=== PATIENT | male | born 1930 | race Caucasian/White ===

== ENCOUNTER 2016-07-27 11:29 | Inpatient (IN) | payer MEDICARE, MEDICAID ==
[~2016-07-27] VITALS: Ht 165.1 cm; Wt 78.5 kg
[~2016-07-27 11:29] MED LIST: ASPI-558 PO; BETH25TA PO; CITA-49 PO; FLUT16SP12 NS; HYDR-2119 PO; HYDR-3989 PO; LOVA20TA PO; METO-277 PO; TAMS0.4C47 PO
--- OUTSIDE RECORDS SUMMARY | 2016-07-27 11:32 | XMS REPORT | Referral Summary ---
Author Author [facility] Organization [facility] Address Unknown Phone Unavailable Care Team Providers Care Machine Hand Name Role Phone Oksana Galeano Primary Care Physician [phone] Encounter VC Date(s): 11/21/15 - 11/21/15 [facility] [address] [place] [id number] Discharge Disposition: 01-Home or Self Care Attending Physician: Oscar Galeano MD Admitting Physician: Oscar Galeano MD Vital Signs Most recent to 1 oldest [Reference Range]: Blood Pressure 110/70 mmHg [90-140/60-90 mmHg] (11/21/15 2:17 PM) Problem List Condition Effective Dates Status Health Status Informant Allergies(Confirmed) Active Benign essential Resolved HTN(Confirmed) Chronic kidney Active disease (CKD)(Confirmed) Chronic Active UTI(Confirmed) Constipation(Confirm Active ed) Depression(Confirmed Active ) Dysphagia(Confirmed) Resolved Fatigue(Confirmed) Active H/O post-polio Active syndrome(Confirmed) Hearing Active loss(Confirmed) Hyperlipidemia(Confi Resolved rmed) Hyperlipidemia(Confi Active rmed) Elevated blood Active sugar(Confirmed) Ear Resolved infection(Confirmed) Irritable bowel Active syndrome(Confirmed) Late effects of Active polio(Confirmed) Neurogenic Resolved bladder(Confirmed) Osteoarthritis(Confi Resolved rmed) Post polio Resolved syndrome(Confirmed) Rhinitis(Confirmed) Active Tonsillectomy(Confir Resolved med) Diabetes mellitus Active type 2(Confirmed) Ulcer(Confirmed) Active Chickenpox(Confirmed Active ) Wheelchair Active dependence(Confirmed ) Allergies, Adverse Reactions, Alerts Substance Reaction Severity Status doxycycline vomiting Active Medications Aspir 81 81 mg, Oral, Daily, 0 Refill(s) Start Date: 12/04/13 Status: Ordered bethanechol 25 mg oral tablet 25 mg 1 tabs, Oral, TID, # 90 tabs, 5 Refill(s), Pharmacy: [facility] # [id number], 1 tabs Oral TID Start Date: 08/10/15 Status: Ordered citalopram 20 mg oral tablet See Instructions, TAKE ONE TABLET BY MOUTH EVERY DAY, # 90 tabs, eRx: [facility] #[id number], TAKE ONE TABLET BY MOUTH EVERY DAY Start Date: 11/16/15 Status: Ordered Flonase 50 mcg/inh nasal spray See Instructions, INHALE 2 SPRAYS INTO EACH NOSTRIL DAILY, # 16 unknown unit, 1 Refill(s), eRx: [facility] #[id number], INHALE 2 SPRAYS INTO EACH NOSTRIL DAILY Start Date: 06/09/15 Status: Ordered Glucometer strips (DME) DME Item use to test blood sugars daily, See Instructions, # 1 Each, 0 Refill(s) , Supply Start Date: 12/04/13 Status: Ordered hydrALAZINE 25 mg oral tablet See Instructions, TAKE TWO TABLETS BY MOUTH TWICE A DAY, # 360 tabs, eRx: [facility] #[id number], TAKE TWO TABLETS BY MOUTH TWICE A DAY Start Date: 09/15/15 Status: Ordered lactulose 10 g/15 mL oral syrup See Instructions, TAKE 15 ML BY MOUTH TWO TIMES A DAY, # 946 unknown unit, eRx: [facility] #[id number], TAKE 15 ML BY MOUTH TWO TIMES A DAY Start Date: 03/19/14 Status: Ordered lovastatin 20 mg oral tablet See Instructions, TAKE ONE TABLET BY MOUTH EVERY DAY, # 90 tabs, eRx: [facility] #[id number], TAKE ONE TABLET BY MOUTH EVERY DAY Start Date: 09/20/15 Status: Ordered Metoprolol Succinate ER 50 mg oral tablet, extended release See Instructions, TAKE ONE TABLET BY MOUTH TWICE A DAY, # 180 tabs, eRx: [facility] #[id number], TAKE ONE TABLET BY MOUTH TWICE A DAY Start Date: 10/07/15 Status: Ordered mupirocin 2% topical ointment See Instructions, APPLY A SMALL AMOUNT TO THE AFFECTED AREA BY TOPICAL ROUTE TWO TIMES A DAY, # 22 unknown unit, eRx: [facility] #[id number], APPLY A SMALL AMOUNT TO THE AFFECTED AREA BY TOPICAL ROUTE TWO TIMES A DAY Start Date: 04/05/15 Status: Ordered Neurontin 100 mg oral capsule See Instructions, 2 caps Oral in the morning and 3 at hs, 0 Refill(s) Start Date: 12/04/13 Status: Ordered [place] 5 mg-325 mg oral tablet 1-2 tabs, Oral, q8hr, as needed for pain, # 60 tabs, 0 Refill(s) Start Date: 11/21/15 Status: Ordered ONE TOUCH ULTRA TEST STRIPS See Instructions, TEST BLOOD SUGARS DAILY AND NEEDED, # 50 strip, 2 Refill(s) , eRx: [facility] #[id number], TEST BLOOD SUGARS DAILY AND NEEDED Start Date: 03/29/14 Status: Ordered ONETOUCH ULTRA TEST STRIPS See Instructions, TEST BLOOD SUGARS DAILY AND NEEDED, # 50 strip, 1 Refill(s) , eRx: [facility] #[id number], TEST BLOOD SUGARS DAILY AND NEEDED Start Date: 05/27/15 Status: Ordered Physical therapy Physical therapy, See Instructions, eval and treat as indicated for shoulder pain, # 1 Each, 0 Refill(s) Start Date: 09/19/15 Status: Ordered Power W/C Evaluation Power W/C Evaluation, See Instructions, Please eval for power w/c., # 1 Each, 0 Refill(s) Start Date: 12/03/14 Status: Ordered tamsulosin 0.4 mg oral capsule See Instructions, TAKE ONE CAPSULE BY MOUTH EVERY DAY, # 90 caps, eRx: [facility] #[id number], TAKE ONE CAPSULE BY MOUTH EVERY DAY Start Date: 11/16/15 Status: Ordered Results No data available for this section Immunizations Vaccine Date Refusal Reason influenza virus vaccine, inactivated 03/14/15 influenza virus vaccine, inactivated 02/15/14 influenza virus vaccine, live 02/09/13 influenza virus vaccine, live 01/28/12 pneumococcal 23-polyvalent vaccine 08/01/00 zoster vaccine live 12/15/12 Procedures Procedure Date Related Diagnosis Body Site Destruction (eg, laser surgery, 11/21/15 electrosurgery, cryosurgery, chemosurgery, surgical curettement), premalignant lesions (eg, actinic keratoses); first lesion Cystoscopy using panendoscope1 06/25/14 Calibration of urethra 06/29/13 Cystoscopy 06/29/13 Dilatation of urethra 06/29/13 Cystoscopy 10/03/11 Dilatation of urethra - filiform and 10/03/11 follower2 Dilatation of urethra - filiform and 02/02/11 follower3 Colonoscopy 11/27/04 Polypectomy - sinus Tonsillectomy 1Urethral calibration and dilatation. Insertion of #18 [place] catheter. 2Tight bulbous urethra 3Bulbous urethral stricture Social History Social History Type Response Smoking Status Never smoker Assessment and Plan Extracted from: Title: Ambulatory Patient Education Author: Oscar Galeano MD Date: Family Medicine Cholesterol Cholesterol is a white, waxy, fat-like substance needed by your body in small amounts. The liver makes all the cholesterol you need. Cholesterol is carried from the liver by the blood through the blood vessels. Deposits of cholesterol ( plaque) may build up on blood vessel bryant. These make the arteries narrower and stiffer. Cholesterol plaques increase the risk for heart attack and stroke. You cannot feel your cholesterol level even if it is very high. The only way to know it is high is with a blood test. Once you know your cholesterol levels, you should keep a record of the test results. Work with your health care provider to keep your levels in the desired range. WHAT DO THE RESULTS MEAN? Total cholesterol is a rough measure of all the cholesterol in your blood. LDL is the so-called bad cholesterol. This is the type that deposits cholesterol in the bryant of the arteries. You want this level to be low. HDL is the good cholesterol because it cleans the arteries and carries the LDL away. You want this level to be high. Triglycerides are fat that the body can either burn for energy or store. High levels are closely linked to heart disease. WHAT ARE THE DESIRED LEVELS OF CHOLESTEROL? Total cholesterol below 200. LDL below 100 for people at risk, below 70 for those at very high risk. HDL above 50 is good, above 60 is best. Triglycerides below 150. HOW CAN I LOWER MY CHOLESTEROL? Diet. Follow your diet programs as directed by your health care provider. Choose fish or white meat chicken and turkey, roasted or baked. Limit fatty cuts of red meat, fried foods, and processed meats, such as sausage and lunch meats. Eat lots of fresh fruits and vegetables. Choose whole grains, beans, pasta, potatoes, and cereals. Use only small amounts of olive, corn, or canola oils. Avoid butter, mayonnaise, shortening, or palm kernel oils. Avoid foods with trans fats. Drink skim or nonfat milk and eat low-fat or nonfat yogurt and cheeses. Avoid whole milk, cream, ice cream, egg yolks, and full-fat cheeses. Healthy desserts include tonny food cake, manuel snaps, animal crackers, hard candy, popsicles, and low-fat or nonfat frozen yogurt. Avoid pastries, cakes, pies, and cookies. Exercise. Follow your exercise programs as directed by your health care provider. A regular program helps decrease LDL and raise HDL. A regular program helps with weight control. Do things that increase your activity level like gardening, walking, or taking the stairs. Ask your health care provider about how you can be more active in your daily life. Medicine. Take medicine only as directed by your health care provider. Medicine may be prescribed by your health care provider to help lower cholesterol and decrease the risk for heart disease. If you have several risk factors, you may need medicine even if your levels are normal. This information is not intended to replace advice given to you by your health care provider. Make sure you discuss any questions you have with your health care provider. Document Released: 01/15/2002 Document Revised: 05/13/2015 Document Reviewed: [employer] Patient Information 2016 [employer]. No follow up information was provided. Extracted from: Title: Office Visit Note Author: Oscar Galeano MD Date: 11/21/15 Assessment/Plan Benign essential HTN This issue was reviewed, appears stable, and current therapy continued except as mentioned. Appropriate lab was reviewed from the most recent appropriate entry and lab was ordered if needed in the cpoe/nursing orders, and follow up recommended generally in 90 days and no later then six months. The patient reports their blood pressure has been stable at home and is not having any significant or related problems. There has been no chest pain, chest pressure, soa/garibay. Chronic kidney disease (CKD) This issue was reviewed, appears stable, and current therapy continued except as mentioned. Appropriate lab was reviewed from the most recent appropriate entry and lab was ordered if needed in the cpoe /nursing orders, and follow up recommended generally in 90 days and no later then six months. Chronic UTI This issue was reviewed, appears stable, and current therapy continued except as mentioned. Appropriate lab was reviewed from the most recent appropriate entry and lab was ordered if needed in the cpoe/nursing orders, and follow up recommended generally in 90 days and no later then six months. Seeing [address] PEREZ. Diabetes mellitus type 2 The patient was notified for the need for regular quarterly f/u of their diabetes. Further any pertinent medication, supplies, etc were refilled. Additionally, they are to have annual eye exams, foot exams, and regular care. CLAIRE Wood here. 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 Appropriate lab was reviewed from the most recent appropriate entry and lab was ordered if needed in the cpoe/nursing orders, and follow up recommended generally in 90 days and no later then six months. The patient has been temporarily or permanently wheelchair bound due to medical issues. Hyperlipidemia This issue was reviewed, appears stable, and current therapy continued except as mentioned. Appropriate lab was reviewed from the most recent appropriate entry and lab was ordered if needed in the cpoe/nursing orders, and follow up recommended generally in 90 days and no later then six months. Lab stable. Neurogenic bladder This issue was reviewed, appears stable, and current therapy continued except as mentioned. Appropriate lab was reviewed from the most recent appropriate entry and lab was ordered if needed in the cpoe/nursing orders, and follow up recommended generally in 90 days and no later then six months. [address] PEREZ. Home Health papers completed. Pyogenic granuloma Silver nitrateused to treat this. Routine wound care. The patient has family members present who are agreeable with today's plan and have no additional concerns or requests. CLAIRE here and agreeable.Considering the [facility] program with Dr. AYALA. Wheelchair dependence This issue was reviewed, appears stable, and current therapy continued except as mentioned. Appropriate lab was reviewed from the most recent appropriate entry and lab was ordered if needed in the cpoe/nursing orders, and follow up recommended generally in 90 days and no later then six months. Orders: HYDROcodone-acetaminophen, 1-2 tabs, Oral, q8hr, as needed for pain, # 60 tabs, 0 Refill(s)
--- OUTSIDE RECORDS SUMMARY | 2016-07-27 11:33 | XMS REPORT | Referral Summary ---
Author Organization Unknown Address Unknown Phone Unavailable Care Team Providers Care Casino Enforcement Agent Name Role Phone Oksana Galeano Primary Care Physician [phone] Encounter VC Date(s): 06/17/14 - 06/17/14 [facility], Urology [address] [place] [address] Dr Smith [place] [id number] [place] Discharge Diagnosis: HEMATURIA Discharge Disposition: Home or Self Care Attending Physician: Rafael Aguirre JR, MD Admitting Physician: Rafael Aguirre JR, MD Referring Physician: Oscar Galeano MD Vital Signs Most recent to 1 oldest [Reference Range]: Peripheral Pulse 46 bpm Rate [60-100 bpm] *LOW* (06/17/14 2:23 PM) Blood Pressure 140/70 mmHg [90-140/60-90 mmHg] (06/17/14 2:23 PM) Most recent to 1 oldest [Reference Range]: SpO2 93 % (06/17/14 2:23 PM) Problem List Condition Effective Dates Status Health Status Informant Allergies(Confirmed) Active Benign essential Resolved HTN(Confirmed) Chronic kidney Active disease (CKD)(Confirmed) Constipation(Confirm Active ed) Depression(Confirmed Active ) Dysphagia(Confirmed) Resolved Fatigue(Confirmed) Active Hearing Active loss(Confirmed) Hyperlipidemia(Confi Resolved rmed) Ear Resolved infection(Confirmed) Irritable bowel Active syndrome(Confirmed) Late effects of Active polio(Confirmed) Neurogenic Resolved bladder(Confirmed) Osteoarthritis(Confi Resolved rmed) Post polio Resolved syndrome(Confirmed) Rhinitis(Confirmed) Active Tonsillectomy(Confir Resolved med) Diabetes mellitus Active type 2(Confirmed) Ulcer(Confirmed) Active Chickenpox(Confirmed Active ) Allergies, Adverse Reactions, Alerts Substance Reaction Severity Status doxycycline vomiting Active Medications Aspir 81 81 mg, Oral, Daily, 0 Refill(s) Start Date: 12/04/13 Status: Ordered bethanechol 25 mg oral tablet See Instructions, TAKE ONE TABLET BY MOUTH THREE TIMES A DAY, # 90 tabs, eRx: [facility] #[id number], TAKE ONE TABLET BY MOUTH THREE TIMES A DAY Special Instructions: TAKE ONE TABLET BY MOUTH THREE TIMES A DAY Start Date: 05/07/14 Status: Ordered CeleXA 20 mg oral tablet See Instructions, TAKE ONE TABLET BY MOUTH EVERY DAY, # 90 tabs, eRx: [facility] #[id number], TAKE ONE TABLET BY MOUTH EVERY DAY Special Instructions: TAKE ONE TABLET BY MOUTH EVERY DAY Start Date: 11/27/13 Status: Ordered Cipro 500 mg oral tablet 1 tabs, Oral, q12hr, X 10 days, # 20 tabs, 0 Refill(s), Pharmacy: [facility] #[id number], 1 tabs Oral q12hr,x10 days Start Date: 06/17/14 Stop Date: 06/27/14 Status: Ordered Flomax 0.4 mg oral capsule See Instructions, TAKE ONE CAPSULE BY MOUTH EVERY DAY, # 90 caps, 1 Refill(s), eRx: [facility] #[id number], TAKE ONE CAPSULE BY MOUTH EVERY DAY Special Instructions: TAKE ONE CAPSULE BY MOUTH EVERY DAY Start Date: 05/07/14 Status: Ordered Flonase 50 mcg/inh nasal spray See Instructions, INHALE 2 SPRAYS INTO EACH NOSTRIL DAILY, # 16 unknown unit, 1 Refill(s), eRx: [facility] #[id number], INHALE 2 SPRAYS INTO EACH NOSTRIL DAILY Special Instructions: INHALE 2 SPRAYS INTO EACH NOSTRIL DAILY Start Date: 11/05/13 Status: Ordered Glucometer strips (DME) DME Item use to test blood sugars daily, See Instructions, # 1 Each, 0 Refill(s) , Supply Special Instructions: use to test blood sugars daily Start Date: 12/04/13 Status: Ordered hydrALAZINE 25 mg oral tablet See Instructions, TAKE TWO TABLETS BY MOUTH TWICE A DAY, # 360 tabs, eRx: [facility] #[id number], TAKE TWO TABLETS BY MOUTH TWICE A DAY Special Instructions: TAKE TWO TABLETS BY MOUTH TWICE A DAY Start Date: 06/04/14 Status: Ordered lactulose 10 g/15 mL oral syrup See Instructions, TAKE 15 ML BY MOUTH TWO TIMES A DAY, # 946 unknown unit, eRx: [facility] #[id number], TAKE 15 ML BY MOUTH TWO TIMES A DAY Special Instructions: TAKE 15 ML BY MOUTH TWO TIMES A DAY Start Date: 03/19/14 Status: Ordered lovastatin 20 mg oral tablet See Instructions, TAKE ONE TABLET BY MOUTH EVERY DAY, # 90 tabs, 2 Refill(s), eRx: [facility] #[id number], TAKE ONE TABLET BY MOUTH EVERY DAY Special Instructions: TAKE ONE TABLET BY MOUTH EVERY DAY Start Date: 12/11/13 Status: Ordered mupirocin 2% topical ointment See Instructions, APPLY A SMALL AMOUNT TO THE AFFECTED AREA BY TOPICAL ROUTE TWO TIMES A DAY, # 22 unknown unit, eRx: [facility] #[id number], APPLY A SMALL AMOUNT TO THE AFFECTED AREA BY TOPICAL ROUTE TWO TIMES A DAY Special Instructions: APPLY A SMALL AMOUNT TO THE AFFECTED AREA BY TOPICAL ROUTE TWO TIMES A DAY Start Date: 05/07/14 Status: Ordered Neurontin 100 mg oral capsule See Instructions, 2 caps Oral in the morning and 3 at hs, 0 Refill(s) Special Instructions: 2 caps Oral in the morning and 3 at hs Start Date: 12/04/13 Status: Ordered [place] 5 mg-325 mg oral tablet 1-2 tabs, Oral, q8hr, as needed for pain, Epifanio MURPHY, # 60 tabs, 0 Refill(s) Special Instructions: Epifanio MURPHY Start Date: 06/14/14 Status: Ordered ONE TOUCH ULTRA TEST STRIPS See Instructions, TEST BLOOD SUGARS DAILY AND NEEDED, # 50 strip, 2 Refill(s) , eRx: [facility] #[id number], TEST BLOOD SUGARS DAILY AND NEEDED Special Instructions: TEST BLOOD SUGARS DAILY AND NEEDED Start Date: 03/29/14 Status: Ordered Toprol-XL 50 mg oral tablet, extended release See Instructions, TAKE ONE TABLET BY MOUTH TWICE A DAY, # 180 tabs, eRx: [facility] #[id number], TAKE ONE TABLET BY MOUTH TWICE A DAY Special Instructions: TAKE ONE TABLET BY MOUTH TWICE A DAY Start Date: 02/05/14 Status: Ordered Results No data available for this section Immunizations Vaccine Date Refusal Reason influenza virus vaccine, inactivated 02/15/14 influenza virus vaccine, live 02/09/13 influenza virus vaccine, live 01/28/12 pneumococcal 23-polyvalent vaccine 08/01/00 zoster vaccine live 12/15/12 Procedures Procedure Date Related Diagnosis Body Site Calibration of urethra 06/29/13 Cystoscopy 06/29/13 Dilatation of urethra 06/29/13 Cystoscopy 10/03/11 Dilatation of urethra - filiform and 10/03/11 follower1 Dilatation of urethra - filiform and 02/02/11 follower2 Colonoscopy 11/27/04 Polypectomy - sinus Tonsillectomy 1Tight bulbous urethra 2Bulbous urethral stricture Social History Social History Type Response Smoking Status Never smoker Assessment and Plan Extracted from: Title: Ambulatory Patient Education Author: Rafael Aguirre JR, MD Date : 06/17/14 Follow Up With: Where: When: Oscar Galeano [address] [place] [address] Drive; [place] [address] Business (1) Within 3 to 5 days Comments: Follow Up With: Where: When: Rafael Aguirre [address] [place] [address] Drive; [place] [address] Business (1) In 2 weeks 07/01/2014 Comments:
--- OUTSIDE RECORDS SUMMARY | 2016-07-27 11:33 | XMS REPORT | Continuity of Care Document ---
Author Author Luis [facility] LIVE Organization [facility] LIVE Address Unknown Phone Unavailable Support Name Relationship Address Phone KARI FLOWERS MD Caregiver [address] [place] [address] [place] [address] [phone] MEGAN ALVES MD Caregiver [address] [place] [address] [place] [address] [phone] MINDY FRANCO & MATT Next Of Kin [address] [place] [address] Insurance Providers Payer Name Policy Number Subscriber Name Relationship Medicareadvantra Ppo [id number] Raina Franco 16 Self [employer] [place] [employer] [id number] Raina Franco 16 Self Advance Directives Directive Response Recorded Date/Time Resuscitation Documents on File UNSURE 07/13/14 3:09pm Problems Medical Problems Problem Onset Date Status Urinary Tract Infection not otherwise specified Unknown Active urinary retention Unknown Active Skin breakdown Unknown Active Scrotal ulcer Unknown Active Diarrhea Unknown Active UTI (urinary tract infection) Unknown Active Hypertension Unknown Active BPH (benign prostatic hyperplasia) Unknown Active Diet-controlled type 2 diabetes mellitus Unknown Active Post-polio syndrome Unknown Active Medications Medication Dose Route Sig Days/Qty Instructions Order Date Discontinued Date Status Hydralazine Hcl 25 Mg PO TWICE A DAY 02/02/11 Active Lovastatin 20 Mg PO DAILY 02/02/11 02/22/11 Discontinued Metoprolol Tartrate 50 Mg PO TWICE A DAY 02/02/11 12/29/13 Discontinued Ascorbic Acid 500 Mg PO DAILY 02/02/11 10/02/11 Discontinued Aspirin 81 Mg PO DAILY 02/02/11 02/22/11 Discontinued Sulfamethoxazole/Trimethoprim 1 Tab PO TWICE A DAY 02/22/11 Discontinued Lovastatin 20 Mg PO DAILY 02/22/11 Active Hydrocodone Bit/Acetaminophen 1 Tab PO THREE TIMES A DAY 02/22/11 Discontinued Aspirin 325 Mg PO DAILY 02/22/11 10/02/11 Discontinued Cephalexin Monohydrate 500 Mg PO BEDTIME 40 Qty 06/26/13 12/29/13 Discontinued Citalopram Hydrobromide 20 Mg PO DAILY 06/26/13 Active Fluticasone Propionate 2 [place] NS DAILY 06/26/13 Active Aspirin 81 Mg PO DAILY 06/26/13 Active Lactulose 10 Gm PO TWICE A DAY 06/26/13 12/29/13 Discontinued Gabapentin 100 Mg PO TWICE A DAY 200 MG IN AM 06/26/13 12/29/13 Discontinued Metoprolol Succinate 50 Mg PO TWICE A DAY 12/29/13 Active Bethanechol Chloride 25 Mg PO THREE TIMES A DAY 12/29/13 Active Tamsulosin HCl 0.4 Mg PO BEDTIME 12/29/13 Active Social History Social History Problem Response Recorded Date/Time Chewing Tobacco Status Y 25 yrs ago 06/29/2013 9:56am Hx Substance Use No 06/25/2014 8:18am Hx Alcohol Use No 06/25/2014 8:18am Has the pt used tobacco in the last 12 months No 07/13/2014 3:15pm Tobacco Usage none 12/29/2013 9:07am Query Response Start Date Stop Date Smoking Status Never smoker Hospital Discharge Instructions No hospital discharge instructions. Plan of Care No plan of care. Functional Status Query Response Date Recorded Physical Hygiene Assist December 30, 2013 2:49pm Physical Hygiene Assist December 30, 2013 2:49pm Allergies, Adverse Reactions, Alerts Allergen Type Severity Reaction Status Last Updated Doxycycline Adverse Reaction Unknown VOMITING Active 07/13/14 Immunizations Name Given Type Hx Influenza Vaccination Y Mar 2014 Historical Hx Pneumococcal Vaccination Y WITHIN PAST 10 YEARS Historical Hx Influenza Vaccination Y Mar 2014 Historical Vital Signs Acute Vital Signs Vital Response Date/Time Temperature (Fahrenheit) 97.0 deg F (96.8 - 99.1) Temperature (Calculated Celsius) 36.09972 degrees C (36.0 - 37.3) Pulse Rate (adult) 58 bpm (60 - 100) Respiratory Rate 18 breaths/min (10 - 20) O2 Sat by Pulse Oximetry 96 % (90 - 100) Oxygen Delivery Method Room Air Blood Pressure 158/72 mm Hg Blood Pressure Source Automatic Cuff Height 5 ft 3 in Weight 176 lb Body Mass Index 31.0 kg/m^2 Results Test Source Date Result Interp. Ref. Range Comments Alanine Aminotransferase (ALT/SGPT) June 25, 2014 8:09am 25 U/L N 21 -72 Albumin June 25, 2014 8:09am 3.8 G/DL N 3.5-5.0 Albumin/Globulin Ratio June 25, 2014 8:09am 1.1 RATIO N 1.1-2.2 Alkaline Phosphatase June 25, 2014 8:09am 68 U/L N 38-126 Anion Gap June 25, 2014 8:09am 9 MEQ/L N 5-15 Aspartate Amino Transf (AST/SGOT) June 25, 2014 8:09am 24 U/L N 17- 59 BUN/Creatinine Ratio June 25, 2014 8:09am 20 RATIO N 6-26 Basophils # (Auto) June 25, 2014 8:09am 0.0 T/MM3 N 0-0.2 COMMENT SCU WILL CALL Basophils # (Manual) December 30, 2013 4:20am 0.1 T/MM3 N 0-0.2 Basophils % (Manual) December 30, 2013 4:20am 1.0 % N 0-2 Basophils (%) (Auto) June 25, 2014 8:09am 0.3 % N 0-2 COMMENT SCU WILL CALL Blood Urea Nitrogen June 25, 2014 8:09am 16.0 MG/DL N 9-20 Calcium Level June 25, 2014 8:09am 9.1 MG/DL N 8.4-10.2 Calculated Osmolality June 25, 2014 8:09am 266 MOSM/KG N 261-280 Carbon Dioxide Level June 25, 2014 8:09am 29 MEQ/L N 22-30 Chemistry Specimen Hemolysis June 25, 2014 8:09am < 15 0-25 0-25 : No Hemolysis.26-70: Slight Hemolysis - can falsely elevate K and Urine Protein. 71-285: Moderate Hemolysis - can falsely elevate K, Troponin I, CA 19-9, PTH, CSF GLucose, and Urine Protein, and can falsely decrease Phenytoin. 286-999: Gross Hemolysis - can falsely elevate K, Troponin I, CA 19-9, PTH, CSF Glucose, and Urine Protine, and can falsely decrease Phenytoin. Recommend specimen recollection. Chloride Level June 25, 2014 8:09am 100 MEQ/L N 98-107 Creatinine July 14, 2014 3:27pm 0.7 MG/DL L 0.8-1.5 Eosinophils # (Auto) June 25, 2014 8:09am 0.5 T/MM3 N 0-0.5 COMMENT SCU WILL CALL Eosinophils # (Manual) December 30, 2013 4:20am 0.4 T/MM3 N 0-0.5 Eosinophils % (Manual) December 30, 2013 4:20am 4.0 % N 0-4 Eosinophils (%) (Auto) June 25, 2014 8:09am 4.4 % H 0-4 COMMENT SCU WILL CALL Globulin June 25, 2014 8:09am 3.5 G/DL N 2.4-3.6 Glomerular Filtration Rate Calc July 14, 2014 3:27pm 107 - Glucometer February 23, 2011 12:30pm 82 mg/dL N 75-110 Glucose Level June 25, 2014 8:09am 89 MG/DL N 75-110 Hematocrit June 25, 2014 8:09am 36.9 % L 41-53 COMMENT SCU WILL CALL Hemoglobin June 25, 2014 8:09am 12.2 GM/DL L 13.5-17.5 COMMENT SCU WILL CALL Icterus Index June 25, 2014 8:09am < 2 0-7 Immature Granulocyte # (Auto) June 25, 2014 8:09am 0.03 T/MM3 N 0.00 -0.03 COMMENT SCU WILL CALL Immature Granulocyte % (Auto) June 25, 2014 8:09am 0.3 % N 0.0-0.5 COMMENT SCU WILL CALL Lipase June 16, 2013 8:32am 35 U/L N 23-300 Lymphocytes # (Auto) June 25, 2014 8:09am 1.5 T/MM3 N 1-4.8 COMMENT SCU WILL CALL Lymphocytes # (Manual) December 30, 2013 4:20am 3.3 T/MM3 N 1-4.8 Lymphocytes % (Manual) December 30, 2013 4:20am 35.0 % N 23-45 Lymphocytes (%) (Auto) June 25, 2014 8:09am 13.2 % L 23-45 COMMENT SCU WILL CALL Mean Corpuscular Hemoglobin June 25, 2014 8:09am 30.4 UUG N 26-34 COMMENT SCU WILL CALL Mean Corpuscular Hemoglobin Concent June 25, 2014 8:09am 33.1 GM/DL N 31-37 COMMENT SCU WILL CALL Mean Corpuscular Volume June 25, 2014 8:09am 92.0 UM3 N 80-100 COMMENT SCU WILL CALL Mean Platelet Volume June 25, 2014 8:09am 10.0 UM3 N 9.4-12.4 COMMENT SCU WILL CALL Metamyelocytes # December 30, 2013 4:20am 0.1 T/MM3 - Metamyelocytes % December 30, 2013 4:20am 1.0 % H 0-0 Monocytes # (Auto) June 25, 2014 8:09am 1.1 T/MM3 H 0-0.8 COMMENT SCU WILL CALL Monocytes # (Manual) December 30, 2013 4:20am 0.9 T/MM3 H 0-0.8 Monocytes % (Manual) December 30, 2013 4:20am 10.0 % H 0-9.0 Monocytes (%) (Auto) June 25, 2014 8:09am 9.7 % H 0-9.0 COMMENT SCU WILL CALL Neutrophils # (Auto) June 25, 2014 8:09am 8.3 T/MM3 H 1.8-7.7 COMMENT SCU WILL CALL Neutrophils # (Manual) December 30, 2013 4:20am 4.6 T/MM3 N 1.8-7.7 Neutrophils % (Manual) December 30, 2013 4:20am 49.0 % N 33-66 Neutrophils (%) (Auto) June 25, 2014 8:09am 72.1 % H 33-66 COMMENT SCU WILL CALL Platelet Count June 25, 2014 8:09am 183 T/MM3 N 130-400 COMMENT SCU WILL CALL Potassium Level June 25, 2014 8:09am 4.6 MEQ/L N 3.6-5 Prealbumin December 29, 2013 2:35am 19.8 MG/DL N 17.6-36.0 COMMENT blood in lab Procalcitonin December 29, 2013 2:35am < 0.05 NG/ML - PCT </=0.5 ng/mL - sepsis not likely;PCT >0.5 and </=2 ng/mL - sepsis possible; PCT >2 ng/mL - sepsis likely; PCT >/=10 ng/mL - systemic inflammatory response - sepsis or septic shock highly indicated. RDW Standard Deviation June 25, 2014 8:09am 44.4 FL N 36.9-50.2 COMMENT SCU WILL CALL Red Blood Count June 25, 2014 8:09am 4.01 M/MM3 L 4.50-5.90 COMMENT SCU WILL CALL Sodium Level June 25, 2014 8:09am 138 MEQ/L N 134-144 Thyroid Stimulating Hormone (TSH) December 29, 2013 2:35am 0.65 MIU/L N 0.47-4.68 COMMENT blood in lab Total Bilirubin June 25, 2014 8:09am 0.50 MG/DL N 0.20-1.30 Total Protein June 25, 2014 8:09am 7.3 G/DL N 6.3-8.2 Turbidity June 25, 2014 8:09am < 20 0-20 Urine Bacteria December 29, 2013 2:25am 2+ H - Has specimen been collected/obtained? Y Urine Bilirubin December 29, 2013 2:25am Negative - Has specimen been collected/obtained? Y Urine Blood December 29, 2013 2:25am 3+ H - Has specimen been collected/ obtained? Y Urine Collection Type December 29, 2013 2:25am Cleancatch-midstream - Has specimen been collected/obtained? Y Urine Color December 29, 2013 2:25am Yellow - Has specimen been collected/obtained? Y Urine Culture Indicated December 29, 2013 2:25am Cult reflexed &setup - Has specimen been collected/obtained? Y Urine Glucose (UA) December 29, 2013 2:25am Negative - Has specimen been collected/obtained? Y Urine Ketones December 29, 2013 2:25am Negative - Has specimen been collected/obtained? Y Urine Leukocyte Esterase December 29, 2013 2:25am 1+ H - Has specimen been collected/obtained? Y Urine Nitrite December 29, 2013 2:25am Positive H - Has specimen been collected/obtained? Y Urine Protein December 29, 2013 2:25am Trace H - Has specimen been collected/obtained? Y Urine RBC December 29, 2013 2:25am 30-50 /HPF H - Has specimen been collected/obtained? Y Urine Specific [place] December 29, 2013 2:25am 1.010 L - Has specimen been collected/obtained? Y Urine Squamous Epithelial Cells December 29, 2013 2:25am None seen - Has specimen been collected/obtained? Y Urine Turbidity December 29, 2013 2:25am Sl cloudy - Has specimen been collected/obtained? Y Urine Urobilinogen December 29, 2013 2:25am 0.2 EU/DL - Has specimen been collected/obtained? Y Urine WBC December 29, 2013 2:25am 5-10 /HPF H - Has specimen been collected/obtained? Y Urine pH December 29, 2013 2:25am 8.0 - Has specimen been collected/ obtained? Y Venous Blood Lactate December 29, 2013 2:35am 1.2 MMOL/L N 0.6-2.2 Vitamin B12 Level December 29, 2013 2:35am 333 PG/ML N 239-931 COMMENT blood in lab White Blood Count June 25, 2014 8:09am 11.5 T/MM3 H 4.5-11.0 COMMENT SCU WILL CALL Urine Culture Urine, Straight Cath June 25, 2014 9:30am Escherichia Coli Name: RAINA FRANCO Unit #: [id number] : 1930 Sex: M Loc / Svc: [facility] DOS: 07/13/14 Signed Report #: [id number] DIAGNOSTIC IMAGING REPORT TYPE OF EXAM: PICC LINE INSERTION w FLUORO Dictated By: DEBBI KRAMER MD PICC LINE INSERTION: After discussing the details of the procedure, including risks, the patient wished to proceed. Informed consent was obtained. Sterile technique, local Xylocaine anesthesia, and sonographic guidance was used to access the left basilic vein. A .018 guidewire was advanced into the vein. Then using fluoroscopic guidance, a single lumen 4 Fr PICC line was advanced with the tip placed within the SVC. Internal catheter length is 51 cm. A fluoroscopic image was then taken and archived. I was able to aspirate blood and inject freely through the port. The procedure was completed without complication. Following this, the patient was taken to infusion therapy for his treatment. Impression: Successful left-sided PICC line placement with the tip located at the cavoatrial junction. Debbi Charles RPA/ performed this under my personal supervision. . Procedures Procedure Status Date Provider(s) ROUTINE VENIPUNCTURE completed 06/25/14 CYSTOSCOPY AND TREATMENT completed 06/25/14 MEGAN ALVES MD COMPREHEN METABOLIC PANEL completed 06/25/14 COMPLETE CBC W/AUTO DIFF WBC completed 06/25/14 CULTURE AEROBIC IDENTIFY completed 06/25/14 URINE CULTURE/COLONY COUNT completed 06/25/14 MICROBE SUSCEPTIBLE RUBIO completed 06/25/14 [id number] ITEM OR SERVICE completed 06/25/14 [id number] ITEM OR SERVICE completed 06/25/14 PROPOFOL INJ 500 MG/50ML completed 06/25/14 [id number]"INFUSION, NORMAL SALINE SOLUTION , 1000 CC" completed 06/25/14 INSERT PICC CATH completed 07/13/14 FLUOROGUIDE FOR VEIN DEVICE completed 07/13/14 [id number] WIRE completed 07/13/14 Encounters Encounter Location Date/Time Discharged Recurring [facility] 07/19/14 2:00pm Registered Clinic [facility] 07/13/14 1:39pm
--- OUTSIDE RECORDS SUMMARY | 2016-07-27 11:33 | XMS REPORT | Referral Summary ---
Author Organization Unknown Address Unknown Phone Unavailable Care Team Providers Care Pet Sitter Name Role Phone Oksana Galeano Primary Care Physician [phone] Encounter VC Date(s): 06/17/14 - 06/17/14 [address] BRIAN Baez, Luis, [address] [place] [id number] Discharge Diagnosis: Post polio syndrome Discharge Diagnosis: Hematuria Discharge Diagnosis: Diabetes mellitus type 2 Discharge Diagnosis: Osteoarthritis Discharge Diagnosis: Healing pressure ulcer, stage I Discharge Diagnosis: Depression Discharge Diagnosis: Hematuria Discharge Diagnosis: Chronic kidney disease (CKD) Discharge Diagnosis: Benign essential HTN Discharge Diagnosis: Hyperlipidemia Discharge Disposition: Home or Self Care Attending Physician: Oscar Galeano MD Admitting Physician: Oscar Galeano MD Vital Signs Most recent to 1 oldest [Reference Range]: Blood Pressure 140/70 mmHg [90-140/60-90 mmHg] (06/17/14 1:41 PM) Problem List Condition Effective Dates Status [...] TIMES A DAY, # 90 tabs, eRx: [facility] #[id number], TAKE ONE TABLET BY MOUTH THREE TIMES A DAY Special Instructions: TAKE ONE TABLET BY MOUTH THREE TIMES A DAY Start Date: 05/07/14 Status: Ordered CeleXA 20 mg oral tablet See Instructions, TAKE ONE TABLET BY MOUTH EVERY DAY, # 90 tabs, eRx: [facility] #[id number], TAKE ONE TABLET BY MOUTH EVERY DAY Special Instructions: TAKE ONE TABLET BY MOUTH EVERY DAY Start Date: 11/27/13 Status: Ordered Cipro 500 mg oral tablet 1 tabs, Oral, q12hr, X 10 days, # 20 tabs, 0 Refill(s), Pharmacy: [facility] #[id number], 1 tabs Oral q12hr,x10 days Start Date: 06/17/14 Stop Date: 06/27/14 Status: Ordered Flomax 0.4 mg oral capsule See Instructions, TAKE ONE CAPSULE BY MOUTH EVERY DAY, # 90 caps, 1 Refill(s), eRx: [facility] #[id number], TAKE ONE CAPSULE BY MOUTH EVERY DAY Special Instructions: TAKE ONE CAPSULE BY MOUTH EVERY DAY Start Date: 05/07/14 Status: Ordered Flonase 50 mcg/inh nasal spray See Instructions, INHALE 2 SPRAYS INTO EACH NOSTRIL DAILY, # 16 unknown unit, 1 Refill(s), eRx: [facility] #[id number], INHALE 2 SPRAYS INTO EACH NOSTRIL DAILY [...] TWICE A DAY, # 360 tabs, eRx: [facility] #[id number], TAKE TWO TABLETS BY MOUTH TWICE A DAY Special Instructions: TAKE TWO TABLETS BY MOUTH TWICE A DAY Start Date: 06/04/14 Status: Ordered lactulose 10 g/15 mL oral syrup See Instructions, TAKE 15 ML BY MOUTH TWO TIMES A DAY, # 946 unknown unit, eRx: [facility] #[id number], TAKE 15 ML BY MOUTH TWO TIMES A DAY Special Instructions: TAKE 15 ML BY MOUTH TWO TIMES A DAY Start Date: 03/19/14 Status: Ordered lovastatin 20 mg oral tablet See Instructions, TAKE ONE TABLET BY MOUTH EVERY DAY, # 90 tabs, 2 Refill(s), eRx: [facility] #[id number], TAKE ONE TABLET BY MOUTH EVERY DAY Special Instructions: TAKE ONE TABLET BY MOUTH EVERY DAY Start Date: 12/11/13 Status: Ordered mupirocin 2% topical ointment See Instructions, APPLY A SMALL AMOUNT TO THE AFFECTED AREA BY TOPICAL ROUTE TWO TIMES A DAY, # 22 unknown unit, eRx: [facility] #[id number], APPLY A SMALL AMOUNT TO THE AFFECTED [...] at hs Start Date: 12/04/13 Status: Ordered Pattison 5 mg-325 mg oral tablet 1-2 tabs, Oral, q8hr, as needed for pain, Epifanio MURPHY, # 60 tabs, 0 Refill(s) Special Instructions: Epifanio MURPHY Start Date: 06/14/14 Status: Ordered ONE TOUCH ULTRA TEST STRIPS See Instructions, TEST BLOOD SUGARS DAILY AND NEEDED, # 50 strip, 2 Refill(s) , eRx: [facility] #[id number], TEST BLOOD SUGARS DAILY AND NEEDED Special Instructions: TEST BLOOD SUGARS DAILY AND NEEDED Start Date: 03/29/14 Status: Ordered Toprol-XL 50 mg oral tablet, extended release See Instructions, TAKE ONE TABLET BY MOUTH TWICE A DAY, # 180 tabs, eRx: [facility] #[id number], TAKE ONE TABLET BY MOUTH TWICE A DAY Special Instructions: TAKE ONE TABLET BY MOUTH TWICE A DAY Start Date: 02/05/14 Status: Ordered Results Hematology Most recent to 1 oldest [Reference Range]: WBC [4.8-10.8 K/uL] 10.4 K/uL (06/17/14 3:08 PM) RBC [4.60-6.20 M/uL] 3.83 M/uL *LOW* (06/17/14 3:08 PM) Hgb [14.0-18.0 11.8 gm/dL gm/dL] *LOW* (06/17/14 3:08 PM) Hct [42.0-52.0 %] 35.3 % *LOW* (06/17/14 3:08 PM) MCV [82.0-99.0 fL] 92.2 fL (06/17/14 3:08 PM) MCH [27.0-32.0 pg] 30.8 pg (06/17/14 3:08 PM) MCHC [32.0-36.0 33.4 gm/dL gm/dL] (06/17/14 3:08 PM) RDW [11.5-14.5 %] 13.5 % (06/17/14 3:08 PM) Platelet [150-400 192 K/uL K/uL] (06/17/14 3:08 PM) MPV [8.8-14.8 fL] 10.7 fL (06/17/14 3:08 PM) Immature 0.3 % Granulocytes (06/17/14:08 PM) [0.0-1.0 %] Neutrophils [51-75 67 % %] (06/17/14 3:08 PM) Lymphocytes [20-46 17 % %] *LOW* (06/17/14 3:08 PM) Monocytes [4-11 %] 12 % *HI* (06/17/14 3:08 PM) Eosinophils [0-4 %] 3 % (06/17/14 3:08 PM) Basophils [0-2 %] 0 % (06/17/14 3:08 PM) Neutro Absolute 7.03 THOUS [1.90-7.00 THOUS] *HI* (06/17/14 3:08 PM) Lymph Absolute 1.75 THOUS [0.80-3.30 THOUS] (06/17/14 3:08 PM) [place] Absolute 1.25 THOUS [0.30-1.00 THOUS] *HI* (06/17/14 3:08 PM) Eos Absolute 0.33 THOUS [0.00-0.50 THOUS] (06/17/14 3:08 PM) Baso Absolute 0.04 THOUS [0.00-0.20 THOUS] (06/17/14 3:08 PM) Coagulation Most recent to 1 oldest [Reference Range]: INR [0.8-1.2] 1.0 1 (06/17/14 3:08 PM) 1Result Comment: Normal (no anticoagulant): 0.8 - 1.2 Units Routine Therapeutic Range: 2.0 - 3.0 Units High Risk Therapeutic Range: 2.5 - 3.5 Units Chemistry Most recent to 1 oldest [Reference Range]: Sodium Lvl [135-144 137 mEq/L mEq/L] (06/17/14 3:08 PM) Potassium Lvl 4.3 mEq/L [3.5-5.2 mEq/L] (06/17/14 3:08 PM) Chloride [99-111 104 mEq/L mEq/L] (06/17/14 3:08 PM) CO2 [23-31 mEq/L] 26 mEq/L (06/17/14 3:08 PM) AGAP [3-20] 7 (06/17/14 3:08 PM) BUN [8-26 mg/dL] 20 mg/dL (06/17/14 3:08 PM) Glucose Lvl [70-99 110 mg/dL mg/dL] *HI* (06/17/14 3:08 PM) Creatinine Lvl 0.66 mg/dL [0.72-1.25 mg/dL] *LOW* (06/17/14 3:08 PM) eGFR [>60 mL/min] >60 mL/min 2 (06/17/14 3:08 PM) Calcium Lvl 8.9 mg/dL [8.9-10.5 mg/dL] (06/17/14 3:08 PM) Albumin Lvl [3.4-4.8 3.6 gm/dL gm/dL] (06/17/14 3:08 PM) Total Protein 6.8 gm/dL [6.2-8.1 gm/dL] (06/17/14 3:08 PM) Globulin [1.8-4.0 3.2 gm/dL gm/dL] (06/17/14 3:08 PM) ALT [0-55 unit/L] 17 unit/L (06/17/14 3:08 PM) AST [5-34 unit/L] 22 unit/L (06/17/14 3:08 PM) Alk Phos [40-150 69 unit/L unit/L] (06/17/14 3:08 PM) Bili Total [0.2-1.2 0.3 mg/dL mg/dL] (06/17/14 3:08 PM) 2Result Comment: Multiply eGFR results by 1.21 for race. Immunizations Vaccine Date Refusal Reason influenza virus [...] Patient Education Author: Oscar Galeano MD Date: 04/19 Family Medicine Arterial Hypertension Arterial hypertension (high blood pressure ) is a condition of elevated pressure in your blood vessels. Hypertension over a long period of time is a risk factor for strokes, heart attacks, and heart failure. It is also the leading cause of kidney (renal ) failure. CAUSES In Adults -- Over 90% of all hypertension has no known cause. This is called essential or primary hypertension. In the other 10% of people with hypertension, the increase in blood pressure is caused by another disorder. This is called secondary hypertension . Important causes of secondary hypertension are: Heavy alcohol use. Obstructive sleep apnea. Hyperaldosterosim (Conn's syndrome). Steroid use. Chronic kidney failure. Hyperparathyroidism. Medications. Renal artery stenosis. Pheochromocytoma. [place]'s disease. Coarctation of the aorta. Scleroderma renal crisis. Licorice (in excessive amounts). Drugs (cocaine, methamphetamine). Your caregiver can explain any items above that apply to you. In Children -- Secondary hypertension is more common and should always be considered. -- Few women of childbearing age have high blood pressure. However, up to 10% of them develop hypertension of . Generally, this will not harm the woman. It may be a sign of 3 complications of : preeclampsia, HELLP syndrome, and eclampsia. Follow up and control with medication is necessary. SYMPTOMS This condition normally does not produce any noticeable symptoms. It is usually found during a routine exam. Malignant hypertension is a late problem of high blood pressure. It may have the following symptoms: Headaches. Blurred vision. End-organ damage (this means your kidneys, heart, lungs, and other organs are being damaged). Stressful situations can increase the blood pressure. If a person with normal blood pressure has their blood pressure go up while being seen by their caregiver, this is often termed "white coat hypertension." Its importance is not known. It may be related with eventually developing hypertension or complications of hypertension. Hypertension is often confused with mental tension, stress, and anxiety. DIAGNOSIS The diagnosis is made by 3 separate blood pressure measurements. They are taken at least 1 week apart from each other. If there is organ damage from hypertension, the diagnosis may be made without repeat measurements. Hypertension is usually identified by having blood pressure readings: Above 140/90 mmHg measured in both arms, at 3 separate times, over a couple weeks. Over 130/80 mmHg should be considered a risk factor and may require treatment in patients with diabetes. Blood pressure readings over 120/80 mmHg are called "pre-hypertension" even in non-diabetic patients. To get a true blood pressure measurement, use the following guidelines. Be aware of the factors that can alter blood pressure readings. Take measurements at least 1 hour after caffeine. Take measurements 30 minutes after smoking and without any stress. This is another reason to quit smoking it raises your blood pressure. Use a proper cuff size. Ask your caregiver if you are not sure about your cuff size. Most home blood pressure cuffs are automatic. They will measure systolic and diastolic pressures. The systolic pressure is the pressure reading at the start of sounds. Diastolic pressure is the pressure at which the sounds disappear. If you are elderly, measure pressures in multiple postures. Try sitting, lying or standing. Sit at rest for a minimum of 5 minutes before taking measurements. You should not be on any medications like decongestants. These are found in many cold medications. Record your blood pressure readings and review them with your caregiver. If you have hypertension: Your caregiver may do tests to be sure you do not have secondary hypertension (see "causes" above). Your caregiver may also look for signs of metabolic syndrome. This is also called Syndrome X or Insulin Resistance Syndrome. You may have this syndrome if you have type 2 diabetes, abdominal obesity, and abnormal blood lipids in addition to hypertension. Your caregiver will take your medical and family history and perform a physical exam. Diagnostic tests may include blood tests (for glucose, cholesterol, potassium, and kidney function), a urinalysis, or an EKG. Other tests may also be necessary depending on your condition. PREVENTION There are important lifestyle issues that you can adopt to reduce your chance of developing hypertension: Maintain a normal weight. Limit the amount of salt (sodium ) in your diet. Exercise often. Limit alcohol intake. Get enough potassium in your diet. Discuss specific advice with your caregiver. Follow a DASH diet (dietary approaches to stop hypertension). This diet is rich in fruits, vegetables, and low-fat dairy products, and avoids certain fats. PROGNOSIS Essential hypertension cannot be cured. Lifestyle changes and medical treatment can lower blood pressure and reduce complications. The prognosis of secondary hypertension depends on the underlying cause. Many people whose hypertension is controlled with medicine or lifestyle changes can live a normal, healthy life. RISKS AND COMPLICATIONS While high blood pressure alone is not an illness, it often requires treatment due to its short- and long-term effects on many organs. Hypertension increases your risk for: CVAs or strokes (cerebrovascular accident ). Heart failure due to chronically high blood pressure (hypertensive cardiomyopathy ). Heart attack (myocardial infarction ). Damage to the retina (hypertensive retinopathy ). Kidney failure (hypertensive nephropathy ). Your caregiver can explain list items above that apply to you. Treatment of hypertension can significantly reduce the risk of complications. TREATMENT For overweight patients, weight loss and regular exercise are recommended. Physical fitness lowers blood pressure. Mild hypertension is usually treated with diet and exercise. A diet rich in fruits and vegetables, fat-free dairy products, and foods low in fat and salt (sodium ) can help lower blood pressure. Decreasing salt intake decreases blood pressure in a 1/3 of people. Stop smoking if you are a smoker. The steps above are highly effective in reducing blood pressure. While these actions are easy to suggest, they are difficult to achieve. Most patients with moderate or severe hypertension end up requiring medications to bring their blood pressure down to a normal level. There are several classes of medications for treatment. Blood pressure pills (antihypertensives ) will lower blood pressure by their different actions. Lowering the blood pressure by 10 mmHg may decrease the risk of complications by as much as 25%. The goal of treatment is effective blood pressure control. This will reduce your risk for complications. Your caregiver will help you determine the best treatment for you according to your lifestyle. What is excellent treatment for one person, may not be for you. HOME CARE INSTRUCTIONS Do not smoke. Follow the lifestyle changes outlined in the "Prevention" section. If you are on medications, follow the directions carefully. Blood pressure medications must be taken as prescribed. Skipping doses reduces their benefit. It also puts you at risk for problems. Follow up with your caregiver, as directed. If you are asked to monitor your blood pressure at home, follow the guidelines in the "Diagnosis" section above. SEEK MEDICAL CARE IF: You think you are having medication side effects. You have recurrent headaches or lightheadedness. You have swelling in your ankles. You have trouble with your vision. SEEK IMMEDIATE MEDICAL CARE IF: You have sudden onset of chest pain or pressure, difficulty breathing, or other symptoms of a heart attack. You have a severe headache. You have symptoms of a stroke (such as sudden weakness, difficulty speaking , difficulty walking). MAKE SURE YOU: Understand these instructions. Will watch your condition. Will get help right away if you are not doing well or get worse. Document Released: 04/22/2006 Document Revised: 07/14/2012 Document Reviewed: [employer] Patient Information 2014 [place]. No follow up information was provided. Extracted from: Title: Office Visit Note Author: Oscar Galeano MD Date: 06/17/14 Assessment/Plan Benign essential HTN This issue is stable and appropriate refills, lab, and f/ u have been discussed. The patients custodial orders were completed and returned. Any family present agreed with the current plan. The patient is to f/ u in sixty days or sooner if needed. Any pertinent lab was also ordered. Home Health papers completed. Chronic kidney disease (CKD) The patient's issue is nearly or completely resolved. There is no further issues or testing desired by them at this time. Stable on recent cmp. Depression This issue is stable and appropriate refills, lab, and f/u have been discussed. Diabetes mellitus type 2 This issue is stable and appropriate refills, lab, and f/u have been discussed. The patient was notified for the need for regular quarterly f/u of their diabetes. Further any pertinent medication, supplies, etc were refilled. Additionally, they are to have annual eye exams, foot exams, and regular care. Healing pressure ulcer, stage I This issue is stable and appropriate refills, lab, and f/u have been discussed. Dr. PEREZ to check on exam today. Hematuria UAand lab pending. Consult with Dr. PEREZ pending today also. Given Rocephin 1 Gram IM with cipro 500mg po bid for ten days. The patient has family members present who are agreeable with today's plan and have no additional concerns or requests. Hyperlipidemia This issue is stable and appropriate refills, lab, and f/u have been discussed. Osteoarthritis This issue is stable and appropriate refills, lab, and f/u have been discussed. 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
--- OUTSIDE RECORDS SUMMARY | 2016-07-27 11:33 | XMS REPORT | Continuity of Care Document ---
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 Osteoarthitis, generalized - *Chronic Other malaise and fatigue - *Chronic Hypertension, Benign - *Chronic Constipation, unspecified - *Chronic Depression - *Chronic 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, unspecified - *Chronic Hypospadias - *Chronic Urinary incontinence, unspecified - *Chronic Cellulitis, face - *Acute Hypertension, benign - *Chronic Hyperlipidemia, NOS - *Chronic Abnormal glucose - *Chronic Osteoarthitis, generalized - *Chronic 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 Diseases of lips - *Chronic Glossodynia - *Chronic Hypertension, Benign - *Chronic Hypertension, benign - *Chronic Hyperlipidemia, NOS - *Chronic Osteoarthitis, generalized - *Chronic 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 Other and unspecified hyperlipidemia - *Chronic OTHER ABNORMAL GLUCOSE - *Chronic Constipation, unspecified - *Chronic Urinary frequency - *Chronic Other abnormal blood chemistry - *Chronic Neurogenic bladder nos - *Chronic BPH / Urinary Obstruction - *Chronic Retention of urine, unspecified - *Acute Urethral stricture, unspecified - Recurrent Hypospadias - *Chronic Hypertension, benign - *Chronic Pain in limb - *Resolved Constipation - *Chronic Allergic rhinitis - *Chronic 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 Pain in limb - *Resolved Hypertension, benign - *Chronic Hyperlipidemia, NOS - *Chronic Abnormal glucose - *Chronic Obesity (BMI 30-38) - *Chronic Osteoarthitis, generalized - *Chronic Benign prostatic hypertrophy - *Chronic 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 Other and unspecified hyperlipidemia - *Chronic NEED FOR PROPHYLACTIC VACCINATION AND INOCULATION, OTHER VIRAL DISEASES - DYSPHAGIA NOS - *Chronic Chronic rhinitis - *Chronic Personal history of other malignant neoplasm of skin - *Stable Influenza Vaccine - Hypertension, benign - *Controlled Hyperlipidemia, NOS - *Chronic Urinary frequency - *Chronic Pain in limb - *Controlled Impacted cerumen - *Acute Other and unspecified hyperlipidemia - *Chronic Abdominal Pain - *Resolved Lumbago - *Resolved Hypertension, Benign - *Chronic Other and unspecified hyperlipidemia - *Chronic OTHER ABNORMAL GLUCOSE - *Chronic 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 Dysuria - *Acute Osteoarthrosis, generalized, involving unspecified site - * Controlled Hypertension, benign - *Chronic Hyperlipidemia, NOS - *Chronic 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 Other and unspecified hyperlipidemia - *Chronic BPH - *Chronic OTHER ABNORMAL GLUCOSE - *Chronic Retention of urine, unspecified - *Chronic Neurogenic bladder nos - *Chronic Urethral stricture, unspecified - *Chronic Abdominal pain, unspecified - *Resolved Hypertension, benign - *Chronic Abnormal glucose - *Chronic Hyperlipidemia, NOS - *Chronic 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 Osteoarthitis, generalized - *Chronic Constipation - *Chronic Neurogenic bladder, NOS - *Chronic Hypertension, Benign - *Chronic Hypertension, Benign - *Chronic Diabetes Mellitus Type 2, Uncomplicated - *Controlled 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 Osteoarthrosis, generalized, involving unspecified site - * Chronic Lumbago - *Acute Other and unspecified hyperlipidemia - *Chronic BPH - *Chronic Pain in limb - *Acute Family History Family Member Diagnosis Age At Onset Status Mother (Unknown) unknown Yes Mother (Unknown) old age Yes Father (Unknown) old age Yes Social History Social History Element Description Quantity Unknown Allergies, Adverse Reactions, Alerts Substance Reaction Severity Status DOXYCYCLINE vomiting Unknown Medications Medication Instructions Dosage Effective Dates (start - stop) Status Trapize Harness for bed mobility Dx:V 49.1 - Active Trapize Harness for bed mobility Dx:V 49.1 - No Longer Active Keflex 500 mg capsule take 1 capsule (500MG) by oral route 4 times every day - No Longer Active One Touch Ultra Test strips Test daily and PRN - Active FreeStyle Lancets 28 gauge Tests 1 time daily for diagnosis code 250.00. - Active FreeStyle Lite Meter kit Tests 1 time daily for diagnosis code 250.00. Jun - Active One Touch UltraSoft Lancets Testing 1 time daily and one time prn for diagnosis code 250.00 - Active One Touch Ultra System Kit Test daily and PRN - Active aspirin 81 mg tablet,delayed release take 1 tablet (81MG) by oral route every day 81 MG - Active FreeStyle Lite Strips Tests 1 time daily for diagnosis 250.00. 2012 - Active mupirocin 2 % topical ointment apply by topical route 2 times every day a small amount to the affected area 0 - Active Neurontin 100 mg capsule Take 2 in the morning and 3 at HS. - Active lactulose 10 gram/15 mL oral solution 15CC PO BID - Active Toprol XL 50 mg tablet,extended release Take 1 tablet by mouth twice a day. - Active hydralazine 25 mg tablet Take 2 tablets by mouth twice a day. - Active Mevacor 20 mg tablet Take 1 tablet by mouth every day. - Active Flomax 0.4 mg capsule Take 1 capsule by mouth every day. - Active Keflex 500 mg capsule take 1 capsule (500MG) by oral route 4 times every day - Active Celexa 20 mg tablet take 1 tablet (20MG) by oral route every day 20 MG Aug - Active Flonase 50 mcg/actuation nasal spray,suspension inhale 2 spray (100MCG) by intranasal route every day in each nostril 100 MCG - Active [place] 5 mg-325 mg tablet take 1 - 2 Tablet by oral route every 8 hours as needed for pain 0 - Active Immunizations Vaccine Date Status Comments Flu (split) (3 yrs or older) completed Zoster completed Flu (split) (3 yrs or older) completed Results Test Name Date and Time Measure Units Reference Range Abnormal Flag Comments Unknown Vital Signs Date / Time: Height Weight Pulse Rate Blood Pressure Temperature /13:35:00 63.00 in 174.00 lbs 141/60 mm[Hg] 97.4 F Procedures Procedure Date Unknown Encounters En[facility] Advance Directives Directive Effective Date Unknown
--- OUTSIDE RECORDS SUMMARY | 2016-07-27 11:33 | XMS REPORT | Referral Summary ---
Author Author [facility] [place], Family Medicine Organization [facility] Address Unknown Phone Unavailable Care Team Providers Care Hourly Team Members Name Role Phone Oksana Galeano Primary Care Physician [phone] Encounter VC Date(s): 09/19/15 - 09/19/15 [facility] [place] [address] [place] [id number] Discharge Disposition: 01-Home or Self Care Attending Physician: Oscar Galeano MD Admitting Physician: Oscar Galeano MD Vital Signs Most recent to 1 oldest [Reference Range]: Peripheral Pulse 72 bpm Rate [60-100 bpm] (09/19/15 1:16 PM) Respiratory Rate 18 br/min [14-20 br/min] (09/19/15 1:16 PM) Blood Pressure 100/82 mmHg [90-140/60-90 mmHg] (09/19/15 1:16 PM) Problem List Condition Effective Dates Status [...] TID, # 90 tabs, 5 Refill(s), Pharmacy: [facility] # [id number], 1 tabs Oral TID Start Date: 08/10/15 Status: Ordered citalopram 20 mg oral tablet See Instructions, TAKE ONE TABLET BY MOUTH EVERY DAY, # 90 tabs, eRx: [facility] #[id number], TAKE ONE TABLET BY MOUTH EVERY DAY Start Date: 09/15/15 Status: Ordered Flomax 0.4 mg oral capsule See Instructions, TAKE ONE CAPSULE BY MOUTH EVERY DAY, # 90 caps, eRx: [facility] #[id number], TAKE ONE CAPSULE BY MOUTH EVERY DAY Start Date: 08/09/15 Status: Ordered Flonase 50 mcg/inh nasal spray See Instructions, INHALE 2 SPRAYS INTO EACH NOSTRIL DAILY, # 16 unknown unit, 1 Refill(s), eRx: [facility] #[id number], INHALE 2 SPRAYS INTO EACH NOSTRIL DAILY Start Date: 06/09/15 Status: Ordered Glucometer strips (DME) DME Item use to test blood sugars daily, See Instructions, # 1 Each, 0 Refill(s) , Supply Start Date: 12/04/13 Status: Ordered hydrALAZINE 25 mg oral tablet See Instructions, TAKE TWO TABLETS BY MOUTH TWICE A DAY, # 360 tabs, eRx: [facility] #[id number], TAKE TWO TABLETS BY MOUTH TWICE A DAY Start Date: 09/15/15 Status: Ordered lactulose 10 g/15 mL oral syrup See Instructions, TAKE 15 ML BY MOUTH TWO TIMES A DAY, # 946 unknown unit, eRx: [facility] #[id number], TAKE 15 ML BY MOUTH TWO TIMES A DAY Start Date: 03/19/14 Status: Ordered lovastatin 20 mg oral tablet See Instructions, TAKE ONE TABLET BY MOUTH EVERY DAY, # 90 tabs, eRx: [facility] #[id number], TAKE ONE TABLET BY MOUTH EVERY DAY Start Date: 06/10/15 Status: Ordered mupirocin 2% topical ointment See Instructions, APPLY A SMALL AMOUNT TO THE AFFECTED AREA BY TOPICAL ROUTE TWO TIMES A DAY, # 22 unknown unit, eRx: [facility] #[id number], APPLY A SMALL AMOUNT TO THE AFFECTED AREA BY TOPICAL ROUTE TWO TIMES A DAY Start Date: 04/05/15 Status: Ordered Neurontin 100 mg oral capsule See Instructions, 2 caps Oral in the morning and 3 at hs, 0 Refill(s) Start Date: 12/04/13 Status: Ordered [place] 5 mg-325 mg oral tablet 1-2 tabs, Oral, q8hr, as needed for pain, # 60 tabs, 0 Refill(s) Start Date: 09/19/15 Status: Ordered ONE TOUCH ULTRA TEST STRIPS See Instructions, TEST BLOOD SUGARS DAILY AND NEEDED, # 50 strip, 2 Refill(s) , eRx: [facility] #[id number], TEST BLOOD SUGARS DAILY AND NEEDED Start Date: 03/29/14 Status: Ordered ONETOUCH ULTRA TEST STRIPS See Instructions, TEST BLOOD SUGARS DAILY AND NEEDED, # 50 strip, 1 Refill(s) , eRx: [facility] #[id number], TEST BLOOD SUGARS DAILY AND NEEDED Start Date: 05/27/15 Status: Ordered Physical therapy Physical therapy, See Instructions, eval and treat as indicated for shoulder pain, # 1 Each, 0 Refill(s) Start Date: 09/19/15 Status: Ordered Power W/C Evaluation Power W/C Evaluation, See Instructions, Please eval for power w/c., # 1 Each, 0 Refill(s) Start Date: 12/03/14 Status: Ordered Toprol-XL 50 mg oral tablet, extended release See Instructions, TAKE ONE TABLET BY MOUTH TWICE A DAY, # 180 tabs, 1 Refill(s) , eRx: [facility] #[id number], TAKE ONE TABLET BY MOUTH TWICE A DAY Start Date: 03/17/15 Status: Ordered Results Hematology Most recent to 1 oldest [Reference Range]: WBC [4.8-10.8 6.3 10*3/uL 10*3/uL] (09/19/15 2:28 PM) RBC [4.60-6.20] 3.95 *LOW* (09/19/15 2:28 PM) Hgb [14.0-18.0 12.0 gm/dL gm/dL] *LOW* (09/19/15 2:28 PM) Hct [42.0-52.0 %] 35.5 % *LOW* (09/19/15 2:28 PM) MCV [82.0-99.0 fL] 89.9 fL (09/19/15 2:28 PM) MCH [27.0-32.0 pg] 30.4 pg (09/19/15 2:28 PM) MCHC [32.0-36.0 33.8 gm/dL gm/dL] (09/19/15 2:28 PM) RDW [11.5-14.5 %] 14.2 % (09/19/15 2:28 PM) Platelet [150-400 177 10*3/uL 10*3/uL] (09/19/15 2:28 PM) MPV [8.8-14.8 fL] 11.0 fL (09/19/15 2:28 PM) Immature 0.2 % Granulocytes (09/19/15 2:28 PM) [0.0-1.0 %] Neutrophils [51-75 73 % %] (09/19/15 2:28 PM) Lymphocytes [20-46 16 % %] *LOW* (09/19/15 2:28 PM) Monocytes [4-11 %] 10 % (09/19/15 2:28 PM) Eosinophils [0-4 %] 1 % (09/19/15 2:28 PM) Basophils [0-2 %] 0 % (09/19/15 2:28 PM) Neutro Absolute 4.63 10*3 [1.90-7.00 10*3] (09/19/15 2:28 PM) Lymph Absolute 0.98 10*3 [0.80-3.30 10*3] (09/19/15 2:28 PM) Rooks Absolute 0.62 10*3 [0.30-1.00 10*3] (09/19/15 2:28 PM) Eos Absolute 0.07 10*3 [0.00-0.50 10*3] (09/19/15 2:28 PM) Baso Absolute 0.02 10*3 [0.00-0.20 10*3] (09/19/15 2:28 PM) Chemistry Most recent to 1 oldest [Reference Range]: Sodium Lvl [135-144 133 mEq/L mEq/L] *LOW* (09/19/15 2:28 PM) Potassium Lvl 4.2 mEq/L [3.5-5.2 mEq/L] (09/19/15 2:28 PM) Chloride [99-111 98 mEq/L mEq/L] *LOW* (09/19/15 2:28 PM) CO2 [23-31 mEq/L] 28 mEq/L (09/19/15 2:28 PM) AGAP [3-20] 7 (09/19/15 2:28 PM) BUN [8-26 mg/dL] 21 mg/dL (09/19/15 2:28 PM) Glucose Lvl [70-99 101 mg/dL mg/dL] *HI* (09/19/15: PM) Creatinine Lvl 0.73 mg/dL [0.72-1.25 mg/dL] (09/19/15 2:28 PM) eGFR [>60 mL/min] >60 mL/min 1 (09/19/15: PM) Calcium Lvl 9.0 mg/dL [8.9-10.5 mg/dL] (09/19/15 2:28 PM) Albumin Lvl [3.4-4.8 3.8 gm/dL gm/dL] (09/19/15 2:28 PM) Total Protein 6.8 gm/dL [6.2-8.1 gm/dL] (09/19/15 2:28 PM) Globulin [1.8-4.0 3.0 gm/dL gm/dL] (09/19/15 2:28 PM) ALT [0-55 U/L] 15 U/L (09/19/15 2:28 PM) AST [5-34 U/L] 22 U/L (09/19/15 2:28 PM) Alk Phos [40-150 81 U/L U/L] (09/19/15 2:28 PM) Bili Total [0.2-1.2 0.7 mg/dL mg/dL] (09/19/15 2:28 PM) Chol [0-199 mg/dL] 157 mg/dL (09/19/15 2:28 PM) Trig [0-149 mg/dL] 70 mg/dL (09/19/15 2:28 PM) HDL [40-84 mg/dL] 44 mg/dL (09/19/15 2:28 PM) LDL [0-130 mg/dL] 99 mg/dL (09/19/15 2:28 PM) VLDL Cholesterol 14 mg/dL [0-28 mg/dL] (09/19/15 2:28 PM) Cardiac Risk 3.6 [0.0-5.7] (09/19/15 2:28 PM) TSH with Reflex Free 0.59 T4 [0.35-4.94] (09/19/15 2:28 PM) Hgb A1c [4.1-5.6 %] 5.2 % (09/19/15 2:28 PM) eAvg Glucose 102.5 mg/dL (09/19/15 2:28 PM) 1Result Comment: Multiply eGFR results by 1.21 for race. Immunizations Vaccine Date Refusal Reason influenza virus vaccine, inactivated 03/14/15 influenza virus vaccine, inactivated 02/15/14 influenza virus vaccine, live 02/09/13 influenza virus vaccine, live 01/28/12 pneumococcal 23-polyvalent vaccine 08/01/00 zoster vaccine live 12/15/12 Procedures Procedure Date Related Diagnosis Body Site Cystoscopy using [id number] 06/25/14 Calibration of urethra [...] Author: Oscar Galeano MD Date: Family Medicine Arthritis, Nonspecific Arthritis is inflammation of a joint. This usually means pain, redness, warmth or swelling are present. One or more joints may be involved. There are a number of types of arthritis. Your caregiver may not be able to tell what type of arthritis you have right away. CAUSES The most common cause of arthritis is the wear and tear on the joint ( osteoarthritis). This causes damage to the cartilage, which can break down over time. The knees, hips, back and neck are most often affected by this type of arthritis. Other types of arthritis and common causes of joint pain include: Sprains and other injuries near the joint. Sometimes minor sprains and injuries cause pain and swelling that develop hours later. Rheumatoid arthritis. This affects hands, feet and knees. It usually affects both sides of your body at the same time. It is often associated with chronic ailments, fever, weight loss and general weakness. Crystal arthritis. Gout and pseudo gout can cause occasional acute severe pain, redness and swelling in the foot, ankle, or knee. Infectious arthritis. Bacteria can get into a joint through a break in overlying skin. This can cause infection of the joint. Bacteria and viruses can also spread through the blood and affect your joints. Drug, infectious and allergy reactions. Sometimes joints can become mildly painful and slightly swollen with these types of illnesses. SYMPTOMS Pain is the main symptom. Your joint or joints can also be red, swollen and warm or hot to the touch. You may have a fever with certain types of arthritis, or even feel overall ill. The joint with arthritis will hurt with movement. Stiffness is present with some types of arthritis. DIAGNOSIS Your caregiver will suspect arthritis based on your description of your symptoms and on your exam. Testing may be needed to find the type of arthritis: Blood and sometimes urine tests. X-ray tests and sometimes CT or MRI scans. Removal of fluid from the joint (arthrocentesis) is done to check for bacteria, crystals or other causes. Your caregiver (or a specialist) will numb the area over the joint with a local anesthetic, and use a needle to remove joint fluid for examination. This procedure is only minimally uncomfortable. Even with these tests, your caregiver may not be able to tell what kind of arthritis you have. Consultation with a specialist (electrician bus) may be helpful. TREATMENT Your caregiver will discuss with you treatment specific to your type of arthritis. If the specific type cannot be determined, then the following general recommendations may apply. Treatment of severe joint pain includes: Rest. Elevation. Anti-inflammatory medication (for example, ibuprofen) may be prescribed. Avoiding activities that cause increased pain. Only take cwfn-hzg-gkaitri or prescription medicines for pain and discomfort as recommended by your caregiver. Cold packs over an inflamed joint may be used for 10 to 15 minutes every hour. Hot packs sometimes feel better, but do not use overnight. Do not use hot packs if you are diabetic without your caregiver's permission. A cortisone shot into arthritic joints may help reduce pain and swelling. Any acute arthritis that gets worse over the next 1 to 2 days needs to be looked at to be sure there is no joint infection. Long-term arthritis treatment involves modifying activities and lifestyle to reduce joint stress jarring. This can include weight loss. Also, exercise is needed to nourish the joint cartilage and remove waste. This helps keep the muscles around the joint strong. HOME CARE INSTRUCTIONS Do not take aspirin to relieve pain if gout is suspected. This elevates uric acid levels. Only take rgxv-iae-mjsbwiz or prescription medicines for pain, discomfort or fever as directed by your caregiver. Rest the joint as much as possible. If your joint is swollen, keep it elevated. Use crutches if the painful joint is in your leg. Drinking plenty of fluids may help for certain types of arthritis. Follow your caregiver's dietary instructions. Try low-impact exercise such as: Swimming. Water aerobics. Biking. Walking. Morning stiffness is often relieved by a warm shower. Put your joints through regular fzhab-fo-uoaljd. SEEK MEDICAL CARE IF: You do not feel better in 24 hours or are getting worse. You have side effects to medications, or are not getting better with treatment. SEEK IMMEDIATE MEDICAL CARE IF: You have a fever. You develop severe joint pain, swelling or redness. Many joints are involved and become painful and swollen. There is severe back pain and/or leg weakness. You have loss of bowel or bladder control. This information is not intended to replace advice given to you by your health care provider. Make sure you discuss any questions you have with your health care provider. Document Released: 05/30/2005 Document Revised: 02/08/2015 Document Reviewed: ExitCare Patient Information 2015 [employer]. No follow up information was provided. Extracted from: Title: Office Visit Note Author: Oscar Galeano MD Date: 09/19/15 Assessment/Plan Chronic kidney disease (CKD) This issue was reviewed, appears stable, and current therapy continued except as mentioned. Appropriate lab was reviewed from the most recent appropriate entry and lab was ordered if needed in the cpoe /nursing orders, and follow up recommended generally in 90 days and no later then six months. Lab stable. Constipation This issue was reviewed, appears stable, and current therapy continued except as mentioned. Appropriate lab was reviewed from the most recent appropriate entry and lab was ordered if needed in the cpoe/nursing orders, and follow up recommended generally in 90 days and no later then six months. Diabetes mellitus type 2 This issue was reviewed, appears stable, and current therapy continued except as mentioned. Appropriate lab was reviewed from the most recent appropriate entry and lab was ordered if needed in the cpoe/nursing orders, and follow up recommended generally in 90 days and no later then six months. The patient was notified for the need for regular quarterly f/u of their diabetes. Further any pertinent medication, supplies, etc were refilled. Additionally, they are to have annual eye exams, foot exams, and regular care. Lab pending. Home Health papers completed. Needs recheck in 60 days. 45minutes were utilized in care and coordination for this patient. Greater then 50% of the time was used for counseling and/or coordination of the patients care. The patient has family members present who are agreeable with today's plan and have no additional concerns or requests. CLAIRE Wood here. 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 Appropriate lab was reviewed from the most recent appropriate entry and lab was ordered if needed in the cpoe/nursing orders, and follow up recommended generally in 90 days and no later then six months. Hearing loss This issue was reviewed, appears stable, and current therapy continued except as mentioned. Appropriate lab was reviewed from the most recent appropriate entry and lab was ordered if needed in the cpoe/nursing orders, and follow up recommended generally in 90 days and no later then six months. High blood sugar This issue was reviewed, appears stable, and current therapy continued except as mentioned. Appropriate lab was reviewed from the most recent appropriate entry and lab was ordered if needed in the cpoe/nursing orders, and follow up recommended generally in 90 days and no later then six months. Lab pending. Ordered: CBC w/ Differential Hemoglobin A1c TSH with Reflex Free T4 High cholesterol This issue was reviewed, appears stable, and current therapy continued except as mentioned. Appropriate lab was reviewed from the most recent appropriate entry and lab was ordered if needed in the cpoe/nursing orders, and follow up recommended generally in 90 days and no later then six months. Lab pending. Ordered: Comprehensive Metabolic Panel Lipid Panel Neurogenic bladder This issue was reviewed, appears stable, and current therapy continued except as mentioned. Appropriate lab was reviewed from the most recent appropriate entry and lab was ordered if needed in the cpoe/nursing orders, and follow up recommended generally in 90 days and no later then six months. [address] PEREZ and brit. Osteoarthritis This issue was reviewed, appears stable, and current therapy continued except as mentioned. Appropriate lab was reviewed from the most recent appropriate entry and lab was ordered if needed in the cpoe/nursing orders, and follow up recommended generally in 90 days and no later then six months. [place] script given. Physical therapy script given at their request for shoulder pain. Wheelchair dependence This issue was reviewed, appears [...] for pain, # 60 tabs, 0 Refill(s) Misc Medication, Physical therapy, See Instructions, eval and treat as indicated for shoulder pain, # 1 Each, 0 Refill(s)
--- OUTSIDE RECORDS SUMMARY | 2016-07-27 11:33 | XMS REPORT | Referral Summary ---
Author Organization Unknown Address Unknown Phone Unavailable Care Team Providers Care Measurement Psychologist Name Role Phone Oksana Galeano Primary Care Physician [phone] Encounter VC Date(s): 08/16/14 - 08/16/14 [facility], [place], Family [address] [place] [id number] [[email or web address]] Discharge Diagnosis: Benign essential HTN Discharge Diagnosis: Post polio syndrome Discharge Diagnosis: Depression Discharge Diagnosis: Urinary tract infection symptoms Discharge Diagnosis: Diabetes mellitus type 2 Discharge Diagnosis: Osteoarthritis Discharge Diagnosis: Acute UTI Discharge Diagnosis: Chronic kidney disease (CKD) Discharge Disposition: Home or Self Care Attending Physician: Oscar Galeano MD Admitting Physician: Oscar Galeano MD Vital Signs Most recent to 1 oldest [Reference Range]: Blood Pressure 140/70 mmHg [90-140/60-90 mmHg] (08/16/14 2:56 PM) Problem List Condition Effective Dates Status [...] THREE TIMES A DAY, # 90 tabs, 1 Refill(s), eRx: [facility] #[id number], TAKE ONE TABLET BY MOUTH THREE TIMES A DAY Special Instructions: TAKE ONE TABLET BY MOUTH THREE TIMES A DAY Start Date: 07/23/14 Status: Ordered CeleXA 20 mg oral tablet See Instructions, TAKE ONE TABLET BY MOUTH EVERY DAY, # 90 tabs, eRx: [facility] #[id number], TAKE ONE TABLET BY MOUTH EVERY DAY Special Instructions: TAKE ONE TABLET BY MOUTH EVERY DAY Start Date: 07/02/14 Status: Ordered Flomax 0.4 mg oral capsule See Instructions, TAKE ONE CAPSULE BY MOUTH EVERY DAY, # 90 caps, 1 Refill(s), eRx: [facility] #[id number], TAKE ONE CAPSULE BY MOUTH EVERY DAY Special Instructions: TAKE ONE CAPSULE BY MOUTH EVERY DAY Start Date: 05/07/14 Status: Ordered Flonase 50 mcg/inh nasal spray See Instructions, INHALE 2 SPRAYS INTO EACH NOSTRIL DAILY, # 16 unknown unit, eRx: [facility] #[id number], INHALE 2 SPRAYS INTO EACH NOSTRIL DAILY Special Instructions: INHALE 2 SPRAYS INTO EACH NOSTRIL DAILY Start Date: 07/09/14 Status: Ordered Glucometer strips (DME) DME Item use to test blood sugars daily, See Instructions, # 1 Each, 0 Refill(s) , Supply Special Instructions: use to test blood sugars daily Start Date: 12/04/13 Status: Ordered hydrALAZINE 25 mg oral tablet See Instructions, TAKE TWO TABLETS BY MOUTH TWICE A DAY, # 360 tabs, eRx: [facility] #[id number], TAKE TWO TABLETS BY MOUTH TWICE A DAY Special Instructions: TAKE TWO TABLETS BY MOUTH TWICE A DAY Start Date: 06/04/14 Status: Ordered lactulose 10 g/15 mL oral syrup See Instructions, TAKE 15 ML BY MOUTH TWO TIMES A DAY, # 946 unknown unit, eRx: [facility] #[id number], TAKE 15 ML BY MOUTH TWO TIMES A DAY Special Instructions: TAKE 15 ML BY MOUTH TWO TIMES A DAY Start Date: 03/19/14 Status: Ordered lovastatin 20 mg oral tablet See Instructions, TAKE ONE TABLET BY MOUTH EVERY DAY, # 90 tabs, 2 Refill(s), eRx: [facility] #[id number], TAKE ONE TABLET BY MOUTH EVERY DAY Special Instructions: TAKE ONE TABLET BY MOUTH EVERY DAY Start Date: 12/11/13 Status: Ordered mupirocin 2% topical ointment See Instructions, APPLY A SMALL AMOUNT TO THE AFFECTED AREA BY TOPICAL ROUTE TWO TIMES A DAY, # 22 unknown unit, eRx: [facility] #[id number], APPLY A SMALL AMOUNT TO THE AFFECTED [...] at hs Start Date: 12/04/13 Status: Ordered [facility] 5 mg-325 mg oral tablet 1-2 tabs, Oral, q8hr, as needed for pain, # 60 tabs, 0 Refill(s) Start Date: 08/16/14 Status: Ordered ONE TOUCH ULTRA TEST STRIPS See Instructions, TEST BLOOD SUGARS DAILY AND NEEDED, # 50 strip, 2 Refill(s) , eRx: [facility] #[id number], TEST BLOOD SUGARS DAILY AND NEEDED Special Instructions: TEST BLOOD SUGARS DAILY AND NEEDED Start Date: 03/29/14 Status: Ordered Toprol-XL 50 mg oral tablet, extended release See Instructions, TAKE ONE TABLET BY MOUTH TWICE A DAY, # 180 tabs, eRx: [facility] #[id number], TAKE ONE TABLET BY MOUTH TWICE A DAY Special Instructions: TAKE ONE TABLET BY MOUTH TWICE A DAY Start Date: 02/05/14 Status: Ordered Results Urinalysis Most recent to 1 oldest [Reference Range]: UA Color Yellow (08/16/14 4:15 PM) UA Appear Cloudy *ABN* (08/16/14 4:15 PM) UA pH [5.0-8.0] 6.0 (08/16/14 4:15 PM) UA Leuk Est Pos 2+ [Negative] *ABN* (08/16/14 4:15 PM) UA Nitrite Negative [Negative] (08/16/14 4:15 PM) UA Protein Trace [Negative] *ABN* (08/16/14 4:15 PM) UA Glucose Negative [Negative] (08/16/14 4:15 PM) UA Ketones Negative [Negative] (08/16/14 4:15 PM) UA Urobilinogen 0.2 mg/dL [<1.0 mg/dL] (08/16/14 4:15 PM) UA Bili [Negative] Negative (08/16/14 4:15 PM) UA Blood [Negative] Negative (08/16/14 4:15 PM) UA Spec Grav 1.014 [1.003-1.030] (08/16/14 4:15 PM) Type Voided (08/16/14 4:15 PM) UA WBC [0-4 /HPF] >50 /HPF *ABN* (08/16/14 4:15 PM) UA RBC [0-2] 2-5 *ABN* (08/16/14 4:15 PM) Epithelial Cells 0-2 (08/16/14 4:15 PM) UA Bacteria Numerous *ABN* (08/16/14 4:15 PM) Immunizations Vaccine Date Refusal Reason influenza virus [...] Author: Oscar Galeano MD Date: Family Medicine Arterial Hypertension Arterial hypertension (high [...] failure. Hyperparathyroidism. Medications. Renal artery stenosis. Pheochromocytoma. Anamika's disease. Coarctation of the aorta. Scleroderma renal [...] Released: 04/22/2006 Document Revised: 07/14/2012 Document Reviewed: ExitCare Patient Information 2014 [employer]. No follow up information was provided. Extracted from: Title: Office Visit Note Author: Oscar Galeano MD Date: 08/16/14 Assessment/Plan Acute UTI UA pending to recheck at their request. The patient has family members present who are agreeable with today's plan and have no additional concerns or requests. Consider Port a Cath when needed. Benign essential HTN This issue is stable and appropriate refills, lab, and f/ u have been discussed. The patient reports their blood pressure has been stable at home and is not having any significant or related problems. There has been no chest pain, chest pressure, soa/garibay. Home Health papers completed. Chronic kidney disease (CKD) This issue is stable and appropriate refills, lab , and f/u have been discussed. Depression This issue is stable and appropriate [...] eye exams, foot exams, and regular care. Osteoarthritis This issue is stable and appropriate refills, lab, and f/u have been discussed. [facility] refilled. 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 Urinary tract infection symptoms UA pending. Ordered: Urinalysis with Culture if Indicated Orders: HYDROcodone-acetaminophen, 1-2 tabs, Oral, q8hr, as needed for pain, # 60 tabs, 0 Refill(s)
--- OUTSIDE RECORDS SUMMARY | 2016-07-27 11:33 | XMS REPORT | Referral Summary ---
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 Discharge Diagnosis: Hyperlipidemia Discharge Diagnosis: Chronic kidney disease (CKD) Discharge Diagnosis: Wheelchair dependence Discharge Diagnosis: Benign essential HTN Discharge Diagnosis: Depression Discharge Diagnosis: Constipation Discharge Diagnosis: Diabetes mellitus type 2 Discharge Disposition: 01-Home or Self Care Attending Physician: Oscar Galeano MD Admitting Physician: Oscar Galeano MD Vital Signs Most recent to 1 oldest [Reference Range]: Blood Pressure 130/72 mmHg [90-140/60-90 mmHg] (03/19/16 1:07 PM) Problem List Condition Effective Dates Status [...] 1 tabs, Oral, TID, # 90 tabs, 0 Refill(s), Pharmacy: [facility] # [id number], 1 tabs Oral TID Start Date: 02/22/16 Status: Ordered citalopram 20 mg oral tablet See Instructions, TAKE ONE TABLET BY MOUTH EVERY DAY, # 90 tabs, eRx: [facility] #[id number], TAKE ONE TABLET BY MOUTH EVERY DAY Start Date: 02/20/16 Status: Ordered fluticasone 50 mcg/inh nasal spray See Instructions, INHALE 2 SPRAYS INTO EACH NOSTRIL DAILY, # 16 unknown unit, eRx: [facility] #[id number], INHALE 2 SPRAYS INTO EACH NOSTRIL DAILY Start Date: 03/01/16 Status: Ordered Glucometer strips (DME) DME Item use to test blood sugars daily, See Instructions, # 1 Each, 0 Refill(s) , Supply Start Date: 12/04/13 Status: Ordered hydrALAZINE 25 mg oral tablet See Instructions, TAKE TWO TABLETS BY MOUTH TWICE A DAY, # 360 tabs, eRx: [facility] #[id number], TAKE TWO TABLETS BY MOUTH TWICE A DAY Start Date: 12/14/15 Status: Ordered lactulose 10 g/15 mL oral syrup See Instructions, TAKE 15 ML BY MOUTH TWO TIMES A DAY, # 946 unknown unit, eRx: [facility] #[id number], TAKE 15 ML BY MOUTH TWO TIMES A DAY Start Date: 03/19/14 Status: Ordered lovastatin 20 mg oral tablet See Instructions, TAKE ONE TABLET BY MOUTH EVERY DAY, # 90 tabs, eRx: [facility] #[id number], TAKE ONE TABLET BY MOUTH EVERY DAY Start Date: 01/04/16 Status: Ordered Metoprolol Succinate ER 50 mg oral tablet, extended release See Instructions, TAKE ONE TABLET BY MOUTH TWICE A DAY, # 180 tabs, eRx: [facility] #[id number], TAKE ONE TABLET BY MOUTH TWICE A DAY Start Date: 01/04/16 Status: Ordered mupirocin 2% topical ointment See Instructions, APPLY A SMALL AMOUNT TO THE AFFECTED AREA BY TOPICAL ROUTE TWO TIMES A DAY, # 22 unknown unit, eRx: [facility] #[id number], APPLY A SMALL AMOUNT TO THE AFFECTED AREA BY TOPICAL ROUTE TWO TIMES A DAY Start Date: 04/05/15 Status: Ordered Neurontin 100 mg oral capsule See Instructions, 2 caps Oral in the morning and 3 at hs, 0 Refill(s) Start Date: 12/04/13 Status: Ordered [place] 5 mg-325 mg oral tablet 1-2 tabs, Oral, q8hr, as needed for pain, # 60 tabs, 0 Refill(s) Start Date: 03/19/16 Status: Ordered ONETOUCH ULTRA TEST STRIPS See Instructions, TEST BLOOD SUGARS DAILY AND NEEDED, # 50 strip, 1 Refill(s) , eRx: [facility] #[id number], TEST BLOOD SUGARS DAILY AND NEEDED Start [...] EVERY DAY, # 90 caps, 1 Refill(s), Pharmacy: [facility] #[id number], TAKE ONE CAPSULE BY MOUTH EVERY DAY Start Date: 03/19/16 Status: Ordered Results Hematology Most recent to 1 oldest [Reference Range]: WBC [4.8-10.8 9.0 10*3/uL 10*3/uL] (03/19/16 1:34 PM) RBC [4.60-6.20] 3.77 *LOW* (03/19/16 1:34 PM) Hgb [14.0-18.0 11.8 gm/dL gm/dL] *LOW* (03/19/16 1:34 PM) Hct [42.0-52.0 %] 35.4 % *LOW* (03/19/16 1:34 PM) MCV [82.0-99.0 fL] 93.9 fL (03/19/16 1:34 PM) MCH [27.0-32.0 pg] 31.3 pg (03/19/16 1:34 PM) MCHC [32.0-36.0 33.3 gm/dL gm/dL] (03/19/16 1:34 PM) RDW [11.5-14.5 %] 13.7 % (03/19/16 1:34 PM) Platelet [150-400 186 10*3/uL 10*3/uL] (03/19/16 1:34 PM) MPV [8.8-14.8 fL] 10.9 fL (03/19/16 1:34 PM) Immature 0.3 % Granulocytes (03/19/16 1:34 PM) [0.0-1.0 %] Neutrophils [51-75 68 % %] (03/19/16 1:34 PM) Lymphocytes [20-46 17 % %] *LOW* (03/19/16 1:34 PM) Monocytes [4-11 %] 10 % (03/19/16 1:34 PM) Eosinophils [0-4 %] 4 % (03/19/16 1:34 PM) Basophils [0-2 %] 0 % (03/19/16 1:34 PM) Neutro Absolute 6.13 10*3 [1.90-7.00 10*3] (03/19/16 1:34 PM) Lymph Absolute 1.54 10*3 [0.80-3.30 10*3] (03/19/16 1:34 PM) [place] Absolute 0.89 10*3 [0.30-1.00 10*3] (03/19/16 1:34 PM) Eos Absolute 0.39 10*3 [0.00-0.50 10*3] (03/19/16 1:34 PM) Baso Absolute 0.04 10*3 [0.00-0.20 10*3] (03/19/16 1:34 PM) Chemistry Most recent to 1 oldest [Reference Range]: Sodium Lvl [135-144 138 mEq/L mEq/L] (03/19/16 1:34 PM) Potassium Lvl 4.1 mEq/L [3.5-5.2 mEq/L] (03/19/16 1:34 PM) Chloride [99-111 104 mEq/L mEq/L] (03/19/16 1:34 PM) CO2 [23-31 mEq/L] 25 mEq/L (03/19/16 1:34 PM) AGAP [3-20] 9 (03/19/16 1:34 PM) BUN [8-26 mg/dL] 16 mg/dL (03/19/16 1:34 PM) Glucose Lvl [70-99 86 mg/dL mg/dL] (03/19/16 1:34 PM) Creatinine Lvl 0.79 mg/dL [0.72-1.25 mg/dL] (03/19/16 1:34 PM) eGFR [>60 mL/min] >60 mL/min 1 (03/19/16 1:34 PM) Calcium Lvl 8.4 mg/dL [8.9-10.5 mg/dL] *LOW* (03/19/16 1:34 PM) Albumin Lvl [3.4-4.8 3.6 gm/dL gm/dL] (03/19/16 1:34 PM) Total Protein 6.6 gm/dL [6.0-7.6 gm/dL] (03/19/16 1:34 PM) Globulin [1.8-4.0 3.0 gm/dL gm/dL] (03/19/16 1:34 PM) ALT [0-55 U/L] 12 U/L (03/19/16 1:34 PM) AST [5-34 U/L] 18 U/L (03/19/16 1:34 PM) Alk Phos [40-150 76 U/L U/L] (03/19/16 1:34 PM) Bili Total [0.2-1.2 0.4 mg/dL mg/dL] (03/19/16 1:34 PM) Chol [0-199 mg/dL] 153 mg/dL (03/19/16 1:34 PM) Trig [0-149 mg/dL] 142 mg/dL (03/19/16 1:34 PM) HDL [40-84 mg/dL] 35 mg/dL *LOW* (03/19/16 1:34 PM) LDL [0-130 mg/dL] 90 mg/dL (03/19/16 1:34 PM) VLDL Cholesterol 28 mg/dL [0-28 mg/dL] (03/19/16 1:34 PM) Cardiac Risk 4.4 [0.0-5.7] (03/19/16 1:34 PM) TSH with Reflex Free 0.62 T4 [0.35-4.94] (03/19/16 1:34 PM) Hgb A1c [4.1-5.6 %] 5.3 % (03/19/16 1:34 PM) eAvg Glucose 105.4 mg/dL (03/19/16 1:34 PM) 1Result Comment: Multiply eGFR results by 1.21 for race. Immunizations Vaccine Date Refusal Reason influenza virus vaccine, inactivated1 01/20/16 influenza virus vaccine, inactivated 03/14/15 influenza virus vaccine, inactivated 02/15/14 influenza virus vaccine, live 02/09/13 influenza virus vaccine, live 01/28/12 pneumococcal 23-polyvalent vaccine 08/01/00 zoster vaccine live 12/15/12 1Result Comment: seqirus Procedures Procedure Date Related Diagnosis Body Site [...] Patient Education Author: Oscar Galeano MD Date: Nephrology Chronic Kidney Disease Chronic kidney disease occurs when the kidneys are damaged over a long period. The kidneys are two organs that lie on either side of the spine between the middle of the back and the front of the abdomen. The kidneys: Remove wastes and extra water from the blood. Produce important hormones. These help keep bones strong, regulate blood pressure, and help create red blood cells. Balance the fluids and chemicals in the blood and tissues. A small amount of kidney damage may not cause problems, but a large amount of damage may make it difficult or impossible for the kidneys to work the way they should. If steps are not taken to slow down the kidney damage or stop it from getting worse, the kidneys may stop working permanently. Most of the time, chronic kidney disease does not go away. However, it can often be controlled, and those with the disease can usually live normal lives. CAUSES The most common causes of chronic kidney disease are diabetes and high blood pressure (hypertension). Chronic kidney disease may also be caused by: Diseases that cause the kidneys' filters to become inflamed. Diseases that affect the immune system. Genetic diseases. Medicines that damage the kidneys, such as anti-inflammatory medicines. Poisoning or exposure to toxic substances. A reoccurring kidney or urinary infection. A problem with urine flow. This may be caused by: Cancer. Kidney stones. An enlarged prostate in males. SIGNS AND SYMPTOMS Because the kidney damage in chronic kidney disease occurs slowly, symptoms develop slowly and may not be obvious until the kidney damage becomes severe. A person may have a kidney disease for years without showing any symptoms. Symptoms can include: Swelling (edema) of the legs, ankles, or feet. Tiredness (lethargy). Nausea or vomiting. Confusion. Problems with urination, such as: Decreased urine production. Frequent urination, especially at night. Frequent accidents in children who are potty trained. Muscle twitches and cramps. Shortness of breath. Weakness. Persistent itchiness. Loss of appetite. Metallic taste in the mouth. Trouble sleeping. Slowed development in children. Short stature in children. DIAGNOSIS Chronic kidney disease may be detected and diagnosed by tests, including blood, urine, imaging, or kidney biopsy tests. TREATMENT Most chronic kidney diseases cannot be cured. Treatment usually involves relieving symptoms and preventing or slowing the progression of the disease. Treatment may include: A special diet. You may need to avoid alcohol and foods thatare salty and high in potassium. Medicines. These may: Lower blood pressure. Relieve anemia. Relieve swelling. Protect the bones. HOME CARE INSTRUCTIONS Follow your prescribed diet. Your health care provider may instruct you to limit daily salt (sodium) and protein intake. Take medicines only as directed by your health care provider. Do not take any new medicines (prescription, [id number], or nutritional supplements) unless approved by your health care provider. Many medicines can worsen your kidney damage or need to have the dose adjusted. Quit smoking if you smoke. Talk to your health care provider about a smoking cessation program. Keep all follow-up visits as directed by your health care provider. Monitor your blood pressure. Start or continue an exercise plan. Get immunizations as directed by your health care provider. Take vitamin and mineral supplements as directed by your health care provider. SEEK IMMEDIATE MEDICAL CARE IF: Your symptoms get worse or you develop new symptoms. You develop symptoms of end-stage kidney disease. These include: Headaches. Abnormally dark or light skin. Numbness in the hands or feet. Easy bruising. Frequent hiccups. Menstruation stops. You have a fever. You have decreased urine production. You havepain or bleeding when urinating. MAKE SURE YOU: Understand these instructions. Will watch your condition. Will get help right away if you are not doing well or get worse. FOR MORE INFORMATION [place] [employer]: www.aakp.org National Kidney Foundation: www.kidney.org [place] [employer]: www.akfinc.org [employer] [facility]: www.lifeoptions.org and www.kidneyschool.org This information is not intended to replace advice given to you by your health care provider. Make sure you discuss any questions you have with your health care provider. Document Released: 01/29/2009 Document Revised: 05/13/2015 Document Reviewed: [employer] Patient Education 2016 [employer] No follow up information was provided. Extracted from: Title: Office Visit Note Author: Oscar Galeano MD Date: 03/19/16 Assessment/Plan Benign essential HTN This issue was [...] days and no later then six months. Limit nsaids. Chronic UTI The patient's issue is nearly or completely resolved. There is no further issues or testing desired by them at this time. Constipation This issue was reviewed, appears stable, and current therapy continued except as mentioned. Appropriate lab was reviewed from the most recent appropriate entry and lab was ordered if needed in the cpoe/nursing orders, and follow up recommended generally in 90 days and no later then six months. Depression This issue was reviewed, appears stable, and current therapy continued except as mentioned. Appropriate lab was reviewed from the most recent appropriate entry and lab was ordered if needed in the cpoe/nursing orders, and follow up recommended generally in 90 days and no later then six months. Mood stable. Diabetes mellitus type 2 The patient was notified for the need for regular quarterly f/u of their diabetes. Further any pertinent medication, supplies, etc were refilled. Additionally, they are to have annual eye exams, foot exams, and regular care. Lab pending. 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 Appropriate lab was reviewed from the most recent appropriate entry and lab was ordered if needed in the cpoe/nursing orders, and follow up recommended generally in 90 days and no later then six months. Hyperlipidemia This issue was reviewed, appears stable, and current therapy continued except as mentioned. Appropriate lab was reviewed from the most recent appropriate entry and lab was ordered if needed in the cpoe/nursing orders, and follow up recommended generally in 90 days and no later then six months. Lab pending. Wheelchair dependence Stable. Home health papers completed. CLAIRE Wood here.
--- OUTSIDE RECORDS SUMMARY | 2016-07-27 11:34 | XMS REPORT | Referral Summary ---
Author Author [facility] Organization [facility] Address Unknown Phone Unavailable Care Team Providers Care Dust Collector Operator Name Role Phone Oksana Galeano Primary Care Physician [phone] Encounter VC Date(s): 05/16/15 - 05/16/15 [facility] [address] [place] [id number] Discharge Disposition: 01-Home or Self Care Attending Physician: Oscra Galeano MD Admitting Physician: Oscar Galeano MD Vital Signs Most recent to 1 oldest [Reference Range]: Blood Pressure 140/80 mmHg [90-140/60-90 mmHg] (05/16/15 1:28 PM) Problem List Condition Effective Dates Status [...] TIMES A DAY, # 90 tabs, eRx: [facility] #[id number], TAKE ONE TABLET BY MOUTH THREE TIMES A DAY Start Date: 05/03/15 Status: Ordered CeleXA 20 mg oral tablet See Instructions, TAKE ONE TABLET BY MOUTH EVERY DAY, # 90 tabs, 1 Refill(s), eRx: [facility] #[id number], TAKE ONE TABLET BY MOUTH EVERY DAY Start Date: 02/16/15 Status: Ordered Flomax 0.4 mg oral capsule See Instructions, TAKE ONE CAPSULE BY MOUTH EVERY DAY, # 90 caps, 1 Refill(s), eRx: [facility] #[id number], TAKE ONE CAPSULE BY MOUTH EVERY DAY Start Date: 02/16/15 Status: Ordered Flonase 50 mcg/inh nasal spray See Instructions, INHALE 2 SPRAYS INTO EACH NOSTRIL DAILY, # 16 unknown unit, 2 Refill(s), eRx: [facility] #[id number], INHALE 2 SPRAYS INTO EACH NOSTRIL DAILY Start Date: 10/22/14 Status: Ordered Glucometer strips (DME) DME Item use to test blood sugars daily, See Instructions, # 1 Each, 0 Refill(s) , Supply Start Date: 12/04/13 Status: Ordered hydrALAZINE 25 mg oral tablet See Instructions, TAKE TWO TABLETS BY MOUTH TWICE A DAY, # 360 tabs, 1 Refill(s) , eRx: [facility] #[id number], TAKE TWO TABLETS BY MOUTH TWICE A DAY Start Date: 02/24/15 Status: Ordered lactulose 10 g/15 mL oral syrup See Instructions, TAKE 15 ML BY MOUTH TWO TIMES A DAY, # 946 unknown unit, eRx: [facility] #[id number], TAKE 15 ML BY MOUTH TWO TIMES A DAY Start Date: 03/19/14 Status: Ordered lovastatin 20 mg oral tablet See Instructions, TAKE ONE TABLET BY MOUTH EVERY DAY, # 90 tabs, 1 Refill(s), eRx: [facility] #[id number], TAKE ONE TABLET BY MOUTH EVERY DAY Start Date: 11/19/14 Status: Ordered mupirocin 2% topical ointment See Instructions, APPLY A SMALL AMOUNT TO THE AFFECTED AREA BY TOPICAL ROUTE TWO TIMES A DAY, # 22 unknown unit, eRx: [facility] #[id number], APPLY A SMALL AMOUNT TO THE AFFECTED AREA BY TOPICAL ROUTE TWO TIMES A DAY Start Date: 04/05/15 Status: Ordered Neurontin 100 mg oral capsule See Instructions, 2 caps Oral in the morning and 3 at hs, 0 Refill(s) Start Date: 12/04/13 Status: Ordered [address] 5 mg-325 mg oral tablet 1-2 tabs, Oral, q8hr, as needed for pain, # 60 tabs, 0 Refill(s) Start Date: 05/16/15 Status: Ordered ONE TOUCH ULTRA TEST STRIPS See Instructions, TEST BLOOD SUGARS DAILY AND NEEDED, # 50 strip, 2 Refill(s) , eRx: [facility] #[id number], TEST BLOOD SUGARS DAILY AND NEEDED Start Date: 03/29/14 Status: Ordered Power W/C Evaluation Power W/C Evaluation, See Instructions, Please eval for power w/c., # 1 Each, 0 Refill(s) Start Date: 12/03/14 Status: Ordered Toprol-XL 50 mg oral tablet, extended release See Instructions, TAKE ONE TABLET BY MOUTH TWICE A DAY, # 180 tabs, 1 Refill(s) , eRx: [facility] #[id number], TAKE ONE TABLET BY MOUTH TWICE A DAY Start Date: 03/17/15 Status: Ordered Results No data available for this section Immunizations Vaccine Date Refusal Reason influenza virus vaccine, inactivated 03/14/15 influenza virus vaccine, inactivated 02/15/14 influenza virus vaccine, live 02/09/13 influenza virus vaccine, live 01/28/12 pneumococcal 23-polyvalent vaccine 08/01/00 zoster vaccine live 12/15/12 Procedures Procedure Date Related Diagnosis Body Site Destruction (eg, laser surgery, 05/16/15 electrosurgery, cryosurgery, chemosurgery, surgical curettement), of benign lesions other than skin tags or cutaneous vascular proliferative lesions; 15 or more lesions Cystoscopy using panendoscope1 06/25/14 Calibration of urethra [...] Patient Education Author: Oscar Galeano MD Date: 03/21 Family Medicine Ankle Fracture A fracture is a break in a bone. The ankle joint is made up of three bones. These include the lower (distal)sections of your lower leg bones, called the tibia and fibula, along with a bone in your foot, called the talus. Depending on how bad the break is and if more than one ankle joint bone is broken, a cast or splint is used to protect and keep your injured bone from moving while it heals. Sometimes, surgery is required to help the fracture heal properly. There are two general types of fractures: Stable fracture. This includes a single fracture line through one bone, with no injury to ankle ligaments. A fracture of the talus that does not have any displacement (movement of the bone on either side of the fracture line) is also stable. Unstable fracture. This includes more than one fracture line through one or more bones in the ankle joint. It also includes fractures that have displacement of the bone on either side of the fracture line. CAUSES A direct blow to the ankle. Quickly and severely twisting your ankle. Trauma, such as a car accident or falling from a significant height. RISK FACTORS You may be at a higher risk of ankle fracture if: You have certain medical conditions. You are involved in high-impact sports. You are involved in a high-impact car accident. SIGNS AND SYMPTOMS Tender and swollen ankle. Bruising around the injured ankle. Pain on movement of the ankle. Difficulty walking or putting weight on the ankle. A cold foot below the site of the ankle injury. This can occur if the blood vessels passing through your injured ankle were also damaged. Numbness in the foot below the site of the ankle injury. DIAGNOSIS An ankle fracture is usually diagnosed with a physical exam and X-rays. A CT scan may also be required for complex fractures. TREATMENT Stable fractures are treated with a cast or splint and using crutches to avoid putting weight on your injured ankle. This is followed by an ankle strengthening program. Some patients require a special type of cast, depending on other medical problems they may have. Unstable fractures require surgery to ensure the bones heal properly. Your health care provider will tell you what type of fracture you have and the best treatment for your condition. HOME CARE INSTRUCTIONS Review correct crutch use with your health care provider and use your crutches as directed. Safe use of crutches is extremely important. Misuse of crutches can cause you to fall or cause injury to nerves in your hands or armpits. Do not put weight or pressure on the injured ankle until directed by your health care provider. To lessen the swelling, keep the injured leg elevated while sitting or lying down. Apply ice to the injured area: Put ice in a plastic bag. Place a towel between your cast and the bag. Leave the ice on for 20 minutes, 23 times a day. If you have a plaster or fiberglass cast: Do not try to scratch the skin under the cast with any objects. This can increase your risk of skin infection. Check the skin around the cast every day. You may put lotion on any red or sore areas. Keep your cast dry and clean. If you have a plaster splint: Wear the splint as directed. You may loosen the elastic around the splint if your toes become numb, tingle, or turn cold or blue. Do not put pressure on any part of your cast or splint; it may break. Rest your cast only on a pillow the first 24 hours until it is fully hardened. Your cast or splint can be protected during bathing with a plastic bag sealed to your skin with medical tape. Do not lower the cast or splint into water. Take medicines as directed by your health care provider. Only take over-the -counter or prescription medicines for pain, discomfort, or fever as directed by your health care provider. Do not drive a vehicle until your health care provider specifically tells you it is safe to do so. If your health care provider has given you a follow-up appointment, it is very important to keep that appointment. Not keeping the appointment could result in a chronic or permanent injury, pain, and disability. If you have any problem keeping the appointment, call the facility for assistance. SEEK MEDICAL CARE IF: You develop increased swelling or discomfort. SEEK IMMEDIATE MEDICAL CARE IF: Your cast gets damaged or breaks. You have continued severe pain. You develop new pain or swelling after the cast was put on. Your skin or toenails below the injury turn blue or kent. Your skin or toenails below the injury feel cold, numb, or have loss of sensitivity to touch. There is a bad smell or pus draining from under the cast. MAKE SURE YOU: Understand these instructions. Will watch your condition. Will get help right away if you are not doing well or get worse. Document Released: 04/19/2001 Document Revised: 04/27/2014 Document Reviewed: [employer] Patient Information 2015 [employer]. This information is not intended to replace advice given to you by your health care provider. Make sure you discuss any questions you have with your health care provider. No follow up information was provided. Extracted from: Title: Office Visit Note Author: Oscar Galeano MD Date: 05/16/15 Assessment/Plan Accidental fall The patient's issue is nearly or completely resolved. There is no further issues or testing desired by them at this time. The patient' s outside physician records were reviewed. Any pertinent outside records, lab, and xrays were also reviewed if available. [facility] and normal. Acute pain of right foot Xray pending. No abrasion. NWB due to wheelchair status already. No evidence of gout. Lab fromMar 2015 was normal. Ordered: XR Foot Complete Right Benign essential HTN This issue was reviewed, [...] no later then six months. Lab stable. Elevated blood sugar This issue was reviewed, appears stable, and current therapy continued except as mentioned. Appropriate lab was reviewed from the most recent appropriate entry and lab was ordered if needed in the cpoe/nursing orders, and follow up recommended generally in 90 days and no later then six months. Lab stable. Granuloma, pyogenic Silver nitrate used to treat. Bandage applied. Call report in 14 days or sooner prn. Hyperlipidemia This issue was reviewed, appears stable, and current therapy continued except as mentioned. Appropriate lab was reviewed from the most recent appropriate entry and lab was ordered if needed in the cpoe/nursing orders, and follow up recommended generally in 90 days and no later then six months. Lab stable. The patient has family members present who are agreeable with today's plan and have no additional concerns or requests. CLAIRE Aquinoen here. Neurogenic bladder This issue was reviewed, appears stable, and current therapy continued except as mentioned. Appropriate lab was reviewed from the most recent appropriate entry and lab was ordered if needed in the cpoe/nursing orders, and follow up recommended generally in 90 days and no later then six months. Sees [address] PEREZ. Osteoarthritis This issue was reviewed, appears stable, and current therapy continued except as mentioned. Appropriate lab was reviewed from the most recent appropriate entry and lab was ordered if needed in the cpoe/nursing orders, and follow up recommended generally in 90 days and no later then six [address] refilled.30 minutes were utilized in care and coordination for this patient. Greater then 50% of the time was used for counseling and/or coordination of the patients care. Wheelchair dependence The patient is here for a routine home health recertification. Their chronic issues are stable and no changes are necessary at this time. Orders: HYDROcodone-acetaminophen, 1-2 tabs, Oral, q8hr, as needed for pain, # 60 tabs, 0 Refill(s) XR Ankle Complete Right
--- OUTSIDE RECORDS SUMMARY | 2016-07-27 11:34 | XMS REPORT | Referral Summary ---
Author Author [facility] Organization [facility] Address Unknown Phone Unavailable Care Team Providers Care Services Program Manager Name Role Phone Oksana Galeano Primary Care Physician [phone] Encounter VC Date(s): 04/04/16 - 04/04/16 [facility] [address] [place] [address] [place] [id number] Discharge Diagnosis: Changing skin lesion Discharge Diagnosis: History of basal cell cancer Discharge Disposition: 01-Home or Self Care Attending Physician: Raina Go MD Admitting Physician: Raina Go MD Referring Physician: Oscar Galeano MD Vital Signs Most recent to 1 oldest [Reference Range]: Temperature Tympanic 36.4 degC [36.6-38.1 degC] *LOW* (04/04/16 10:13 AM) Peripheral Pulse 50 bpm Rate [60-100 bpm] *LOW* (04/04/16 10:13 AM) SpO2 96 % (04/04/16 10:13 AM) Problem List Condition Effective Dates Status Health [...] TIMES A DAY, # 90 tabs, eRx: [facility] #[id number], TAKE ONE TABLET BY MOUTH THREE TIMES A DAY Start Date: 03/22/16 Status: Ordered citalopram 20 mg oral tablet See Instructions, TAKE ONE TABLET BY MOUTH EVERY DAY, # 90 tabs, eRx: [facility] #[id number], TAKE ONE TABLET BY MOUTH EVERY DAY Start Date: 02/20/16 Status: Ordered fluticasone 50 mcg/inh nasal spray See Instructions, INHALE 2 SPRAYS INTO EACH NOSTRIL DAILY, # 16 unknown unit, eRx: [facility] #[id number], INHALE 2 SPRAYS INTO EACH NOSTRIL DAILY Start Date: 03/01/16 Status: Ordered Glucometer strips (DME) DME Item use to test blood sugars daily, See Instructions, # 1 Each, 0 Refill(s) , Supply Start Date: 12/04/13 Status: Ordered hydrALAZINE 25 mg oral tablet See Instructions, TAKE TWO TABLETS BY MOUTH TWICE A DAY, # 360 tabs, eRx: [facility] #[id number], TAKE TWO TABLETS BY MOUTH TWICE A DAY Start Date: 03/22/16 Status: Ordered lactulose 10 g/15 mL oral syrup See Instructions, TAKE 15 ML BY MOUTH TWO TIMES A DAY, # 946 unknown unit, eRx: [facility] #[id number], TAKE 15 ML BY MOUTH TWO TIMES A DAY Start Date: 03/19/14 Status: Ordered lovastatin 20 mg oral tablet See Instructions, TAKE ONE TABLET BY MOUTH EVERY DAY, # 90 tabs, eRx: [facility] #[id number], TAKE ONE TABLET BY MOUTH EVERY DAY Start Date: 04/02/16 Status: Ordered Metoprolol Succinate ER 50 mg oral tablet, extended release See Instructions, TAKE ONE TABLET BY MOUTH TWICE A DAY, # 180 tabs, eRx: [facility] #[id number], TAKE ONE TABLET BY MOUTH TWICE A DAY Start Date: 04/02/16 Status: Ordered mupirocin 2% topical ointment See Instructions, APPLY A SMALL AMOUNT TO THE AFFECTED AREA BY TOPICAL ROUTE TWO TIMES A DAY, # 22 unknown unit, eRx: [facility] #[id number], APPLY A SMALL AMOUNT TO THE AFFECTED AREA BY TOPICAL ROUTE TWO TIMES A DAY Start Date: 04/05/15 Status: Ordered Neurontin 100 mg oral capsule See Instructions, 2 caps Oral in the morning and 3 at hs, 0 Refill(s) Start Date: 12/04/13 Status: Ordered [place] 5 mg-325 mg oral tablet 1-2 tabs, Oral, q8hr, as needed for pain, # 60 tabs, 0 Refill(s) Start Date: 03/19/16 Status: Ordered ONETOUCH ULTRA TEST STRIPS See Instructions, TEST BLOOD SUGARS DAILY AND NEEDED, # 50 strip, 1 Refill(s) , eRx: [facility] #[id number], TEST BLOOD SUGARS DAILY AND NEEDED Start [...] DAY, # 90 caps, 1 Refill(s), Pharmacy: [facility] #[id number], TAKE ONE CAPSULE BY MOUTH EVERY DAY Start Date: 03/19/16 Status: Ordered Results No data available for [...] Extracted from: Title: Ambulatory Patient Education Author: Raina Go MD Date: [facility] Basal Cell Carcinoma Basal cell carcinoma is the most common form of skin cancer. It begins in the basal cells, which are at the bottom of the outer skin layer (epidermis). CAUSES Sun exposure is the most common cause of basal cell carcinoma. Basal cell carcinoma occurs most often on parts of the body that are frequently exposed to the sun, including the: Scalp. Ears. Neck. Face. Arms. Backs of the hands. Legs. However, basal cell carcinoma can occur anywhere on the body. Rarely, tumors develop on areas not exposed to the sun. Other causes of basal cell carcinoma can include: Exposure to arsenic. Exposure to radiation. Certain genetic syndromes, such as xeroderma pigmentosum. RISK FACTORS People at highest risk for basal cell carcinoma include those with: Fair skin. Blonde or red hair. Blue, green, or kent eyes. Childhood freckling. Factors that increase your risk for basal cell carcinoma include: Sun exposure over long periods of time. Childhood sun exposure appears to be a more significant factor than sun exposure as an adult. Repeated sunburns. Use of tanning beds. Having a weakened immune system. SYMPTOMS Five signs of basal cell carcinoma are: An open sore that bleeds, oozes, or crusts. The sore may remain open for 3 or more weeks. This can be an early sign of basal cell carcinoma. Basal cell carcinoma can mimic a pimple that will not heal. A reddish or irritated area which may crust, itch, or cause discomfort. This may occur on areas expose d to the sun. These patches might be easier felt than seen. A shiny, pearly, or translucent bump that is pink, red, or white. The bump may also be [place], black, or brown, especially in dark haired people. These bumps can be confused with moles. A pink growth with a slightly elevated, rolled border, and a crusted indentation in the center. As the growth slowly enlarges, tiny blood vessels may develop on the surface. A scar-like white, yellow, or waxy area that looks like shiny, stretched skin. It often has irregular borders. This may be a sign of more aggressive basal cell carcinoma. DIAGNOSIS Your caregiver may be able to tell what is wrong by doing a physical exam. Often , a tissue sample (biopsy) is also taken. The tissue is examined under a microscope. TREATMENT The treatment for basal cell carcinoma depends on the type, size, location, and number of tumors. Possible treatments include: Mohs surgery. This is a procedure done by a skin doctor (resaw carriage operator or Mohs surgeon) in his or her office. The cancerous cells are removed layer by layer. This treatment has a high cure rate. Surgical removal of the tumor. Freezing the tumor with liquid nitrogen (cryosurgery). Plastic surgery to remove the tumor, in the case of large tumors. Radiation. This may be used for tumors on the face. Photodynamic therapy. A chemical cream is applied to the skin and light exposure is used to activate the chemical. Chemical treatments, such as imiquimod cream and interferon injections. This may be used to remove superficial tumors with minimal scarring. Electrodesiccation and curettage. This involves alternately scraping and burning the tumor, using an electric current to control bleeding. Basal cell carcinoma can almost always be cured. It rarely spreads to other areas of the body (metastasizes). Basal cell carcinoma may come back at the same location (recur), but it can be treated again if this occurs. PREVENTION Avoid the sun between 10:00 a.m. and 4:00 pm when it is the strongest. Use a sunscreen or sunblock with a sun protection factor of 30 or greater. Apply sunscreen at least 30 minutes before exposure to the sun. Reapply sunscreen every 2 to 4 hours while you are outside, after swimming, and after excessive sweating. Always wear protective hats, clothing, and sunglasses with ultraviolet protection. Avoid tanning beds. HOME CARE INSTRUCTIONS Avoid unprotected sun exposure. Follow your caregiver's instructions for self-exams. Look for new spots or changes in your skin. Keep all follow-up appointments as directed by your caregiver. SEEK MEDICAL CARE IF: You notice any new spots or changes in your skin. You have had a basal cell carcinoma tumor removed and you notice a new growth in the same location. This information is not intended to replace advice given to you by your health care provider. Make sure you discuss any questions you have with your health care provider. Document Released: 10/27/2003 Document Revised: 10/21/2012 Document Reviewed: [employer] Patient Education 2016 [employer] No follow up information was provided. Extracted from: Title: Office Visit Note Author: Raina Go MD Date: 04/04/16 Assessment/Plan 1.Changing skin lesion Ordered: Office Visit Level 3 New [address] 2.History of basal cell cancer Ordered: Office Visit Level 3 New [address] Plan: Excisional biopsy of suspicious skin lesion involvingright cheek. I did review the patient's chart including office note performed by PCP from March 19, 2016. Reviewed prior notefrom February 2011 worried he had abasal cell carcinoma excised from his nosean actinic keratotic appearing lesion from the left cheekregion excised. I informed the patient and his [id number] that I would recommend proceeding with an excisional biopsy of this suspicious ulcerated lesion involving the right cheek. Theyunderstood and wished to proceed . The area of concern was prepped and draped in sterile fashion. One percent lidocaine with epinephrine was injected circumferentially around the skin lesion. The lesion was excised in a standard elliptical fashion. The elliptical incision was 1.5 cm in width and 3 cm in length. Edges of the incision were underminedto facilitate closure. Hemostasis obtained with electrocautery. The incision was closed in layers with 4-0 Vicryl subcuticular stitches and 4-0 Prolene for skin edges. The patient was given post excision instruction and told to return to the clinic in 10-14 days, or sooner if any concerns arise.
--- OUTSIDE RECORDS SUMMARY | 2016-07-27 11:34 | XMS REPORT | Continuity of Care Document ---
Author Author [facility] LIVE Organization [facility] LIVE Address Unknown Phone Unavailable Support Name Relationship Address Phone KARI FLOWERS MD Caregiver [address] [place] [address] [place] [address] [phone] MEGAN ALVES MD Caregiver [address] [place] [address] [place] [address] [phone] MINDY FRANCO & MATT Next Of Kin [address] [place] [address] Insurance Providers Payer Name Policy Number Subscriber Name Relationship Medicareadvantra Ppo [id number] Raina Franco Self [facility] State Plan [id number] Raina Franco Self Advance Directives Directive Response Recorded Date/Time Ordered Resuscitation Status Full Code, unverified 06/24/14 11:38am Resuscitation Documents on File No 06/24/14 10:19am Problems Medical Problems Problem Onset Date Status [...] PO DAILY 06/26/13 Active Fluticasone Propionate 2 [place] NS DAILY 06/26/13 Active Aspirin 81 Mg [...] HCl 0.4 Mg PO BEDTIME 12/29/13 Active Ciprofloxacin HCl 500 Mg PO DAILY 20 Qty 06/24/14 Active Cephalexin 1 Cap PO FOUR TIMES DAILY 06/25/14 Active Social History Social History Problem Response Recorded Date/Time Chewing Tobacco Status Y 25 yrs ago 06/29/2013 9:56am Hx Substance Use No 06/25/2014 8:18am Hx Alcohol Use No 06/25/2014 8:18am Has the pt used tobacco in the last 12 months No 06/25/2014 8:18am Tobacco Usage none 12/29/2013 9:07am Query Response Start Date Stop Date Smoking Status Former smoker Hospital Discharge Instructions No hospital discharge instructions. Plan of Care No plan of care. Functional Status Query Response Date Recorded Physical Hygiene Assist December 30, 2013 2:49pm Physical Hygiene Assist December 30, 2013 2:49pm Allergies, Adverse Reactions, Alerts Allergen Type Severity Reaction Status Last Updated Doxycycline Adverse Reaction Unknown VOMITING Active 12/29/13 Immunizations Name Given Type Hx Influenza Vaccination Y Mar 2014 Historical Hx Pneumococcal Vaccination Y WITHIN PAST 10 YEARS Historical Hx Influenza Vaccination Y Mar 2014 Historical Vital Signs Acute Vital Signs Vital Response Date/Time Temperature (Fahrenheit) 97.6 deg F (96.8 - 99.1) Temperature (Calculated Celsius) 36.12976 degrees C (36.0 - 37.3) Temperature Source Temporal Pulse Rate (adult) 56 bpm (60 - 100) Respiratory Rate 16 breaths/min (10 - 20) O2 Sat by Pulse Oximetry 98 % (90 - 100) Oxygen Delivery Method Room Air Blood Pressure 167/69 mm Hg Blood Pressure Source Automatic Cuff Height 5 ft 3 in Weight 179 lb Body Mass Index 31.0 kg/m^2 Results [...] 2014 8:09am 100 MEQ/L N 98-107 Creatinine June 25, 2014 8:09am 0.8 MG/DL N 0.8-1.5 Eosinophils # (Auto) June 25, 2014 [...] G/DL N 2.4-3.6 Glomerular Filtration Rate Calc June 25, 2014 8:09am 92 - Glucometer February 23, 2011 12:30pm 82 [...] Has specimen been collected/obtained? Y Urine Specific [place] December 29, 2013 2:25am 1.010 L - [...] WILL CALL Urine Culture Urine, Straight Cath December 29, 2013 3:07am Proteus Mirabilis Procedures Procedure Status Date Provider(s) Cystourethroscopy with biopsy completed 06/25/14 MEGAN ALVES MD
--- OUTSIDE RECORDS SUMMARY | 2016-07-27 11:34 | XMS REPORT | Continuity of Care Document ---
Author Author [facility] LIVE Organization [facility] LIVE Address Unknown Phone Unavailable Support Name Relationship Address Phone LISETH SIMPSON DO Caregiver [address] [place] [address] [address] [place] [phone] FREDRICK STANFORD MD Caregiver [facility] [address] [address] Unavailable KARI FLOWERS MD Caregiver [address] [place] [address] [address] [place] [phone] MINDY FRANCO & MATT Next Of Kin [address] [place] [address] Insurance Providers Payer Name Policy Number Subscriber Name Relationship Medicareadvantra Ppo [id number] Raina Franco Self [facility] State Plan [id number] Raina Franco 16 Self Advance Directives Directive Response Recorded Date/Time Ordered Resuscitation Status Full Code 12/29/13 3:31am Chief Complaint and Reason for Visit Chief Complaint UTI,DIARRHEA, SCROTAL ULCERATION Reason for Visit Urinary Tract Infection not otherwise specified Skin breakdown Scrotal ulcer Diarrhea UTI (urinary tract infection) Hypertension BPH (benign prostatic hyperplasia) 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 Problems Medical Problems Problem Onset Date Status [...] Discontinued Citalopram Hydrobromide 20 Mg PO DAILY 90 Qty 06/26/13 Active Hydrocodone Bit/Acetaminophen 1-2 Tab PO Q8 HR PRN 60 Qty 06/26/13 Active Fluticasone Propionate 2 [place] NS DAILY 16 Qty 06/26/13 Active Mupirocin 1 Applic TP TWICE A DAY 22 Qty 06/26/13 Active Aspirin 81 Mg PO DAILY 06/26/13 Active Lactulose 10 Gm PO TWICE A DAY 06/26/13 12/29/13 Discontinued Gabapentin 100 Mg PO TWICE A DAY 200 MG IN AM 06/26/13 12/29/13 Discontinued Metoprolol Succinate 50 Mg PO TWICE A DAY 180 Qty 12/29/13 Active Bethanechol Chloride 25 Mg PO THREE TIMES A DAY 90 Qty 12/29/13 Active Lactulose 1 Tbs PO BID PRN 946 Qty 12/29/13 Active Tamsulosin HCl 0.4 Mg PO BEDTIME 90 Qty 12/29/13 Active Levofloxacin 500 Mg PO DAILY 10 Qty 12/30/13 Active Social History Social History Problem Response Recorded Date/Time Smoking Status Former smoker 12/29/2013 4:08am Chewing Tobacco Status Y 25 yrs ago 06/29/2013 9:56am Hx Substance Use No 12/29/2013 3:22am Hx Alcohol Use Y occ. years ago 12/29/2013 3:22am Has the pt used tobacco in the last 12 months No 12/29/2013 4:08am Query Response Start Date Stop Date Smoking Status Former smoker Hospital Discharge Instructions Instructions: Care Instructions: Reason for Hospitalization: uti, scrotal irritation I was in the hospital because (patient own words): "PAIN" Discharge Activity: Activity as tolerated Follow Up Appointments: Follow up apt with Dr Flowers 01/01/14- 0909 Patient Instructions: Take levaquin po daily for UTI Use Calmoseptine Barrier cream to scrotum daily Wound/Incision Care: Would care instructions as written orders for HH staff Condition at time of discharge: Good appointment. General Information: Take Augmentin 875mg twice a day for antiobiotic coverage Condition at time of discharge: Good Condition at time of discharge: Good Understand discharge plan Maximum functional status Patient Instructions: see patient instructions rate >100, confusion, or persistent nausea/vomitting. 2.Severe pain, swelling, redness, or warmth in either of your legs. 3.During office hours, call [phone] 4. After hours, please call [facility] at [phone], and have the sticker machine operator page your Surgeon IN THE EVENT OF AN EMERGENCY, seek medical care at the nearest Emergency Room Condition at time of discharge: Good Plan of Care Discharge Date 12/30/13 4:03pm Disposition 01 DISCHARGED HOME, SELF-CARE Instructions/Education Provided DI for Urinary Tract Infection (UTI) Prescriptions See Medications Section Functional Status Query Response Date Recorded Physical Hygiene Assist December 30, 2013 2:49pm Disabilities Hearing Paralysis December 30, 2013 2:49pm Devices Used Wheelchair December 30, 2013 2:49pm Dressing Assist December 30, 2013 2:49pm Ambulation Total Care December 30, 2013 2:49pm Diet Assist December 30, 2013 2:49pm Mental Status Alert December 30, 2013 2:49pm Disabilities Hearing Paralysis December 30, 2013 2:49pm Devices Used Wheelchair December 30, 2013 2:49pm Physical Hygiene Assist December 30, 2013 2:49pm Dressing Assist December 30, 2013 2:49pm Ambulation Total Care December 30, 2013 2:49pm Diet Assist December 30, 2013 2:49pm Allergies, Adverse Reactions, Alerts Allergen Type Severity Reaction Status Last Updated Doxycycline Adverse Reaction Unknown VOMITING Active 12/29/13 Immunizations Name Given Type Hx Influenza Vaccination Y Mar 2013 Historical Hx Pneumococcal Vaccination Yes Historical Hx Influenza Vaccination Y Mar 2013 Historical Vital Signs Acute Vital Signs Vital Response Date/Time Temperature (Fahrenheit) 97.3 deg F (96.8 - 99.1) Temperature (Calculated Celsius) 36.61904 degrees C (36.0 - 37.3) Temperature Source Oral Pulse Rate (adult) 46 bpm (60 - 100) Respiratory Rate 12 breaths/min (10 - 20) O2 Sat by Pulse Oximetry 98 % (90 - 100) Oxygen Delivery Method Room Air Blood Pressure 188/72 mm Hg Blood Pressure Source Automatic Cuff Height 5 ft 3 in Weight 167 lb Body Mass Index 29.0 kg/m^2 Results Test Source Date Result Interp. Ref. Range Comments Metamyelocytes # December 30, 2013 4:20am 0.1 T/MM3 - Basophils # (Manual) December 30, 2013 4:20am 0.1 T/MM3 N 0-0.2 Eosinophils # (Manual) December 30, 2013 4:20am 0.4 T/MM3 N 0-0.5 Monocytes # (Manual) December 30, 2013 4:20am 0.9 T/MM3 H 0-0.8 Lymphocytes # (Manual) December 30, 2013 4:20am 3.3 T/MM3 N 1-4.8 Neutrophils # (Manual) December 30, 2013 4:20am 4.6 T/MM3 N 1.8-7.7 Metamyelocytes % December 30, 2013 4:20am 1.0 % H 0-0 Basophils % (Manual) December 30, 2013 4:20am 1.0 % N 0-2 Eosinophils % (Manual) December 30, 2013 4:20am 4.0 % N 0-4 Monocytes % (Manual) December 30, 2013 4:20am 10.0 % H 0-9.0 Lymphocytes % (Manual) December 30, 2013 4:20am 35.0 % N 23-45 Neutrophils % (Manual) December 30, 2013 4:20am 49.0 % N 33-66 Alanine Aminotransferase (ALT/SGPT) December 29, 2013 2:35am 26 U/L N 21- 72 Albumin December 29, 2013 2:35am 3.9 G/DL N 3.5-5.0 Albumin/Globulin Ratio December 29, 2013 2:35am 1.2 RATIO N 1.1-2.2 Alkaline Phosphatase December 29, 2013 2:35am 95 U/L N 38-126 Anion Gap December 30, 2013 4:20am 8 MEQ/L N 5-15 Aspartate Amino Transf (AST/SGOT) December 29, 2013 2:35am 24 U/L N 17-59 BUN/Creatinine Ratio December 30, 2013 4:20am 17 RATIO N 6-26 Basophils # (Auto) December 29, 2013 2:05am 0.1 T/MM3 N 0-0.2 Basophils (%) (Auto) December 29, 2013 2:05am 0.3 % N 0-2 Blood Urea Nitrogen December 30, 2013 4:20am 12.0 MG/DL N 9-20 Calcium Level December 30, 2013 4:20am 9.0 MG/DL N 8.4-10.2 Calculated Osmolality December 30, 2013 4:20am 257 MOSM/KG L 261-280 Carbon Dioxide Level December 30, 2013 4:20am 27 MEQ/L N 22-30 Chloride Level December 30, 2013 4:20am 99 MEQ/L N 98-107 Creatinine December 30, 2013 4:20am 0.7 MG/DL L 0.8-1.5 Eosinophils # (Auto) December 29, 2013 2:05am 0.5 T/MM3 N 0-0.5 Eosinophils (%) (Auto) December 29, 2013 2:05am 3.6 % N 0-4 Globulin December 29, 2013 2:35am 3.2 G/DL N 2.4-3.6 Glucose Level December 30, 2013 4:20am 87 MG/DL N 75-110 Hematocrit December 30, 2013 4:20am 36.4 % L 41-53 Hemoglobin December 30, 2013 4:20am 12.4 GM/DL L 13.5-17.5 Lipase June 16, 2013 8:32am 35 U/L N 23-300 Lymphocytes # (Auto) December 29, 2013 2:05am 2.6 T/MM3 N 1-4.8 Lymphocytes (%) (Auto) December 29, 2013 2:05am 18.1 % L 23-45 Mean Corpuscular Hemoglobin December 30, 2013 4:20am 31.1 UUG N 26-34 Mean Corpuscular Hemoglobin Concent December 30, 2013 4:20am 34.1 GM/DL N 31-37 Mean Corpuscular Volume December 30, 2013 4:20am 91.2 UM3 N 80-100 Mean Platelet Volume December 30, 2013 4:20am 10.7 UM3 N 9.4-12.4 Monocytes # (Auto) December 29, 2013 2:05am 1.7 T/MM3 H 0-0.8 Monocytes (%) (Auto) December 29, 2013 2:05am 11.8 % H 0-9.0 Neutrophils # (Auto) December 29, 2013 2:05am 9.4 T/MM3 H 1.8-7.7 Neutrophils (%) (Auto) December 29, 2013 2:05am 66.0 % N 33-66 Platelet Count December 30, 2013 4:20am 191 T/MM3 N 130-400 Potassium Level December 30, 2013 4:20am 4.1 MEQ/L N 3.6-5 Prealbumin December 29, 2013 2:35am 19.8 MG/DL N 17.6-36.0 COMMENT blood in lab RDW Standard Deviation December 30, 2013 4:20am 42.4 FL N 36.9-50.2 Red Blood Count December 30, 2013 4:20am 3.99 M/MM3 L 4.50-5.90 Sodium Level December 30, 2013 4:20am 134 MEQ/L N 134-144 Thyroid Stimulating Hormone (TSH) December 29, 2013 2:35am 0.65 MIU/L N 0.47-4.68 COMMENT blood in lab Total Bilirubin December 29, 2013 2:35am 0.50 MG/DL N 0.20-1.30 Total Protein December 29, 2013 2:35am 7.1 G/DL N 6.3-8.2 Urine Bacteria December 29, 2013 2:25am 2+ [...] Has specimen been collected/obtained? Y Urine Specific [place] December 29, 2013 2:25am 1.010 L - [...] - Has specimen been collected/ obtained? Y Vitamin B12 Level December 29, 2013 2:35am 333 PG/ML N 239-931 COMMENT blood in lab White Blood Count December 30, 2013 4:20am 9.3 T/MM3 N 4.5-11.0 Chemistry Specimen Hemolysis December 30, 2013 4:20am < 15 0-25 0-25: No Hemolysis.26-70: Slight Hemolysis - can falsely elevate K and Urine Protein. 71-285: Moderate Hemolysis - can falsely elevate K, Troponin I, CA 19-9, PTH, CSF GLucose, and Urine Protein, and can falsely decrease Phenytoin. 286-999: Gross Hemolysis - can falsely elevate K, Troponin I, CA 19-9, PTH, CSF Glucose, and Urine Protine, and can falsely decrease Phenytoin. Recommend specimen recollection. Glucometer February 23, 2011 12:30pm 82 mg/dL N 75-110 Turbidity December 30, 2013 4:20am < 20 0-20 Glomerular Filtration Rate Calc December 30, 2013 4:20am 107 - Immature Granulocyte # (Auto) December 29, 2013 2:05am 0.03 T/MM3 N 0.00- 0.03 Immature Granulocyte % (Auto) December 29, 2013 2:05am 0.2 % N 0.0-0.5 Venous Blood Lactate December 29, 2013 2:35am 1.2 MMOL/L N 0.6-2.2 Procalcitonin December 29, 2013 2:35am < 0.05 NG/ML - PCT </=0.5 ng/mL - sepsis not likely;PCT >0.5 and </=2 ng/mL - sepsis possible; PCT >2 ng/mL - sepsis likely; PCT >/=10 ng/mL - systemic inflammatory response - sepsis or septic shock highly indicated. Icterus Index December 30, 2013 4:20am < 2 0-7 Urine Culture Urine, Straight Cath December 29, 2013 3:07am Proteus Species Procedures No known history of procedures. 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
--- OUTSIDE RECORDS SUMMARY | 2016-07-27 11:34 | XMS REPORT | Referral Summary ---
Author Organization Unknown Address Unknown Phone Unavailable Care Team Providers Care Lokie Engineer Name Role Phone Oksana Galeano Primary Care Physician [phone] Encounter VC Date(s): 07/01/14 - 07/01/14 [facility], Luis, Urology [address] [place] [address] Dr [place] [id number] Discharge Diagnosis: Incontinence. Discharge Disposition: Home or Self Care Attending Physician: Rafael Aguirre JR, MD Admitting Physician: Raafel Aguirre JR, MD Referring Physician: Oscar Galeano MD Vital Signs No data available for this section Problem List Condition Effective Dates Status Health [...] 0 Refill(s) Start Date: 12/04/13 Status: Ordered Augmentin 875 mg-125 mg oral tablet 1 tabs, Oral, q12hr, X 7 days, # 14 tabs, 0 Refill(s), Pharmacy: [facility] #[id number] Start Date: 06/29/14 Stop Date: 07/06/14 Status: Ordered bethanechol 25 mg oral tablet See Instructions, TAKE ONE TABLET BY MOUTH THREE TIMES A DAY, # 90 tabs, eRx: [facility] #[id number], TAKE ONE TABLET BY MOUTH THREE TIMES A DAY Special Instructions: TAKE ONE TABLET BY MOUTH THREE TIMES A DAY Start Date: 06/18/14 Status: Ordered CeleXA 20 mg oral tablet See Instructions, TAKE ONE TABLET BY MOUTH EVERY DAY, # 90 tabs, eRx: [facility] #[id number], TAKE ONE TABLET BY MOUTH EVERY DAY Special Instructions: TAKE ONE TABLET BY MOUTH EVERY DAY Start Date: 06/18/14 Status: Ordered Flomax 0.4 mg oral capsule See Instructions, TAKE ONE CAPSULE BY MOUTH EVERY DAY, # 90 caps, 1 Refill(s), eRx: [facility] #[id number], TAKE ONE CAPSULE BY MOUTH EVERY DAY Special Instructions: TAKE ONE CAPSULE BY MOUTH EVERY DAY Start Date: 05/07/14 Status: Ordered Flonase 50 mcg/inh nasal spray See Instructions, INHALE 2 SPRAYS INTO EACH NOSTRIL DAILY, # 16 unknown unit, 1 Refill(s), eRx: [facility] #[id number], INHALE 2 SPRAYS INTO EACH NOSTRIL DAILY [...] TWICE A DAY, # 360 tabs, eRx: [facility] #[id number], TAKE TWO TABLETS BY MOUTH TWICE A DAY Special Instructions: TAKE TWO TABLETS BY MOUTH TWICE A DAY Start Date: 06/04/14 Status: Ordered lactulose 10 g/15 mL oral syrup See Instructions, TAKE 15 ML BY MOUTH TWO TIMES A DAY, # 946 unknown unit, eRx: [facility] #[id number], TAKE 15 ML BY MOUTH TWO TIMES A DAY Special Instructions: TAKE 15 ML BY MOUTH TWO TIMES A DAY Start Date: 03/19/14 Status: Ordered lovastatin 20 mg oral tablet See Instructions, TAKE ONE TABLET BY MOUTH EVERY DAY, # 90 tabs, 2 Refill(s), eRx: [facility] #[id number], TAKE ONE TABLET BY MOUTH EVERY DAY Special Instructions: TAKE ONE TABLET BY MOUTH EVERY DAY Start Date: 12/11/13 Status: Ordered mupirocin 2% topical ointment See Instructions, APPLY A SMALL AMOUNT TO THE AFFECTED AREA BY TOPICAL ROUTE TWO TIMES A DAY, # 22 unknown unit, eRx: [facility] #[id number], APPLY A SMALL AMOUNT TO THE AFFECTED [...] at hs Start Date: 12/04/13 Status: Ordered [place] 5 mg-325 mg oral tablet 1-2 tabs, Oral, q8hr, as needed for pain, Epifanio MURPHY, # 60 tabs, 0 Refill(s) Special Instructions: Epifanio MURPHY Start Date: 06/14/14 Status: Ordered ONE TOUCH ULTRA TEST STRIPS See Instructions, TEST BLOOD SUGARS DAILY AND NEEDED, # 50 strip, 2 Refill(s) , eRx: [facility] #[id number], TEST BLOOD SUGARS DAILY AND NEEDED Special Instructions: TEST BLOOD SUGARS DAILY AND NEEDED Start Date: 03/29/14 Status: Ordered Toprol-XL 50 mg oral tablet, extended release See Instructions, TAKE ONE TABLET BY MOUTH TWICE A DAY, # 180 tabs, eRx: [facility] #[id number], TAKE ONE TABLET BY MOUTH TWICE A [...] smoker Assessment and Plan Extracted from: Title: Note from sister in law Author: Marco A Faye RN Date: 07/01/14 Sister in law sent a handwritten note stating the patient has had some episodes of diarrhea sincfe the antibiotic was changed to Augmentin and would like some help with this. Discontinue the augmentin, repeat urine culture on Saturday.
--- OUTSIDE RECORDS SUMMARY | 2016-07-27 11:34 | XMS REPORT | Referral Summary ---
Author Author [facility] [place], [facility] Medicine Organization [facility] Address Unknown Phone Unavailable Care Team Providers Care Account Manager [id number] Name Role Phone Oksana Galeano Primary Care Physician [phone] Encounter VC Date(s): 07/18/15 - 07/18/15 [facility] [place] [address] [place] [id number] Discharge Disposition: 01-Home or Self Care Attending Physician: Oscar Galeano MD Admitting Physician: Oscar Galeano MD Vital Signs Most recent to 1 oldest [Reference Range]: Temperature Tympanic 36.1 degC [36.6-38.1 degC] *LOW* (07/18/15 1:24 PM) Blood Pressure 115/50 mmHg [90-140/60-90 mmHg] (07/18/15 1:24 PM) Problem List Condition Effective Dates Status [...] TIMES A DAY, # 90 tabs, eRx: [facility] #[id number], TAKE ONE TABLET BY MOUTH THREE TIMES A DAY Start Date: 06/10/15 Status: Ordered CeleXA 20 mg oral tablet See Instructions, TAKE ONE TABLET BY MOUTH EVERY DAY, # 90 tabs, 1 Refill(s), eRx: [facility] #[id number], TAKE ONE TABLET BY MOUTH EVERY DAY Start Date: 02/16/15 Status: Ordered Flomax 0.4 mg oral capsule See Instructions, TAKE ONE CAPSULE BY MOUTH EVERY DAY, # 90 caps, 1 Refill(s), eRx: [facility] #[id number], TAKE ONE CAPSULE BY MOUTH EVERY DAY Start Date: 02/16/15 Status: Ordered Flonase 50 mcg/inh nasal spray See Instructions, INHALE 2 SPRAYS INTO EACH NOSTRIL DAILY, # 16 unknown unit, 1 Refill(s), eRx: [facility] #[id number], INHALE 2 SPRAYS INTO EACH NOSTRIL DAILY Start Date: 06/09/15 Status: Ordered Glucometer strips (DME) DME Item use to test blood sugars daily, See Instructions, # 1 Each, 0 Refill(s) , Supply Start Date: 12/04/13 Status: Ordered hydrALAZINE 25 mg oral tablet See Instructions, TAKE TWO TABLETS BY MOUTH TWICE A DAY, # 360 tabs, 1 Refill(s) , eRx: [facility] #[id number], TAKE TWO TABLETS BY MOUTH TWICE A DAY Start Date: 02/24/15 Status: Ordered lactulose 10 g/15 mL oral syrup See Instructions, TAKE 15 ML BY MOUTH TWO TIMES A DAY, # 946 unknown unit, eRx: [facility] #[id number], TAKE 15 ML BY MOUTH TWO TIMES A DAY Start Date: 03/19/14 Status: Ordered lovastatin 20 mg oral tablet See Instructions, TAKE ONE TABLET BY MOUTH EVERY DAY, # 90 tabs, eRx: [facility] #[id number], TAKE ONE TABLET BY MOUTH EVERY DAY Start Date: 06/10/15 Status: Ordered mupirocin 2% topical ointment See Instructions, APPLY A SMALL AMOUNT TO THE AFFECTED AREA BY TOPICAL ROUTE TWO TIMES A DAY, # 22 unknown unit, eRx: [facility] #[id number], APPLY A SMALL AMOUNT TO THE AFFECTED AREA BY TOPICAL ROUTE TWO TIMES A DAY Start Date: 04/05/15 Status: Ordered Neurontin 100 mg oral capsule See Instructions, 2 caps Oral in the morning and 3 at hs, 0 Refill(s) Start Date: 12/04/13 Status: Ordered Moneta 5 mg-325 mg oral tablet 1-2 tabs, Oral, q8hr, as needed for pain, # 60 tabs, 0 Refill(s) Start Date: 07/18/15 Status: Ordered ONE TOUCH ULTRA TEST STRIPS See Instructions, TEST BLOOD SUGARS DAILY AND NEEDED, # 50 strip, 2 Refill(s) , eRx: [facility] #[id number], TEST BLOOD SUGARS DAILY AND NEEDED Start Date: 03/29/14 Status: Ordered ONETOUCH ULTRA TEST STRIPS See Instructions, TEST BLOOD SUGARS DAILY AND NEEDED, # 50 strip, 1 Refill(s) , eRx: [facility] #[id number], TEST BLOOD SUGARS DAILY AND NEEDED Start Date: 05/27/15 Status: Ordered Power W/C Evaluation Power W/C Evaluation, See Instructions, Please eval for power w/c., # 1 Each, 0 Refill(s) Start Date: 12/03/14 Status: Ordered Toprol-XL 50 mg oral tablet, extended release See Instructions, TAKE ONE TABLET BY MOUTH TWICE A DAY, # 180 tabs, 1 Refill(s) , eRx: [facility] #[id number], TAKE ONE TABLET BY MOUTH TWICE A [...] care provider. Document Released: 01/15/2002 Document Revised: 09/06/2014 Document Reviewed: Exit[employer] Patient Information 2015 Cardio control. No follow up information was provided. Extracted from: Title: Office Visit Note Author: Oscar Galeano MD Date: 07/18/15 Assessment/Plan Benign essential HTN This issue was [...] no later then six months. Lab stable. Chronic UTI The patient's issue is nearly or completely resolved. There is no further issues or testing desired by them at this time. No symptoms today. Constipation This issue was reviewed, appears stable, and current therapy continued except as mentioned. Appropriate lab was reviewed from the most recent appropriate entry and lab was ordered if needed in the cpoe/nursing orders, and follow up recommended generally in 90 days and no later then six months. No changes desired. Diabetes mellitus type 2 The patient was notified for the need for regular quarterly f/u of their diabetes. Further any pertinent medication, supplies, etc were refilled. Additionally, they are to have annual eye exams, foot exams, and regular care. Elevated blood sugar This issue was reviewed, appears stable, and current therapy continued except as mentioned. Appropriate lab was reviewed from the most recent appropriate entry and lab was ordered if needed in the cpoe/nursing orders, and follow up recommended generally in 90 days and no later then six months. 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 Appropriate lab was reviewed from the most recent appropriate entry and lab was ordered if needed in the cpoe/nursing orders, and follow up recommended generally in 90 days and no later then six months. Home Health[facility] completed. Moneta refilled. CLAIRE Nina here. The patient has family members present who are agreeable with today's plan and have no additional concerns or requests. Hyperlipidemia This issue was reviewed, appears stable, and current therapy continued except as mentioned. Appropriate lab was reviewed from the most recent appropriate entry and lab was ordered if needed in the cpoe/nursing orders, and follow up recommended generally in 90 days and no later then six months. Wheelchair dependence This issue was reviewed, appears [...]
--- OUTSIDE RECORDS SUMMARY | 2016-07-27 11:34 | XMS REPORT | Referral Summary ---
Author Author [facility] Organization [facility] Address Unknown Phone Unavailable Care Team Providers Care Tie Cutter Name Role Phone Oksana Galeano Primary Care Physician [phone] Encounter VC Date(s): 01/31/15 - 01/31/15 [facility] [address] [place] [id number] Discharge Disposition: 01-Home or Self Care Attending Physician: Oscar Galeano MD Admitting Physician: Oscar Galeano MD Vital Signs Most recent to 1 oldest [Reference Range]: Blood Pressure 120/80 mmHg [90-140/60-90 mmHg] (01/31/15 1:37 PM) Problem List Condition Effective Dates Status [...] TID, # 90 tabs, 5 Refill(s), Pharmacy: [facility] # [id number], 1 tabs Oral TID Start Date: 08/10/15 Status: Ordered CeleXA 20 mg oral tablet See Instructions, TAKE ONE TABLET BY MOUTH EVERY DAY, # 90 tabs, 1 Refill(s), eRx: [facility] #[id number], TAKE ONE TABLET BY MOUTH EVERY DAY Start Date: 02/16/15 Status: Ordered Flomax 0.4 mg oral capsule See Instructions, TAKE ONE CAPSULE BY MOUTH EVERY DAY, # 90 caps, eRx: [facility] #[id number], TAKE ONE CAPSULE BY MOUTH EVERY DAY Start Date: 08/09/15 Status: Ordered Flonase 50 mcg/inh nasal spray See Instructions, INHALE 2 SPRAYS INTO EACH NOSTRIL DAILY, # 16 unknown unit, 1 Refill(s), eRx: [facility] #[id number], INHALE 2 SPRAYS INTO EACH NOSTRIL DAILY Start Date: 06/09/15 Status: Ordered Glucometer strips (DME) DME Item use to test blood sugars daily, See Instructions, # 1 Each, 0 Refill(s) , Supply Start Date: 12/04/13 Status: Ordered hydrALAZINE 25 mg oral tablet See Instructions, TAKE TWO TABLETS BY MOUTH TWICE A DAY, # 360 tabs, 1 Refill(s) , eRx: [facility] #[id number], TAKE TWO TABLETS BY MOUTH TWICE A DAY Start Date: 02/24/15 Status: Ordered lactulose 10 g/15 mL oral syrup See Instructions, TAKE 15 ML BY MOUTH TWO TIMES A DAY, # 946 unknown unit, eRx: [facility] #[id number], TAKE 15 ML BY MOUTH TWO TIMES A DAY Start Date: 03/19/14 Status: Ordered lovastatin 20 mg oral tablet See Instructions, TAKE ONE TABLET BY MOUTH EVERY DAY, # 90 tabs, eRx: [facility] #[id number], TAKE ONE TABLET BY MOUTH EVERY DAY Start Date: 06/10/15 Status: Ordered mupirocin 2% topical ointment See Instructions, APPLY A SMALL AMOUNT TO THE AFFECTED AREA BY TOPICAL ROUTE TWO TIMES A DAY, # 22 unknown unit, eRx: [facility] #[id number], APPLY A SMALL AMOUNT TO THE AFFECTED AREA BY TOPICAL ROUTE TWO TIMES A DAY Start Date: 04/05/15 Status: Ordered Neurontin 100 mg oral capsule See Instructions, 2 caps Oral in the morning and 3 at hs, 0 Refill(s) Start Date: 12/04/13 Status: Ordered Chatfield 5 mg-325 mg oral tablet 1-2 tabs, Oral, q8hr, as needed for pain, # 60 tabs, 0 Refill(s) Start Date: 07/18/15 Status: Ordered ONE TOUCH ULTRA TEST STRIPS See Instructions, TEST BLOOD SUGARS DAILY AND NEEDED, # 50 strip, 2 Refill(s) , eRx: [facility] #[id number], TEST BLOOD SUGARS DAILY AND NEEDED Start Date: 03/29/14 Status: Ordered ONETOUCH ULTRA TEST STRIPS See Instructions, TEST BLOOD SUGARS DAILY AND NEEDED, # 50 strip, 1 Refill(s) , eRx: [facility] #[id number], TEST BLOOD SUGARS DAILY AND NEEDED Start Date: 05/27/15 Status: Ordered Power W/C Evaluation Power W/C Evaluation, See Instructions, Please eval for power w/c., # 1 Each, 0 Refill(s) Start Date: 12/03/14 Status: Ordered Toprol-XL 50 mg oral tablet, extended release See Instructions, TAKE ONE TABLET BY MOUTH TWICE A DAY, # 180 tabs, 1 Refill(s) , eRx: [facility] #[id number], TAKE ONE TABLET BY MOUTH TWICE A [...] Author: Oscar Galeano MD Date: Family Medicine Constipation Constipation is when a person: Poops (has a bowel movement) less than 3 times a week. Has a hard time pooping. Has poop that is dry, hard, or bigger than normal. HOME CARE Eat foods with a lot of fiber in them. This includes fruits, vegetables, beans, and whole grains such as brown rice. Avoid fatty foods and foods with a lot of sugar. This includes [employer] fries , hamburgers, cookies, candy, and soda. If you are not getting enough fiber from food, take products with added fiber in them (supplements). Drink enough fluid to keep your pee (urine) clear or pale yellow. Exercise on a regular basis, or as told by your doctor. Go to the restroom when you feel like you need to poop. Do not hold it. Only take medicine as told by your doctor. Do not take medicines that help you poop (laxatives) without talking to your doctor first. GET HELP RIGHT AWAY IF: You have bright red blood in your poop (stool). Your constipation lasts more than 4 days or gets worse. You have belly (abdominal) or butt (rectal) pain. You have thin poop (as thin as a pencil). You lose weight, and it cannot be explained. MAKE SURE YOU: Understand these instructions. Will watch your condition. Will get help right away if you are not doing well or get worse. Document Released: 10/08/2008 Document Revised: 04/27/2014 Document Reviewed: ExitCare Patient Information 2015 [employer]. This information is not intended to replace advice given to you by your health care provider. Make sure you discuss any questions you have with your health care provider. No follow up information was provided. Extracted from: Title: Office Visit Note Author: Oscar Galeano MD Date: 01/31/15 Assessment/Plan Benign essential HTN This issue is stable and appropriate refills, lab, and f/ u have been discussed. The patient reports their blood pressure has been stable at home and is not having any significant or related problems. There has been no chest pain, chest pressure, soa/garibay. The patient has family members present who are agreeable with today's plan and have no additional concerns or requests. CLAIRE Wood here. Chronic kidney disease (CKD) This issue is stable and appropriate refills, lab , and f/u have been discussed. Constipation This issue is stable and appropriate refills, lab, and f/u have been discussed. Depression This issue is stable and appropriate refills, lab, and f/u have been discussed. Mood stable. Diabetes mellitus type 2 This issue is stable and appropriate refills, lab, and f/u have been discussed. The patient was notified for the need for regular quarterly f/u of their diabetes. Further any pertinent medication, supplies, etc were refilled. Additionally, they are to have annual eye exams, foot exams, and regular care. Hearing loss This issue is stable and appropriate refills, lab, and f/u have been discussed. 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 Power chair form was completed and returned on 01/26 already but another copy was made and sent with them today. HH papers also completed. Chatfield refilled. Neurogenic bladder This issue is stable and appropriate refills, lab, and f/u have been discussed. Sees Dr. PEREZ. Orders: HYDROcodone-acetaminophen, 1-2 tabs, Oral, q8hr, as needed for pain, # 60 tabs, 0 Refill(s)
--- OUTSIDE RECORDS SUMMARY | 2016-07-27 11:34 | XMS REPORT | Referral Summary ---
Author Author [facility] Organization [facility] Address Unknown Phone Unavailable Care Team Providers Care Shift Production Supervisor Name Role Phone Oskana Galeano Primary Care Physician [phone] Encounter VC Date(s): 08/05/15 - 08/05/15 [facility] [address] [place] [address] [place] [id number] Discharge Diagnosis: Peripheral neuropathy Discharge Diagnosis: Hypotonic bladder Discharge Diagnosis: Hypercholesterolemia Discharge Diagnosis: Penoscrotal hypospadias Discharge Disposition: -Home or Self Care Attending Physician: Rafael Aguirre JR, MD Admitting Physician: Rafael Agurire JR, MD Vital Signs Most recent to 1 oldest [Reference Range]: Peripheral Pulse 60 bpm Rate [60-100 bpm] (08/05/15 3:20 PM) Blood Pressure 158/78 mmHg [90-140/60-90 mmHg] *HI* (08/05/15 3:20 PM) Problem List Condition Effective Dates Status [...] 0 Refill(s) Start Date: 12/04/13 Status: Ordered CeleXA 20 mg oral tablet See Instructions, TAKE ONE TABLET BY MOUTH EVERY DAY, # 90 tabs, 1 Refill(s), eRx: [facility] #[id number], TAKE ONE TABLET BY MOUTH EVERY DAY Start Date: 02/16/15 Status: Ordered Flomax 0.4 mg oral capsule See Instructions, TAKE ONE CAPSULE BY MOUTH EVERY DAY, # 90 caps, 1 Refill(s), eRx: [facility] #[id number], TAKE ONE CAPSULE BY MOUTH EVERY DAY Start Date: 02/16/15 Status: Ordered Flonase 50 mcg/inh nasal spray See Instructions, INHALE 2 SPRAYS INTO EACH NOSTRIL DAILY, # 16 unknown unit, 1 Refill(s), eRx: [facility] #[id number], INHALE 2 SPRAYS INTO EACH NOSTRIL DAILY Start Date: 06/09/15 Status: Ordered Glucometer strips (DME) DME Item use to test blood sugars daily, See Instructions, # 1 Each, 0 Refill(s) , Supply Start Date: 12/04/13 Status: Ordered hydrALAZINE 25 mg oral tablet See Instructions, TAKE TWO TABLETS BY MOUTH TWICE A DAY, # 360 tabs, 1 Refill(s) , eRx: [facility] #[id number], TAKE TWO TABLETS BY MOUTH TWICE A DAY Start Date: 02/24/15 Status: Ordered lactulose 10 g/15 mL oral syrup See Instructions, TAKE 15 ML BY MOUTH TWO TIMES A DAY, # 946 unknown unit, eRx: [facility] #[id number], TAKE 15 ML BY MOUTH TWO TIMES A DAY Start Date: 03/19/14 Status: Ordered lovastatin 20 mg oral tablet See Instructions, TAKE ONE TABLET BY MOUTH EVERY DAY, # 90 tabs, eRx: [facility] #[id number], TAKE ONE TABLET BY MOUTH EVERY DAY Start Date: 06/10/15 Status: Ordered mupirocin 2% topical ointment See Instructions, APPLY A SMALL AMOUNT TO THE AFFECTED AREA BY TOPICAL ROUTE TWO TIMES A DAY, # 22 unknown unit, eRx: [facility] #[id number], APPLY A SMALL AMOUNT TO THE AFFECTED AREA BY TOPICAL ROUTE TWO TIMES A DAY Start Date: 04/05/15 Status: Ordered Neurontin 100 mg oral capsule See Instructions, 2 caps Oral in the morning and 3 at hs, 0 Refill(s) Start Date: 12/04/13 Status: Ordered Cru[place] 5 mg-325 mg oral tablet 1-2 tabs, Oral, q8hr, as needed for pain, # 60 tabs, 0 Refill(s) Start Date: 07/18/15 Status: Ordered ONE TOUCH ULTRA TEST STRIPS See Instructions, TEST BLOOD SUGARS DAILY AND NEEDED, # 50 strip, 2 Refill(s) , eRx: [facility] #[id number], TEST BLOOD SUGARS DAILY AND NEEDED Start Date: 03/29/14 Status: Ordered ONETOUCH ULTRA TEST STRIPS See Instructions, TEST BLOOD SUGARS DAILY AND NEEDED, # 50 strip, 1 Refill(s) , eRx: [facility] #[id number], TEST BLOOD SUGARS DAILY AND NEEDED Start Date: 05/27/15 Status: Ordered Power W/C Evaluation Power W/C Evaluation, See Instructions, Please eval for power w/c., # 1 Each, 0 Refill(s) Start Date: 12/03/14 Status: Ordered Toprol-XL 50 mg oral tablet, extended release See Instructions, TAKE ONE TABLET BY MOUTH TWICE A DAY, # 180 tabs, 1 Refill(s) , eRx: [facility] #[id number], TAKE ONE TABLET BY MOUTH TWICE A DAY Start Date: 03/17/15 Status: Ordered Urecholine 5 mg oral tablet 5 mg 1 tabs, Oral, TID, X 90 days, # 270 tabs, 1 Refill(s), Pharmacy: [facility] #[id number], 1 tabs Oral TID,x90 days Start Date: 08/05/15 Stop Date: 02/01/16 Status: Ordered Results No data available for [...] Author: Rafael Aguirre JR, MD Date : 08/05/15 Follow Up With: Where: When: Oscar [facility] m [address] [place] [address] Drive; [place], [place] [id number] Business (1) Within 3 to 5 days Comments: Follow Up With: Where: When: Rafael Hernandez[address]; [place] [address] Business (1) In 3 months 11/04/2015 Comments: Extracted from: Title: Office Visit Note Author: Rafael Aguirre JR, MD Date: 08/05/15 Assessment/Plan 1.Hypotonic bladder A new prescription of Urecholine 25 mg3 times a day called to his pharmacy. Recheck in my office in 3 months. 2.Penoscrotal hypospadias No operative procedure is going to be needed on this patient. Had failed hypospadias repair many timesin the past 3.Hypercholesterolemia Continue lovastatin 20 mg tablet daily 4.Peripheral neuropathy Ordered: Office Visit Level 3 Est [id number] Orders: bethanechol, 5 mg 1 tabs, Oral, TID, X 90 days, # 270 tabs, 1 Refill(s ), Pharmacy: [facility] #[id number], 1 tabs Oral TID,x90 days
--- OUTSIDE RECORDS SUMMARY | 2016-07-27 11:34 | XMS REPORT | Referral Summary ---
Author Author [facility] Organization [facility] Address Unknown Phone Unavailable Care Team Providers Care Interface Engineer Name Role Phone Oksana Galeano Primary Care Physician [phone] Encounter VC Date(s): 03/14/16 - 03/14/16 [facility] [address] [place] [address] [place] [id number] Discharge Diagnosis: History of BPH Discharge Diagnosis: Urethral stricture Discharge Diagnosis: Neurogenic bladder Discharge Disposition: -Home or Self Care Attending Physician: Damaris Gary MD Admitting Physician: Damaris Gary MD Referring Physician: Oscar Galeano MD Vital Signs Most recent to 1 oldest [Reference Range]: Blood Pressure 122/70 mmHg [90-140/60-90 mmHg] (03/14/16 3:42 PM) Problem List Condition Effective Dates Status [...] TID, # 90 tabs, 0 Refill(s), Pharmacy: [facility] # [id number], 1 tabs Oral TID Start Date: 02/22/16 Status: Ordered citalopram 20 mg oral tablet See Instructions, TAKE ONE TABLET BY MOUTH EVERY DAY, # 90 tabs, eRx: [facility] #[id number], TAKE ONE TABLET BY MOUTH EVERY DAY Start Date: 02/20/16 Status: Ordered fluticasone 50 mcg/inh nasal spray See Instructions, INHALE 2 SPRAYS INTO EACH NOSTRIL DAILY, # 16 unknown unit, eRx: [facility] #[id number], INHALE 2 SPRAYS INTO EACH NOSTRIL DAILY Start Date: 03/01/16 Status: Ordered Glucometer strips (DME) DME Item use to test blood sugars daily, See Instructions, # 1 Each, 0 Refill(s) , Supply Start Date: 12/04/13 Status: Ordered hydrALAZINE 25 mg oral tablet See Instructions, TAKE TWO TABLETS BY MOUTH TWICE A DAY, # 360 tabs, eRx: [facility] #[id number], TAKE TWO TABLETS BY MOUTH TWICE A DAY Start Date: 12/14/15 Status: Ordered lactulose 10 g/15 mL oral syrup See Instructions, TAKE 15 ML BY MOUTH TWO TIMES A DAY, # 946 unknown unit, eRx: [facility] #[id number], TAKE 15 ML BY MOUTH TWO TIMES A DAY Start Date: 03/19/14 Status: Ordered lovastatin 20 mg oral tablet See Instructions, TAKE ONE TABLET BY MOUTH EVERY DAY, # 90 tabs, eRx: [facility] #[id number], TAKE ONE TABLET BY MOUTH EVERY DAY Start Date: 01/04/16 Status: Ordered Metoprolol Succinate ER 50 mg oral tablet, extended release See Instructions, TAKE ONE TABLET BY MOUTH TWICE A DAY, # 180 tabs, eRx: [facility] #[id number], TAKE ONE TABLET BY MOUTH TWICE A DAY Start Date: 01/04/16 Status: Ordered mupirocin 2% topical ointment See Instructions, APPLY A SMALL AMOUNT TO THE AFFECTED AREA BY TOPICAL ROUTE TWO TIMES A DAY, # 22 unknown unit, eRx: [facility] #[id number], APPLY A SMALL AMOUNT TO THE AFFECTED AREA BY TOPICAL ROUTE TWO TIMES A DAY Start Date: 04/05/15 Status: Ordered Neurontin 100 mg oral capsule See Instructions, 2 caps Oral in the morning and 3 at hs, 0 Refill(s) Start Date: 12/04/13 Status: Ordered [place] 5 mg-325 mg oral tablet 1-2 tabs, Oral, q8hr, as needed for pain, # 60 tabs, 0 Refill(s) Start Date: 01/20/16 Status: Ordered ONETOUCH ULTRA TEST STRIPS See Instructions, TEST BLOOD SUGARS DAILY AND NEEDED, # 50 strip, 1 Refill(s) , eRx: [facility] #[id number], TEST BLOOD SUGARS DAILY AND NEEDED Start [...] MOUTH EVERY DAY, # 90 caps, [facility][id number], TAKE ONE CAPSULE BY MOUTH EVERY DAY Start Date: 02/01/16 Status: Ordered Results No data [...] smoker Assessment and Plan Extracted from: Title: Office Visit Note Author: Damaris Gary MD Date: 03/14/16 Assessment/Plan 85 yo F with neurogenic bladder, BPH s/p TURP in the past, and urethral strictures. 1.Neurogenic bladder Will obtain CT abdomen and pelvis to eval for urinary stones. RTC in 1 month for UDS andcystoscopy.
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
--- OUTSIDE RECORDS SUMMARY | 2016-07-27 11:35 | XMS REPORT | Continuity of Care Document ---
Author Author Carla FORRESTER, [facility] Address 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 Hypertension, Benign - *Chronic Abdominal Pain - *Resolved Lumbago [...] *Chronic Other abnormal blood chemistry - *Chronic Hypertension, benign - *Chronic Pain [...] VACCINATION AND INOCULATION, OTHER VIRAL DISEASES - Influenza Vaccine - Hypertension, benign - *Controlled Hyperlipidemia, NOS - *Chronic Urinary frequency - *Chronic Pain in limb - *Controlled Impacted cerumen - *Acute Other and unspecified hyperlipidemia - *Chronic Hypertension, benign - *Chronic Hyperlipidemia, [...] Dosage Effective Dates (start - stop) Status One Touch Ultra Test strips Test daily [...] tablet by mouth every day. - Active Celexa 20 mg tablet take 1 tablet (20MG) by oral route every day 20 MG May - Active cephalexin 500 mg capsule take 1 capsule (500MG) by oral route every bedtime for 6 weeks. - Active Flonase 50 mcg/actuation nasal spray,suspension inhale 2 spray (100MCG) by intranasal route every day in each nostril 100 MCG - Active [place] 5 mg-325 mg tablet take 1 - 2 Tablet by oral route every 8 hours as needed for pain 0 - Active Flomax 0.4 mg capsule Take 1 capsule by mouth every day. - Active Immunizations Vaccine Date Status Comments Flu (split) (3 yrs or older) completed Zoster completed Flu (split) (3 yrs or older) completed Results Test Name Date and Time Measure Units Reference Range Abnormal Flag Comments Unknown Vital Signs Date / Time: Height Weight Pulse Rate Blood Pressure Temperature /13:37:00 64 /min 120/60 mm[Hg] Procedures Procedure Date Unknown Encounters Encounter Location Date Patient Visit [facility] Patient Visit Conversion Patient Visit [facility] Patient Visit [facility] Patient Visit [facility] Patient Visit [facility] Patient Visit [facility] Patient [facility] Patient [facility] Patient [facility] Patient Visit [facility] Patient [facility] Patient [facility] Patient [facility] Patient [facility] Patient [facility] Patient [facility] Patient [facility] Patient [facility] Patient [facility] Patient Visit [facility] Patient [facility] Patient Visit [facility] Patient Visit [facility] Advance Directives Directive Effective Date Unknown
--- OUTSIDE RECORDS SUMMARY | 2016-07-27 11:35 | XMS REPORT | Referral Summary ---
Author Author [facility] Organization [facility] Address Unknown Phone Unavailable Care Team Providers Care Video Control Engineer Name Role Phone Oksana Galeano Primary Care Physician [phone] Encounter [facility] [id number] Date(s): 01/20/16 - 01/20/16 [facility] [address] [place] [address] Discharge Diagnosis: Chronic kidney disease (CKD) Discharge Diagnosis: Depression Discharge Diagnosis: H/O post-polio syndrome Discharge Diagnosis: Neurogenic bladder Discharge Diagnosis: Benign essential HTN Discharge Diagnosis: Diabetes mellitus type 2 Discharge Diagnosis: Chronic UTI Discharge Diagnosis: Constipation Discharge Diagnosis: Wheelchair dependence Discharge Disposition: 01-Home or Self Care Attending Physician: Oscar Galeano MD Admitting Physician: Oscar Galeano MD Vital Signs Most recent to 1 oldest [Reference Range]: Blood Pressure 120/60 mmHg [90-140/60-90 mmHg] (01/20/16 1:34 PM) Problem List Condition Effective Dates Status [...] TID, # 90 tabs, 5 Refill(s), Pharmacy: [facility] # [id number], 1 tabs Oral TID Start Date: 08/10/15 Status: Ordered citalopram 20 mg oral tablet See Instructions, TAKE ONE TABLET BY MOUTH EVERY DAY, # 90 tabs, eRx: [facility] #[id number], TAKE ONE TABLET BY MOUTH EVERY DAY Start Date: 11/16/15 Status: Ordered fluticasone 50 mcg/inh nasal spray See Instructions, INHALE 2 SPRAYS INTO EACH NOSTRIL DAILY, # 16 unknown unit, eRx: [facility] #[id number], INHALE 2 SPRAYS INTO EACH NOSTRIL DAILY Start Date: 11/24/15 Status: Ordered Glucometer strips (DME) DME Item use to test blood sugars daily, See Instructions, # 1 Each, 0 Refill(s) , Supply Start Date: 12/04/13 Status: Ordered hydrALAZINE 25 mg oral tablet See Instructions, TAKE TWO TABLETS BY MOUTH TWICE A DAY, # 360 tabs, eRx: [facility] #[id number], TAKE TWO TABLETS BY MOUTH TWICE A DAY Start Date: 12/14/15 Status: Ordered lactulose 10 g/15 mL oral syrup See Instructions, TAKE 15 ML BY MOUTH TWO TIMES A DAY, # 946 unknown unit, eRx: [facility] #[id number], TAKE 15 ML BY MOUTH TWO TIMES A DAY Start Date: 03/19/14 Status: Ordered lovastatin 20 mg oral tablet See Instructions, TAKE ONE TABLET BY MOUTH EVERY DAY, # 90 tabs, eRx: [facility] #[id number], TAKE ONE TABLET BY MOUTH EVERY DAY Start Date: 01/04/16 Status: Ordered Metoprolol Succinate ER 50 mg oral tablet, extended release See Instructions, TAKE ONE TABLET BY MOUTH TWICE A DAY, # 180 tabs, eRx: [facility] #[id number], TAKE ONE TABLET BY MOUTH TWICE A DAY Start Date: 01/04/16 Status: Ordered mupirocin 2% topical ointment See Instructions, APPLY A SMALL AMOUNT TO THE AFFECTED AREA BY TOPICAL ROUTE TWO TIMES A DAY, # 22 unknown unit, eRx: [facility] #[id number], APPLY A SMALL AMOUNT TO THE AFFECTED AREA BY TOPICAL ROUTE TWO TIMES A DAY Start Date: 04/05/15 Status: Ordered Neurontin 100 mg oral capsule See Instructions, 2 caps Oral in the morning and 3 at hs, 0 Refill(s) Start Date: 12/04/13 Status: Ordered [place] 5 mg-325 mg oral tablet 1-2 tabs, Oral, q8hr, as needed for pain, # 60 tabs, 0 Refill(s) Start Date: 01/20/16 Status: Ordered ONETOUCH ULTRA TEST STRIPS See Instructions, TEST BLOOD SUGARS DAILY AND NEEDED, # 50 strip, 1 Refill(s) , eRx: [facility] #[id number], TEST BLOOD SUGARS DAILY AND NEEDED Start [...] MOUTH EVERY DAY, # 90 caps, eRx: [facility] #[id number], TAKE ONE CAPSULE BY MOUTH EVERY DAY [...] Author: Oscar Galeano MD Date: Family Medicine Constipation, Adult Constipation is when a person has fewer than three bowel movements a week, has difficulty having a bowel movement, or has stools that are dry, hard, or larger than normal. As people grow older, constipation is more common. A low-fiber diet, not taking in enough fluids, and taking certain medicines may make constipation worse. CAUSES Certain medicines, such as antidepressants, pain medicine, iron supplements, antacids, and water pills. Certain diseases, such as diabetes, irritable bowel syndrome (IBS), thyroid disease, or depression. Not drinking enough water. Not eating enough fiber-rich foods. Stress or travel. Lack of physical activity or exercise. Ignoring the urge to have a bowel movement. Using laxatives too much. SIGNS AND SYMPTOMS Having fewer than three bowel movements a week. Straining to have a bowel movement. Having stools that are hard, dry, or larger than normal. Feeling full or bloated. Pain in the lower abdomen. Not feeling relief after having a bowel movement. DIAGNOSIS Your health care provider will take a medical history and perform a physical exam. Further testing may be done for severe constipation. Some tests may include: A barium enema X-ray to examine your rectum, colon, and, sometimes, your small intestine. A sigmoidoscopy to examine your lower colon. A colonoscopy to examine your entire colon. TREATMENT Treatment will depend on the severity of your constipation and what is causing it. Some dietary treatments include drinking more fluids and eating more fiber- rich foods. Lifestyle treatments may include regular exercise. If these diet and lifestyle recommendations do not help, your health care provider may recommend taking kyxs-gnk-taynlyf laxative medicines to help you have bowel movements. Prescription medicines may be prescribed if umrh-xna-nzikgmp medicines do not work. HOME CARE INSTRUCTIONS Eat foods that have a lot of fiber, such as fruits, vegetables, whole grains, and beans. Limit foods high in fat and processed sugars, such as bruneian fries, hamburgers, cookies, candies, and soda. A fiber supplement may be added to your diet if you cannot get enough fiber from foods. Drink enough fluids to keep your urine clear or pale yellow. Exercise regularly or as directed by your health care provider. Go to the restroom when you have the urge to go. Do not hold it. Only take khyu-vcf-lqhfgmt or prescription medicines as directed by your health care provider. Do not take other medicines for constipation without talking to your health care provider first. SEEK IMMEDIATE MEDICAL CARE IF: You have bright red blood in your stool. Your constipation lasts for more than 4 days or gets worse. You have abdominal or rectal pain. You have thin, pencil-like stools. You have unexplained weight loss. MAKE SURE YOU: Understand these instructions. Will watch your condition. Will get help right away if you are not doing well or get worse. This information is not intended to replace advice given to you by your health care provider. Make sure you discuss any questions you have with your health care provider. Document Released: 01/18/2005 Document Revised: 05/13/2015 Document Reviewed: [facility] Patient Information 2016 [employer]. No follow up information was provided. Extracted from: Title: Office Visit Note Author: Oscar Galeano MD Date: 01/20/16 Assessment/Plan Benign essential HTN This issue was [...] been no chest pain, chest pressure, soa/garibay. CLAIRE Nina here. Chronic kidney disease (CKD) This issue was reviewed, appears stable, and current therapy continued except as mentioned. Appropriate lab was reviewed from the most recent appropriate entry and lab was ordered if needed in the cpoe /nursing orders, and follow up recommended generally in 90 days and no later then six months. No nsaids. Chronic UTI The patient's issue is nearly or completely resolved. There is no further issues or testing desired by them at this time. To Urology. Constipation The patient's issue is nearly or completely resolved. There is no further issues or testing desired by them at this time. Depression This issue was reviewed, appears stable, and current therapy continued except as mentioned. Appropriate lab was reviewed from the most recent appropriate entry and lab was ordered if needed in the cpoe/nursing orders, and follow up recommended generally in 90 days and no later then six months. Mood stable. Diabetes mellitus type 2 This issue was [...] eye exams, foot exams, and regular care. 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 Appropriate lab was reviewed from the most recent appropriate entry and lab was ordered if needed in the cpoe/nursing orders, and follow up recommended generally in 90 days and no later then six months. Neurogenic bladder This issue was reviewed, appears stable, and current therapy continued except as mentioned. Appropriate lab was reviewed from the most recent appropriate entry and lab was ordered if needed in the cpoe/nursing orders, and follow up recommended generally in 90 days and no later then six months. To Urology. Home Health papers completed. Wheelchair dependence Stable. No falls reported. The patient was given the vaccines requested per protocol and according to those needed for school/family/college/etc. Flu vaccine per request.
--- OUTSIDE RECORDS SUMMARY | 2016-07-27 11:35 | XMS REPORT | Referral Summary ---
Author Author [facility] Organization [facility] Address Unknown Phone Unavailable Care Team Providers Care Masking Machine Operator Name Role Phone Oksana Galeano Primary Care Physician [phone] Encounter [facility] [id number] Date(s): 05/21/16 - 05/21/16 [facility] [address] [place] [id number] Discharge Diagnosis: Benign essential HTN Discharge Diagnosis: Depression Discharge Diagnosis: Wheelchair dependence Discharge Diagnosis: Diabetes mellitus type 2 Discharge Diagnosis: Chronic kidney disease (CKD) Discharge Diagnosis: Constipation Discharge Diagnosis: H/O post-polio syndrome Discharge Diagnosis: Chronic UTI Discharge Disposition: 01-Home or Self Care Attending Physician: Oscar Galeano MD Admitting Physician: Oscar Galeano MD Vital Signs Most recent to 1 oldest [Reference Range]: Blood Pressure 140/70 mmHg [90-140/60-90 mmHg] (05/21/16 1:31 PM) Problem List Condition Effective Dates Status [...] TIMES A DAY, # 90 tabs, eRx: [facility] #[id number] Start Date: 05/01/16 Status: Ordered citalopram 20 mg oral tablet See Instructions, TAKE ONE TABLET BY MOUTH EVERY DAY, # 90 tabs, eRx: [facility] #[id number] Start Date: 05/01/16 Status: Ordered fluticasone 50 mcg/inh nasal spray See Instructions, INHALE 2 SPRAYS INTO EACH NOSTRIL DAILY, # 16 unknown unit, 1 Refill(s), eRx: [facility] #[id number] Start Date: 05/16/16 Status: Ordered Glucometer strips (DME) DME Item use to test blood sugars daily, See Instructions, # 1 Each, 0 Refill(s) , Supply Start Date: 12/04/13 Status: Ordered hydrALAZINE 25 mg oral tablet See Instructions, TAKE TWO TABLETS BY MOUTH TWICE A DAY, # 360 tabs, eRx: [facility] #[id number], TAKE TWO TABLETS BY MOUTH TWICE A DAY Start Date: 03/22/16 Status: Ordered lactulose 10 g/15 mL oral syrup See Instructions, TAKE 15 ML BY MOUTH TWO TIMES A DAY, # 946 unknown unit, eRx: [facility] #[id number], TAKE 15 ML BY MOUTH TWO TIMES A DAY Start Date: 03/19/14 Status: Ordered lovastatin 20 mg oral tablet See Instructions, TAKE ONE TABLET BY MOUTH EVERY DAY, # 90 tabs, eRx: [facility] #[id number], TAKE ONE TABLET BY MOUTH EVERY DAY Start Date: 04/02/16 Status: Ordered Metoprolol Succinate ER 50 mg oral tablet, extended release See Instructions, TAKE ONE TABLET BY MOUTH TWICE A DAY, # 180 tabs, eRx: [facility] #[id number], TAKE ONE TABLET BY MOUTH TWICE A DAY Start Date: 04/02/16 Status: Ordered mupirocin 2% topical ointment See Instructions, APPLY A SMALL AMOUNT TO THE AFFECTED AREA BY TOPICAL ROUTE TWO TIMES A DAY, # 22 unknown unit, eRx: [facility] #[id number], APPLY A SMALL AMOUNT TO THE AFFECTED AREA BY TOPICAL ROUTE TWO TIMES A DAY Start Date: 04/05/15 Status: Ordered Neurontin 100 mg oral capsule See Instructions, 2 caps Oral in the morning and 3 at hs, 0 Refill(s) Start Date: 12/04/13 Status: Ordered [place] 5 mg-325 mg oral tablet 1-2 tabs, Oral, q8hr, as needed for pain, # 60 tabs, 0 Refill(s) Start Date: 05/21/16 Status: Ordered ONETOUCH ULTRA TEST STRIPS See Instructions, TEST BLOOD SUGARS DAILY AND NEEDED, # 50 strip, 1 Refill(s) , eRx: [facility] #[id number], TEST BLOOD SUGARS DAILY AND NEEDED Start [...] DAY, # 90 caps, 1 Refill(s), Pharmacy: [facility] #[id number], TAKE ONE CAPSULE BY MOUTH EVERY DAY Start Date: 03/19/16 Status: Ordered Results No data available for this section Immunizations Given and Recorded Vaccine Date Status Refusal Reason influenza virus vaccine, inactivated1 01/20/16 Given influenza virus vaccine, inactivated 03/14/15 Given influenza virus vaccine, inactivated 02/15/14 Recorded influenza virus vaccine, live 02/09/13 Given influenza virus vaccine, live 01/28/12 Given pneumococcal 23-polyvalent vaccine 08/01/00 Recorded zoster vaccine live 12/15/12 Given 1Result Comment: seqirus Procedures Procedure Date Related Diagnosis Body Site 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 Insertion of #18 Sterling catheter. 3Tight bulbous urethra 4Bulbous urethral stricture Social History Social History Type Response Smoking Status Never smoker Assessment and Plan Extracted from: Title: Ambulatory Patient Education Author: Oscar Galeano MD Date: Home Health Care Constipation, Adult Constipation is when a person [...] your health care provider may recommend taking zdxb-lsf-mpikydr laxative medicines to help you have bowel movements. Prescription medicines may be prescribed if qphb-klq-tzzhnrz medicines do not work. HOME CARE INSTRUCTIONS Eat foods that have a lot of fiber, such as fruits, vegetables, whole grains, and beans. Limit foods high in fat and processed sugars, such as vietnamese fries, hamburgers, cookies, candies, and soda. A fiber supplement may be added to your diet if you cannot get enough fiber from foods. Drink enough fluids to keep your urine clear or pale yellow. Exercise regularly or as directed by your health care provider. Go to the restroom when you have the urge to go. Do not hold it. Only take mukt-twv-eyzkenb or prescription medicines as directed by your [...] Released: 01/18/2005 Document Revised: 05/13/2015 Document Reviewed: [employer] Interactive Patient Education 2016 [employer] No follow up information was provided. Extracted from: Title: Office Visit Note Author: Oscar Galeano MD Date: 05/21/16 Assessment/Plan Benign essential HTN This issue was [...] chest pain, chest pressure, soa/garibay. The patient had an elevated blood pressure reading and is to monitor their bp and call with a report if consistently > 140/90. Chronic kidney disease (CKD) This issue was [...] testing desired by them at this time. Seeing Urology. Assessment/Plan 85 yo F with neurogenic bladder, BPH s/p TURP in the past, and urethral strictures. 1.Neurogenic bladder Will obtain CT abdomen and pelvis to eval for urinary stones. RTC in 1 month for UDS andcystoscopy. [1] IMPRESSION: 1. No renal or ureteral calculi. No obstructive uropathy. 2. Sigmoid colon diverticulosis without diverticulitis. 3. Stable cholelithiasis. 4. Extensive atherosclerosis and coronary artery disease. [2] Pending surgery for suprapubic catheter due to Neurogenic bladder. Constipation This issue was reviewed, appears stable, [...] permanently wheelchair bound due to medical issues. Wheelchair dependence See above. The patient has family members present who are agreeable with today's plan and have no additional concerns or requests. CLAIRE and brother here. Home Health papers completed.
--- OUTSIDE RECORDS SUMMARY | 2016-07-27 11:35 | XMS REPORT | Continuity of Care Document ---
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 Dysuria - *Acute Osteoarthrosis, generalized, 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 [...] unspecified hyperlipidemia - *Chronic BPH - *Chronic Hypertension, benign - *Chronic Hyperlipidemia, [...] NOS - *Chronic Hypertension, Benign - *Chronic Pain in limb - *Acute Family History Family Member Diagnosis Age At Onset Status Mother (Unknown) unknown Yes Mother (Unknown) old age Yes Father (Unknown) old age Yes Social History Social History Element Description Quantity Unknown Allergies, Adverse Reactions, Alerts Substance Reaction Severity Status DOXYCYCLINE vomiting Unknown Medications Medication Instructions Dosage Effective Dates (start - stop) Status Celexa 20 mg tablet take 1 tablet (20MG) by oral route every day 20 MG May - Active One Touch Ultra Test strips Test [...] daily for diagnosis 250.00. 2012 - Active Flomax 0.4 mg capsule Take 1 capsule by mouth every day. - Active mupirocin 2 % topical ointment apply by topical route 2 times every day a small amount to the affected area 0 - Active Neurontin 100 mg capsule Take 2 in the morning and 3 at HS. - Active lactulose 10 gram/15 mL oral solution 15CC PO BID - Active Loraine 5 mg-325 mg tablet take 1 - 2 Tablet by oral route every 8 hours as needed for pain 0 - Active Toprol XL 50 mg tablet,extended release Take 1 tablet by mouth twice a day. - Active hydralazine 25 mg tablet Take 2 tablets by mouth twice a day. - Active Mevacor 20 mg tablet Take 1 tablet by mouth every day. - Active cephalexin 500 mg capsule take 1 capsule (500MG) by oral route every bedtime for 6 weeks. - Active Flonase 50 mcg/actuation nasal spray,suspension inhale 2 spray (100MCG) by intranasal route every day in each nostril 100 MCG - Active Immunizations Vaccine Date Status Comments Flu (split) (3 yrs or older) completed Zoster completed Flu (split) (3 yrs or older) completed Results Test Name Date and Time Measure Units Reference Range Abnormal Flag Comments Panel Description: CBC WBC 14:19:00 9.2 K/uL 4.8-10.8 RBC 14:19:00 4.26 M/uL 4.60-6.20 L HGB 14:19:00 13.2 g/dl 14.0-18.0 L HCT 14:19:00 38.4 % 42.0-52.0 L MCV 14:19:00 90.1 fL 82.0-99.0 MCH 14:19:00 31.0 pg 27.0-32.0 MCHC 14:19:00 34.4 g/dL 32.0-36.0 RDW 14:19:00 13.0 % 11.5-14.5 MPV 14:19:00 11.0 fL 8.8-14.8 Platelet Count 14:19:00 209 K/uL 150-400 Immature Granulocytes 14:19:00 0.2 % 0.0-1.0 Absolute Neutrophils 14:19:00 6.18 THOUS 1.90-7.00 Absolute Lymphocytes 14:19:00 1.67 THOUS 0.80-3.30 Absolute Monocytes 14:19:00 1.14 THOUS 0.30-1.00 H Absolute Eosinophils 14:19:00 0.15 THOUS 0.00-0.50 Absolute Basophils 14:19:00 0.04 THOUS 0.00-0.20 Neutrophils 14:19:00 67 % 51-75 Lymphocytes 14:19:00 18 % 20-46 L Monocytes 14:19:00 12 % 4-11 H Eosinophils 14:19:00 2 % 0-4 Basophils 14:19:00 0 % 0-2 Testing performed at [facility] Lab [address] [place] [id number] Lamination Machine Operator Rene Spain MD Panel Description: CBC WBC 14:19:00 9.2 K/uL 4.8-10.8 RBC 14:19:00 4.26 M/uL 4.60-6.20 L HGB 14:19:00 13.2 g/dl 14.0-18.0 L HCT 14:19:00 38.4 % 42.0-52.0 L MCV 14:19:00 90.1 fL 82.0-99.0 MCH 14:19:00 31.0 pg 27.0-32.0 MCHC 14:19:00 34.4 g/dL 32.0-36.0 RDW 14:19:00 13.0 % 11.5-14.5 MPV 14:19:00 11.0 fL 8.8-14.8 Platelet Count 14:19:00 209 K/uL 150-400 Immature Granulocytes 14:19:00 0.2 % 0.0-1.0 Absolute Neutrophils 14:19:00 6.18 THOUS 1.90-7.00 Absolute Lymphocytes 14:19:00 1.67 THOUS 0.80-3.30 Absolute Monocytes 14:19:00 1.14 THOUS 0.30-1.00 H Absolute Eosinophils 14:19:00 0.15 THOUS 0.00-0.50 Absolute Basophils 14:19:00 0.04 THOUS 0.00-0.20 Neutrophils 14:19:00 67 % 51-75 Lymphocytes 14:19:00 18 % 20-46 L Monocytes 14:19:00 12 % 4-11 H Eosinophils 14:19:00 2 % 0-4 Basophils 14:19:00 0 % 0-2 Testing performed at [facility] Reference Lab [facility] [address] [facility] [address] Lamination Machine Operator Rene Spain MD Panel Description: Urinalysis with Micro-Reflex Culture & Sens if Ind-AMS Appearance 14:19:00 SLCLOUDY Color 14:19:00 Yellow Glucose, Urine 14:19:00 Negative Negative Ketones 14:19:00 Negative Negative Blood 14:19:00 Pos 1+ Negative A Protein 14:19:00 Negative Negative Nitrites 14:19:00 Positive Negative A Bilirubin 14:19:00 Negative Negative Specific [place] 14:19:00 1.008 1.003-1.03 pH 14:19:00 8.5 5.0-8.0 H Urobilinogen 14:19:00 0.2 mg/dL <1.0 Leukocyte Esterase 14:19:00 Pos 3+ Negative A RBC, Urine 14:19:00 2-5 /HPF 0-2 A WBC, Urine 14:19:00 5-10 /HPF 0-4 A Bacteria 14:19:00 Numerous A Crystals 14:19:00 Trip Phos Microscop. Exam Perf. 14:19:00 performed Testing performed at [facility] [address] [place] [address] Lamination Machine Operator Rene Spain MD Panel Description: Urinalysis with Micro-Reflex Culture & Sens if Ind-AMS Appearance 14:19:00 SLCLOUDY Color 14:19:00 Yellow Glucose, Urine 14:19:00 Negative Negative Ketones 14:19:00 Negative Negative Blood 14:19:00 Pos 1+ Negative A Protein 14:19:00 Negative Negative Nitrites 14:19:00 Positive Negative A Bilirubin 14:19:00 Negative Negative Specific [place] 14:19:00 1.008 1.003-1.03 pH 14:19:00 8.5 5.0-8.0 H Urobilinogen 14:19:00 0.2 mg/dL <1.0 Leukocyte Esterase 14:19:00 Pos 3+ Negative A RBC, Urine 14:19:00 2-5 /HPF 0-2 A WBC, Urine 14:19:00 5-10 /HPF 0-4 A Bacteria 14:19:00 Numerous A Crystals 14:19:00 Trip Phos Microscop. Exam Perf. 14:19:00 performed Testing performed at [facility] [address] [place] [address] Lamination Machine Operator Rene Spain MD Panel Description: Culture If Indicated With Sensitivity-AMS Urine Culture Reflexed? 14:19:00 YES Testing performed at [facility] [address] [place] [address] Lamination Machine Operator Rene Spain MD Panel Description: Culture If Indicated With Sensitivity-AMS Urine Culture Reflexed? 14:19:00 YES Testing performed at [facility] [address] [place] [address] Lamination Machine Operator Rene Spain MD Panel Description: Hemoglobin [id number] Hemoglobin A1C 14:19:00 5.1 % 4.1-5.6 Testing performed at [facility] [address] [place] [address] Lamination Machine Operator Rene Spain MD Panel Description: Hemoglobin [id number] Hemoglobin A1C 14:19:00 5.1 % 4.1-5.6 Testing performed at [facility] [address] [place] [address] Lamination Machine Operator Rene Spain MD Panel Description: EAG Calculation-AMS Estimated Average Glucose 14:19:00 99.7 mg/dL Testing performed at [facility] [address] [place] [address] Lamination Machine Operator Rene Spain MD Panel Description: EAG Calculation-AMS Estimated Average Glucose 14:19:00 99.7 mg/dL Testing performed at [facility] [address] [place] [address] Lamination Machine Operator Rene Spain MD Panel Description: Chemistry Profile Glucose 14:19:00 109 mg/dL 70-99 H BUN 14:19:00 11 mg/dL 8-26 Creatinine 14:19:00 0.67 mg/dL 0.72-1.25 L Calcium 14:19:00 9.1 mg/dL 8.9-10.5 Sodium 14:19:00 132 mEq/L 135-144 L Potassium 14:19:00 4.3 mEq/L 3.5-5.2 Chloride 14:19:00 99 mEq/L 99-111 CO2 14:19:00 27 mEq/L 23-31 Albumin 14:19:00 3.9 g/dL 3.4-4.8 Bilirubin Total 14:19:00 0.5 mg/dL 0.2-1.2 Alkaline Phosphatase 14:19:00 59 U/L 40-150 Protein 14:19:00 7.0 g/dL 6.2-8.1 ALT (SGPT) 14:19:00 20 U/L 0-55 AST (SGOT) 14:19:00 22 U/L 5-34 Anion Gap 14:19:00 6 3-20 Globulin 14:19:00 3.1 g/dL 1.8-4.0 Testing performed at [facility] Lab [address] [place], [place] [id number] Lamination Machine Operator Rene Spain MD Panel Description: Chemistry Profile Glucose 14:19:00 109 mg/dL 70-99 H BUN 14:19:00 11 mg/dL 8-26 Creatinine 14:19:00 0.67 mg/dL 0.72-1.25 L Calcium 14:19:00 9.1 mg/dL 8.9-10.5 Sodium 14:19:00 132 mEq/L 135-144 L Potassium 14:19:00 4.3 mEq/L 3.5-5.2 Chloride 14:19:00 99 mEq/L 99-111 CO2 14:19:00 27 mEq/L 23-31 Albumin 14:19:00 3.9 g/dL 3.4-4.8 Bilirubin Total 14:19:00 0.5 mg/dL 0.2-1.2 Alkaline Phosphatase 14:19:00 59 U/L 40-150 Protein 14:19:00 7.0 g/dL 6.2-8.1 ALT (SGPT) 14:19:00 20 U/L 0-55 AST (SGOT) 14:19:00 22 U/L 5-34 Anion Gap 14:19:00 6 3-20 Globulin 14:19:00 3.1 g/dL 1.8-4.0 Testing performed at [facility] [address] [place] [address] Lamination Machine Operator Rene Spain MD Panel Description: Lipid Profile-[facility] Cholesterol 14:19:00 178 mg/dL 0-199 Triglycerides 14:19:00 146 mg/dL 0-149 HDL Cholesterol 14:19:00 45 mg/dL 40-84 LDL Cholesterol 14:19:00 104 mg/dL 0-130 VLDL Cholesterol 14:19:00 29 mg/dL 0-28 H Cardiac Risk 14:19:00 4.0 0.0-5.7 Testing performed at [facility] [address] [place] [address] Lamination Machine Operator Rene Spain MD Panel Description: Lipid Profile-[facility] Cholesterol 14:19:00 178 mg/dL 0-199 Triglycerides 14:19:00 146 mg/dL 0-149 HDL Cholesterol 14:19:00 45 mg/dL 40-84 LDL Cholesterol 14:19:00 104 mg/dL 0-130 VLDL Cholesterol 14:19:00 29 mg/dL 0-28 H Cardiac Risk 14:19:00 4.0 0.0-5.7 Testing performed at [facility] [address] [place] [address] Lamination Machine Operator Rene Spain MD Panel Description: Non-HDL Cholesterol-[facility] Non-HDL Cholesterol 14:19:00 133 mg/dL 0-159 Testing performed at [facility] [address] [place] [address] Lamination Machine Operator Rene Spain MD Panel Description: Non-HDL Cholesterol-[facility] Non-HDL Cholesterol 14:19:00 133 mg/dL 0-159 Testing performed at [facility] [address] [place] [address] Lamination Machine Operator Rene Spain MD Panel Description: EGFR-[facility] eGFR 14:19:00 >60 mL/min >60 Multiply eGFR results by 1.21 for race.Testing performed at [facility] [address] [place] [address] Lamination Machine Operator Rene Spain MD Panel Description: EGFR-[facility] eGFR 14:19:00 >60 mL/min >60 Multiply eGFR results by 1.21 for race.Testing performed at [facility] [address] [place] [address] Lamination Machine Operator Rene Spain MD Panel Description: Direct Bilirubin Bilirubin Direct 14:19:00 0.2 mg/dL 0.0-0.5 Testing performed at [facility] [address] [place] [address] Lamination Machine Operator Rene Spain MD Panel Description: Direct Bilirubin Bilirubin Direct 14:19:00 0.2 mg/dL 0.0-0.5 Testing performed at [facility] [address] [place] [address] Lamination Machine Operator Rene Spain MD Panel Description: Urine Culture/Sensitivity-[facility] Urine Culture 14:19:00 Source: Urine Collected: 06/01/13 14:19 Site: Received : 06/01/13 19:55 Order#: [id number] Culture PRELIM 06/03/13 08:22 Gram negative bacillus being identified >100,000 cfu/mlKEY FOR RESULTS: * - NEW RESULT - RESULT WAS MODIFIED AFTER FINAL STATUS SETPerform at [facility] [address] [place] [address] Lamination Machine Operator Rene Spain MD Panel Description: Urine Culture/Sensitivity-[facility] Urine Culture 14:19:00 Source: Urine Collected: 06/01/13 14:19 Site: Received : 06/01/13 19:55 Order#: [id number] Culture FINAL 06/05/13 06:22 Proteus mirabilis >100,000 cfu/ml____ P. mirab. Antibiotic RUBIO INT Ampicillin <=2 S Ampicillin/sulbactam <=2 S Cefazolin 8 S Ceftriaxone <=1 S Ciprofloxacin 2 I Gentamicin <=1 S Nitrofurantoin >=512 R Trimethoprim/Sulfa 160 R ___ S=SUSCEPTIBLE I=INTERMEDIATE R=RESISTANT S-DD=SUSCEPTIBLE, DOSE DEPENDENT KEY FOR RESULTS: * - NEW RESULT - RESULT WAS MODIFIED AFTER FINAL STATUS SETPerform at [facility] [address] [facility] [address] Lamination Machine Operator Rene Spain MD Vital Signs Date / Time: Height Weight Pulse Rate Blood Pressure Temperature /13:33:00 63.00 in 140/60 mm[Hg] 96.9 F Procedures Procedure Date Unknown Encounters Encounter Location Date Patient Visit [facility] Patient Visit Conversion Patient Visit [facility] Urology Patient Visit [facility] Patient Visit [facility] Patient Visit [facility] Patient Visit [facility] Patient Visit [facility] Patient Visit [facility] Patient Visit [facility] Patient Visit [facility] Patient Visit [facility] Patient Visit [facility] Patient Visit [facility] Patient Visit [facility] Patient Visit [facility] Patient Visit [facility] Patient Visit [facility] Patient Visit [facility] Patient Visit [facility] Urology Patient Visit [facility] Patient Visit [facility] Patient Visit [facility] Advance Directives Directive Effective Date Unknown
--- OUTSIDE RECORDS SUMMARY | 2016-07-27 11:35 | XMS REPORT | Continuity of Care Document ---
Author Author [facility] Organization [facility] Address Unknown Phone Unavailable Allergies Active Description Code Type Severity Reaction Onset Reported/Identified Relationship to Patient Clinical Status Yes doxycycline NKMA N/A vomiting 09/03/2013 Medications Problems Procedures Results Test Result Range Hemoglobin A1C - 09/19/15 14:28 Hemoglobin A1C 5.2 % 4.1-5.6 Estimated Average Glucose - 09/19/15 14:28 Estimated Average Glucose 102.5 mg/dL CBC With Platelet and Differential - 03/19/16 13:34 Absolute Basophils 0.04 10*3 0.00-0.20 Absolute Eosinophils 0.39 10*3 0.00-0.50 Absolute Lymphocytes 1.54 10*3 0.80-3.30 Absolute Monocytes 0.89 10*3 0.30-1.00 Absolute Neutrophils 6.13 10*3 1.90-7.00 Basophils 0 % 0-2 Eosinophils 4 % 0-4 HCT 35.4 % 42.0-52.0 HGB 11.8 g/dL 14.0-18.0 Immature Granulocytes 0.3 % 0.0-1.0 Lymphocytes 17 % 20-46 MCH 31.3 pg 27.0-32.0 MCHC 33.3 g/dL 32.0-36.0 MCV 93.9 fL 82.0-99.0 Monocytes 10 % 4-11 MPV 10.9 fL 8.8-14.8 Neutrophils 68 % 51-75 Platelet Count 186 K/uL 150-400 RBC 3.77 10*6/uL 4.60-6.20 RDW 13.7 % 11.5-14.5 WBC 9.0 K/uL 4.8-10.8 Comprehensive Metabolic Panel (CMP) - 03/19/16 13:34 Albumin 3.6 g/dL 3.4-4.8 Alkaline Phosphatase 76 U/L 40-150 ALT (SGPT) 12 U/L 0-55 Anion Gap 9 NA 3-20 AST (SGOT) 18 U/L 5-34 Bilirubin Total 0.4 mg/dL 0.2-1.2 BUN 16 mg/dL 8-26 Calcium 8.4 mg/dL 8.9-10.5 Chloride 104 mEq/L 99-111 CO2 25 mEq/L 23-31 Creatinine 0.79 mg/dL 0.72-1.25 Globulin 3.0 g/dL 1.8-4.0 Glucose 86 mg/dL 70-99 Potassium 4.1 mEq/L 3.5-5.2 Protein 6.6 g/dL 6.0-7.6 Sodium 138 mEq/L 135-144 Lipid Panel - 03/19/16 13:34 Cardiac Risk 4.4 0.0-5.7 Cholesterol 153 mg/dL 0-199 HDL Cholesterol 35 mg/dL 40-84 LDL Cholesterol 90 mg/dL 0-130 Triglycerides 142 mg/dL 0-149 VLDL Cholesterol 28 mg/dL 0-28 eGFR - 03/19/16 13:34 eGFR >60 mL/min >60 TSH with Reflex Free T4 - 03/19/16 13:34 TSH with Reflex Free T4 0.62 uIU/mL 0.35- 4.94 Hemoglobin A1C - 03/19/16 13:34 Hemoglobin A1C 5.3 % 4.1-5.6 Estimated Average Glucose - 03/19/16 13:34 Estimated Average Glucose 105.4 mg/dL Encounters ACCT No. Visit Date/Time Discharge Status Pt. Type Provider Facility Loc./Unit Complaint [id number] 08/03/2013 13:30:00 08/03/2013 23 :59:59 CLS Outpatient [id number] 06/23/2013 13:36:00 06/23/2013 23 :59:59 CLS Outpatient [id number] 06/01/2013 13:33:00 06/01/2013 23 :59:59 CLS Outpatient
--- OUTSIDE RECORDS SUMMARY | 2016-07-27 11:35 | XMS REPORT | Referral Summary ---
Author Author [facility] Organization [facility] Address Unknown Phone Unavailable Care Team Providers Care Assembly Leader Name Role Phone Oksana Galeano Primary Care Physician [phone] Encounter VC Date(s): 01/31/15 - 01/31/15 [facility] [address] [place] [id number] Discharge Disposition: 01-Home or Self Care [...] Active Hearing Active loss(Confirmed) Hyperlipidemia(Confi Resolved rmed) Hyperlipidemia(Confi Active rmed) Ear Resolved infection(Confirmed) Irritable bowel Active [...] TIMES A DAY, # 90 tabs, eRx: [facility] #[id number], TAKE ONE TABLET BY MOUTH THREE TIMES A DAY Start Date: 01/20/15 Status: Ordered CeleXA 20 mg oral tablet See Instructions, TAKE ONE TABLET BY MOUTH EVERY DAY, # 90 tabs, eRx: [facility] #[id number], TAKE ONE TABLET BY MOUTH EVERY DAY Start Date: 07/02/14 Status: Ordered Flomax 0.4 mg oral capsule See Instructions, TAKE ONE CAPSULE BY MOUTH EVERY DAY, # 90 caps, eRx: [facility] #[id number], TAKE ONE CAPSULE BY MOUTH EVERY DAY Start Date: 11/08/14 Status: Ordered Flonase 50 mcg/inh nasal spray See Instructions, INHALE 2 SPRAYS INTO EACH NOSTRIL DAILY, # 16 unknown unit, 2 Refill(s), eRx: [facility] #[id number], INHALE 2 SPRAYS INTO EACH NOSTRIL DAILY Start Date: 10/22/14 Status: Ordered Glucometer strips (DME) DME Item use to test blood sugars daily, See Instructions, # 1 Each, 0 Refill(s) , Supply Start Date: 12/04/13 Status: Ordered hydrALAZINE 25 mg oral tablet See Instructions, TAKE TWO TABLETS BY MOUTH TWICE A DAY, # 360 tabs, eRx: [facility] #[id number], TAKE TWO TABLETS BY MOUTH TWICE A DAY Start Date: 11/08/14 Status: Ordered lactulose 10 g/15 mL oral syrup See Instructions, TAKE 15 ML BY MOUTH TWO TIMES A DAY, # 946 unknown unit, eRx: [facility] #[id number], TAKE 15 ML BY MOUTH TWO TIMES A DAY Start Date: 03/19/14 Status: Ordered lovastatin 20 mg oral tablet See Instructions, TAKE ONE TABLET BY MOUTH EVERY DAY, # 90 tabs, 1 Refill(s), eRx: [facility] #[id number], TAKE ONE TABLET BY MOUTH EVERY DAY Start Date: 11/19/14 Status: Ordered mupirocin 2% topical ointment See Instructions, APPLY A SMALL AMOUNT TO THE AFFECTED AREA BY TOPICAL ROUTE TWO TIMES A DAY, # 22 unknown unit, eRx: [facility] #[id number], APPLY A SMALL AMOUNT TO THE AFFECTED AREA BY TOPICAL ROUTE TWO TIMES A DAY Start Date: 05/07/14 Status: Ordered Neurontin 100 mg oral capsule See Instructions, 2 caps Oral in the morning and 3 at hs, 0 Refill(s) Start Date: 12/04/13 Status: Ordered [place] 5 mg-325 mg oral tablet 1-2 tabs, Oral, q8hr, as needed for pain, # 60 tabs, 0 Refill(s) Start Date: 01/31/15 Status: Ordered ONE TOUCH ULTRA TEST STRIPS See Instructions, TEST BLOOD SUGARS DAILY AND NEEDED, # 50 strip, 2 Refill(s) , eRx: [facility] #[id number], TEST BLOOD SUGARS DAILY AND NEEDED Start Date: 03/29/14 Status: Ordered Power W/C Evaluation Power W/C Evaluation, See Instructions, Please eval for power w/c., # 1 Each, 0 Refill(s) Start Date: 12/03/14 Status: Ordered Toprol-XL 50 mg oral tablet, extended release See Instructions, TAKE ONE TABLET BY MOUTH TWICE A DAY, # 180 tabs, 1 Refill(s) , eRx: [facility] #[id number], TAKE ONE TABLET BY MOUTH TWICE A DAY Start Date: 09/03/14 Status: Ordered Results No data available for [...] with a lot of sugar. This includes estonian fries , hamburgers, cookies, candy, and soda. [...] 04/27/2014 Document Reviewed: ExitCare Patient Information 2015 [employer]. This information is not intended to replace [...] with them today. HH papers also completed. [place] refilled. Neurogenic bladder This issue is stable and appropriate refills, lab, and f/u have been discussed. Sees Dr. PEREZ. Orders: HYDROcodone-acetaminophen, 1-2 tabs, Oral, q8hr, as needed for pain, # 60 tabs, 0 Refill(s)
--- OUTSIDE RECORDS SUMMARY | 2016-07-27 11:36 | XMS REPORT | Referral Summary ---
Author Author [facility] Organization [facility] Address Unknown Phone Unavailable Care Team Providers Care Mortgage Processing Clerk Name Role Phone Oksana Galeano Primary Care Physician [phone] Encounter VC Date(s): 12/03/14 - 12/03/14 [facility], [address] [place] [id number] Discharge Disposition: 01-Home or Self Care Attending Physician: Oscar Galeano MD Admitting Physician: Oscar Galeano MD Vital Signs Most recent to 1 oldest [Reference Range]: Blood Pressure 110/70 mmHg [90-140/60-90 mmHg] (12/03/14 9:01 AM) Problem List Condition Effective Dates Status [...] TIMES A DAY, # 90 tabs, eRx: [facility] #[id number], TAKE ONE TABLET BY MOUTH THREE TIMES A DAY Start Date: 06/10/15 Status: Ordered CeleXA 20 mg oral tablet See Instructions, TAKE ONE TABLET BY MOUTH EVERY DAY, # 90 tabs, 1 Refill(s), eRx: [facility] #[id number], TAKE ONE TABLET BY MOUTH EVERY DAY Start Date: 02/16/15 Status: Ordered Flomax 0.4 mg oral capsule See Instructions, TAKE ONE CAPSULE BY MOUTH EVERY DAY, # 90 caps, 1 Refill(s), eRx: [facility] #[id number], TAKE ONE CAPSULE BY MOUTH EVERY DAY Start Date: 02/16/15 Status: Ordered Flonase 50 mcg/inh nasal spray See Instructions, INHALE 2 SPRAYS INTO EACH NOSTRIL DAILY, # 16 unknown unit, 1 Refill(s), eRx: [facility] #[id number], INHALE 2 SPRAYS INTO EACH NOSTRIL DAILY Start Date: 06/09/15 Status: Ordered Glucometer strips (DME) DME Item use to test blood sugars daily, See Instructions, # 1 Each, 0 Refill(s) , Supply Start Date: 12/04/13 Status: Ordered hydrALAZINE 25 mg oral tablet See Instructions, TAKE TWO TABLETS BY MOUTH TWICE A DAY, # 360 tabs, 1 Refill(s) , eRx: [facility] #[id number], TAKE TWO TABLETS BY MOUTH TWICE A DAY Start Date: 02/24/15 Status: Ordered lactulose 10 g/15 mL oral syrup See Instructions, TAKE 15 ML BY MOUTH TWO TIMES A DAY, # 946 unknown unit, eRx: [facility] #[id number], TAKE 15 ML BY MOUTH TWO TIMES A DAY Start Date: 03/19/14 Status: Ordered lovastatin 20 mg oral tablet See Instructions, TAKE ONE TABLET BY MOUTH EVERY DAY, # 90 tabs, eRx: [facility] #[id number], TAKE ONE TABLET BY MOUTH EVERY DAY Start Date: 06/10/15 Status: Ordered mupirocin 2% topical ointment See Instructions, APPLY A SMALL AMOUNT TO THE AFFECTED AREA BY TOPICAL ROUTE TWO TIMES A DAY, # 22 unknown unit, eRx: [facility] #[id number], APPLY A SMALL AMOUNT TO THE AFFECTED AREA BY TOPICAL ROUTE TWO TIMES A DAY Start Date: 04/05/15 Status: Ordered Neurontin 100 mg oral capsule See Instructions, 2 caps Oral in the morning and 3 at hs, 0 Refill(s) Start Date: 12/04/13 Status: Ordered [place] 5 mg-325 mg oral tablet 1-2 tabs, Oral, q8hr, as needed for pain, # 60 tabs, 0 Refill(s) Start Date: 05/16/15 Status: Ordered ONE TOUCH ULTRA TEST STRIPS See Instructions, TEST BLOOD SUGARS DAILY AND NEEDED, # 50 strip, 2 Refill(s) , eRx: [facility] #[id number], TEST BLOOD SUGARS DAILY AND NEEDED Start Date: 03/29/14 Status: Ordered ONETOUCH ULTRA TEST STRIPS See Instructions, TEST BLOOD SUGARS DAILY AND NEEDED, # 50 strip, 1 Refill(s) , eRx: [facility] #[id number], TEST BLOOD SUGARS DAILY AND NEEDED Start Date: 05/27/15 Status: Ordered Power W/C Evaluation Power W/C Evaluation, See Instructions, Please eval for power w/c., # 1 Each, 0 Refill(s) Start Date: 12/03/14 Status: Ordered Toprol-XL 50 mg oral tablet, extended release See Instructions, TAKE ONE TABLET BY MOUTH TWICE A DAY, # 180 tabs, 1 Refill(s) , eRx: [facility] #[id number], TAKE ONE TABLET BY MOUTH TWICE A DAY Start Date: 03/17/15 Status: Ordered Results Urinalysis Most recent to 1 oldest [Reference Range]: UA Color Yellow (12/03/14 11:23 AM) UA Appear Turbid *ABN* (12/03/14 11:23 AM) UA pH [5.0-8.0] 5.5 (12/03/14 11:23 AM) UA Leuk Est Pos 3+ [Negative] *ABN* (12/03/14 11:23 AM) UA Nitrite Negative [Negative] (12/03/14 11:23 AM) UA Protein Trace [Negative] *ABN* (12/03/14 11:23 AM) UA Glucose Negative [Negative] (12/03/14 11:23 AM) UA Ketones Negative [Negative] (12/03/14 11:23 AM) UA Urobilinogen 0.2 mg/dL [<1.0 mg/dL] (12/03/14 11:23 AM) UA Bili [Negative] Negative (12/03/14 11:23 AM) UA Blood [Negative] Negative (12/03/14 11:23 AM) UA Spec Grav 1.013 [1.003-1.030] (12/03/14 11:23 AM) Type Voided (12/03/14 11:23 AM) UA WBC [0-4 /HPF] >50 /HPF *ABN* (12/03/14 11:23 AM) UA RBC [0-4] 5-10 *ABN* (12/03/14 11:23 AM) Epithelial Cells 5-10 (12/03/14 11:23 AM) Microbiology Reports TEST: Urine Culture STATUS: Modified/Amended/Cor BODY SITE: SOURCE: Urine COLLECTED DATE/TIME: 12/03/14 11:23 AM Urine Culture Escherichia coli Strain #1 >100,000 cfu/ml This strain produces extended spectrum beta lactamase (ESBL) Escherichia coli Strain #2 >100,000 cfu/ml This strain produces extended spectrum beta lactamase (ESBL) ORGANISM:Escherichia coli ORGANISM:Escherichia coli Immunizations Vaccine Date Refusal Reason influenza virus [...] Cholesterol Cholesterol is a white, waxy, fat-like protein needed by your body in small amounts. [...] in your daily life. Medicine. Take medicine as directed by your health care provider. Medicine may be prescribed by your health care provider to help lower cholesterol and decrease the risk for heart disease. If you have several risk factors, you may need medicine even if your levels are normal. Document Released: 01/15/2002 Document Revised: 04/27/2014 Document Reviewed: ExitCare Patient Information 2015 [employer]. This information is not intended to replace advice given to you by your health care provider. Make sure you discuss any questions you have with your health care provider. No follow up information was provided. Extracted from: Title: Office Visit Note Author: Oscar Galeano MD Date: 12/03/14 Assessment/Plan Benign essential HTN This issue is stable and appropriate refills, lab, and f/ u have been discussed. The patient reports their blood pressure has been stable at home and is not having any significant or related problems. There has been no chest pain, chest pressure, soa/garibay. Chronic kidney disease (CKD) This issue is [...] eye exams, foot exams, and regular care. Over due for lab but declined today. Dysuria UA pending. Ordered: Urinalysis with Culture if Indicated Hyperlipidemia This issue is stable and appropriate refills, lab, and f/u have been discussed. Neurogenic bladder This issue is stable and appropriate refills, lab, and f/u have been discussed. Sees Dr. PEREZ. The patient is here for a routine home health recertification. Their chronic issues are stable and no changes are necessary at this time. Home health papers completed and allowed to use whichever HH service is preferred by him and family. The patient has family members present who are agreeable with today's plan and have no additional concerns or requests. CLAIRE here.Four pages of papers completed. 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 To Dr. Coates for power chair evaluation in place of Dr. Cueva. See her notes. Addendum CLAIRE Wood was here today. The patient has family members present who are agreeable with by today's plan and have no additional concerns or requests. Oscar Galeano MD on December 03, 2014 09:41:16 CDT
[2016-07-27] MEDS ORDERED: METO-275 PO (11:52)
[2016-07-27] MEDS ORDERED: SULF1TAB42 PO (11:54)
[2016-07-27] MEDS ORDERED: POLY17PO6 PO (11:56)
[2016-07-27] MEDS ORDERED: ACET-62 PO (11:56)
[2016-07-27] MEDS ORDERED: MAGN30OR PO (11:58)
--- OUTSIDE RECORDS SUMMARY | 2016-07-27 12:18 | XMS REPORT | Continuity of Care Document ---
Author Author Luis [facility] Organization [facility] Address Unknown Phone Unavailable Support Name Relationship Address Phone KARI FLOWERS MD Caregiver [address] [place] [address] [place] [address] [phone] MEGAN ALVES MD Caregiver [address] [place] [address] [place] [address] [phone] MINDY FRANCO & MATT Next Of Kin [address] [place] [address] Insurance Providers Payer Name Policy Number Subscriber Name Relationship Medicareadvantra Ppo [id number] Raina Franco 16 Self [facility] [employer] State Plan [id number] Raina Franco 16 Self Advance Directives Directive [...] PO DAILY 06/26/13 Active Fluticasone Propionate 2 [place] DAILY 06/26/13 Active Aspirin 81 Mg [...] F (96.8 - 99.1) Temperature (Calculated Celsius) 36.72674 degrees C (36.0 - 37.3) Pulse Rate [...] Has specimen been collected/obtained? Y Urine Specific [place] December 29, 2013 2:25am 1.010 L - [...] Escherichia Coli Name: RAINA FRANCO Unit #: [id number] : 1930 Sex: M Loc / Svc: [facility] DOS: 07/13/14 Signed Report #: [id number] DIAGNOSTIC IMAGING REPORT TYPE OF EXAM: PICC [...] completed 06/25/14 MICROBE SUSCEPTIBLE RUBIO completed 06/25/14 [id number] ITEM OR SERVICE completed 06/25/14 [id number] ITEM OR SERVICE completed 06/25/14 PROPOFOL INJ 500 MG/50ML completed 06/25/14 [id number]"INFUSION, NORMAL SALINE SOLUTION , 1000 CC" completed 06/25/14 INSERT PICC CATH completed 07/13/14 FLUOROGUIDE FOR VEIN DEVICE completed 07/13/14 [id number] WIRE completed 07/13/14 Encounters Encounter Location Date/Time Discharged Recurring [facility] 07/19/14 2:00pm Registered Clinic [facility] 07/13/14 1:39pm
--- OUTSIDE RECORDS SUMMARY | 2016-07-27 12:19 | XMS REPORT | Continuity of Care Document ---
Author Author [facility] Organization [facility] Address Unknown Phone Unavailable Support Name Relationship Address Phone LISETH SIMPSON DO Caregiver [address] [place] [address] [address] [place] [phone] FREDRICK STANFORD MD Caregiver [facility] [address] [address] Unavailable KARI FLOWERS MD Caregiver [address] [place] [address] [address] [place] [phone] MINDY FRANCO & MATT Next Of Kin [address] [place] [address] Insurance Providers Payer Name Policy Number Subscriber Name Relationship Medicareadvantra Ppo [id number] Raina Franco Self [facility] State Plan [id number] Raina Franco 16 Self Advance Directives Directive [...] 60 Qty 06/26/13 Active Fluticasone Propionate 2 [place] DAILY 16 Qty 06/26/13 Active Mupirocin [...] Follow up apt with Dr Flowers 01/01/14- 7021 Patient Instructions: Take levaquin po daily for [...] of your legs. 3.During office hours, call [phone] 4. After hours, please call [facility] at [phone], and have the shuttle buggy operator page your Surgeon IN THE EVENT [...] F (96.8 - 99.1) Temperature (Calculated Celsius) 36.05033 degrees C (36.0 - 37.3) Temperature Source [...] Has specimen been collected/obtained? Y Urine Specific [place] December 29, 2013 2:25am 1.010 L - [...] procedures. Encounters Encounter Location Date/Time Discharged Inpatient [facility] 12/29/13 3:33am Recent Diagnosis Urinary Tract Infection not otherwise specified Skin breakdown Scrotal ulcer Diarrhea UTI (urinary tract infection) Hypertension BPH (benign prostatic hyperplasia) 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
--- OUTSIDE RECORDS SUMMARY | 2016-07-27 12:19 | XMS REPORT | Continuity of Care Document ---
Author Author [facility] Organization [facility] Address Unknown Phone Unavailable Support Name Relationship Address Phone KARI FLOWERS MD Caregiver [address] [place] [address] [place] [address] [phone] MEGAN ALVES MD Caregiver [address] [place] [address] [place] [address] [phone] MINDY FR[employer]CO [employer] MATT Next Of Kin [address] [place] [address] Insurance Providers Payer Name Policy Number Subscriber Name Relationship Medicareadvantra Ppo [id number] Raina Franco Self [employer] State Plan [id number] Raina Franco Self Advance Directives Directive Response [...] PO DAILY 06/26/13 Active Fluticasone Propionate 2 [place] DAILY 06/26/13 Active Aspirin 81 [...] F (96.8 - 99.1) Temperature (Calculated Celsius) 36.01369 degrees C (36.0 - 37.3) Temperature Source [...] Has specimen been collected/obtained? Y Urine Specific [place] December 29, 2013 2:25am 1.010 L - [...]
--- OUTSIDE RECORDS SUMMARY | 2016-07-27 12:20 | XMS REPORT | Continuity of Care Document ---
Author Author [facility] Organization [facility] Address Unknown Phone Unavailable Allergies Active Description [...] Status Pt. Type Provider Facility Loc./Unit Complaint [id number] 08/03/2013 13:30:00 08/03/2013 23 :59:59 CLS Outpatient [id number] 06/23/2013 13:36:00 06/23/2013 23 :59:59 CLS Outpatient [id number] 06/01/2013 13:33:00 06/01/2013 23 :59:59 CLS Outpatient
--- NOTE | 2016-07-27 12:32 | ERPDOC ---
Departure Disposition Decision Date: Jul 27, 2016 Disposition Decision Time: 14:00 (MINE MAHMOODKaia Feliciano [employer]) Disposition: 02 TO [facility] Impression Impression (BARBAESA Jodie [employer]) Impression: Primary Impression: Elevated troponin Additional Impressions: Sepsis Sepsis type: sepsis due to unspecified organism Qualified Codes: A41.9 - Sepsis, unspecified organism Acute renal failure Acute renal failure type: unspecified Qualified Codes: N17.9 - Acute kidney failure, unspecified Severity: Moderate (NOIBARRAESA N [employer]) Condition: Stable Seen By: Mid-level only (MICHELLE MAHMOOD N [employer]) Referrals: KARI FLOWERS MD (Family) Problems/Meds/Labs Reviewed?: Yes Medications reviewed and manag: Yes (VALARIEIBARRAESA Jodie [employer]) Follow up care ordered?: Yes Mental Status: Alert, Oriented (NOIBARRAESA N [employer]) HPI - General Medical General Chief Complaint: Nausea,Vomiting,Diarrhea Stated Complaint: UNABLE TO SWALLOW Time Seen by Provider: 12:05 Source: patient, family (sister in law) Exam Limitations: no limitations (VALARIEIBARRAESA Jodie MOON) Time Seen by Provider: 12:05 (TONI METZGER DO) HPI - General Medical Initial Comments He is brought in today for evaluation by his sister in law. He had been living in the independent living area of the [place] here in [place]. Over the weekend his home health nurse and his brother/sister in law were both out of town. They usually check on him throughout the day. They did have their niece and another home health aid coming to check on him. Over night one night he was in his power chair and got it stuck on the bed corner. He was not able to get out of the chair as he is not ambulatory. He did have loss of bowel and bladder and so he called 911. They did come and clean him up and get him back to bed but notified nursing staff to come and check on him. The nursing staff came and checked on him the next day and decided to admit him to the total care portion of the NH due to safety concerns. He has had PT/OT/and ST evaluation since being in the total care portion. He has been unable to get his partial dentures in and so they have been giving him pureed foods. He does not like these foods. Today during his speech therapy session he would not swallow the food he was given and states that it was because the food tasted bad. The ST is concerned that he is too weak to swallow. He has had trouble with a dry mouth as well. Did have emesis x1 today as well. He is very [place] and has had difficulty communicating with the nursing staff due to this. His sister in law is not concerned that there is any medical issues but thinks that there is just a lot of misunderstandings. He was taking Cipro BID for a UTI. His home health aid had been giving this. When he was moved to [facility] care they did not take the Cipro but was switched to Bactrim. Occurred At: home Onset: Gradual Duration: 1 week Severity: moderate Associated Symptoms: loss of appetite, nausea/vomiting (vomited once this morning), DENIES: chest pain, cough, diaphoresis, fever/chills, headaches, malaise, rash, seizure, shortness of breath, syncope, weakness Hx of Similar Symptoms: No (NOLD,MICHELLE N [employer]) Allergies: Coded Allergies: doxycycline (Verified Allergy, Unknown, "THROAT SWELLING", 04/04/15) Past History Past Medical History Metabolic: diabetes, hypertension, other GI: other Male: BPH (NOLD,MICHELLE N [employer]) Surgical History General: tonsils Reproductive/: TURP, other Joint: foot (NOLD,MICHELLE N [employer]) Vaccines Hx Influenza Vaccination: Yes (Mar 2014) Hx Pneumococcal Vaccination: Yes (WITHIN PAST 10 YEARS) (NOLD,MICHELLE N [employer]) Review of Systems Constitutional Constitutional: weakness, DENIES: chills, dizziness, fatigue, fever (NOLD, MICHELLE N [employer]) Eyes Vision: DENIES: blurring, double vision (NOLD,MICHELLE N [employer]) ENMT Ears: DENIES: drainage, pain Sinuses: DENIES: congestion, rhinorrhea Mouth/Throat: DENIES: painful swallowing, scratchy throat, sore throat (NOLD, MICHELLE N [employer]) Cardiovascular Cardiac: DENIES: chest pain, orthopnea Rhythm/Rate: DENIES: irregular beat, palpitations Vascular: DENIES: pedal edema, unilateral swelling (NOLD,MICHELLE N [employer]) Pulmonary Respiratory: DENIES: cough, dyspnea, sputum, tachypnea (NOJANI,MICHELLE N [employer]) GI Upper Abdomen: vomiting (once today), DENIES: nausea, pain Lower Abdomen: DENIES: constipation, diarrhea, pain (NOJANI,MICHELLE N [employer]) Integumentary Skin: DENIES: rash (ELA,MICHELLE N [employer]) Neurological General: DENIES: headache, numbness, tingling, weakness (ELA,MICHELLE N [employer]) Physical Exam General General Nourishment: well nourished, well developed, appears stated age, no acute distress, adult General Body Habitus: well groomed (ELA,MICHELLE N [employer]) Vitals and Pain First Documented Vital Signs Date Time Temp Pulse Resp B/P Pulse Ox O2 Delivery O2 Flow Rate FiO2 07/27/16 11:35 98.6 66 16 120/57 92 Room Air (TONI METZGER DO) Vitals and Pain Weight: Kilograms: 77.300 Height (feet): 5 Height (inches): 5.00 Triage Pain Scale: (MICHELLE MAHMOOD APRN) RN VS reviewed by Provider: Yes (MICHELLE MAHMOOD APRN) Normal Exams: ENMT: No facial trauma, nasal exudates, pharyngeal erythema, or exudates are noted Neck: Full range of motion, without adenopathy, JVD, bruits or thyromegaly Chest/Resp: Clear all pablo, with good airflow, and symmetry bilaterally CV: Regular rate and rhythm, without murmur or gallop, Pulses 2+ all extremities, capillary refill, <2 seconds all ext., no pedal edema noted Abdomen: Bowel sounds positive, soft, non-tender, non-distended, no hepatosplenomegaly, masses or bruits noted Lymphatic: No lymphadenopathy, or lymphedema noted Integumentary: No rashes, hives, or bruising noted Neurologic: Patient is alert, and oriented Psychiatric: Patient exhibits, appropriate attention, emotion and affect (ELA,MICHELLE N [employer]) Differential Diagnoses Considering: Acute PA, Hypo/Hyperglycemia, Hypo/Hyperkalemia, Hypo/ Hypernatremia, Medication Effect, Metabolic, Pneumonia, UTI (ELA,MICHELLE N [employer]) Progress Results/Orders Orders Procedure Category Date Status Time EKG EKG 07/27/16 Taken Cbc W/Auto LAB 07/27/16 Complete Diff-Reflex Manual Troponin I W LAB 07/27/16 Complete Hemolysis Index Ua, Dip Wreflex LAB 07/27/16 Logged [employer] Tender 12:29 Chest 1 View RAD 07/27/16 Resulted 12:29 Cmp - Comprehensive LAB 07/27/16 Complete Metabolic Blood Culture RUBIO 07/27/16 In Process 13:16 Lactate - Lactic Acid LAB 07/27/16 Complete Procalcitonin LAB 07/27/16 Complete 13:16 Lactate - Lactic Acid LAB 07/27/16 Logged 17:46 Iv Lock (Ed Only) EDM 07/27/16 Transmitted 13:16 Normal Saline (Normal PHA 07/27/16 Complete Saline Iv) 13:30 Cefepime (Maxipime) PHA 07/27/16 Complete 13:30 [address] In Facility As: ADMIT 07/27/16 Transmitted (TONI METZGER DO) Lab Results Laboratory Tests Test 07/27/16 13:06 07/27/16 13:49 White Blood Count 31.9T/MM3 Red Blood Count 3.97M/MM3 Hemoglobin 12.3GM/DL Hematocrit 36.6% Mean Corpuscular Volume 92.2UM3 Mean Corpuscular Hemoglobin 31.0UUG Mean Corpuscular Hemoglobin Concent 33.6GM/DL RDW Standard Deviation 45.5FL Platelet Count 225T/MM3 Mean Platelet Volume 10.8UM3 Immature Granulocyte % (Auto) % Neutrophils (%) (Auto) % Lymphocytes (%) (Auto) % Monocytes (%) (Auto) % Eosinophils (%) (Auto) % Basophils (%) (Auto) % Absolute Immature Granulocyte (auto T/MM3 Absolute Neutrophils (auto) T/MM3 Absolute Lymphocytes (auto) T/MM3 Absolute Monocytes (auto) T/MM3 Absolute Eosinophils (auto) T/MM3 Absolute Basophils (auto) T/MM3 Neutrophils % (Manual) 95.0% Band Neutrophils % 1.0% Lymphocytes % (Manual) 2.0% Monocytes % (Manual) 2.0% Absolute Neutrophils (Manual) 30.3T/MM3 Band Neutrophils # 0.3T/MM3 Lymphocytes # (Manual) 0.6T/MM3 Monocytes # (Manual) 0.6T/MM3 Red Cell Morphology Comment Normal Turbidity < 20 Sodium Level 144MEQ/L Potassium Level 5.2MEQ/L Chloride Level 106MEQ/L Carbon Dioxide Level 25MEQ/L Anion Gap 13MEQ/L Blood Urea Nitrogen 43.0MG/DL Creatinine 3.3MG/DL Glomerular Filtration Rate Calc 18 BUN/Creatinine Ratio 13RATIO Glucose Level 127MG/DL Calculated Osmolality 290MOSM/KG Calcium Level 9.3MG/DL Total Bilirubin 0.80MG/DL Icterus Index < 2 Aspartate Amino Transf (AST/SGOT) 60U/L Alanine Aminotransferase (ALT/SGPT) 34U/L Alkaline Phosphatase 76U/L Troponin I 1.380ng/ml Total Protein 8.3G/DL Albumin 4.2G/DL Globulin 4.1G/DL Albumin/Globulin Ratio 1.0RATIO Chemistry Specimen Hemolysis < 15 Plasma Lactate 2.4MMOL/L Procalcitonin 0.42NG/ML (TONI METZGER DO) Medications Current ED Medications Sodium Chloride 1,000 ml @ 1,000 mls/hr Q1H ONCE IV Last administered on 14:05; Start 07/27/16 at 13:30; Stop 07/27/16 at 14:29; Status DC Cefepime HCl/ Sodium Chloride (Maxipime/NS) 100 ml @ 200 mls/hr O ONCE IV Last administered on 07/27/16 14:05; Start 07/27/16 at 13:30; Stop 07/27/16 at 13:59; Status DC (TONI METZGER DO) Progress Progress CBC today is 31.9 with 95% neutrophils and 1% bands. K+-5.2, BUN-43 and creatinine is elevated at 3.3. Most recent lab was from 2 years ago but was much lower in the <1.0 range. Troponin is 1.380, denies any chest pain and EKG today is without St elevation. Most likely secondary to renal issues. Lactate is 2.4 and procalcitonin today is 0.42. Chest xray is negative. UA is pending collection. Discussed findings with Dr Arevalo, will accept for admission at this time. (MICHELLE MAHMOOD APRN) Xray Xray : Reason for Exam: weakness Xray: CXR PA/Lat Interpretation: Normal (MICHELLE MAHMOOD APRN) MICHELLE MAHMOOD APRN Jul 27, 2016 12:32 TONI METZGER DO Jul 27, 2016 15:33
[2016-07-27 13:11] LABS: HCT - HEMATOCRIT 36.6 % (41-53); HGB - HEMOGLOBIN 12.3 GM/DL (13.5-17.5); MEAN CORPUSCULAR HGB CONC(MCHC 33.6 GM/DL (31-37); MEAN CORPUSCULAR VOLUME 92.2 UM3 (80-100); MEAN PLATELET VOLUME 10.8 UM3 (9.4-12.4); RED BLOOD COUNT 3.97 M/MM3 (4.50-5.90)
[2016-07-27 13:12] LABS: WBC - WHITE BLOOD COUNT 31.9 T/MM3 (4.5-11.0)
[2016-07-27 13:21] LABS: ALBUMIN 4.2 G/DL (3.5-5.0); ALKALINE PHOSPHATASE 76 U/L (38-126); ALT (SGPT) 34 U/L (21-72); ANION GAP 13 MEQ/L (5-15); AST (SGOT) 60 U/L (17-59); BUN/CREATININE RATIO 13 RATIO (6-26); CALCIUM 9.3 MG/DL (8.4-10.2); CHLORIDE 106 MEQ/L (98-107); CO2 - CARBON DIOXIDE 25 MEQ/L (22-30); CREATININE 3.3 MG/DL (0.8-1.5); GLOMERULAR FILTRATION RATE 18; GLUCOSE 127 MG/DL (75-110); POTASSIUM 5.2 MEQ/L (3.6-5); SODIUM 144 MEQ/L (134-144); TOTAL PROTEIN 8.3 G/DL (6.3-8.2)
[2016-07-27 13:23] LABS: BAND NEUTROPHILS # 0.3 T/MM3; LYMPHOCYTES # (MANUAL) 0.6 T/MM3 (1-4.8); MONOCYTES # (MANUAL) 0.6 T/MM3 (0-0.8); NEUTROPHILS #(MANUAL)-ABSOLUTE 30.3 T/MM3 (1.8-7.7); TOTAL CELLS COUNTED 100 %
[2016-07-27] MEDS ORDERED: CEFEPIME 1 G in NORMAL SALINE 100 ML IV ONE (13:30)
[2016-07-27] MEDS ORDERED: NORMAL SALINE 1,000 ML IV ONE (13:30)
--- NOTE | 2016-07-27 13:38 | DI ---
Indication: ITS.REASON: weakness PROCEDURE: CHEST 1 VIEW: Encounter: Initial Comparison: None Findings: Senescent changes in the lungs without focal consolidation. No pleural effusion or pneumothorax. Cardiac silhouette is mildly enlarged. Pulmonary vascularity appears normal. Degenerative changes in the spine and shoulders. Impression: No focal pneumonia or congestive failure. .
--- OUTSIDE RECORDS SUMMARY | 2016-07-27 14:56 | XMS REPORT | Continuity of Care Document ---
Author Author [place] [facility] Organization [facility] Address Unknown Phone Unavailable Support Name Relationship Address Phone KARI FLOWERS MD Caregiver [address] [place] [address] [place] [address] [phone] MEGAN ALVES MD Caregiver [address] [place] [address] [place] [address] [phone] MINDY FRANCO & MATT Next Of Kin [address] [place] [address] Insurance Providers Payer Name Policy Number Subscriber Name Relationship Medicareadvantra Ppo [id number] Raina Franco Self [employer] State Plan [id number] Raina Franco Self Advance Directives Directive Response [...] PO DAILY 06/26/13 Active Fluticasone Propionate 2 [place] DAILY 06/26/13 Active Aspirin 81 Mg [...] F (96.8 - 99.1) Temperature (Calculated Celsius) 36.40569 degrees C (36.0 - 37.3) Temperature Source [...] Has specimen been collected/obtained? Y Urine Specific [place] December 29, 2013 2:25am 1.010 L - [...]
--- OUTSIDE RECORDS SUMMARY | 2016-07-27 14:56 | XMS REPORT | Continuity of Care Document ---
Author Author [facility] Organization [facility] Address Unknown Phone Unavailable Support Name Relationship Address Phone LISETH SIMPSON DO Caregiver [address] [place] [address] [address] [place] [phone] FREDRICK STANFORD MD Caregiver [facility] [address] [facility] [place] [address] Unavailable KARI FLOWERS MD Caregiver [address] [place] [address] [address] [place] [phone] MINDY FRANCO & MATT Next Of Kin [address] [place] [address] Insurance Providers Payer Name Policy Number Subscriber Name Relationship Medicareadvantra Ppo [id number] Raina Franco Self [facility] State Plan [id number] Raina Franco 16 Self Advance Directives Directive [...] 60 Qty 06/26/13 Active Fluticasone Propionate 2 [place] DAILY 16 Qty 06/26/13 Active Mupirocin [...] Follow up apt with Dr Flowers 01/01/14- 0290 Patient Instructions: Take levaquin po daily for [...] of your legs. 3.During office hours, call [phone] 4. After hours, please call [facility] at [phone], and have the yard operator page your Surgeon IN THE EVENT [...] F (96.8 - 99.1) Temperature (Calculated Celsius) 36.58908 degrees C (36.0 - 37.3) Temperature Source [...] Has specimen been collected/obtained? Y Urine Specific [place] December 29, 2013 2:25am 1.010 L - [...] procedures. 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
--- OUTSIDE RECORDS SUMMARY | 2016-07-27 14:56 | XMS REPORT | Continuity of Care Document ---
Author Author [facility]IVE Organization [facility] Address Unknown Phone Unavailable Support Name Relationship Address Phone KARI FLOWERS MD Caregiver [address] [place] [address] [place] [address] [phone] MEGAN ALVES MD Caregiver [address] [place] [address] [place] [address] [phone] MINDY FRANCO & MATT Next Of Kin [address] [place] [address] Insurance Providers Payer Name Policy Number Subscriber Name Relationship Medicareadvantra Ppo [id number] Raina Franco 16 Self [employer] State Plan [id number] Raina Franco 16 Self Advance Directives Directive [...] PO DAILY 06/26/13 Active Fluticasone Propionate 2 [employer] [place] DAILY 06/26/13 Active Aspirin 81 Mg [...] F (96.8 - 99.1) Temperature (Calculated Celsius) 36.91638 degrees C (36.0 - 37.3) Pulse Rate [...] Has specimen been collected/obtained? Y Urine Specific [place] December 29, 2013 2:25am 1.010 L - [...] Escherichia Coli Name: RAINA FRANCO Unit #: [id number] : 1930 Sex: M Loc / Svc: BRITNEY DOS: 07/13/14 Signed Report #: [id number] DIAGNOSTIC IMAGING REPORT TYPE OF EXAM: PICC [...] completed 06/25/14 MICROBE SUSCEPTIBLE RUBIO completed 06/25/14 [id number] ITEM OR SERVICE completed 06/25/14 [id number] ITEM OR SERVICE completed 06/25/14 PROPOFOL INJ 500 MG/50ML completed 06/25/14 [id number]"INFUSION, NORMAL SALINE SOLUTION , 1000 CC" completed 06/25/14 INSERT PICC CATH completed 07/13/14 FLUOROGUIDE FOR VEIN DEVICE completed 07/13/14 [id number] WIRE completed 07/13/14 Encounters Encounter Location Date/Time Discharged Recurring [facility] 07/19/14 2:00pm Registered Clinic [facility] 07/13/14 1:39pm
--- OUTSIDE RECORDS SUMMARY | 2016-07-27 14:58 | XMS REPORT | Continuity of Care Document ---
Author Author [facility] Organization [facility] Address Unknown Phone Unavailable Allergies Active [...] Status Pt. Type Provider Facility Loc./Unit Complaint [id number] 08/03/2013 13:30:00 08/03/2013 23 :59:59 CLS Outpatient [id number] 06/23/2013 13:36:00 06/23/2013 23 :59:59 CLS Outpatient [id number] 06/01/2013 13:33:00 06/01/2013 23 :59:59 CLS Outpatient
--- NOTE | 2016-07-27 15:15 | NUR ---
ADMISSION PATIENT ADMITTED TO ROOM 155 AT THIS TIME. PATIENT ARRIVED VIA ER STAFF AND WHEELCHAIR. FULL LIFT USED TO TRANSFER PATIENT TO MEDICAL UNIT BED. PATIENT A/OX3. [place]. FAMILY AT BEDSIDE. DENIES PAIN, SOA, AND N/V. VITALS STABLE. AFEBRILE. ROOM AIR. BED IN THE LOWEST POSITION, CALL LIGHT WITHIN REACH, SIDE RAILS UPX2, AND BED ALARM ON. WILL CONTINUE TO MONITOR.
[2016-07-27 15:37] VITALS: Ht 165.1 cm; Wt 78.5 kg
[2016-07-27 15:49] VITALS: BP 141/69; PULSE 65; RESP 18; TEMP 97.9; O2SAT 94
[2016-07-27] MEDS ORDERED: LIDOCAINE JELLY 2% 20ml UROJET MM ONE (16:00)
--- NOTE | 2016-07-27 16:00 | NUR ---
HEWITT INSERTION HEWITT INSERTED BY LAZARA CONNELL APRN AT THIS TIME WITH ASSISTANCE FROM THIS RN. 14 HUNGARIAN COUDE USED WITH A UROJET AND LIDOCAINE JELLY. STERILE TECHNIQUE USED. PATIENT DID NOT C/O DISCOMFORT DURING INSERTION. IMMEDIATE RETURN OF CLEAR YELLOW URINE. STERILE URINE SPECIMEN OBTAINED AFTER HEWITT INSERTION. WILL CONTINUE TO MONITOR.
--- NOTE | 2016-07-27 16:03 | HPPDOC ---
LAZARA CONNELL V NURSE PRACTITIONER ADULT 07/27/16 1541: HPI - Adult Date DATE: 07/27/16 TIME: 15:38 General Chief Complaint: weakness, decreased appetite, Sepsis History of Present Illness Patient is an 86-year-old male who currently resides at [facility]. He is brought to the emergency room today by his xburvn-eg-pos (ROBSON). Patient has been recently treated for urinary tract infection. 2 weeks ago he was started on Cipro and then last week changed to Bactrim. He has a long standing history of UTI and has been under the care of Dr Damaris Gary ([facility]). He is planning on placing a suprapubic catheter. Patient resided independently until 1 week ago in which he was emergently moved to [facility] for more aggressive assistance . It is reported by staff that he was having difficulty swallowing, however, patient reported it was because he did not like the taste of food. He did have one episode of emesis earlier today which prompted a visit to the emergency room. His white count was found to be significantly elevated at 31.9, hemoglobin 12.3, hematocrit 36.1, neutrophils 95% with 1% bandemia. Sodium is 144, potassium 5.2 , BUN is elevated at 43 and creatinine of 3.3, glucose 127. AST is elevated at 60. Troponin was found to be elevated at 1.380. Venous lactate is elevated at 2.4, and pro-calcitonin is 0.42. A chest x-ray is obtained showing no acute cardiopulmonary findings. A urinalysis has been unable to be obtained as patient has chronic retention. Temp 98.6, pulse 66, respiration rate 16, blood pressure 120/57, room air saturations 92%. Given concerns for elevated white count along with elevated lactate as well as chronic urinary tract infections and urinary retention as well as elevated troponin. The hospitalist services were contacted and accepted patient for inpatient admission for further evaluation and treatment. Lencho is seen on initial examination. He is alert and oriented at his baseline. His adnomy-gk-eoj participates in the majority of the conversation giving all accurate history and details. Lencho does have some diminished cognition secondary to his postpolio syndrome. He is able to verbally respond to questions appropriately. He denies feeling short of breath or having chest pain. He denies abdominal pain. He is comfortably breathing on room air without evidence of distress. We did discuss advanced directives and Lencho is a do not resuscitate. Past Medical History Past Medical History CKD IBS DM- Type 2 Post polio syndrome Constipation Depression Surgical History Patient's Surgical History: Cystoscopy-2013, 2011, 2010 Colonoscopy-2004 Tonsillectomy Right foot surgery related to foot drop Current Medications Home Meds Reported Medications Magnesium Hydroxide/Al Hydrox (Mag-Al Liquid) 30 Ml Suspension, 30 ML PO Q4H Y for INDIGESTION 07/27/16 Polyethylene Glycol 3350 (Miralax) 17 Gm Powd.pack, 17 G PO DAILY 07/27/16 Acetaminophen (Acetaminophen) 500 Mg Tablet, 500 MG PO BID 07/27/16 Sulfamethoxazole/Trimethoprim (Bactrim Ds Tablet) 1 Each Tablet, 1 TAB PO BID for 10 Days starting 07/13/16 07/27/16 Metoprolol Succinate (Metoprolol Succinate) 25 Mg Tab.er.24h, 25 MG PO BID 07/27/16 Tamsulosin HCl (Tamsulosin HCl) 0.4 Mg Cap.er.24h, 0.4 MG PO HS 12/29/13 Bethanechol Chloride (Bethanechol Chloride) 25 Mg Tablet, 25 MG PO TID 12/29/13 Aspirin (Aspir 81) 81 Mg Tablet.dr, 81 MG PO DAILY 06/26/13 Citalopram (Celexa) 20 Mg Tablet, 20 MG PO DAILY 06/26/13 Lovastatin (Mevacor) 20 Mg Tablet, 20 MG PO DAILY 02/22/11 Hydralazine Hcl (Hydralazine Hcl) 25 Mg Tablet, 25 MG PO BID 02/02/11 Allergies: Coded Allergies: doxycycline (Verified Allergy, Unknown, "THROAT SWELLING", 04/04/15) Family History Family History: Father-Parkinsons Mother- DM Sister- DM Social History Smoking Status: Never smoker Substance Use Type: does not use Marital Status: Single Housing: long term ([facility]) Advance Directives: Yes DNR, Yes DPOA for Healthcare Only Social History Comments PCP Dr Galeano Urologist- Dr Damaris Gary Review of Systems Unable to Obtain ROS Due to: clinical condition Comments Unable to obtain accurate ROS due to chronic mentation however he does deny pain or shortness of breath on examination. Physical Exam General General Nourishment: well nourished, well developed Vital Signs Vital Signs Date Time Temp Pulse Resp B/P Pulse Ox O2 Delivery O2 Flow Rate FiO2 07/27/16 11:35 98.6 66 16 120/57 92 Room Air Height (Feet): 5 Height (Inches): 5.00 ENMT Brief: FOUND: mucosa moist, normal dentition, NOT FOUND: pharnyx erythema Neck Brief: FOUND: midline, NOT FOUND: adenopathy, carotid bruits, tracheal deviation Respiratory Brief: FOUND: clear all pablo, equal bilaterally, NOT FOUND: wheezes Cardiovascular (brief) Cardiac Brief: FOUND: regular rate, regular rhythm, NOT FOUND: murmur, pedal edema Abdomen (brief) Abdominal Brief: FOUND: BS normo active x4, soft, NOT FOUND: distended, tender Integumentary (brief) Integumentary Brief: FOUND: dry, pink, warm Neurologic (brief) Neurological Brief: FOUND: cranial 2-12 intact Neurologic RN Documented GCS Eye Opening: Verbal: Motor: Total: Psychiatric (brief) FOUND: alert, attentive, normal affect, oriented Laboratory Laboratory Tests Test 07/27/16 13:06 07/27/16 13:49 White Blood Count 31.9T/MM3 Red Blood Count 3.97M/MM3 Hemoglobin 12.3GM/DL Hematocrit 36.6% Mean Corpuscular Volume 92.2UM3 Mean Corpuscular Hemoglobin 31.0UUG Mean Corpuscular Hemoglobin Concent 33.6GM/DL RDW Standard Deviation 45.5FL Platelet Count 225T/MM3 Mean Platelet Volume 10.8UM3 Immature Granulocyte % (Auto) % Neutrophils (%) (Auto) % Lymphocytes (%) (Auto) % Monocytes (%) (Auto) % Eosinophils (%) (Auto) % Basophils (%) (Auto) % Absolute Immature Granulocyte (auto T/MM3 Absolute Neutrophils (auto) T/MM3 Absolute Lymphocytes (auto) T/MM3 Absolute Monocytes (auto) T/MM3 Absolute Eosinophils (auto) T/MM3 Absolute Basophils (auto) T/MM3 Neutrophils % (Manual) 95.0% Band Neutrophils % 1.0% Lymphocytes % (Manual) 2.0% Monocytes % (Manual) 2.0% Absolute Neutrophils (Manual) 30.3T/MM3 Band Neutrophils # 0.3T/MM3 Lymphocytes # (Manual) 0.6T/MM3 Monocytes # (Manual) 0.6T/MM3 Red Cell Morphology Comment Normal Turbidity < 20 Sodium Level 144MEQ/L Potassium Level 5.2MEQ/L Chloride Level 106MEQ/L Carbon Dioxide Level 25MEQ/L Anion Gap 13MEQ/L Blood Urea Nitrogen 43.0MG/DL Creatinine 3.3MG/DL Glomerular Filtration Rate Calc 18 BUN/Creatinine Ratio 13RATIO Glucose Level 127MG/DL Calculated Osmolality 290MOSM/KG Calcium Level 9.3MG/DL Total Bilirubin 0.80MG/DL Icterus Index < 2 Aspartate Amino Transf (AST/SGOT) 60U/L Alanine Aminotransferase (ALT/SGPT) 34U/L Alkaline Phosphatase 76U/L Troponin I 1.380ng/ml Total Protein 8.3G/DL Albumin 4.2G/DL Globulin 4.1G/DL Albumin/Globulin Ratio 1.0RATIO Chemistry Specimen Hemolysis < 15 Plasma Lactate 2.4MMOL/L Procalcitonin 0.42NG/ML Sepsis Diagnostic Criteria Sepsis Confirmed/Suspected Infection: Yes Severe Sepsis Creatinine >2.0mg/dL, Lactate >=2.0 mg/dL Assessment & Plan Problems: (1) Sepsis Status: Acute Qualifiers: Sepsis type: sepsis due to unspecified organism Qualified Codes: A41.9 - Sepsis, unspecified organism (2) Acute renal failure Status: Acute Qualifiers: Acute renal failure type: unspecified Qualified Codes: N17.9 - Acute kidney failure, unspecified (3) Elevated troponin Status: Acute Assessment & Plan: POA- asymptomatic (4) Diet-controlled type 2 diabetes mellitus Status: Chronic (5) Post-polio syndrome Status: Chronic (6) 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 Arevalo for sepsis, ISATU and elevated Troponin. She was started on IV fluids and IV cefepime for antimicrobial coverage while in the emergency room. On admission coude Sterling cath placed by myself and urinalysis is obtained. Concern for chronic urinary retention. Given presence of hypospadia's anatomy. Patient is planning for placement of suprapubic catheter in the outpatient setting. May need to consider leaving Sterling catheter in-place at time of discharge. Will recheck CBC and Manual diff now. Continue to monitor serial lactate levels as per sepsis protocol. Patient cardiac telemetry and will obtain serial troponins 3. Consult for speech therapy, given recent dysphasia. Change to half-normal saline for ongoing hydration. Monitor Accu-Cheks with meals and at bedtime. SCDs to bilateral lower extremity for DVT prophylaxis Will discuss further plan of care with Dr Arevalo At time of discharge medical care will return to primary care provider. Dr. Galeano Code Status Full Code, unverified Hospital Course Summary Disclaimer The hospital course summary below is not to be considered part of the above Progress Note. BENITO AREVALO DO 07/27/162026: Past Medical History Current Medications Home Meds Reported Medications Magnesium Hydroxide/Al Hydrox (Mag-Al Liquid) 30 Ml Suspension, 30 ML PO Q4H Y for INDIGESTION 07/27/16 Polyethylene Glycol 3350 (Miralax) 17 Gm Powd.pack, 17 G PO DAILY 07/27/16 Acetaminophen (Acetaminophen) 500 Mg Tablet, 500 MG PO BID 07/27/16 Sulfamethoxazole/Trimethoprim (Bactrim Ds Tablet) 1 Each Tablet, 1 TAB PO BID for 10 Days starting 07/13/16 07/27/16 Metoprolol Succinate (Metoprolol Succinate) 25 Mg Tab.er.24h, 25 MG PO BID 07/27/16 Tamsulosin HCl (Tamsulosin HCl) 0.4 Mg Cap.er.24h, 0.4 MG PO HS 12/29/13 Bethanechol Chloride (Bethanechol Chloride) 25 Mg Tablet, 25 MG PO TID 12/29/13 Aspirin (Aspir 81) 81 Mg Tablet.dr, 81 MG PO DAILY 06/26/13 Citalopram (Celexa) 20 Mg Tablet, 20 MG PO DAILY 06/26/13 Lovastatin (Mevacor) 20 Mg Tablet, 20 MG PO DAILY 02/22/11 Hydralazine Hcl (Hydralazine Hcl) 25 Mg Tablet, 25 MG PO BID 02/02/11 Allergies: Coded Allergies: doxycycline (Verified Allergy, Unknown, "THROAT SWELLING", 04/04/15) Assessment & Plan Assessment Today I saw and examined the Mr. Lencho Franco who lives in the [facility] in [place]. He came to the ER after a throwing up once and not feeling well. Also the long term was concerned about some disc fascia because he was not day swallowing his food. He has a recent medical history which includes some tongue protrusion over the past several weeks and also chronic UTIs. The UTIs are felt to be due to the fact he has a marked hypospadias. They have discussed giving him a supra pubic catheter to rectify the frequent urinary tract infections. In April he became nervous about the idea of the suprapubic catheter and turned it down. That was in April 2016. When seen in our emergency department patient had a 31,000+ white blood cell count with 95% neutrophils. He has a very poor kidney function with a GFR of 18 his lactate was elevated at 2.4 and his BUNs was elevated at 43. His creatinine was quite elevated at 3.3. With such a high creatinine and high low GFR 80 may well be looking at dialysis quite soon. When Lazara Vora finally got a year a urine sample for analysis it showed a definite UTI and he may well have urosepsis also. He has confirmed he is a DO NOT RESUSCITATE status for any code situation. Physical exam shows a protruding tongue which has only been going on I'm told by his tohgoz-dz-sfo for several weeks. Heart shows a regular rate and rhythm without murmur; lungs are clear to auscultation without wheezing. Abdomen is soft with good bowel sounds is nontender to palpation. Lower leg shows no edema no cyanosis. 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 Neither Lazara during her I could get any review of systems done because of his severe hearing problem and his speech problem. I have reviewed in depth the history and physical done by Lazara as well as the assessment and plan for treatment with this patient I find the work to be complete and I agree with the assessment and plan which we discussed and which she noted in her work. We shall attempt to hydrate this patient a follow his troponin and as much as possible rectify the current problems. LAZARA CONNELL APRN Jul 27, 2016 15:41 BENITO AREVALO DO Jul 27, 2016 20:27
[2016-07-27 16:14] LABS: HCT - HEMATOCRIT 34.1 % (41-53); HGB - HEMOGLOBIN 11.6 GM/DL (13.5-17.5); MEAN CORPUSCULAR HGB 31.3 UUG (26-34); MEAN CORPUSCULAR VOLUME 91.9 UM3 (80-100); MEAN PLATELET VOLUME 10.7 UM3 (9.4-12.4); RED BLOOD COUNT 3.71 M/MM3 (4.50-5.90)
[2016-07-27 16:16] LABS: WBC - WHITE BLOOD COUNT 27.2 T/MM3 (4.5-11.0)
[2016-07-27 16:26] LABS: BAND NEUTROPHILS # 0.3 T/MM3; LYMPHOCYTES # (MANUAL) 0.8 T/MM3 (1-4.8); MONOCYTES # (MANUAL) 0.5 T/MM3 (0-0.8); NEUTROPHILS #(MANUAL)-ABSOLUTE 25.6 T/MM3 (1.8-7.7); TOTAL CELLS COUNTED 100 %
[2016-07-27 16:28] LABS: BLOOD, URINE TRACE-INTACT (NEGATIVE); COLOR,URINE YELLOW (YELLOW); LEUKOCYTE ESTERASE ,URINE 2+ (NEGATIVE); NITRITE,URINE NEGATIVE (NEGATIVE); UROBILINOGEN,URINE 0.2 EU/DL (NORMAL)
[2016-07-27 16:36] LABS: BACTERIA,URINE 2+ (NEGATIVE); SQUAMOUS EPITHELIAL CELL,UR 0-5; WBC,URINE 50-200 /HPF (0-5)
[2016-07-27] MEDS: 1/2 NS 1,000 ML IV SCH ×2 (16:37)
[2016-07-27] MEDS ORDERED: AZITHROMYCIN 500 MG in NORMAL SALINE 250 ML IV ONE (17:08)
[2016-07-27] MEDS: BETHANECHOL 25 MG TABLET PO SCH (17:47)
[2016-07-27] MEDS: CEFEPIME 1 G in NORMAL SALINE 100 ML IV SCH (17:47)
[2016-07-27 18:24] LABS: LACTATE - LACTIC ACID 1.1 MMOL/L (0.6-2.2)
[2016-07-27 18:25] LABS: ANION GAP 10 MEQ/L (5-15); BUN/CREATININE RATIO 14 RATIO (6-26); CALCIUM 8.9 MG/DL (8.4-10.2); CHLORIDE 110 MEQ/L (98-107); CO2 - CARBON DIOXIDE 24 MEQ/L (22-30); CREATININE 3.1 MG/DL (0.8-1.5); GLOMERULAR FILTRATION RATE 19; GLUCOSE 97 MG/DL (75-110); POTASSIUM 4.6 MEQ/L (3.6-5); SODIUM 144 MEQ/L (134-144)
[2016-07-27] MEDS: METOPROLOL XL 25 MG TABLET PO SCH (20:01)
[2016-07-27] MEDS: TAMSULOSIN 0.4 MG CAPSULE PO SCH (20:02)
--- NOTE | 2016-07-27 21:11 | CONSPD ---
Consultation Info Date DATE: 07/27/16 TIME: 20:57 HPI - Adult Date DATE: 07/27/16 TIME: 20:57 General Date of Admission Date of Admission: Jul 27, 2016 at 14:41 Chief Complaint: weakness, decreased appetite, Sepsis History of Present Illness 86 yo wm w/o known heart disease , who presented from [place] to ED for Rx of complctaed UTI that failed outpt Rx. he provides only limited Hx due to apparent retardation. he is found to be in ISATU abd hi WBC and Trop . he adamantaly mayito any cp or pressure. his mobility is limited by post polio sydrome and deconditioing. he was recentely instituionalized. he c/o some difficul;ty swallowing suly mild evens. no other c/o no LE edema . Past Medical History Past Medical History Metabolic: diabetes, hypertension, other Cardiac: DENIES: A-fib, CAD, CHF, ME GI: other Male: BPH Surgical History General: tonsils Reproductive/: TURP, other Joint: foot Current Medications Home Meds Reported Medications Magnesium Hydroxide/Al Hydrox (Mag-Al Liquid) 30 Ml Suspension, 30 ML PO Q4H Y for INDIGESTION 07/27/16 Polyethylene Glycol 3350 (Miralax) 17 Gm Powd.pack, 17 G PO DAILY 07/27/16 Acetaminophen (Acetaminophen) 500 Mg Tablet, 500 MG PO BID 07/27/16 Sulfamethoxazole/Trimethoprim (Bactrim Ds Tablet) 1 Each Tablet, 1 TAB PO BID for 10 Days starting 07/13/16 07/27/16 Metoprolol Succinate (Metoprolol Succinate) 25 Mg Tab.er.24h, 25 MG PO BID 07/27/16 Tamsulosin HCl (Tamsulosin HCl) 0.4 Mg Cap.er.24h, 0.4 MG PO HS 12/29/13 Bethanechol Chloride (Bethanechol Chloride) 25 Mg Tablet, 25 MG PO TID 12/29/13 Aspirin (Aspir 81) 81 Mg Tablet.dr, 81 MG PO DAILY 06/26/13 Citalopram (Celexa) 20 Mg Tablet, 20 MG PO DAILY 06/26/13 Lovastatin (Mevacor) 20 Mg Tablet, 20 MG PO DAILY 02/22/11 Hydralazine Hcl (Hydralazine Hcl) 25 Mg Tablet, 25 MG PO BID 02/02/11 Allergies: Coded Allergies: doxycycline (Verified Allergy, Unknown, "THROAT SWELLING", 04/04/15) Family History NOT FOUND: CAD, ME Vaccines MAR 2016 WITHIN PAST 10 YEARS Social History Smoking Status: Never smoker Substance Use Type: does not use Marital Status: Single Housing: longterm ([facility]) Advance Directives: Yes DNR, Yes DPOA for Healthcare Only Review of Systems Unable to Obtain ROS Due to: other (decreased ,mentation) Constitutional: REPORTS: see HPI Cardiovascular dyspnea on exertion, DENIES: chest pain General: burning Neurological General: see HPI Psychiatric Psychiatric: depression, see HPI Physical Exam General General Nourishment: obese General Body Habitus: other (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 ) Vital Signs Vital Signs Date Time Temp Pulse Resp B/P Pulse Ox O2 Delivery O2 Flow Rate FiO2 07/27/16 15:49 97.9 65 18 141/69 94 Room Air Height (Feet): 5 Height (Inches): 5.00 Eyes Brief: FOUND: EOMI, PERRL, NOT FOUND: scleral icterus, trauma ENMT Brief: FOUND: mucosa moist, other (enalrged tongue) Neck Brief: NOT FOUND: JVD, carotid bruits, thyromegaly Respiratory Brief: FOUND: other (occ ronchi B ,limited exam anteriorly), symmetrical Cardiovascular (brief) Cardiac Brief: FOUND: other (distant s1s2), regular rate, regular rhythm, NOT FOUND: click, gallop, murmur, rub Abdomen (brief) Abdominal Brief: FOUND: BS normo active x4, soft, NOT FOUND: distended, tender Lymphatic (brief) Lymphatic Brief: NOT FOUND: adenopathy Musculoskeletal (brief) Musculoskeletal Brief: NOT FOUND: deformity Integumentary (brief) Integumentary Brief: FOUND: dry, pink, warm Neurologic (brief) Neurological Brief: FOUND: cranial 2-12 intact, motor, NOT FOUND: facial droop , ptosis Neurologic RN Documented GCS Eye Opening: Verbal: Motor: Total: Psychiatric (brief) FOUND: alert, attentive, oriented Laboratory Laboratory Tests Test 07/27/16 13:06 07/27/16 13:49 07/27/16 16:05 07/27/16 16:20 White Blood Count 31.9T/MM3 27.2T/MM3 Red Blood Count 3.97M/MM3 3.71M/MM3 Hemoglobin 12.3GM/DL 11.6GM/DL Hematocrit 36.6% 34.1% Mean Corpuscular Volume 92.2UM3 91.9UM3 Mean Corpuscular Hemoglobin 31.0UUG 31.3UUG Mean Corpuscular Hemoglobin Concent 33.6GM/DL 34.0GM/DL RDW Standard Deviation 45.5FL 44.4FL Platelet Count 225T/MM3 223T/MM3 Mean Platelet Volume 10.8UM3 10.7UM3 Immature Granulocyte % (Auto) % Neutrophils (%) (Auto) % Lymphocytes (%) (Auto) % Monocytes (%) (Auto) % Eosinophils (%) (Auto) % Basophils (%) (Auto) % Absolute Immature Granulocyte (auto T/MM3 Absolute Neutrophils (auto) T/MM3 Absolute Lymphocytes (auto) T/MM3 Absolute Monocytes (auto) T/MM3 Absolute Eosinophils (auto) T/MM3 Absolute Basophils (auto) T/MM3 Neutrophils % (Manual) 95.0% 94.0% Band Neutrophils % 1.0% 1.0% Lymphocytes % (Manual) 2.0% 3.0% Monocytes % (Manual) 2.0% 2.0% Absolute Neutrophils (Manual) 30.3T/MM3 25.6T/MM3 Band Neutrophils # 0.3T/MM3 0.3T/MM3 Lymphocytes # (Manual) 0.6T/MM3 0.8T/MM3 Monocytes # (Manual) 0.6T/MM3 0.5T/MM3 Red Cell Morphology Comment Normal Normal Turbidity < 20 Sodium Level 144MEQ/L Potassium Level 5.2MEQ/L Chloride Level 106MEQ/L Carbon Dioxide Level 25MEQ/L Anion Gap 13MEQ/L Blood Urea Nitrogen 43.0MG/DL Creatinine 3.3MG/DL Glomerular Filtration Rate Calc 18 BUN/Creatinine Ratio 13RATIO Glucose Level 127MG/DL Calculated Osmolality 290MOSM/KG Calcium Level 9.3MG/DL Total Bilirubin 0.80MG/DL Icterus Index < 2 Aspartate Amino Transf (AST/SGOT) 60U/L Alanine Aminotransferase (ALT/SGPT) 34U/L Alkaline Phosphatase 76U/L Troponin I 1.380ng/ml Total Protein 8.3G/DL Albumin 4.2G/DL Globulin 4.1G/DL Albumin/Globulin Ratio 1.0RATIO Chemistry Specimen Hemolysis < 15 Plasma Lactate 2.4MMOL/L Procalcitonin 0.42NG/ML Urine Collection Type Cleancatch-midstream Urine Color Yellow Urine Turbidity Sl cloudy Urine pH 6.0 Urine Specific [place] 1.015 Urine Protein Trace Urine Glucose (UA) Negative Urine Ketones Negative Urine Blood Trace-intact Urine Nitrite Negative Urine Bilirubin Negative Urine Urobilinogen 0.2EU/DL Urine Leukocyte Esterase 2+ Urine RBC 1-3/HPF Urine WBC 50-200/HPF Urine Squamous Epithelial Cells 0-5 Urine Bacteria 2+ Urine Culture Indicated Cult reflexed &setup Test 07/27/16 17:32 07/27/16 18:01 Glucometer 85mg/dL Turbidity < 20 Sodium Level 144MEQ/L Potassium Level 4.6MEQ/L Chloride Level 110MEQ/L Carbon Dioxide Level 24MEQ/L Anion Gap 10MEQ/L Blood Urea Nitrogen 43.0MG/DL Creatinine 3.1MG/DL Glomerular Filtration Rate Calc 19 BUN/Creatinine Ratio 14RATIO Glucose Level 97MG/DL Calculated Osmolality 288MOSM/KG Calcium Level 8.9MG/DL Icterus Index < 2 Troponin I 1.460ng/ml Plasma Lactate 1.1MMOL/L Chemistry Specimen Hemolysis < 15 EKG NSR 1st d AVB prolonged QT . Q lateral leads, small. no acute ST elevation or depression Radiology no chf or pneumponia Impression/Recommendation Recommendation elevated troponoin aron type 2 ME demand/supply imbalnace ISATU urosepsis DM mental retardation serial trop and ekg echocardiogram agree w Rx ASa BB statin. and gentle hydration. not a cndidate fro heart cath , thus no plans for stress nuclear scan. will see in am in f/u .thanks. BRAULIO ROJO MD Jul 27, 2016 21:03
[2016-07-27 22:00] VITALS: BP 134/69; PULSE 74; RESP 18; TEMP 96.6; O2SAT 90
--- NOTE | 2016-07-27 23:50 | NUR ---
OXYGEN PT OXYGEN SATURATION AT 79% AT MIDNIGHT VITALS. 1.5 LITTERS NASAL CANULA APPLIED, SAT UP TO 93.
[2016-07-28] VITALS (12 sets, daily range): BP systolic 120–150; BP diastolic 58–69; PULSE 58–65; RESP 14–22; TEMP 95.6–97.5; O2SAT 80–100
--- NOTE | 2016-07-28 | NUR ---
PT HAS BEEN SLOWLY BACKED OFF OF THE OXYGEN AND IS CURRENTLY BACK ON ROOM AIR. PT HAS EXCESSIVE ORAL SECRETIONS, AND THE PT HAS BEEN SEEN "BLOWING BUBBLES" WITH HIS SECRETIONS.
[2016-07-28 00:54] LABS: HCT - HEMATOCRIT 32.2 % (41-53); HGB - HEMOGLOBIN 10.9 GM/DL (13.5-17.5); MEAN CORPUSCULAR HGB 31.2 UUG (26-34); MEAN CORPUSCULAR HGB CONC(MCHC 33.9 GM/DL (31-37); MEAN CORPUSCULAR VOLUME 92.3 UM3 (80-100); MEAN PLATELET VOLUME 10.8 UM3 (9.4-12.4); RED BLOOD COUNT 3.49 M/MM3 (4.50-5.90); WBC - WHITE BLOOD COUNT 17.8 T/MM3 (4.5-11.0)
[2016-07-28 01:33] LABS: ANION GAP 10 MEQ/L (5-15); BUN/CREATININE RATIO 15 RATIO (6-26); CALCIUM 8.6 MG/DL (8.4-10.2); CHLORIDE 111 MEQ/L (98-107); CO2 - CARBON DIOXIDE 23 MEQ/L (22-30); CREATININE 2.9 MG/DL (0.8-1.5); GLOMERULAR FILTRATION RATE 21; GLUCOSE 84 MG/DL (75-110); POTASSIUM 4.5 MEQ/L (3.6-5); SODIUM 144 MEQ/L (134-144)
[2016-07-28 05:16] LABS: BAND NEUTROPHILS # 0.4 T/MM3; LYMPHOCYTES # (MANUAL) 1.2 T/MM3 (1-4.8); MONOCYTES # (MANUAL) 0.2 T/MM3 (0-0.8); TOTAL CELLS COUNTED 100 %
[2016-07-28] MEDS: CEFEPIME 1 G in NORMAL SALINE 100 ML IV SCH ×2 (05:30→16:51)
--- NOTE | 2016-07-28 06:00 | NUR ---
SUMMARY PT ALERT AND ORIENTED X3. DENIES PAIN, DENIES NAUSEA/VOMITING. IV IN THE RT HAND PATENT AND RUNNING .45 NS AT RUNNING AT 150 MLS/HR. EHWITT IN PLACE AND DRAINING YELLOW URINE. PT USES A FULL BODY LIFT FOR TRANSFERS. FASTING BLOOD SUGAR 57 GRAPE JUICE GIVEN, VS STABLE.
[2016-07-28] MEDS: BETHANECHOL 25 MG TABLET PO SCH ×3 (07:58→16:51)
[2016-07-28] MEDS: 1/2 NS 1,000 ML IV SCH ×3 (07:59→18:25)
[2016-07-28] MEDS: AZITHROMYCIN 500 MG in NORMAL SALINE 250 ML IV SCH (08:53)
--- NOTE | 2016-07-28 09:00 | NUR ---
am care given total lift used to get up to chair. fed self breakfast but eats to fast and drinks to much at a time coughs and gages when he swollows and states he is going to throw up if he eats to much,
[2016-07-28] MEDS: METOPROLOL XL 25 MG TABLET PO SCH ×2 (09:55→22:41)
[2016-07-28] MEDS: ASPIRIN *EC* 81mg TABLET PO SCH (09:55)
[2016-07-28] MEDS: POLYETHYL.GLYCOL 3350 PACKET 17gm PO SCH (09:55)
--- NOTE | 2016-07-28 11:26 | STEVAL ---
Eval Subjective and History Date/Time of Eval DATE: 07/28/16 TIME: 11:00 Medical Diagnosis SPEECH THERAPY CONSULTATION FOR UNSPECIFIED DYSPHAGIA Treatment Order: Assessment, Dev./Imp. tx plan Orientations: Person, Cooperative Primary Complaint: SEPSIS Pain: No Date of Onset of Primary Com: 07/28/2016 Secondary Complaint: OROPHARYNGEAL DYSPHAGIA Clinical Test Results: BEDSIDE COMPLETED Prior History of This Problem: Yes (THE LAST SEVERAL WEEKS PER RESIDENTIAL REPORT) Patient's Goals: NONE STATED Significant Past Medical Hx: PMH: CKD, IBS, T2DM, CONSTIPATION, DEPRESSION ASSESSMENT: SEPSIS, ACUTE RENAL FAILURE, ELEVATED TROPONIN, POST-POLIO SYNDROME, BPH, HTN Medical History Form Reviewed: Yes Residence Type: [facility] ([facility]) Prior Functional Status: PATIENT LIVING AT [facility], REPORTS STATE HE WAS LIVING INDEPENDENTLY UNTIL SEVERAL WEEKS AGO. PATIENT WITH LONG STANDING HX OF UTI'S AND IS UNDER THE CARE OF A UROLOGIST IN [place]. PATIENTS [id number] IS HIS DPOA. PHYSICIAN REPORT STATE THAT PATIENT HAS HAD A DECLINE IN SWALLOW FUNCTION THE LAST SEVERAL WEEKS. Current Functional Status: INCREASED RISK OF ASPIRATION. Education Comment WINDOWS SECURITY ANALYST educated patient on reasoning for evaluation. Patient was agreeable to evaluation. FOLLOWING THE EVALUATION RECOMMENDATIONS WERE SHARED WITH HIS RN, SCOTTY, WHO VERBALIZED UNDERSTANDING. Subjective and History Comment: RAINA WAS SEEN SITTING UPRIGHT IN BEDSIDE CHAIR FEEDING HIMSELF BREAKFAST. HE WAS WITHOUT ACUTE C/O PAIN OR FATIGUE AND WAS PLEASANTLY COOPERATIVE. HE WAS EXTREMELY KAW. 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 Dysphagia Evaluation Evaluation Location: Chair Evaluation Angle: 90 Oral Peripheral Exam-facial: Facial Symmetry: Generalized Facial Asymmetry Comment: BILATERALLY Tongue Elevation: No Impairment (WFL) Tongue Lateralization: No Impairment (WFL) Tongue Protrusion: Severe Impairment (ALWAYS PROTRUDING, UNABLE TO RETRACT) Tongue Retraction: Severe Impairment Tongue Extension Midline: No Impairment (WFL) Labial Approximation: No Impairment (WFL) Intraoral Air Pressure: Unable to Elicit Larynx Elevation During Swallo: Mild Impairment Saliva Control: No Impairment (WFL) Dentition: Endentulous Oral Peripheral Exam Comment: PATIENT WITH MACROGLOSSIA AND TONGUE PROTRUDING AT BASELINE. PATIENT WITH EXTREME DIFFICULTY WITH RETRACTION. LINGUAL ELEVATION FUNCTIONAL. UPON PALPATION, PATIENTS HYOLARYNGEAL ELEVATION WAS SIGNIFICANTLY REDUCED UPON PALPATION. Lip Seal: Adequate-liquid (WITH NTL), Adequate-pudding Lingual Manipulation: Adequate-liquid (WITH NTL), Adequate-pudding Oral cavity clear post swallow: Adequate-liquid, Adequate-pudding Swallow initiated w/o delay: Inadequate-liquid, Adequate-pudding Multiple swallows not needed: Adequate-liquid, Adequate-pudding Voice clear&dry post swallow: Adequate-liquid, Adequate-pudding No cough/throat clear: Inadequate-liquid, Adequate-pudding Comments PATIENT WITH MACROGLOSSIA AND LINGUAL PROTRUSION AT BASELINE, HAVING DIFFICULTY MANIPULATING SILVERWARE TO FEED HIMSELF. PATIENT WAS FED BITES OF PUREED FRUIT WITH REDUCED LINGUAL MOVEMENT AND POOR COORDINATION MOVING BOLUS POSTERIORLY FOR ORAL TRANSIT. PATIENT WITH NO CLINICAL S/S OF ASPIRATION AFTER SWALLOW ON 5/ 5 BITES. PATIENT REQUIRED ASSISTANCE WHEN GIVING HIMSELF DRINKS. SIPS WERE LARGE AND DISORGANIZED. PATIENT PRESENTED WITH PROMPT SWALLOW FUNCTION WITH REDUCED HYOLARYNGEAL ELEVATION. WET VOICING ON 2/5 TRIALS. FOLLOWING DYSPHAGIA EVALUATION PATIENT NOTED TO HAVE WET VOICING AND LARGE COUGHING EPISODE. HE REPORTS THAT HIS SWALLOW "MAKES A CLICKING NOISE, AND IT IS IN MY EARS". EDUCATION PROVIDED TO PATIENT RE: EUSTACHIAN TUBE AND SWALLOW FUNCTION AND HOW THEY ARE CORRELATED. REVIEWED RECS WITH NURSING STAFF. Assessment/Plan of Care Speech Therapy Impressions: PATIENT PRESENTS WITH OROPHARYNGEAL DYSPHAGIA. Penitentiary Goal: Pt will maintain nutrition and hydration of the least restrictive diet while demonstrating no s/s of aspiration for [3] consecutive trials. Short Term Goal: Pt will consume a [PUREED] consistency with [NTL] liquids without outward signs of aspiration at bedside in 85% of trials. ST Treatment Plan: Mod. Barium Swallow Study, Swallow Precautions, Modified Diet ST Treatment Plan Frequency: three times per week Treatment Plan Duration: one week Plan of Care Comment RECOMMENDATIONS: 1) PUREED DIET WITH NECTAR THICKENED LIQUIDS, CRUSH MEDICATIONS 2) FEEDER/ASSISTANCE 3) SMALL SIPS/BITES, ALTERNATION OF SOLIDS AND LIQUIDS 4) MODIFIED BARIUM SWALLOW STUDY ON SATURDAY SECONDARY TO INCONSISTENT S/S OF ASPIRATION Date of Visit 07/28/16 Time Visit Began: 10:15 Time Visit Ended: 10:30 ST Assess/Plan of Care: ST Treatment Charge: Swallow Eval Minutes of Individual Therapy: 15 LILIAM DAVIES MS CCC-WINDOWS SECURITY ANALYST Jul 28, 2016 11:03
--- NOTE | 2016-07-28 12:00 | NUR ---
feed by nursing are about 1/2 ser of pureed meat and mashed potatoes took sips off ice tea states he cant eat alot at a time because he will throw up.
--- NOTE | 2016-07-28 12:42 | NUR ---
ROBERT CM IN TO VISIT WITH PT. HE IS ALERT AND ORIENTED. CM INTRODUCES HERSELF AND EXPLAINS HER ROLE IN [place] PLANNING. PT IS GIVEN CM CONTACT INFORMATION. ROBERT SPOKE WITH MATT CHANCE, VIA TELEPHONE. SHE CONFIRMS THAT PT WILL RETURN TO [facility] [place]. HE HAS BEEN IN HEALTHCARE AT THEIR FACILITY FOR 1 WEEK. LACE SCORE IS 9. NO FURTHER INTERVENTION NEEDED. Addendum: 07/28/16 at 1243 by RUBENS MCCORD RN Amended: Links added.
--- NOTE | 2016-07-28 14:40 | NUR ---
back to bed using anthony lift. incont of mod amt soft stool fran care done turned to R side with hob elevated 30 degrees.
[2016-07-28 16:47] LABS: BLOOD, URINE 1+ (NEGATIVE); COLOR,URINE YELLOW (YELLOW); LEUKOCYTE ESTERASE ,URINE 1+ (NEGATIVE); NITRITE,URINE NEGATIVE (NEGATIVE); UROBILINOGEN,URINE 0.2 EU/DL (NORMAL)
[2016-07-28] MEDS: LOVASTATIN 20 MG TABLET PO SCH (16:51)
[2016-07-28 16:55] LABS: BACTERIA,URINE 2+ (NEGATIVE)
--- NOTE | 2016-07-28 18:51 | NUR ---
SHIFT SUMMARY VSS. WEANED BACK TO RA. DENIES PAIN. DECENT INTAKE AT DINNER. HEWITT REMAINS PATENT AND DRAINING. 1/2 NS INFUSING INTO IV. TAKES MEDS CRUSHED IN APPLESAUCE. BED ALARM IN USE.
--- NOTE | 2016-07-28 20:23 | PNPDOC ---
Subjective Date DATE: 07/28/16 TIME: 20:10 Mathew Ortega was awake and alert when I went into his room to see him today. He has no new complaints and is happy that his swollen tongue has now gone back to much closer to its normal size. He denies any shortness of breath and he denies any coughing. He denies any chest pain and he denies palpitations. He denies any nausea or vomiting and denies any abdominal pain. He does complain of chronic feeling of coldness in his [place] right leg which had polio many years ago. He confirms that he has a good appetite and feels like he is being well fed. He denies any current fever. Objective Vital Signs Vital signs Patient is examined closely and it is determined that his tongue is now much smaller in size than it was yesterday. It is not sticking out of his mouth nearly as much as it was and that is obvious. Heart shows a regular rate and rhythm without murmur. Lungs are clear to auscultation bilaterally without wheezes or crackles. Abdomen is soft and nontender bowel sounds are physiologic left leg is examined and shows no cyanosis or edema. Cranial nerves II through XII are grossly intact. Vital Signs Date Time Temp Pulse Resp B/P Pulse Ox O2 Delivery O2 Flow Rate FiO2 07/28/16 19:53 97.0 64 18 150/66 100 Room Air 07/28/16 19:33 1.00 Height (Feet): 5 Height (Inches): 5.00 Weight (Kilograms): 78.300 Laboratory Laboratory Laboratory Tests 07/27/16 13:06 07/27/16 18:01 07/28/16 00:43 Laboratory Tests 07/27/16 13:06 07/27/16 16:05 07/28/16 00:43 Microbiology Microbiology Microbiology Date/Time Source Procedure Growth Status 07/27/16 13:54 Peripheral/Iv Start Blood Culture - Preliminary NO GROWTH AFTER 24 HOURS Resulted 07/27/16 13:49 Peripheral/Iv Start Blood Culture - Preliminary NO GROWTH AFTER 24 HOURS Resulted 07/28/16 16:55 Urine, Sterling Indwelling Urine Culture - Preliminary CULTURE INITIATED - RESULTS PENDING Resulted 07/27/16 16:36 Urine, Clean Catch-Midstream Urine Culture - Preliminary CULTURE INITIATED - RESULTS PENDING Resulted Sepsis Diagnostic Criteria Sepsis Confirmed/Suspected Infection: Yes Severe Sepsis Creatinine >2.0mg/dL, Lactate >=2.0 mg/dL Assessment & Plan Problems: (1) Sepsis Status: Acute Qualifiers: Sepsis type: sepsis due to unspecified organism Qualified Codes: A41.9 - Sepsis, unspecified organism (2) Acute renal failure Status: Acute Qualifiers: Acute renal failure type: unspecified Qualified Codes: N17.9 - Acute kidney failure, unspecified (3) Elevated troponin Status: Acute Assessment & Plan: POA- asymptomatic (4) Diet-controlled type 2 diabetes mellitus Status: Chronic (5) Post-polio syndrome Status: Chronic (6) 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 Arevalo progress note for 07/28/16: Mr. vega is quite hand bender and looks better and feels better when seen today. His sepsis is much better with his white count dropping down from 32,000 or almost 32,002 around 17 ,800. Has a UTI which she now shows a leukocyte esterase of only 1+ as opposed to plus previously. His troponins checked and it's down to 0.694 I'm not sure the glazing superintendent we asked to consult has seen him yet. His hypertension is controlled on current medication and we do have a coud catheter in the hypospadias which is align his urine to drain out and organized fashion. A plan to talk to him about getting some surgery to if he wishes to do so. I plan to emphasize the fact that it would relieve all those continuing infections most likely. I believe his urologist has been wanting to do a suprapubic Catheter. He has been afebrile and has a good appetite. We plan to continue the current therapy, to get a repeat basic metabolic profile and CBC in the morning. We also plan to get a repeat troponin in 1 in the morning Assessment Today I saw and examined the Mr. Lencho Franco who lives in the [facility] in [place]. He came to the ER after a throwing up once and not feeling well. Also the [facility] was concerned about some disc fascia because he was not day swallowing his food. He has a recent medical history which includes some tongue protrusion over the past several weeks and also chronic UTIs. The UTIs are felt to be due to the fact he has a marked hypospadias. They have discussed giving him a supra pubic catheter to rectify the frequent urinary tract infections. In April he became nervous about the idea of the suprapubic catheter and turned it down. That was in April 2016. When seen in our emergency department patient had a 31,000+ white blood cell count with 95% neutrophils. He has a very poor kidney function with a GFR of 18 his lactate was elevated at 2.4 and his BUNs was elevated at 43. His creatinine was quite elevated at 3.3. With such a high creatinine and high low GFR 80 may well be looking at dialysis quite soon. When Meron Vora finally got a year a urine sample for analysis it showed a definite UTI and he may well have urosepsis also. He has confirmed he is a DO NOT RESUSCITATE status for any code situation. Physical exam shows a protruding tongue which has only been going on I'm told by his [id number] for several weeks. Heart shows a regular rate and rhythm without murmur; lungs are clear to auscultation without wheezing. Abdomen is soft with good bowel sounds is nontender to palpation. Lower leg shows no edema no cyanosis. 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 Neither Meron during her I could get any review of systems done because of his severe hearing problem and his speech problem. I have reviewed in depth the history and physical done by Meron as well as the assessment and plan for treatment with this patient I find the work to be complete and I agree with the assessment and plan which we discussed and which she noted in her work. We shall attempt to hydrate this patient a follow his troponin and as much as possible rectify the current problems. Plan/Intensity of Service Admit patient to inpatient status under the care of Dr. Arevalo for sepsis, ISATU and elevated Troponin. She was started on IV fluids and IV cefepime for antimicrobial coverage while in the emergency room. On admission coude Sterling cath placed by myself and urinalysis is obtained. Concern for chronic urinary retention. Given presence of hypospadia's anatomy. Patient is planning for placement of suprapubic catheter in the outpatient setting. May need to consider leaving Sterling catheter in-place at time of discharge. Will recheck CBC and Manual diff now. Continue to monitor serial lactate levels as per sepsis protocol. Patient cardiac telemetry and will obtain serial troponins 3. Consult for speech therapy, given recent dysphasia. Change to half-normal saline for ongoing hydration. Monitor Accu-Cheks with meals and at bedtime. SCDs to bilateral lower extremity for DVT prophylaxis Will discuss further plan of care with Dr Arevalo At time of discharge medical care will return to primary care provider. Dr. Galeano Code Status Do Not Resuscitate Hospital Course Summary Disclaimer The hospital course summary below is not to be considered part of the above Progress Note. BENITO AREVALO DO Jul 28, 2016 20:14
[2016-07-28] MEDS: TAMSULOSIN 0.4 MG CAPSULE PO SCH (22:41)
[2016-07-29] MEDS: 1/2 NS 1,000 ML IV SCH ×2 (00:40→08:48)
--- NOTE | 2016-07-29 02:26 | NUR ---
TELEMETRY NON-COMPLIANCE: PT PULLS LEADS OFF. AFTER PUTTING THEM BACK ON PT, HE WILL PULL THEM OFF. AFTER EXPLAINING WHAT THE LEADS ARE FOR AND WHAT HE IS HER IN THE HOSPITAL FOR, THE PT WILL NOT ALLOW ME OR THE ELECTRIC BLASTING CAP ASSEMBLER TO REAPPLY LEAD PATCHES. IF WE GET CLOSER TO THE PT, HE SWINGS AT US.
--- NOTE | 2016-07-29 02:28 | NUR ---
PHYSICALLY ACTIVE: PT IS MORE PHYSICALLY ACTIVE TONIGHT COMPARED TO LAST NIGHT (PER AUGUST, RN'S, ASSESSMENT; AUGUST HAD PT LAST NIGHT). PT HAS TRIED TO CRAWL OUT OF BED NUMEROUS TIMES (PT'S RIGHT SIDE IS STRONGER THAN THE LEFT SIDE; 3 SIDE RAILS UP). PT WILL USE THE CALL LIGHT FREQUENTLY. WHEN ASKED WHAT HE NEEDS, PT STATES HE JUST WANTS TO SEE WHERE I AM. PT HAS PULLED HIS GOWN OFF MANY TIMES AND WANTS TO KEEP IT OFF. WILL CONTINUE TO MONITOR.
[2016-07-29 04:30] VITALS: BP 138/66; PULSE 61; RESP 20; TEMP 97.7; O2SAT 99
[2016-07-29 05:07] LABS: BASOPHILS % (AUTO) 0.3 % (0-2); EOSINOPHILS # (AUTO) 0.1 T/MM3 (0-0.5); EOSINOPHILS % (AUTO) 0.8 % (0-4); HCT - HEMATOCRIT 31.1 % (41-53); HGB - HEMOGLOBIN 10.1 GM/DL (13.5-17.5); IMMATURE GRANULOCYTE # (AUTO) 0.02 T/MM3 (0.00-0.03); IMMATURE GRANULOCYTE % (AUTO) 0.2 % (0.0-0.5); LYMPHOCYTES # (AUTO) 1.3 T/MM3 (1-4.8); LYMPHOCYTES % (AUTO) 13.1 % (23-45); MEAN CORPUSCULAR HGB 30.8 UUG (26-34); MEAN CORPUSCULAR HGB CONC(MCHC 32.5 GM/DL (31-37); MEAN CORPUSCULAR VOLUME 94.8 UM3 (80-100); MEAN PLATELET VOLUME 10.7 UM3 (9.4-12.4); MONOCYTES % (AUTO) 9.9 % (0-9.0); NEUTROPHILS #(AUTO)-ABSOLUTE 7.8 T/MM3 (1.8-7.7); NEUTROPHILS % (AUTO) 75.7 % (33-66); RED BLOOD COUNT 3.28 M/MM3 (4.50-5.90); WBC - WHITE BLOOD COUNT 10.3 T/MM3 (4.5-11.0)
[2016-07-29 05:16] LABS: ANION GAP 8 MEQ/L (5-15); BUN/CREATININE RATIO 20 RATIO (6-26); CALCIUM 8.4 MG/DL (8.4-10.2); CHLORIDE 111 MEQ/L (98-107); CO2 - CARBON DIOXIDE 20 MEQ/L (22-30); CREATININE 2.1 MG/DL (0.8-1.5); GLOMERULAR FILTRATION RATE 30; GLUCOSE 68 MG/DL (75-110); POTASSIUM 4.1 MEQ/L (3.6-5); SODIUM 139 MEQ/L (134-144)
[2016-07-29] MEDS: BETHANECHOL 25 MG TABLET PO SCH ×3 (05:38→17:19)
[2016-07-29] MEDS: CEFEPIME 1 G in NORMAL SALINE 100 ML IV SCH (05:38)
--- NOTE | 2016-07-29 06:16 | NUR ---
SHIFT SUMMARY: AT BEGINNING OF MY SHIFT PT WAS IRRITABLE. THE NIGHT PROGRESSED, HE BECAME MORE COMBATIVE, PULLING TELEMETRY LEADS OFF, TAKING GOWN OFF, AND WANTING TO LEAVE THE HOSPITAL AND WANTING ME TO CALL HIS DOCTOR, STATING I'M TRYING TO SHOOT HIM. EARLY THIS MORNING, PT WAS EXTREMELY HAPPY, CHATTY, FRIENDLY AND SAYING HE DIDN'T MEAN ANYTHING HE SAID LAST NIGHT, AND THAT HE WAS JUST JOKING. VSS, ON RA, HEWITT DRAINS AND HAS GOOD OUTPUT, TAKES MEDS CRUSHED IN APPLESAUCE OR PUDDING. FLUIDS RUNNING. CALL LIGHT WITHIN REACH, BED ALARM ON.
--- NOTE | 2016-07-29 06:28 | NUR ---
LOW BLOOD SUGAR: CAITLYN FULLER, REPORTED PT'S BLOOD SUGAR WAS 61. I WAS UNABLE TO ATTEND PT SINCE I WAS WATCHING 1 ON 1 WITH PT IN ROOM 145. MAICO CHAUDHARI, GAVE PT 80 MLS THICKENED GRAPE JUICE AND CAITLYN (JONNY) WAS ABLE TO HELP PT FINISH THE REST OF THE THICKENED GRAPE JUICE 83 (FOR A TOTAL OF 163 MLS INTAKE). BLOOD SUGAR RECHECKED 15 MINUTES LATER CAME UP TO 63. IT WAS DIFFICULT TO WAKE PT, HE MUMBLED, BUT WOULD NOT OPEN HIS EYES. I DISCUSSED SITUATION WITH DAY RN (PALMIRA), I LOOKED AT THE LOW BLOOD SUGAR PROTOCOL AND CONTACTED CONTINUING EDUCATION DIRECTOR TO OBTAIN DEXTROSE IV PUSH. CONTINUING EDUCATION DIRECTOR SAID TO CONTACT PHARMACY TO OBTAIN THE DEXTROSE. I WALKED THE FEW STEPS TO PHARMACY. THEY GAVE ME LIQUID DEXTROSE. BUZZ TOOK THE DEXTROSE BACK TO PHARMACY TO OBTAIN THE IV PUSH DEXTROSE. AN ORDER WAS PLACED BY DR. Reed BOONE FOR THE DEXTROSE AND ADMINISTERED BY CONTINUING EDUCATION DIRECTOR. BLOOD SUGAR WAS RECHECKED 10 MINUTES AFTER ADMINISTRATION OF IV DEXTROSE. NEW BLOOD SUGAR WAS 104. PT WAS MUCH MORE RESPONSIVE AND COHERENT. I PASSED ON THE INFORMATION TO [facility] DAY NURSE. I HAD DR. Reed BOONE PAGED. HE RETURNED MY CALL. I GAVE A DETAILED SUMMARY OF WHAT HAPPENED TO HIS PT. THE THANKED ME FOR NOTIFYING HIM.
[2016-07-29] MEDS ORDERED: DEXTROSE 50% SYRINGE 50ml (Eq. 1 AMP) IV ONE (07:15)
[2016-07-29 08:20] VITALS: BP 150/69; PULSE 62; RESP 20
[2016-07-29] MEDS: AZITHROMYCIN 500 MG in NORMAL SALINE 250 ML IV SCH (08:57)
[2016-07-29] MEDS: POLYETHYL.GLYCOL 3350 PACKET 17gm PO SCH (09:00)
[2016-07-29] MEDS ORDERED: 1/2 NS 1,000 ML IV SCH (09:46)
--- NOTE | 2016-07-29 10:30 | NUR ---
Status Nofified of patient's status ( white frothy sputum coming from mouth, decreased LOC, confused, weight up 5lbs, BGMs in the low range). Received orders to dc fluids and give lasix.
[2016-07-29] MEDS ORDERED: FUROSEMIDE 20 MG/2 ML INJECTION IV ONE (10:45)
[2016-07-29] MEDS: METOPROLOL XL 25 MG TABLET PO SCH ×2 (10:59→20:44)
[2016-07-29] MEDS: ASPIRIN *EC* 81mg TABLET PO SCH (11:00)
[2016-07-29 11:41] VITALS: BP 160/69; PULSE 54; RESP 18; TEMP 97.8; O2SAT 91
--- NOTE | 2016-07-29 12:30 | NUR ---
Status Patient awakens when niece arrives. Patient is pleasant and eats lunch and takes pills.
[2016-07-29] MEDS ORDERED: GLUCOSE ORAL GEL 40% 37.5 G TUBE PO PRN (13:45)
[2016-07-29] MEDS ORDERED: DEXTROSE 50% SYRINGE 50ml (Eq. 1 AMP) IV PRN (13:45)
--- NOTE | 2016-07-29 14:08 | PNPDOC ---
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 Dr. Arevalo updated me that patient has recurrent hypoglycemia, unclear cause. His chart has been carefully reviewed. He has experienced significant decline over the last couple of weeks. [place] apartment, and required transfer to LTC. He has not been eating or drinking well, and experienced an episode of vomiting that lead him to coming to the ED. He was found to have significant leukocytosis and concern for early aspiration. It appears that he was participating in exam during his admission, he is now obtunded. He slowly awakens to my touch, but is not really conversive. He does have chronic disability, but it appears that status has continued to worsen. He was recently on Cipro and then Bactrim prior to admission for UTI- he was admitted with significant renal failure, which has slowly improved, but is not resolved. He has a diagnosis of DM2, but it does not appear that he has been on any insulin or oral agents that would explain his hypoglycemia. He required IV dextrose earlier today, but upon review of chart, his BG has been running lower for several days. There is no family at bedside for me to get collateral information. Objective Vital Signs Vital signs Vital Signs Date Time Temp Pulse Resp B/P Pulse Ox O2 Delivery O2 Flow Rate FiO2 07/29/16 11:41 97.8 54 18 160/69 91 Room Air 07/28/16 19:33 1.00 Height (Feet): 5 Height (Inches): 5.00 Weight (Kilograms): 80.500 General General Appearance: No Acute Distress Comments He is obtunded. Awakens when I shake him. Quickly returns to sleep. Eyes (Brief) Eyes: FOUND: PERRL Comments Pupils are 2mm bilaterally. No icterus. ENMT (Brief) ENMT: FOUND: mucosa moist (s ) Comments Mouth is dry. Tongue is swollen. Neck (Brief) Neck: FOUND: midline, NOT FOUND: JVD, nuchal rigidity, spasm Respiratory (Brief) Respiratory: FOUND: equal bilaterally, symmetrical, wheezes (Faint wheezes left base. ), NOT FOUND: rales Comments He does not appear SOA. Cardiovascular (Brief) Cardiac: FOUND: regular rate, regular rhythm, NOT FOUND: gallop, murmur, pedal edema Abdomen (Brief) Abdominal: FOUND: soft, NOT FOUND: BS normo active x4 (Hypoactive BS. ), distended, tender (He does not seem tender on exam. ) (Brief) Comments Sterling, clear yellow urine. Recent Lasix. Extremities (Brief) Extremity : Extremity Finding: NOT FOUND: edema Integumentary (Brief) Integumentary: FOUND: dry, pink, warm Psychiatric (Brief) Psychiatric: NOT FOUND: alert, attentive, oriented Laboratory Laboratory Laboratory Tests 07/27/16 18:01 07/28/16 00:43 07/29/16 04:31 Laboratory Tests 07/27/16 16:05 07/28/16 00:43 07/29/16 04:31 Microbiology Microbiology Microbiology Date/Time Source Procedure Growth Status 07/27/16 13:54 Peripheral/Iv Start Blood Culture - Preliminary NO GROWTH AFTER 24 HOURS Resulted 07/27/16 13:49 Peripheral/Iv Start Blood Culture - Preliminary NO GROWTH AFTER 24 HOURS Resulted 07/28/16 16:55 Urine, Sterling Indwelling Urine Culture - Preliminary No growth Resulted 07/27/16 16:36 Urine, Clean Catch-Midstream Urine Culture - Final Mixed Micheline Complete Radiology CXR Impression: No focal pneumonia or congestive failure. Sepsis Diagnostic Criteria Sepsis Confirmed/Suspected Infection: Yes SIRS Criteria: Acute mental status chg, WBC >=12,000 or <=4,000, Bands >= 10% Severe Sepsis Creatinine >2.0mg/dL, Lactate >=2.0 mg/dL Assessment & Plan Problems: (1) Sepsis Status: Acute Qualifiers: Sepsis type: sepsis due to unspecified organism Qualified Codes: A41.9 - Sepsis, unspecified organism (2) Acute renal failure Status: Acute Qualifiers: Acute renal failure type: unspecified Qualified Codes: N17.9 - Acute kidney failure, unspecified (3) Elevated troponin Status: Acute Assessment & Plan: POA- asymptomatic (4) Diet-controlled type 2 diabetes mellitus Status: Chronic (5) Post-polio syndrome Status: Chronic (6) 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 His sepsis is much better with his white count dropping down from 32,000 or almost 32,002 around 17 ,800. Has a UTI which she now shows a leukocyte esterase of only 1+ as opposed to plus previously. His troponins checked and it's down to 0.694 I'm not sure the special weapons and tactics officer we asked to consult has seen him yet. His hypertension is controlled on current medication and we do have a coud catheter in the hypospadias which is align his urine to drain out and organized fashion. A plan to talk to him about getting some surgery to if he wishes to do so. I plan to emphasize the fact that it would relieve all those continuing infections most likely. I believe his urologist has been wanting to do a suprapubic Catheter. He has been afebrile and has a good appetite. We plan to continue the current therapy, to get a repeat basic metabolic profile and CBC in the morning. We also plan to get a repeat troponin in 1 in the morning (9) Metabolic encephalopathy Status: Acute (10) Hypoglycemia Status: Acute (11) Dysphagia Status: Acute Qualifiers: Dysphagia type: unspecified Qualified Codes: R13.10 - Dysphagia, unspecified (12) Tongue swelling Status: Acute Plan/Intensity of Service 07/29/16- Calvin D/Oksana Arevalo prior to seeing pt. *AMS- this appears to be a fairly significant change. Could be encephalopathy from renal failure/Bactrim and other meds. We need to get CT of the head now. Hold Celexa and other centrally acting meds. Treat infection. Need to normalize BG. *Hypoglycemia- Unclear cause. No meds that I can identify as a cause. Concern for pancreatic abnormality. Assess lipase, CA 19-9. Add D5NS IVF- he needs ongoing hydration given renal failure. He did get some Lasix for fluid overload, breathing ok. Start hypoglycemia protocol as well. We may have to change to D10 if BG remains low. Change to regular diet since BG is running low. *Glossal swelling- This is apparently new. CT head. Check TSH, B12, Folate. ST eval due to reported dysphagia, possible vomiting. May need soft tissue imaging of the neck if persists. *BPH, Hypospadia, Recurrent UTI- Continue Sterling. May need s/p cath. *Sepsis- unclear cause. Acute reactive leukocytosis? Aspiration? UTI? Change azithro and cefepime due to cardiac arrhythmia risk and risk of AMS/ Seizure with Cefepime. Change to Zosyn renal dose to cover aspiration and broad spectrum UTI. Repeat CXR in AM. *HTN- Stable. continue Hydralazine. Monitor for rebound hypertension. *NSTEMI, Type II- Monitor. No acute procedures per cardiology. He does not report chest pain. Agree with echo due to possible congenital defects. Evaluation pending. Repeat labs in AM. Continue close monitoring. DVT Prophylaxis: SCD'S Code Status Do Not Resuscitate Hospital Course Summary Disclaimer The hospital course summary below is not to be considered part of the above Progress Note. Hospital Course Summary Today I saw and examined the Mr. Lencho Franco who lives in the [facility] in [place]. He came to the ER after a throwing up once and not feeling well. Also the intermediate was concerned about some disc fascia because he was not day swallowing his food. He has a recent medical history which includes some tongue protrusion over the past several weeks and also chronic UTIs. The UTIs are felt to be due to the fact he has a marked hypospadias. They have discussed giving him a supra pubic catheter to rectify the frequent urinary tract infections. In April he became nervous about the idea of the suprapubic catheter and turned it down. That was in April 2016. When seen in our emergency department patient had a 31,000+ white blood cell count with 95% neutrophils. He has a very poor kidney function with a GFR of 18 his lactate was elevated at 2.4 and his BUNs was elevated at 43. His creatinine was quite elevated at 3.3. With such a high creatinine and high low GFR 80 may well be looking at dialysis quite soon. When Meron Vora finally got a year a urine sample for analysis it showed a definite UTI and he may well have urosepsis also. He has confirmed he is a DO NOT RESUSCITATE status for any code situation. Physical exam shows a protruding tongue which has only been going on I'm told by his [id number] for several weeks. Heart shows a regular rate and rhythm without murmur; lungs are clear to auscultation without wheezing. Abdomen is soft with good bowel sounds is nontender to palpation. Lower leg shows no edema no cyanosis. 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 Neither Meron during her I could get any review of systems done because of his severe hearing problem and his speech problem. I have reviewed in depth the history and physical done by Meron as well as the assessment and plan for treatment with this patient I find the work to be complete and I agree with the assessment and plan which we discussed and which she noted in her work. We shall attempt to hydrate this patient a follow his troponin and as much as possible rectify the current problems. Admit patient to inpatient status under the care of Dr. Arevalo for sepsis, ISATU and elevated Troponin. She was started on IV fluids and IV cefepime for antimicrobial coverage while in the emergency room. On admission coude Sterling cath placed by myself and urinalysis is obtained. Concern for chronic urinary retention. Given presence of hypospadia's anatomy. Patient is planning for placement of suprapubic catheter in the outpatient setting. May need to consider leaving Sterling catheter in-place at time of discharge. Will recheck CBC and Manual diff now. Continue to monitor serial lactate levels as per sepsis protocol. Patient cardiac telemetry and will obtain serial troponins 3. Consult for speech therapy, given recent dysphasia. Change to half-normal saline for ongoing hydration. Monitor Accu-Cheks with meals and at bedtime. SCDs to bilateral lower extremity for DVT prophylaxis Will discuss further plan of care with Dr Arevalo At time of discharge medical care will return to primary care provider. Dr. Galeano 07/29/16- Calvin D/W Dr. Arevalo prior to seeing pt. *AMS- this appears to be a fairly significant change. Could be encephalopathy from renal failure/Bactrim and other meds. We need to get CT of the head now. Hold Celexa and other centrally acting meds. Treat infection. Need to normalize BG. *Hypoglycemia- Unclear cause. No meds that I can identify as a cause. Concern for pancreatic abnormality. Assess lipase, CA 19-9. Add D5NS IVF- he needs ongoing hydration given renal failure. He did get some Lasix for fluid overload, breathing ok. Start hypoglycemia protocol as well. We may have to change to D10 if BG remains low. Change to regular diet since BG is running low. *Glossal swelling- This is apparently new. CT head. Check TSH, B12, Folate. ST eval due to reported dysphagia, possible vomiting. May need soft tissue imaging of the neck if persists. *BPH, Hypospadia, Recurrent UTI- Continue Sterling. May need s/p cath. *Sepsis- unclear cause. Acute reactive leukocytosis? Aspiration? UTI? Change azithro and cefepime due to cardiac arrhythmia risk and risk of AMS/ Seizure with Cefepime. Change to Zosyn renal dose to cover aspiration and broad spectrum UTI. Repeat CXR in AM. *HTN- Stable. continue Hydralazine. Monitor for rebound hypertension. *NSTEMI, Type II- Monitor. No acute procedures per cardiology. He does not report chest pain. Agree with echo due to possible congenital defects. Evaluation pending. Repeat labs in AM. Continue close monitoring. BENITO AREVALO DO 07/29/161939: Assessment & Plan Plan/Intensity of Service 07/29/2016 Dr. Arevalo: Saw Lencho Franco early this afternoon and he was quite drowsy and did not really wake up deformity. He had note, is to make since he was really too drowsy to respond. His heart was in sinus rhythm without murmur, : Lungs were clear to auscultation bilaterally with no wheezing. Abdomen was soft nontender obese bowel sounds are present; left leg showed only trace of edema number: Right leg is one that had polio syndrome. I discussed Mr. Franco situation at some length with our advanced nurse practitioner Ms. Simpson, and we agreed that Mr. Franco does suffer from 1) sepsis from unknown cause; 2 (acute renal failure which is slowly improving; 3) elevated troponin which was at 1.380 on July 27 but today has dropped to 0.590 which is a good improvement; 4. Hypospadias; 5) post polio syndrome; 6. Hypertension which is well-controlled ; and 6. Benign prostatic hypertrophy which has not been a problem here in the hospital. We agreed the patient should get more lab work in the morning including among other things a renal panel, magnesium level, a free T4 level, folate, and a CBC. Reviewed Ms. Simpson's progress note and assessment and plan and fully agree with all contained there in. SHANTA SIMPSON APRN Jul 29, 2016 13:53 BENITO AREVALO DO Jul 29, 2016 19:40
--- NOTE | 2016-07-29 14:50 | NUR ---
RENAL DOSING: Today's SCr = 2.1 mg/dl. Calculated CrCl = ~24 ml/min. Consult noted to dose meds with respect to renal insufficiency. Profile screened and all are acceptable; the pip/tazo is currently at the renally adjusted dose. Thank you.
[2016-07-29 15:14] VITALS: BP 146/69; PULSE 53; RESP 16; O2SAT 95
[2016-07-29 15:26] LABS: THYROID STIM HORMONE-TSH 0.03 MIU/L (0.47-4.68)
[2016-07-29] MEDS: PIPERACILLIN/TAZOBACTAM 2.25 G in NORMAL SALINE 100 ML IV SCH ×2 (15:37→20:44)
--- NOTE | 2016-07-29 16:00 | NUR ---
Allergy Placed Bactrim as an allergy per request.
[2016-07-29] MEDS: D5NS 1,000 ML IV SCH (16:34)
[2016-07-29] MEDS: LOVASTATIN 20 MG TABLET PO SCH (17:20)
--- NOTE | 2016-07-29 18:13 | NUR ---
Status Patient refuses supper, spits food back out at staff. Continues on RA. Tongue continues to be swollen.
[2016-07-29 20:00] VITALS: BP 156/73; PULSE 52; RESP 20; TEMP 96.1; O2SAT 96
[2016-07-29] MEDS: TAMSULOSIN 0.4 MG CAPSULE PO SCH (20:44)
--- NOTE | 2016-07-29 21:02 | DI ---
Indication: ITS.REASON: AMS PROCEDURE: CT HEAD W/O CONTRAST: Encounter: Initial Comparison: None Technique: Axial CT images through the head were performed without contrast. Iterative Reconstruction dose reducing technique was utilized. FINDINGS: The ventricles are of normal size, shape, and contour for the patient's age. Old right frontal lobe infarct. Bilateral basal ganglia lacunar infarcts. Mild generalized atrophy. There are scattered areas of low attenuation in the white matter which most likely represent changes from chronic microvascular ischemia. The brainstem, cerebellum, and cerebral hemispheres otherwise have a normal morphology and CT attenuation. There is no evidence of midline displacement. No hemorrhage, signs of acute territorial stroke, mass effect, mass lesions, or edema is evident. The visualized portions of the skull base, midface, and calvarium demonstrate no abnormality. Small right mastoid effusion. IMPRESSION: No acute intracranial abnormality or hemorrhage. There is a preliminary report by virtual radiologic. .
[2016-07-30] VITALS: BP 148/68; PULSE 48; RESP 16; TEMP 95.3; O2SAT 99
[2016-07-30] MEDS: PIPERACILLIN/TAZOBACTAM 2.25 G in NORMAL SALINE 100 ML IV SCH ×4 (02:57→21:20)
--- NOTE | 2016-07-30 05:09 | NUR ---
shift status sleeps restfully between cares, resp. unlabored. Assisted to reposition for comfort w/ HOB elevated. Oral intake with apparent difficulty in swallow
[2016-07-30 05:16] LABS: BASOPHILS % (AUTO) 0.4 % (0-2); EOSINOPHILS # (AUTO) 0.2 T/MM3 (0-0.5); EOSINOPHILS % (AUTO) 2.5 % (0-4); HCT - HEMATOCRIT 31.3 % (41-53); HGB - HEMOGLOBIN 10.2 GM/DL (13.5-17.5); IMMATURE GRANULOCYTE # (AUTO) 0.04 T/MM3 (0.00-0.03); IMMATURE GRANULOCYTE % (AUTO) 0.5 % (0.0-0.5); LYMPHOCYTES # (AUTO) 1.2 T/MM3 (1-4.8); LYMPHOCYTES % (AUTO) 16.1 % (23-45); MEAN CORPUSCULAR HGB 30.8 UUG (26-34); MEAN CORPUSCULAR HGB CONC(MCHC 32.6 GM/DL (31-37); MEAN CORPUSCULAR VOLUME 94.6 UM3 (80-100); MEAN PLATELET VOLUME 11.1 UM3 (9.4-12.4); MONOCYTES # (AUTO) 0.8 T/MM3 (0-0.8); MONOCYTES % (AUTO) 10.5 % (0-9.0); NEUTROPHILS #(AUTO)-ABSOLUTE 5.4 T/MM3 (1.8-7.7); RED BLOOD COUNT 3.31 M/MM3 (4.50-5.90); WBC - WHITE BLOOD COUNT 7.7 T/MM3 (4.5-11.0)
--- NOTE | 2016-07-30 05:18 | NUR ---
tele indicates 10 beat run of V tach vs. a.fib w/ aberrant conduction. Pt. resting quietly
[2016-07-30 05:20] LABS: ALBUMIN 2.9 G/DL (3.5-5.0); ANION GAP 8 MEQ/L (5-15); BUN/CREATININE RATIO 18 RATIO (6-26); CALCIUM 8.3 MG/DL (8.4-10.2); CHLORIDE 111 MEQ/L (98-107); CO2 - CARBON DIOXIDE 23 MEQ/L (22-30); CREATININE 1.8 MG/DL (0.8-1.5); GLOMERULAR FILTRATION RATE 36; GLUCOSE 95 MG/DL (75-110); MAGNESIUM 2.1 MG/DL (1.6-2.3); PHOSPHORUS 3.4 MG/DL (2.5-4.5); POTASSIUM 3.9 MEQ/L (3.6-5); SODIUM 142 MEQ/L (134-144)
[2016-07-30 05:47] LABS: FREE T4 (FREE THYROXINE)-BATCH 1.81 NG/DL (0.78-2.19)
[2016-07-30] MEDS: BETHANECHOL 25 MG TABLET PO SCH ×3 (06:39→17:02)
[2016-07-30 07:58] VITALS: BP 178/72; PULSE 51; RESP 14; TEMP 96.7; O2SAT 97
[2016-07-30] MEDS: POLYETHYL.GLYCOL 3350 PACKET 17gm PO SCH (09:00)
--- NOTE | 2016-07-30 09:00 | NUR ---
HR Notified on rounds of HR in the 40's at times. Orders received to change Lopressor to 12.5mg BID. Updated on patient status yesterday.
--- NOTE | 2016-07-30 09:50 | DI ---
Indication: ITS.REASON: SOA PROCEDURE: CHEST 1 VIEW: Encounter: Initial Comparison: 07/27/2016 Findings: Single frontal chest radiograph does demonstrate some accentuated interstitial changes and small plates of atelectasis. No airspace disease, cardiomegaly or pulmonary vascular engorgement. Trachea midline. 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 Monitor leads overlie the chest. Impression: Question mild interstitial pneumonitis. .
--- NOTE | 2016-07-30 10:13 | DI ---
Indication:ITS.REASON: R/O ASPIRATION Procedure:MODIFIED BAR. SWALLOW STUDY MODIFIED BAR. SWALLOW STUDY: Videofluoroscopy was performed in conjunction with a novelties sales representative from speech pathology and a separate report and recommendations will be provided. Varying gradations of barium from thin to solid were administered. Aspiration was visualized with thin consistency barium. There was no aspiration noted with any of the remaining consistencies. Tracheal penetration was noted with nectar and honey consistencies. Due to limited patient mobility, no AP imaging was obtained. Impression: 1. Aspiration with thin consistency barium. 2. Tracheal penetration with nectar and honey consistencies. Please see the speech pathology report for additional details and recommendations. Fluoroscopy dose: 3.86 mGy (Cumulative air kerma) Oswaldo Charles RPA/CARMEN performed this under my direct supervision. .
--- NOTE | 2016-07-30 10:26 | STEVAL ---
Eval Subjective and History Date/Time of Eval DATE: 07/30/16 TIME: 09:51 Education Comment PYROMETER TEMPERATURE REGULATOR educated patient on reasoning for evaluation. Patient was agreeable to evaluation. Modified Barium Swallow Lateral View Oral Phase : Lateral View Food Presentation: Thin Liquid via Spoon, Thin Liquid via Straw , Honey Liquid via Spoon, Pureed Food- Pudding, Solid- Lance Cracker, Syrup liquid via spoon, Syrup liquid via cup, Syrup liquid via straw Labial Closure: Mild Impairment Bolus Formation Under Tongue: No Impairment (WFL) Bolus Formation Scattered Loss: No Impairment (WFL) Mastication Rotary Chew: Mild Impairment Lingual Movement: Moderate Impairment Residue Clearing: Mild Impairment Other Oral Phase Observations: During the oral stage of the swallow, the patient consistently protruded his tongue to meet the cup, straw or spoon. This is not the typical method used to receive a bolus. He was able to maintain a cohesive bolus, but he demonstrated disorganized and repetitive tongue movement in attempt to move the bolus posteriorly in his mouth. The tongue movement for A-P transfer was disorganized and repetitive with all textures/consistencies trialed. As a result, an increased amount of time was needed for anterior-posterior transfer of the bolus. Base of Tongue: Mild Impairment Epiglottic Coverage: Mild Impairment Laryngeal Elevation: Moderate Impairment Vallecular Retention Clearing: Moderate Impairment Pharyn.Wall Residue Clearing: No Impairment (WFL) Pyriform Sinus Clearing: Moderate Impairment Other Pharyngeal Phase Observ.: The patient was seated in the Hausted chair and viewed in the lateral plane for this evaluation. Barium consistencies presented included: thin, nectar-thick, honey-thick, pudding and cracker coated with barium paste. Thin liquid trials were presented by spoon, cup and straw. The bolus pooled to the pyriforms prior to the pharyngeal swallow trigger. When the swallow triggered, barium spilled into the airway and was aspirated. There was no spontaneous cough in response to the aspiration. The patient was not able to clear the barium from the airway or completely from the laryngeal vestibule using a cued volitional cough. A small amount of barium remained, coating the anterior wall of the laryngeal vestibule for the remainder of the evaluation. After the swallow, the minimal residue remained on the tongue base, with moderate residue remaining in the valleculae and pyriforms. [place]-thick liquids were presented by spoon and by straw and honey-thick barium was presented by spoon. Results with these two consistencies were similar. The bolus spilled past the tip of the epiglottis, towards the pyriforms before the swallow triggered. During the swallow, there was laryngeal penetration into the top 1/3 of the laryngeal vestibule. The penetrated barium was cleared from the vestibule with the completion of the swallow and no aspiration was observed with these consistencies. Following the swallow, mild residue remained on the tongue base with moderate residue remaining in the valleculae and in the pyriforms. Finally, a cracker coated with barium paste was presented. The pateint demonstrate slow, but functional mastication. He maintained a cohesive bolus, but used disorganized, repetitive tongue movement during anterior-posterior transfer. The swallow triggered when the bolus reached the valleculae. No laryngeal penetration or aspiration was observed with this swallow. A/P Test Performed During this examination, no trials were presented in the anterior-posterior view. Positioning and moving the patient was difficult and it was determined that patient positioning for A-P swallows would likely be unsuccessful. Assessment/Plan of Care Speech Therapy Impressions: The patient presents with moderate oropharyngeal dysphagia characterized by the following: tongue protrusion during bolus acceptance; disorganized and repetitive tongue motion for A-P transfer; decreased pharyngeal sensation, resulting in pooling to the pyriforms with thin, past the epiglottis tip with nectar and honey, and to the valleculae with solids; weak tongue base to posterior pharyngeal wall contact, resulting in tongue base and vallecular residue; reduced anterior and superior movement of the hyoid, resulting in decreased time that the UES is open and resulting in residue in the pyriforms; decreased laryngeal vestibule closure during the swallow and impaired epiglottic inversion, resulting in aspiration during the swallow with thin liquids and penetration of nectar and honey (cleared from the vestibule with swallow completion); decreased glottal sensation, resulting in absence of cough when aspiration occurred. Based on this evaluation, the following recommendations are made: 1. continue pureed diet with nectar-thick liquids 2. assist with tray prep and intake as needed 3. supervision during intake 4. upright fully for all eating and drinking and upright 20-30 mins after intake 5. crush or split meds (unless contraindicated) and give in nectar-thick liquids or puree 6. allow eating/drinking only when pt is alert/awake ST will continue to follow per plan of care with goal of advancing diet to mechanical soft or soft. Fdc Goal: Pt will maintain nutrition and hydration of the least restrictive diet while demonstrating no s/s of aspiration for 3 consecutive trials. Short Term Goal: Pt will consume a pureed consistency with nectar-thick l liquids without outward signs of aspiration at bedside in 85% of trials. Pt will consume a mechanical soft diet with nectar-thick liquids without outward signs of aspiration at bedside in 85% of trials. Pt will demonstrate 2 out of 3 components necessary for a safe swallow as listed from the following : upright full for all intake; upright 20-30 minutes after intake; small bites and sips; slow rate of intake. ST Treatment Plan: Swallow Precautions, Modified Diet ST Treatment Plan Frequency: three times per week Treatment Plan Duration: one week Plan of Care Comment ST will continue to follow per plan of care. Recommended Diet: Based on this evaluation, the following recommendations are made: 1. continue pureed diet with nectar-thick liquids 2. assist with tray prep and intake as needed 3. supervision during intake 4. upright fully for all eating and drinking and upright 20-30 mins after intake 5. crush or split meds (unless contraindicated) and give in nectar-thick liquids or puree 6. allow eating/drinking only when pt is alert/awake ST will continue to follow per plan of care with goal of advancing diet to mechanical soft or soft. Date of Visit 07/30/16 Time Visit Began: 09:20 Time Visit Ended: 09:45 ST Assess/Plan of Care: ST Treatment Charge: Swallow Eval Minutes of Individual Therapy: 25 SHARITA MARIE MS CCC-PYROMETER TEMPERATURE REGULATOR Jul 30, 2016 09:54
[2016-07-30] MEDS: ASPIRIN *EC* 81mg TABLET PO SCH (10:31)
[2016-07-30] MEDS: METOPROLOL XL 25 MG TABLET PO SCH ×2 (10:31→21:19)
[2016-07-30] MEDS: D5NS 1,000 ML IV SCH (10:31)
--- NOTE | 2016-07-30 10:31 | NUR ---
DM screen Diet: pureed, NT liquid; intake: variable none-100%; No recent A1c; BGM: wnl No Dm meds, no SS insulin; patient states that he is borderline DM; DM screen is deferred at this time
[2016-07-30] MEDS ORDERED: REFRESH CLASSIC Eye Drops 0.4ml Dropperette BOTH EYES PRN (10:45)
[2016-07-30 11:25] VITALS: PULSE 51
--- NOTE | 2016-07-30 11:30 | NUR ---
Status Patient alert and oriented this am. Up to chair with full lift. Good appetite, fed meals. Swelling to tongue improving.
--- NOTE | 2016-07-30 11:42 | PNPDOC ---
ALMAZ MCKENZIE SHOE HANDLER 07/30/16 1108: Subjective Date DATE: 07/30/16 TIME: 11:06 Subjective Lencho was sitting in his bedside chair, in no acute distress. He was hard of hearing, but answered questions appropriately and communicated well. He complains of a cataract in his right eye that is affecting his vision, and dry eyes. He also states he's had some problems swallowing - but tongue swelling per RN is improving and he is eating better so far today (100% of breakfast). He denies chest pain or difficulty breathing. Objective Vital Signs Vital signs Vital Signs Date Time Temp Pulse Resp B/P Pulse Ox O2 Delivery O2 Flow Rate FiO2 07/30/16 07:58 96.7 51 14 178/72 97 Room Air 07/28/16 19:33 1.00 Height (Feet): 5 Height (Inches): 5.00 Weight (Kilograms): 80.400 General General Appearance: Alert, Orientated x 3, No Acute Distress Eyes (Brief) Eyes: NOT FOUND: scleral icterus ENMT (Brief) ENMT: FOUND: mucosa moist, other (tongue swelling - improved per nurse) Respiratory (Brief) Respiratory: FOUND: rales (faint bibasilar) Cardiovascular (Brief) Cardiac: FOUND: regular rate, regular rhythm Abdomen (Brief) Abdominal: FOUND: BS normo active x4, soft, NOT FOUND: tender (Brief) Comments Sterling in place Extremities (Brief) Extremity : Comments b/l lower extremity muscular atrophy - hx postpolio mild swelling left arm; IV in right hand Musculoskeletal (Brief) Musculoskeletal: FOUND: loss of motion (effects of polio), NOT FOUND: spasm Integumentary (Brief) Integumentary: FOUND: dry, other (ecchymosis to left arm/ac), pink, warm Laboratory Laboratory Laboratory Tests 07/29/16 04:31 07/30/16 04:32 Laboratory Tests 07/29/16 04:31 07/30/16 04:32 Microbiology Microbiology Microbiology Date/Time Source Procedure Growth Status 07/27/16 13:54 Peripheral/Iv Start Blood Culture - Preliminary NO GROWTH AFTER 48 HOURS Resulted 07/27/16 13:49 Peripheral/Iv Start Blood Culture - Preliminary NO GROWTH AFTER 48 HOURS Resulted 07/28/16 16:55 Urine, Sterling Indwelling Urine Culture - Preliminary NO GROWTH AFTER 24 HOURS Resulted 07/27/16 16:36 Urine, Clean Catch-Midstream Urine Culture - Final Mixed Bhavna Complete Sepsis Diagnostic Criteria Sepsis Confirmed/Suspected Infection: Yes SIRS Criteria: Acute mental status chg, WBC >=12,000 or <=4,000, Bands >= 10% Severe Sepsis Creatinine >2.0mg/dL, Lactate >=2.0 mg/dL Assessment & Plan Problems: (1) Acute renal failure Status: Acute Qualifiers: Acute renal failure type: unspecified Qualified Codes: N17.9 - Acute kidney failure, unspecified (2) Dysphagia Status: Acute Qualifiers: Dysphagia type: unspecified Qualified Codes: R13.10 - Dysphagia, unspecified (3) Hypoglycemia Status: Acute (4) Tongue swelling Status: Acute Assessment & Plan: sulfa rxn (5) Elevated troponin Status: Acute Assessment & Plan: POA- asymptomatic (6) Sepsis Status: Resolved Qualifiers: Sepsis type: sepsis due to unspecified organism Qualified Codes: A41.9 - Sepsis, unspecified organism (7) Diet-controlled type 2 diabetes mellitus Status: Chronic (8) Post-polio syndrome Status: Chronic (9) Hypospadias in male Status: Chronic (10) Hypertension Status: Chronic (11) BPH (benign prostatic hyperplasia) Status: Chronic Assessment & Plan: Dr. 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 His sepsis is much better with his white count dropping down from 32,000 or almost 32,002 around 17 ,800. Has a UTI which she now shows a leukocyte esterase of only 1+ as opposed to plus previously. His troponins checked and it's down to 0.694 I'm not sure the diamond expert we asked to consult has seen him yet. His hypertension is controlled on current medication and we do have a coud catheter in the hypospadias which is align his urine to drain out and organized fashion. A plan to talk to him about getting some surgery to if he wishes to do so. I plan to emphasize the fact that it would relieve all those continuing infections most likely. I believe his urologist has been wanting to do a suprapubic Catheter. He has been afebrile and has a good appetite. We plan to continue the current therapy, to get a repeat basic metabolic profile and CBC in the morning. We also plan to get a repeat troponin in 1 in the morning (12) Metabolic encephalopathy Status: Resolved Plan/Intensity of Service Somnolence/encephalopathy - much improved. Pt is A&O and appropriately conversational this am. Tongue swelling/dysphagia - reportedly improving. Modified barium swallow study shows aspiration with thin consistency barium and tracheal penetration with nectar and honey consistencies. Speech therapy recommends a pureed diet with nectar-thick liquids and swallow precautions. ISATU - continues to improve. BUN 33 and cr 1.8 today. Bradycardia - metoprolol dose was reduced from 25 mg BID to 12.5 mg BID. Echo done, report pending. Sepsis syndrome - resolved. Uncertain origin and it's possible that there was no insinuating infectious source; UC grew out low-colony mixed bhavna and BC remain negative. Hx frequent UTI; urology planning on suprapubic cath placement in the future. Currently has coude Sterling. Azithromycin and cefepime were discontinued yesterday. He continues on renally dosed Zosyn. Hypoglycemia - tends to be most prominent in am; improving from yesterday. Hope to see improvements now that he is more alert and eating more. He is not on any diabetic medications. Continue D5NS but will decrease the rate to help prevent fluid overload. DVT Prophylaxis: SCD'S Code Status Do Not Resuscitate Hospital Course Summary Disclaimer The hospital course summary below is not to be considered part of the above Progress Note. Hospital Course Summary Today I saw and examined the Mr. Lencho Franco who lives in the [facility] in [place]. He came to the ER after a throwing up once and not feeling well. Also the custodial was concerned about some disc fascia because he was not day swallowing his food. He has a recent medical history which includes some tongue protrusion over the past several weeks and also chronic UTIs. The UTIs are felt to be due to the fact he has a marked hypospadias. They have discussed giving him a supra pubic catheter to rectify the frequent urinary tract infections. In April he became nervous about the idea of the suprapubic catheter and turned it down. That was in April 2016. When seen in our emergency department patient had a 31,000+ white blood cell count with 95% neutrophils. He has a very poor kidney function with a GFR of 18 his lactate was elevated at 2.4 and his BUNs was elevated at 43. His creatinine was quite elevated at 3.3. With such a high creatinine and high low GFR 80 may well be looking at dialysis quite soon. When Meron Vora finally got a year a urine sample for analysis it showed a definite UTI and he may well have urosepsis also. He has confirmed he is a DO NOT RESUSCITATE status for any code situation. Physical exam shows a protruding tongue which has only been going on I'm told by his [id number] for several weeks. Heart shows a regular rate and rhythm without murmur; lungs are clear to auscultation without wheezing. Abdomen is soft with good bowel sounds is nontender to palpation. Lower leg shows no edema no cyanosis. 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 Neither Meron during her I could get any review of systems done because of his severe hearing problem and his speech problem. I have reviewed in depth the history and physical done by Meron as well as the assessment and plan for treatment with this patient I find the work to be complete and I agree with the assessment and plan which we discussed and which she noted in her work. We shall attempt to hydrate this patient a follow his troponin and as much as possible rectify the current problems. Admit patient to inpatient status under the care of Dr. Arevalo for sepsis, ISATU and elevated Troponin. She was started on IV fluids and IV cefepime for antimicrobial coverage while in the emergency room. On admission coude Sterling cath placed by myself and urinalysis is obtained. Concern for chronic urinary retention. Given presence of hypospadia's anatomy. Patient is planning for placement of suprapubic catheter in the outpatient setting. May need to consider leaving Sterling catheter in-place at time of discharge. Will recheck CBC and Manual diff now. Continue to monitor serial lactate levels as per sepsis protocol. Patient cardiac telemetry and will obtain serial troponins 3. Consult for speech therapy, given recent dysphasia. Change to half-normal saline for ongoing hydration. Monitor Accu-Cheks with meals and at bedtime. SCDs to bilateral lower extremity for DVT prophylaxis Will discuss further plan of care with Dr Arevalo At time of discharge medical care will return to primary care provider. Dr. Galeano 07/29/16- Calvin Lua/Oksana Arevalo prior to seeing pt. *AMS- this appears to be a fairly significant change. Could be encephalopathy from renal failure/Bactrim and other meds. We need to get CT of the head now. Hold Celexa and other centrally acting meds. Treat infection. Need to normalize BG. *Hypoglycemia- Unclear cause. No meds that I can identify as a cause. Concern for pancreatic abnormality. Assess lipase, CA 19-9. Add D5NS IVF- he needs ongoing hydration given renal failure. He did get some Lasix for fluid overload, breathing ok. Start hypoglycemia protocol as well. We may have to change to D10 if BG remains low. Change to regular diet since BG is running low. *Glossal swelling- This is apparently new. CT head. Check TSH, B12, Folate. ST eval due to reported dysphagia, possible vomiting. May need soft tissue imaging of the neck if persists. *BPH, Hypospadia, Recurrent UTI- Continue Sterling. May need s/p cath. *Sepsis- unclear cause. Acute reactive leukocytosis? Aspiration? UTI? Change azithro and cefepime due to cardiac arrhythmia risk and risk of AMS/ Seizure with Cefepime. Change to Zosyn renal dose to cover aspiration and broad spectrum UTI. Repeat CXR in AM. *HTN- Stable. continue Hydralazine. Monitor for rebound hypertension. *NSTEMI, Type II- Monitor. No acute procedures per cardiology. He does not report chest pain. Agree with echo due to possible congenital defects. Evaluation pending. Repeat labs in AM. Continue close monitoring. 07/30/16 Somnolence/encephalopathy - much improved. Pt is A&O and appropriately conversational this am. Tongue swelling/dysphagia - reportedly improving. Modified barium swallow study shows aspiration with thin consistency barium and tracheal penetration with nectar and honey consistencies. Speech therapy recommends a pureed diet with nectar-thick liquids and swallow precautions. ISATU - continues to improve. BUN 33 and cr 1.8 today. Bradycardia - metoprolol dose was reduced from 25 mg BID to 12.5 mg BID. Echo done, report pending. Sepsis syndrome - resolved. Uncertain origin and it's possible that there was no insinuating infectious source; UC grew out low-colony mixed bhavna and BC remain negative. Hx frequent UTI; urology planning on suprapubic cath placement in the future. Currently has coude Sterling. Azithromycin and cefepime were discontinued yesterday. He continues on renally dosed Zosyn. Hypoglycemia - tends to be most prominent in am; improving from yesterday. Hope to see improvements now that he is more alert and eating more. He is not on any diabetic medications. Continue D5NS but will decrease the rate to help prevent fluid overload. BENITO AREAVLO DO 07/30/161941: Assessment & Plan Assessment 07/30/2016 Irina note: I saw Lencho Franco in his room today. His [id number] was there and we had a good discussion. Lencho denies any chest pain and denies any abdominal pain. Not sure whetherhad any bowel movements lately with the nurse confirms 2 last night and one the night before he thinks he might be having a little bit of problem breathing but is not sure. He believes his timing is still smaller and having less swelling. He is still hard of hearing but answers questions that are asked loudly enough properly. His exam is roughly the same as yesterday; tongue is in his mouth more and does not really protrude, it is definitely getting smaller; heart shows a regular rate and rhythm without murmur; lungs are clear to auscultation without wheezing; the left leg shows no edema or cyanosis; abdomen is soft and nontender with physiologic bowel sounds; is probably still include sepsis which is quickly resolving, his white count is now down to 7000; 2. Acute renal failure, his GFR is 36, creatinine 1.8, and BUN 33; 3 continue in hypoglycemia with no readily identifiable cause; 4. Tongue swelling, rapidly improving; 5. Dysphagia, I think this is improving also; 6 hypospadias, chronic 7. Hypertension, chronic 8. BPH, chronic 9. 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 In general I do think he is improving nicely I have reviewed and fully note done by Ms. Mckenzie and I fully approve of and agree with the assessments and plan found therein. ALMAZ MCKENZIE APRN Jul 30, 2016 11:08 BENITO AREVALO DO Jul 30, 2016 19:42
--- NOTE | 2016-07-30 13:37 | NUR ---
ROBERT SPOKE WITH PT AND SISTER IN LAW MATT. INTRODUCED SELF, PROVIDED CONTACT INFO. PT WAS ALERT BUT DID NOT PARTICIPATE IN CONVERSATION. MATT SAID PT [place] AND PLAN IS FOR HIM TO RETURN. SHE SAID THEY UNDERSTAND THAT PT NEEDS THAT LEVEL OF CARE NOW. SHE GAVE PERMISSION FOR PORTAL TO BE OPENED. OPENED PORTAL. CALLED BRENDA AT , UPDATED HER. SHE SAID PT CAN RETURN WHEN STABLE.
[2016-07-30 15:11] VITALS: BP 166/71; PULSE 49; RESP 16; TEMP 95.5; O2SAT 99
--- NOTE | 2016-07-30 15:43 | NUR ---
RENAL DOSING: Today's SCr = 1.8 mg/dl. Calculated CrCl ~ 28* ml/min. The Pip/Tazo is currently acceptable for the compromised renal function @ Pip/Tazo 2.25 g iv every 6 hours. The pharmacy will continue to review the renal function and adjust the medications accordingly per Renal Monitoring and Adjustment Program. Thanks, Kevin Hendrix [facility]
[2016-07-30] MEDS: LOVASTATIN 20 MG TABLET PO SCH (17:02)
--- NOTE | 2016-07-30 17:30 | NUR ---
Status Patient up in chair all of morning and into afternoon. Up with a lift. Patient was able to fed self lunch. Tongue edema improving. Sterling cath continues to drain clear, pale urine. No new concerns.
[2016-07-30 20:00] VITALS: PULSE 49; RESP 16
[2016-07-30] MEDS: TAMSULOSIN 0.4 MG CAPSULE PO SCH (21:19)
[2016-07-31] VITALS: BP 173/72; PULSE 58; RESP 18; TEMP 96.2; O2SAT 97
--- NOTE | 2016-07-31 02:59 | NUR ---
STATUS PT ALERT AND ORIENTED X 2, AT TIMES 3. 2 ASSIST WITH RE-POSITIONING. PT COOPERATIVE WITH CARES. VERBALIZED YES AND NO WHEN ASKED IF HE WANTED TURN. STATES HE IS [place], IT IS HELPFUL TO TALK INTO HIS LEFT EAR. KASH DD, CLEAR/YELLOW URINE OUT. PT WAS ABLE TO TAKE HIS MEDICATIONS CRUSHED WITH SUGAR FREE PUDDING. SCD'S CONTINUE ON BILAT LOWER LEGS. DRESSINGS ON PT'S KNEES BILAT. REVIEWED WITH PT TO USE CALL LIGHT IF HE NEEDED ANY THING. BED ALARM ON.
[2016-07-31] MEDS: PIPERACILLIN/TAZOBACTAM 2.25 G in NORMAL SALINE 100 ML IV SCH ×2 (03:00→08:37)
[2016-07-31 05:41] LABS: ANION GAP 6 MEQ/L (5-15); BASOPHILS % (AUTO) 0.5 % (0-2); BUN/CREATININE RATIO 14 RATIO (6-26); CALCIUM 8.4 MG/DL (8.4-10.2); CHLORIDE 112 MEQ/L (98-107); CO2 - CARBON DIOXIDE 26 MEQ/L (22-30); CREATININE 1.5 MG/DL (0.8-1.5); EOSINOPHILS # (AUTO) 0.4 T/MM3 (0-0.5); EOSINOPHILS % (AUTO) 5.2 % (0-4); GLOMERULAR FILTRATION RATE 44; GLUCOSE 94 MG/DL (75-110); HCT - HEMATOCRIT 32.2 % (41-53); HGB - HEMOGLOBIN 10.7 GM/DL (13.5-17.5); IMMATURE GRANULOCYTE # (AUTO) 0.04 T/MM3 (0.00-0.03); IMMATURE GRANULOCYTE % (AUTO) 0.5 % (0.0-0.5); LYMPHOCYTES # (AUTO) 1.3 T/MM3 (1-4.8); LYMPHOCYTES % (AUTO) 16.9 % (23-45); MEAN CORPUSCULAR HGB 30.9 UUG (26-34); MEAN CORPUSCULAR HGB CONC(MCHC 33.2 GM/DL (31-37); MEAN CORPUSCULAR VOLUME 93.1 UM3 (80-100); MEAN PLATELET VOLUME 10.9 UM3 (9.4-12.4); MONOCYTES # (AUTO) 0.7 T/MM3 (0-0.8); MONOCYTES % (AUTO) 9.7 % (0-9.0); NEUTROPHILS % (AUTO) 67.2 % (33-66); POTASSIUM 3.8 MEQ/L (3.6-5); RED BLOOD COUNT 3.46 M/MM3 (4.50-5.90); SODIUM 144 MEQ/L (134-144); WBC - WHITE BLOOD COUNT 7.5 T/MM3 (4.5-11.0)
[2016-07-31] MEDS: BETHANECHOL 25 MG TABLET PO SCH ×3 (06:26→17:13)
[2016-07-31 07:45] VITALS: BP 169/72; PULSE 52; RESP 20; TEMP 96.6; O2SAT 96
[2016-07-31] MEDS: POLYETHYL.GLYCOL 3350 PACKET 17gm PO SCH (08:37)
[2016-07-31] MEDS: ASPIRIN *EC* 81mg TABLET PO SCH (08:37)
[2016-07-31] MEDS: METOPROLOL XL 25 MG TABLET PO SCH ×2 (08:37→23:08)
[2016-07-31 10:47] VITALS: PULSE 50; RESP 18
[2016-07-31 11:17] LABS: BLOOD, URINE TRACE-INTACT (NEGATIVE); COLOR,URINE YELLOW (YELLOW); LEUKOCYTE ESTERASE ,URINE NEGATIVE (NEGATIVE); NITRITE,URINE NEGATIVE (NEGATIVE); UROBILINOGEN,URINE 0.2 EU/DL (NORMAL)
--- NOTE | 2016-07-31 12:02 | PNPDOC ---
ALMAZ MCKENZIE CLINICAL NURSING MANAGER 07/31/16 1048: Subjective Date DATE: 07/31/16 TIME: 10:46 Subjective Lencho was seen during breakfast. He states that he is doing better, and he thinks his tongue is swollen. He denies feeling short of breath. He denies having any chest pain or pain elsewhere in his body. He has been pleasant and cooperative with cares. He is hard of hearing, and its best to speak into his left ear. Objective Vital Signs Vital signs Vital Signs Date Time Temp Pulse Resp B/P Pulse Ox O2 Delivery O2 Flow Rate FiO2 07/31/16 07:45 96.6 52 20 169/72 96 Room Air 07/28/16 19:33 1.00 Height (Feet): 5 Height (Inches): 5.00 Weight (Kilograms): 80.700 General General Appearance: Alert, Orientated x 3, Well Nourished, Well Developed, No Acute Distress Eyes (Brief) Eyes: FOUND: PERRL, NOT FOUND: scleral icterus ENMT (Brief) ENMT: FOUND: other (tongue swelling slightly improved from yesterday), NOT FOUND: mucosa moist (dry) Respiratory (Brief) Respiratory: FOUND: clear all pablo, equal bilaterally Comments Diminished breath sounds bilaterally Cardiovascular (Brief) Cardiac: FOUND: regular rate, regular rhythm Abdomen (Brief) Abdominal: FOUND: BS normo active x4, soft, NOT FOUND: distended, tender (Brief) Comments Sterling catheter Extremities (Brief) Extremity : Extremity Finding: FOUND: edema (bilateral lower extremity edema, right greater than left. There was also swelling of the left arm, about the same in appearance as yesterday.) Musculoskeletal (Brief) Musculoskeletal: NOT FOUND: tenderness Integumentary (Brief) Integumentary: FOUND: dry, pink, warm Psychiatric (Brief) Psychiatric: FOUND: alert, attentive, normal affect, oriented Laboratory Laboratory Laboratory Tests 07/30/16 04:32 07/31/16 04:42 Laboratory Tests 07/30/16 04:32 07/31/16 04:42 Microbiology Microbiology Microbiology Date/Time Source Procedure Growth Status 07/28/16 16:55 Urine, Sterling Indwelling Urine Culture - Final NO GROWTH AFTER 48 HOURS Complete Sepsis Diagnostic Criteria Sepsis Confirmed/Suspected Infection: Yes SIRS Criteria: Acute mental status chg, WBC >=12,000 or <=4,000, Bands >= 10% Severe Sepsis Creatinine >2.0mg/dL, Lactate >=2.0 mg/dL Assessment & Plan Problems: (1) Tongue swelling Status: Acute Assessment & Plan: sulfa rxn (2) Dysphagia Status: Acute Qualifiers: Dysphagia type: unspecified Qualified Codes: R13.10 - Dysphagia, unspecified (3) Acute renal failure Status: Resolved Qualifiers: Acute renal failure type: unspecified Qualified Codes: N17.9 - Acute kidney failure, unspecified (4) Hypoglycemia Status: Acute (5) Elevated troponin Status: Acute Assessment & Plan: POA- asymptomatic (6) Sepsis Status: Resolved Qualifiers: Sepsis type: sepsis due to unspecified organism Qualified Codes: A41.9 - Sepsis, unspecified organism (7) Diet-controlled type 2 diabetes mellitus Status: Chronic (8) Post-polio syndrome Status: Chronic (9) Hypospadias in male Status: Chronic (10) Hypertension Status: Chronic (11) BPH (benign prostatic hyperplasia) Status: Chronic (12) Metabolic encephalopathy Status: Resolved Plan/Intensity of Service Acute kidney injury - much improved. Creatinine is down to 1.5 today. Tongue swelling and dysphagia - continues to improve. Discussed with speech therapy. Recommend a modified diet and continued evaluation upon discharge. Bradycardia. Still persists, typically in the low to mid 50s. Continue lower dose of metoprolol. Diarrhea. Check for C. difficile. May need to stop Zosyn, especially considering that the source of sepsis was never identified. Hypoglycemia. We'll stop IV fluids and monitor sugars today. Patient becomes symptomatic with blood sugars in the 60s. Hypospadias and urinary retention. Will need discharged with Sterling in place, and planned follow-up with urology in outpatient setting. Of note, free T4 and vitamin B12 are still pending. TSH was low at 0.03 - will repeat today. Echocardiogram report is also pending. DVT Prophylaxis: SCD'S Code Status Do Not Resuscitate Hospital Course Summary Disclaimer The hospital course summary below is not to be considered part of the above Progress Note. Hospital Course Summary Today I saw and examined the Mr. Lencho Franco who lives in the [facility] in [place]. He came to the ER after a throwing up once and not feeling well. Also the skilled nursing was concerned about some disc fascia because he was not day swallowing his food. He has a recent medical history which includes some tongue protrusion over the past several weeks and also chronic UTIs. The UTIs are felt to be due to the fact he has a marked hypospadias. They have discussed giving him a supra pubic catheter to rectify the frequent urinary tract infections. In April he became nervous about the idea of the suprapubic catheter and turned it down. That was in April 2016. When seen in our emergency department patient had a 31,000+ white blood cell count with 95% neutrophils. He has a very poor kidney function with a GFR of 18 his lactate was elevated at 2.4 and his BUNs was elevated at 43. His creatinine was quite elevated at 3.3. With such a high creatinine and high low GFR 80 may well be looking at dialysis quite soon. When Meron Vora finally got a year a urine sample for analysis it showed a definite UTI and he may well have urosepsis also. He has confirmed he is a DO NOT RESUSCITATE status for any code situation. Physical exam shows a protruding tongue which has only been going on I'm told by his [id number] for several weeks. Heart shows a regular rate and rhythm without murmur; lungs are clear to auscultation without wheezing. Abdomen is soft with good bowel sounds is nontender to palpation. Lower leg shows no edema no cyanosis. 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 Neither Meron during her I could get any review of systems done because of his severe hearing problem and his speech problem. I have reviewed in depth the history and physical done by Meron as well as the assessment and plan for treatment with this patient I find the work to be complete and I agree with the assessment and plan which we discussed and which she noted in her work. We shall attempt to hydrate this patient a follow his troponin and as much as possible rectify the current problems. Admit patient to inpatient status under the care of Dr. Arevalo for sepsis, ISATU and elevated Troponin. She was started on IV fluids and IV cefepime for antimicrobial coverage while in the emergency room. On admission coude Sterling cath placed by myself and urinalysis is obtained. Concern for chronic urinary retention. Given presence of hypospadia's anatomy. Patient is planning for placement of suprapubic catheter in the outpatient setting. May need to consider leaving Sterling catheter in-place at time of discharge. Will recheck CBC and Manual diff now. Continue to monitor serial lactate levels as per sepsis protocol. Patient cardiac telemetry and will obtain serial troponins 3. Consult for speech therapy, given recent dysphasia. Change to half-normal saline for ongoing hydration. Monitor Accu-Cheks with meals and at bedtime. SCDs to bilateral lower extremity for DVT prophylaxis Will discuss further plan of care with Dr Arevalo At time of discharge medical care will return to primary care provider. Dr. Galeano 07/29/16- Calvin D/W Dr. Arevalo prior to seeing pt. *AMS- this appears to be a fairly significant change. Could be encephalopathy from renal failure/Bactrim and other meds. We need to get CT of the head now. Hold Celexa and other centrally acting meds. Treat infection. Need to normalize BG. *Hypoglycemia- Unclear cause. No meds that I can identify as a cause. Concern for pancreatic abnormality. Assess lipase, CA 19-9. Add D5NS IVF- he needs ongoing hydration given renal failure. He did get some Lasix for fluid overload, breathing ok. Start hypoglycemia protocol as well. We may have to change to D10 if BG remains low. Change to regular diet since BG is running low. *Glossal swelling- This is apparently new. CT head. Check TSH, B12, Folate. ST eval due to reported dysphagia, possible vomiting. May need soft tissue imaging of the neck if persists. *BPH, Hypospadia, Recurrent UTI- Continue Sterling. May need s/p cath. *Sepsis- unclear cause. Acute reactive leukocytosis? Aspiration? UTI? Change azithro and cefepime due to cardiac arrhythmia risk and risk of AMS/ Seizure with Cefepime. Change to Zosyn renal dose to cover aspiration and broad spectrum UTI. Repeat CXR in AM. *HTN- Stable. continue Hydralazine. Monitor for rebound hypertension. *NSTEMI, Type II- Monitor. No acute procedures per cardiology. He does not report chest pain. Agree with echo due to possible congenital defects. Evaluation pending. Repeat labs in AM. Continue close monitoring. 07/30/16 Somnolence/encephalopathy - much improved. Pt is A&O and appropriately conversational this am. Tongue swelling/dysphagia - reportedly improving. Modified barium swallow study shows aspiration with thin consistency barium and tracheal penetration with nectar and honey consistencies. Speech therapy recommends a pureed diet with nectar-thick liquids and swallow precautions. ISATU - continues to improve. BUN 33 and cr 1.8 today. Bradycardia - metoprolol dose was reduced from 25 mg BID to 12.5 mg BID. Echo done, report pending. Sepsis syndrome - resolved. Uncertain origin and it's possible that there was no insinuating infectious source; UC grew out low-colony mixed bhavna and BC remain negative. Hx frequent UTI; urology planning on suprapubic cath placement in the future. Currently has coude Sterling. Azithromycin and cefepime were discontinued yesterday. He continues on renally dosed Zosyn. Hypoglycemia - tends to be most prominent in am; improving from yesterday. Hope to see improvements now that he is more alert and eating more. He is not on any diabetic medications. Continue D5NS but will decrease the rate to help prevent fluid overload. 07/31/16 Acute kidney injury - much improved. Creatinine is down to 1.5 today. Tongue swelling and dysphagia - continues to improve. Discussed with speech therapy. Recommend a modified diet and continued evaluation upon discharge. Bradycardia. Still persists, typically in the low to mid 50s. Continue lower dose of metoprolol. Diarrhea. Check for C. difficile. May need to stop Zosyn, especially considering that the source of sepsis was never identified. Hypoglycemia. We'll stop IV fluids and monitor sugars today. Patient becomes symptomatic with blood sugars in the 60s. Hypospadias and urinary retention. Will need discharged with Sterling in place, and planned follow-up with urology in outpatient setting. Of note, free T4 and vitamin B12 are still pending. TSH was low at 0.03 - will repeat today. Echocardiogram report is also pending. BENITO AREVALO DO 07/31/16 6838: Assessment & Plan Plan/Intensity of Service 07/31/16 Dr. Arevalo note: I saw Lencho Franco in his room today. He was fairly alert and if I spoke loudly enough he understood me quite well. He denies shortness of breath and he denies chest pain. He denies abdominal pain but does state that he occasionally is found to be coughing. He says his legs both are low but sometimes but that the pain is minor. I told him he may well be leaving in a day or 2 and he said that was fine his exam was roughly the same as yesterday, his heart had a regular rate and rhythm, abdomen was soft and nontender with physiologic bowel sounds, lungs were clear to auscultation without wheezing, and his left leg showed no edema. Cranial nerves II through XII are grossly intact we did do a stool culture because he had some diarrhea with C. difficile culture was negative his creatinine is dropped to 1.5 and his BU and is 21 and up to 44 which is quite good. His TSH is so low I'm fairly certain he needs some levothyroxine. Will await to see what his free T4 is before he prescribed tomorrow. His diagnoses are as follows: 1. Acute renal failure, improving 2. Tongue swelling, now much better 3. Dysphagia, and diagnosed 4. Elevated troponin, now coming down 5. Sepsis, resolved 6. Hypospadias, he'll get surgery hopefully soon from his urologist 7. Hypertension , chronic 8. BPH, chronic 9. Metabolic encephalopathy, resolved 10. Hypoglycemia , this problem is being research. Plan is to add self is a drug use allergic to , acute sugars when he is off the IV with the glucose, and hopefully discharge him in 1-2 days. I reviewed the progress note done by Ms. Mckenzie and I fully agree with the findings, the assessments, and the plan. ALMAZ MCKENZIE APRN Jul 31, 2016 10:48 BENITO AREVALO DO Jul 31, 2016 23:27
--- NOTE | 2016-07-31 12:41 | STDAILYN ---
ST Daily Note Date/Time DATE: 07/31/16 TIME: 11:47 Subjective Comment Lencho was sitting upright in his chair upon arrival. Pt. was in a pleasant mood and agreed to having graduate clinician, Rochelle, while being supervised by BEAUTY ADVISOR [place]. Orientations: Alert, Cooperative Pain: No (Pt. reported having no pain) Was Patient Education Provided: Yes Person(s) Educated: Patient Education Subject: Treatment Plan Education Comment Pt. was educated on treatment plan. Pt. verbally understood. *Speech Therapy Impressions Chcf Goal: Pt will maintain nutrition and hydration of the least restrictive diet while demonstrating no s/s of aspiration for 3 consecutive trials. Short Term Goal: Pt will consume a pureed consistency with nectar-thick l liquids without outward signs of aspiration at bedside in 85% of trials. Pt will consume a mechanical soft diet with nectar-thick liquids without outward signs of aspiration at bedside in 85% of trials. Pt. was given trials of strawberry jello via spoon alternating between nectar thick water via cup. Pt. demonstrated no s/s of aspiration during session. Pt. protruded tongue during trials of nectar thick water; however, demonstrated no labial spillage. Pt. also exhibited reduced laryngeal elevation during all trials. Pt will demonstrate 2 out of 3 components necessary for a safe swallow as listed from the following : upright full for all intake; upright 20-30 minutes after intake; small bites and sips; slow rate of intake. Pt. demonstrated 3 components for a necessary safe swallow. Pt. sat upright for intake, took small bites and sips, and utilized a slow rate of intake. ST Treatment Plan: Swallow Precautions, Modified Diet ST Treatment Plan Frequency: three times per week Treatment Plan Duration: one week Plan of Care Comment: Continue Plan of Care Start Treatment 1: 11:15 Stop Treatment 1: 11:45 Treatment Duration : ST Treatment Charge: Swallow Treatment Minutes of Individual Therapy: 30 ROCHELLE NIELSEN Jul 31, 2016 11:50
[2016-07-31 13:04] LABS: C. DIFFICILE TOXIN B NEGATIVE (NEGATIVE)
[2016-07-31] MEDS ORDERED: CEFTRIAXONE 1 G in NORMAL SALINE 100 ML IV ONE (15:15)
[2016-07-31] MEDS ORDERED: NORMAL SALINE 500 ML IV PRN (15:30)
[2016-07-31 15:44] VITALS: BP 181/75; PULSE 55; RESP 20; TEMP 96.9; O2SAT 95
--- NOTE | 2016-07-31 16:06 | WOUNDPN ---
Nurse to Nurse Wound Consult Wound Care Team: Right knee evaluated 5.5x3.9x0.1 100% gran red open area. Recommendations for Marina, moistened with NS, placed on open area, cover with mepilex, change dressing q3 days or twice weekly. Chelsea NINA will contact Hospitalist for orders. TAWNYA FRANCES RN Jul 31, 2016 16:05
[2016-07-31] MEDS: LOVASTATIN 20 MG TABLET PO SCH (17:59)
--- NOTE | 2016-07-31 18:18 | PNPDOC ---
Subjective Date DATE: 07/28/16 about 1999 late entry denies cp od dsypnea. [place]. no c/o per nursing Objective Vital Signs Vital signs VSS afeb O2 sat NL i/o and wt noted Telemetry Rhythm: Sinus Bradycardia Height (Feet): 5 Height (Inches): 5.00 Weight (Kilograms): 80.700 General Alert, Orientated x 2, Obese, No Acute Distress Eyes (Brief) EOMI, PERRL, NOT FOUND: trauma ENMT (Brief) mucosa moist Neck (Brief) NOT FOUND: JVD Respiratory (Brief) clear all pablo, equal bilaterally, other (occ ronchi) Cardiovascular (Brief) murmur, regular rhythm, NOT FOUND: regular rate (m madie) Capillary Refill: <2 sec Abdomen (Brief) BS normo active x4, other (obese ), soft, NOT FOUND: distended, tender Extremities (Brief) Extremity : Extremity Finding: warm, NOT FOUND: clubbing, cyanosis, edema Lymphatic (Brief) NOT FOUND: adenopathy, lymphedema Musculoskeletal (Brief) NOT FOUND: deformity Integumentary (Brief) pink, warm Neurologic (Brief) FOUND: cranial 2-12 intact, NOT FOUND: facial droop, ptosis Psychiatric (Brief) alert, attentive, normal affect, oriented Laboratory Laboratory Laboratory Tests 07/28/16 labs noted Sepsis Diagnostic Criteria Sepsis Confirmed/Suspected Infection: Yes SIRS Criteria: Acute mental status chg, WBC >=12,000 or <=4,000, Bands >= 10% Severe Sepsis Creatinine >2.0mg/dL, Lactate >=2.0 mg/dL Assessment & Plan Plan/Intensity of Service type 2 CA /damand ischemia sinus bradycardia agree w current Rx BRAULIO ROJO MD Jul 31, 2016 18:17
--- NOTE | 2016-07-31 18:22 | PNPDOC ---
Subjective Date DATE: 07/30/16 about 12 noon no new c/o no cp or dyspnea. sinus madie 40's per RN , no reported fatigue or dizziness. Objective Vital Signs Vital signs Vital Signs 07/31/16 07/31/16 07/31/16 07:45 10:47 15:44 Temp 96.6 96.9 Pulse 52 50 55 Resp 20 18 20 B/P 169/72 181/75 Pulse Ox 96 95 O2 Delivery Room Air Room Air Telemetry Rhythm: Sinus Bradycardia (low 40's) Height (Feet): 5 Height (Inches): 5.00 Weight (Kilograms): 80.700 General Alert, Obese, Orientated x 3, No Acute Distress, Looks Stated Age Eyes (Brief) EOMI, PERRL, NOT FOUND: trauma ENMT (Brief) mucosa moist Neck (Brief) NOT FOUND: JVD Respiratory (Brief) clear all pablo, equal bilaterally Cardiovascular (Brief) murmur, regular rhythm, NOT FOUND: regular rate ( madie) Capillary Refill: <2 sec Abdomen (Brief) BS normo active x4, soft, NOT FOUND: distended, tender Extremities (Brief) Extremity : Extremity Finding: NOT FOUND: clubbing, cyanosis, discoloration, edema Lymphatic (Brief) NOT FOUND: adenopathy, lymphedema Musculoskeletal (Brief) NOT FOUND: deformity Integumentary (Brief) dry, pink, warm Neurologic (Brief) FOUND: cranial 2-12 intact, motor, NOT FOUND: facial droop, ptosis Psychiatric (Brief) alert, normal affect, oriented Laboratory Laboratory Laboratory Tests 07/30 labs reviewed Sepsis Diagnostic Criteria Sepsis Confirmed/Suspected Infection: Yes SIRS Criteria: Acute mental status chg, WBC >=12,000 or <=4,000, Bands >= 10% Severe Sepsis Creatinine >2.0mg/dL, Lactate >=2.0 mg/dL Assessment & Plan Plan/Intensity of Service type 2 MN /damand ischemia sinus bradycardia lowering BB dose agree w current Rx BRAULIO ROJO MD Jul 31, 2016 18:22
--- NOTE | 2016-07-31 18:48 | NUR ---
SHIFT SUMMARY PT ALERT AND ORIENTED TO PERSON, OCCASIONALLY PLACE. PT ON RA, DENIES SOA. DENIES PAIN, DENIES N/V. TURN Q2H WITH ASSIST X2, UP WITH FULL LIFT TO RECLINER. PT TOLERATED LIFT WELL, DENIED DISCOMFORT. IVL RIGHT HAND PATENT. PILLS CRUSHED AND PLACED WITH PUDDING. UP IN RECLINER FOR MEALS, ASSISTED PT AND PT TOLERATE WELL. HEWITT PATENT, ADEQUATE URINE OUTPUT. PT ABLE TO MAKE NEEDS KNOWN. BED ALARM ON, CALL LIGHT WITHIN REACH.
[2016-07-31 20:00] VITALS: PULSE 55; RESP 20
--- NOTE | 2016-07-31 20:59 | PNPDOC ---
Subjective Date DATE: 07/31/16 TIME: 18:24 no new problems. dependent on lift to get him in recliner . denies cp or dyspnea.no dizziness. c/o diarrhea. Objective Vital Signs Vital signs Vital Signs 07/31/16 07/31/16 07/31/16 07:45 10:47 15:44 Temp 96.6 96.9 Pulse 52 50 55 Resp 20 18 20 B/P 169/72 181/75 Pulse Ox 96 95 O2 Delivery Room Air Room Air Telemetry Rhythm: Sinus Bradycardia (low 40's) Height (Feet): 5 Height (Inches): 5.00 Weight (Kilograms): 80.700 General Alert, Obese, Unable to walk, Cooperative, No Acute Distress, Looks Stated Age Eyes (Brief) EOMI, PERRL, NOT FOUND: scleral icterus, trauma ENMT (Brief) mucosa moist Neck (Brief) JVD (borderline jvp est 5-6 cm h2O) Respiratory (Brief) clear all pablo, equal bilaterally, other Cardiovascular (Brief) murmur, regular rhythm, NOT FOUND: regular rate ( madie) Capillary Refill: <2 sec Abdomen (Brief) BS normo active x4, soft, NOT FOUND: distended, tender Extremities (Brief) Extremity : Extremity Finding: edema (min ed3ma), NOT FOUND: clubbing, cyanosis Lymphatic (Brief) NOT FOUND: adenopathy, lymphedema Musculoskeletal (Brief) NOT FOUND: deformity Integumentary (Brief) dry, pink, warm Neurologic (Brief) FOUND: cranial 2-12 intact, NOT FOUND: facial droop, ptosis Psychiatric (Brief) alert, attentive, normal affect Laboratory Laboratory Laboratory Tests 07/31/16 04:42 Laboratory Tests 07/31/16 04:42 EKG ekg x2 SB inferolateral STT changes sugg. of ischemia . no old ekg available for comparison. Radiology CXR possible interstital pneumonia barium swallow performed Sepsis Diagnostic Criteria Sepsis Confirmed/Suspected Infection: Yes SIRS Criteria: Acute mental status chg, WBC >=12,000 or <=4,000, Bands >= 10% Severe Sepsis Creatinine >2.0mg/dL, Lactate >=2.0 mg/dL Assessment & Plan Plan/Intensity of Service elevated trop/ NSTEMI based on inferolateral ischmic changes on ekg and troponin level. medical Rx sinus bradycardia ISATU/CKD ,UTI better HTN DLDO sreedhar BB dose AMI Rx check pBNP level due to interstital changes on CXR echh shows good LVFX add amlodipine for better BP control d/c hydralazine due to risk for myocardial ischemia incraese statin dose for better cardiac protection (AMI) agree w current Rx add low dose lovenox BRAULIO ROJO MD Jul 31, 2016 18:33
[2016-07-31] MEDS: TAMSULOSIN 0.4 MG CAPSULE PO SCH (23:07)
[2016-07-31] MEDS: ENOXAPARIN 40 MG/0.4 ML INJECTION SQ SCH (23:13)
[2016-08-01] VITALS: BP 150/53; PULSE 60; RESP 20; TEMP 96.6; O2SAT 95
--- NOTE | 2016-08-01 05:07 | NUR ---
STATUS PT IS A/O X 1-2. CONFUSED AT TIMES, COOPERATIVE WITH CARES. REPOSITION Q 2 HOURS AND PRN WITH 2 ASSIST. PT IS A FULL LIFT TRANSFERS OUT OF BED. INCONTINENT OF BM, HAS A HEWITT DD. URINE IS CLEAR/YELLOW. PT IS ABLE TO TAKE HIS MEDICATION WHOLE WITH PUDDING. HE IS ABLE TO TELL STAFF HIS NEEDS AND WANTS. DENIES PAIN OR SOA, REMAINS ON RA. CALL LIGHT WITHIN REACH. BED ALARM ON.
[2016-08-01 05:26] LABS: BASOPHILS % (AUTO) 0.4 % (0-2); EOSINOPHILS # (AUTO) 0.4 T/MM3 (0-0.5); EOSINOPHILS % (AUTO) 4.8 % (0-4); HCT - HEMATOCRIT 33.6 % (41-53); IMMATURE GRANULOCYTE # (AUTO) 0.05 T/MM3 (0.00-0.03); IMMATURE GRANULOCYTE % (AUTO) 0.6 % (0.0-0.5); LYMPHOCYTES # (AUTO) 1.8 T/MM3 (1-4.8); LYMPHOCYTES % (AUTO) 22.2 % (23-45); MEAN CORPUSCULAR HGB 30.6 UUG (26-34); MEAN CORPUSCULAR HGB CONC(MCHC 32.7 GM/DL (31-37); MEAN CORPUSCULAR VOLUME 93.6 UM3 (80-100); MEAN PLATELET VOLUME 10.5 UM3 (9.4-12.4); MONOCYTES # (AUTO) 0.8 T/MM3 (0-0.8); MONOCYTES % (AUTO) 10.2 % (0-9.0); NEUTROPHILS #(AUTO)-ABSOLUTE 4.9 T/MM3 (1.8-7.7); NEUTROPHILS % (AUTO) 61.8 % (33-66); RED BLOOD COUNT 3.59 M/MM3 (4.50-5.90)
[2016-08-01 05:51] LABS: ALBUMIN/GLOBULIN RATIO 0.9 RATIO (1.1-2.2); ALKALINE PHOSPHATASE 63 U/L (38-126); ALT (SGPT) 46 U/L (21-72); ANION GAP 9 MEQ/L (5-15); AST (SGOT) 50 U/L (17-59); BUN/CREATININE RATIO 13 RATIO (6-26); CALCIUM 8.4 MG/DL (8.4-10.2); CHLORIDE 110 MEQ/L (98-107); CO2 - CARBON DIOXIDE 27 MEQ/L (22-30); CREATININE 1.2 MG/DL (0.8-1.5); GLOMERULAR FILTRATION RATE 57; GLUCOSE 87 MG/DL (75-110); POTASSIUM 3.9 MEQ/L (3.6-5); SODIUM 146 MEQ/L (134-144); TOTAL PROTEIN 6.5 G/DL (6.3-8.2)
[2016-08-01 06:00] LABS: PROBNP 16700 PG/ML (0-175)
[2016-08-01] MEDS: BETHANECHOL 25 MG TABLET PO SCH ×3 (06:17→17:06)
[2016-08-01 07:51] VITALS: BP 145/78; PULSE 68; RESP 16; TEMP 96.8; O2SAT 95
[2016-08-01 08:24] VITALS: PULSE 68; RESP 16
[2016-08-01] MEDS: METOPROLOL XL 25 MG TABLET PO SCH ×2 (08:51→20:45)
[2016-08-01] MEDS: AMLODIPINE 5 MG TABLET PO SCH ×2 (08:51→20:48)
[2016-08-01] MEDS: POLYETHYL.GLYCOL 3350 PACKET 17gm PO SCH (08:51)
[2016-08-01] MEDS: ASPIRIN *EC* 81mg TABLET PO SCH (08:51)
[2016-08-01] MEDS: ENOXAPARIN 40 MG/0.4 ML INJECTION SQ SCH (09:44)
[2016-08-01] MEDS: CEFTRIAXONE 1 G in NORMAL SALINE 100 ML IV SCH (09:44)
--- NOTE | 2016-08-01 14:07 | NUR ---
ROBERT CALLED BRENDA AT [employer], RE: PROBABLE DC BACK IN THE NEXT COUPLE OF DAYS. SHE SAID SHE WILL PUT IN THE AUTH FOR PT'S INSURANCE ([email or web address]) FOR THIS TOMORROW IN THE MORNING.
--- NOTE | 2016-08-01 15:15 | PNPDOC ---
ALMAZ MCKENZIE ORAL SURGERY PHYSICIAN 08/01/16 1513: Subjective Date DATE: 08/01/16 TIME: 15:09 Subjective Lencho was dozing off in bed, but awakened easily. He was pleasant and A&O. He stated that earlier his left shoulder then his right shoulder started to hurt - this is something that happens on occasion and has a hx of rotator cuff problems. No chest pain or trouble breathing. He also notes mild lower abdominal tenderness. Sterling is to DD. His tongue swelling is better. Objective Vital Signs Vital signs Vital Signs Date Time Temp Pulse Resp B/P Pulse Ox O2 Delivery O2 Flow Rate FiO2 08/01/16 08:24 68 16 08/01/16 07:51 96.8 145/78 95 Room Air 07/28/16 19:33 1.00 Telemetry Rhythm: Sinus Bradycardia Height (Feet): 5 Height (Inches): 5.00 Weight (Kilograms): 80.800 General General Appearance: Alert, Orientated x 3, Well Nourished, Well Developed, No Acute Distress Eyes (Brief) Eyes: FOUND: PERRL, NOT FOUND: scleral icterus ENMT (Brief) ENMT: FOUND: mucosa moist, other (tongue swelling improving), NOT FOUND: pharnyx erythema Respiratory (Brief) Respiratory: FOUND: clear all pablo, equal bilaterally Cardiovascular (Brief) Cardiac: FOUND: regular rate, regular rhythm Abdomen (Brief) Abdominal: FOUND: BS normo active x4, soft, tender (mild - suprapubic), NOT FOUND: distended Extremities (Brief) Extremity : Extremity Finding: FOUND: edema Musculoskeletal (Brief) Musculoskeletal: FOUND: loss of motion (postpolio) Integumentary (Brief) Integumentary: FOUND: dry, pink, warm Comments dressings to both knees Psychiatric (Brief) Psychiatric: FOUND: alert, attentive, normal affect, oriented Laboratory Laboratory Laboratory Tests 07/31/16 04:42 08/01/16 04:28 Laboratory Tests 07/31/16 04:42 08/01/16 04:28 Sepsis Diagnostic Criteria Sepsis Confirmed/Suspected Infection: Yes SIRS Criteria: Acute mental status chg, WBC >=12,000 or <=4,000, Bands >= 10% Severe Sepsis Creatinine >2.0mg/dL, Lactate >=2.0 mg/dL Assessment & Plan Problems: (1) Tongue swelling Status: Acute Assessment & Plan: sulfa rxn (2) Dysphagia Status: Acute Qualifiers: Dysphagia type: unspecified Qualified Codes: R13.10 - Dysphagia, unspecified (3) Acute renal failure Status: Resolved Qualifiers: Acute renal failure type: unspecified Qualified Codes: N17.9 - Acute kidney failure, unspecified (4) Hypoglycemia Status: Acute (5) Elevated troponin Status: Acute Assessment & Plan: POA- asymptomatic (6) Sepsis Status: Resolved Qualifiers: Sepsis type: sepsis due to unspecified organism Qualified Codes: A41.9 - Sepsis, unspecified organism (7) Diet-controlled type 2 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 Eating well without aspiration. Suprapubic tenderness - check UA. Will need to DC with Sterling. Hypoglycemia - improved while off the D5. If remains stable (ie regarding tongue and sugars off IVF), likely will be able to DC soon. Code Status Do Not Resuscitate Hospital Course Summary Disclaimer The hospital course summary below is not to be considered part of the above Progress Note. Hospital Course Summary Today I saw and examined the Mr. Lencho Franco who lives in the [facility] in [place]. He came to the ER after a throwing up once and not feeling well. Also the care home was concerned about some disc fascia because he was not day swallowing his food. He has a recent medical history which includes some tongue protrusion over the past several weeks and also chronic UTIs. The UTIs are felt to be due to the fact he has a marked hypospadias. They have discussed giving him a supra pubic catheter to rectify the frequent urinary tract infections. In April he became nervous about the idea of the suprapubic catheter and turned it down. That was in April 2016. When seen in our emergency department patient had a 31,000+ white blood cell count with 95% neutrophils. He has a very poor kidney function with a GFR of 18 his lactate was elevated at 2.4 and his BUNs was elevated at 43. His creatinine was quite elevated at 3.3. With such a high creatinine and high low GFR 80 may well be looking at dialysis quite soon. When Meron Vora finally got a year a urine sample for analysis it showed a definite UTI and he may well have urosepsis also. He has confirmed he is a DO NOT RESUSCITATE status for any code situation. Physical exam shows a protruding tongue which has only been going on I'm told by his [id number] for several weeks. Heart shows a regular rate and rhythm without murmur; lungs are clear to auscultation without wheezing. Abdomen is soft with good bowel sounds is nontender to palpation. Lower leg shows no edema no cyanosis. 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 Neither Meron during her I could get any review of systems done because of his severe hearing problem and his speech problem. I have reviewed in depth the history and physical done by Meron as well as the assessment and plan for treatment with this patient I find the work to be complete and I agree with the assessment and plan which we discussed and which she noted in her work. We shall attempt to hydrate this patient a follow his troponin and as much as possible rectify the current problems. Admit patient to inpatient status under the care of Dr. Arevalo for sepsis, ISATU and elevated Troponin. She was started on IV fluids and IV cefepime for antimicrobial coverage while in the emergency room. On admission coude Sterling cath placed by myself and urinalysis is obtained. Concern for chronic urinary retention. Given presence of hypospadia's anatomy. Patient is planning for placement of suprapubic catheter in the outpatient setting. May need to consider leaving Sterling catheter in-place at time of discharge. Will recheck CBC and Manual diff now. Continue to monitor serial lactate levels as per sepsis protocol. Patient cardiac telemetry and will obtain serial troponins 3. Consult for speech therapy, given recent dysphasia. Change to half-normal saline for ongoing hydration. Monitor Accu-Cheks with meals and at bedtime. SCDs to bilateral lower extremity for DVT prophylaxis Will discuss further plan of care with Dr Arevalo At time of discharge medical care will return to primary care provider. Dr. Galeano 07/29/16- Calvin D/W Dr. Arevalo prior to seeing pt. *AMS- this appears to be a fairly significant change. Could be encephalopathy from renal failure/Bactrim and other meds. We need to get CT of the head now. Hold Celexa and other centrally acting meds. Treat infection. Need to normalize BG. *Hypoglycemia- Unclear cause. No meds that I can identify as a cause. Concern for pancreatic abnormality. Assess lipase, CA 19-9. Add D5NS IVF- he needs ongoing hydration given renal failure. He did get some Lasix for fluid overload, breathing ok. Start hypoglycemia protocol as well. We may have to change to D10 if BG remains low. Change to regular diet since BG is running low. *Glossal swelling- This is apparently new. CT head. Check TSH, B12, Folate. ST eval due to reported dysphagia, possible vomiting. May need soft tissue imaging of the neck if persists. *BPH, Hypospadia, Recurrent UTI- Continue Sterling. May need s/p cath. *Sepsis- unclear cause. Acute reactive leukocytosis? Aspiration? UTI? Change azithro and cefepime due to cardiac arrhythmia risk and risk of AMS/ Seizure with Cefepime. Change to Zosyn renal dose to cover aspiration and broad spectrum UTI. Repeat CXR in AM. *HTN- Stable. continue Hydralazine. Monitor for rebound hypertension. *NSTEMI, Type II- Monitor. No acute procedures per cardiology. He does not report chest pain. Agree with echo due to possible congenital defects. Evaluation pending. Repeat labs in AM. Continue close monitoring. 07/30/16 Somnolence/encephalopathy - much improved. Pt is A&O and appropriately conversational this am. Tongue swelling/dysphagia - reportedly improving. Modified barium swallow study shows aspiration with thin consistency barium and tracheal penetration with nectar and honey consistencies. Speech therapy recommends a pureed diet with nectar-thick liquids and swallow precautions. ISATU - continues to improve. BUN 33 and cr 1.8 today. Bradycardia - metoprolol dose was reduced from 25 mg BID to 12.5 mg BID. Echo done, report pending. Sepsis syndrome - resolved. Uncertain origin and it's possible that there was no insinuating infectious source; UC grew out low-colony mixed bhavna and BC remain negative. Hx frequent UTI; urology planning on suprapubic cath placement in the future. Currently has coude Sterling. Azithromycin and cefepime were discontinued yesterday. He continues on renally dosed Zosyn. Hypoglycemia - tends to be most prominent in am; improving from yesterday. Hope to see improvements now that he is more alert and eating more. He is not on any diabetic medications. Continue D5NS but will decrease the rate to help prevent fluid overload. 07/31/16 Acute kidney injury - much improved. Creatinine is down to 1.5 today. Tongue swelling and dysphagia - continues to improve. Discussed with speech therapy. Recommend a modified diet and continued evaluation upon discharge. Bradycardia. Still persists, typically in the low to mid 50s. Continue lower dose of metoprolol. Diarrhea. Check for C. difficile. May need to stop Zosyn, especially considering that the source of sepsis was never identified. Hypoglycemia. We'll stop IV fluids and monitor sugars today. Patient becomes symptomatic with blood sugars in the 60s. Hypospadias and urinary retention. Will need discharged with Sterling in place, and planned follow-up with urology in outpatient setting. Of note, free T4 and vitamin B12 are still pending. TSH was low at 0.03 - will repeat today. Echocardiogram report is also pending. 08/01/16 Tongue swelling - improving. Eating well without aspiration. Suprapubic tenderness - check UA. Will need to DC with Sterling. Hypoglycemia - improved while off the D5. If remains stable (ie regarding tongue and sugars off IVF), likely will be able to DC soon. BENITO AREVALO DO 08/01/162103: Subjective Subjective 08/01/2016 Dr. Arevalo note I saw Lencho Franco in his room late in the afternoon. He was dozing but I awakened him easily. He talks much better now that his tongue swelling is down. He denied any shortness of breath and denied any chest pain. He does admit he has some periumbilical tenderness earlier today when she spoke to Almaz Mckenzie about. Her bit and did not elicit any complaint of pain so I think is probably pretty minor. He denies any diarrhea denies constipation denies any nausea. He complained to Almaz Mckenzie about shoulder pain but that did not mention it to me is not complaining of leg pain at this time either I [place] to go home in the next day or so and he thought that was great Objective Vital Signs Vital signs Heart regular rate and rhythm without murmur Lungs clear to auscultation bilaterally Extremities show no clubbing no cyanosis no edema Integument this pink dry and has no bruising or rash Abdomen is nontender and bowel sounds are physiologic Assessment & Plan Plan/Intensity of Service 08/01/2016 note continued: Lencho is improved to the point that we need to let him go home tomorrow. His diagnoses are as follows: Sepsis, resolved 2. Tongue swelling much better 3. Dysphagia, perhaps a continuing problem but he seems to be well now and not aspirating 4. Acute renal failure, resolved 5 increased troponin, resolved 6 diabetes mellitus 2, chronic 7 post polio syndrome, chronic 8. Hypospadias, he'll probably get that operated on by his urologist in the next month or 29. Hypertension, chronic 10. BPH, chronic we should note that his urine was clear today and had a normal white blood cell count and is P was normal. Geraldine and I discussed Lencho at length today and I fully improve her assessments and plan as stated in her progress note. ALMAZ MCKENZIE APRN Aug 01, 2016 15:13 BENITO AREVALO DO Aug 01, 2016 21:04
[2016-08-01 15:29] LABS: BLOOD, URINE TRACE-INTACT (NEGATIVE); COLOR,URINE YELLOW (YELLOW); LEUKOCYTE ESTERASE ,URINE NEGATIVE (NEGATIVE); NITRITE,URINE NEGATIVE (NEGATIVE); UROBILINOGEN,URINE 0.2 EU/DL (NORMAL)
[2016-08-01 15:46] VITALS: BP 171/79; PULSE 59; RESP 16; TEMP 96.3; O2SAT 94
--- NOTE | 2016-08-01 16:15 | STDAILYN ---
ST Daily Note Date/Time DATE: 08/01/16 TIME: 16:11 Subjective Comment PT WAS ALERT, UP IN CHAIR EATING LUNCH. hE HAD DIFFICULTY EXPRESSING HIS NEEDS. Orientations: Alert, Cooperative Chief Complaint: ELEVATED TROPININ, DYSPHAGIA Pain: No *Speech Therapy Impressions PT WAS POSITIONED UPRIGHT IN CHAIR FEEDING HIMSELF BREAKFAST. HE HAD DIFFICULTY HOLDING UTENSILS. HE ATE PUREED DIET WHEN FED BY MEDICAL CENTER DIRECTOR WITH FOCUS ON SMALL BITES AND SLOW RATE. PT NEEDED CUE TO USE SECONDARY SWALLOW TO CLEAR HIS LEFT CHEEK. ALTERNATING SOLIDS AND LIQUIDS HELPED HIM CLEAR MOUTH. PT SHOWED NO S/S OF ASPIRATION ON PUREED DIET WITH NECTAR THICK LIQUIDS. SWELLING OF HIS TONGUE APPEARED TO BE SIGNIFICANTLY IMPROVED TODAY. ST Treatment Plan Frequency: three times per week Treatment Plan Duration: one week Plan of Care Comment: CONTINUE POC Start Treatment 1: 13:05 Stop Treatment 1: 13:20 Treatment Duration : ST Treatment Charge: Swallow Treatment Minutes of Individual Therapy: 15 CHRIS UMANZOR MS CCC-MEDICAL CENTER DIRECTOR Aug 01, 2016 16:15
[2016-08-01] MEDS: LOVASTATIN 40 MG TABLET PO SCH (17:06)
--- NOTE | 2016-08-01 18:06 | NUR ---
SHIFT SUMMARY VSS. RA. DENIES PAIN. UP TO RECLINER FOR BREAKFAST AND LUNCH. GOOD OUTPUT FROM [facility] CATHETER. BLOOD GLUCOSE LEVELS STABLE. VERY GOOD APPETITE AND INTAKE. PATIENT ABLE TO FEED SELF. TONGUE SWELLING CONTINUES TO DECREASE. ONE BM TODAY. BED ALARM IN USE.
[2016-08-01] MEDS ORDERED: BUMETANIDE 1 MG/4 ML INJECTION IV ONE (19:15)
--- NOTE | 2016-08-01 19:20 | PNPDOC ---
Subjective Date DATE: 08/01/16 TIME: 19:14 Subjective denies cp or dyspnea . feeling about edyta same. bed ridden Objective Vital Signs Vital signs Vital Signs 08/01/16 08/01/16 08/01/16 07:51 08:24 15:46 Temp 96.8 96.3 Pulse 68 68 59 Resp 16 16 16 B/P 145/78 171/79 Pulse Ox 95 94 O2 Delivery Room Air Room Air Telemetry Rhythm: Sinus Bradycardia Height (Feet): 5 Height (Inches): 5.00 Weight (Kilograms): 80.800 General Alert, Orientated x 3, Cooperative, Looks Stated Age Eyes (Brief) EOMI, PERRL, NOT FOUND: trauma ENMT (Brief) mucosa moist Neck (Brief) JVD (mild) Respiratory (Brief) clear all pablo Cardiovascular (Brief) murmur, regular rhythm, NOT FOUND: regular rate ( madie) Capillary Refill: <2 sec Abdomen (Brief) BS normo active x4, other (obese), soft, NOT FOUND: distended, tender Extremities (Brief) Extremity : Extremity Finding: edema (edema B ankles, trace .), NOT FOUND: clubbing, cyanosis, discoloration Lymphatic (Brief) NOT FOUND: adenopathy, lymphedema Musculoskeletal (Brief) NOT FOUND: deformity Integumentary (Brief) dry, pink, warm Neurologic (Brief) FOUND: cranial 2-12 intact, NOT FOUND: facial droop, ptosis Psychiatric (Brief) alert, attentive, normal affect, oriented Laboratory Laboratory Laboratory Tests 08/01/16 04:28 Laboratory Tests 08/01/16 04:28 Sepsis Diagnostic Criteria Sepsis Confirmed/Suspected Infection: Yes SIRS Criteria: Acute mental status chg, WBC >=12,000 or <=4,000, Bands >= 10% Severe Sepsis Creatinine >2.0mg/dL, Lactate >=2.0 mg/dL Assessment & Plan Plan/Intensity of Service elevated trop/ NSTEMI based on inferolateral ischmic changes on ekg and troponin level. medical Rx sinus brdycardia improved DCHF ISATU/CKD ,UTI better recovering HTN DLDO sreedhar BB dose AMI Rx check pBNP level due to interstital changes on CXR echo shows good LVFX add amlodipine for better BP control d/c hydralazine due to risk for myocardial ischemia gentle diuresis due to hypervolemia/mild CHF (clinically +BNP+CXR) may need better BP control ? JANNA i soon if renal fx continue to be stable. I'll follo wintermittently ,please call w CV concerns. BRAULIO ROJO MD Aug 01, 2016 19:20
[2016-08-01 20:00] VITALS: PULSE 59; RESP 16
[2016-08-01] MEDS: TAMSULOSIN 0.4 MG CAPSULE PO SCH (20:45)
[2016-08-02 00:34] VITALS: BP 169/75; PULSE 62; RESP 16; TEMP 96.8; O2SAT 96
[2016-08-02] MEDS: BETHANECHOL 25 MG TABLET PO SCH ×3 (06:30→17:05)
--- NOTE | 2016-08-02 08:04 | NUR ---
SHIFT SUMMARY ALERT/ORIENTED X3. VSS ON RA. DENIES PAIN. ON TELEMETRY WITH SINUS [place]EN[place]/1ST DEGREE HB. RUN OF VTACH. RT HAND IV LOCKED. PUREED DIET. HARD OF HEARING. USES FULL LIFT TO GET OUT OF BED. GOOD OUTPUT FROM [facility] CATHETER. BLOOD GLUCOSE LEVELS STABLE. ABRASION ON KNEE CDI. SLEPT WELL THROUGHOUT THE NIGHT. TOOK PO MEDS CRUSHED IN THICKENED LIQUID. BED ALARM IN USE. WILL CONTINUE TO MONITOR.
[2016-08-02 08:33] VITALS: BP 154/83; PULSE 86; RESP 18; TEMP 97.4; O2SAT 94
[2016-08-02] MEDS: POLYETHYL.GLYCOL 3350 PACKET 17gm PO SCH (08:43)
[2016-08-02] MEDS: CEFTRIAXONE 1 G in NORMAL SALINE 100 ML IV SCH (09:15)
[2016-08-02] MEDS: METOPROLOL XL 25 MG TABLET PO SCH (09:16)
[2016-08-02] MEDS: AMLODIPINE 5 MG TABLET PO SCH (09:16)
[2016-08-02] MEDS: ENOXAPARIN 40 MG/0.4 ML INJECTION SQ SCH (09:16)
[2016-08-02] MEDS: ASPIRIN *EC* 81mg TABLET PO SCH (09:16)
[2016-08-02 09:23] VITALS: PULSE 86; RESP 18
--- NOTE | 2016-08-02 10:09 | PNPDOC ---
ALMAZ MCKENZIE BOX FINISHER 08/02/16 1005: Subjective Date DATE: 08/02/16 TIME: 09:58 Subjective Lencho was awake, A&O x3. He stated that he is feeling better, and his tongue swelling is improving, though not quite back to normal yet. He denies feeling any shortness of breath. His nurse is at bedside and she reported that he had an asymptomatic run of slow V. tach, about 18 beats. He denies any abdominal pain today. We discussed that he will be going home with a Sterling catheter, and he will need to follow-up with his urologist for further discussion regarding suprapubic catheter placement. Objective Vital Signs Vital signs Vital Signs Date Time Temp Pulse Resp B/P Pulse Ox O2 Delivery O2 Flow Rate FiO2 08/02/16 09:23 86 18 08/02/16 08:33 97.4 154/83 94 Room Air Telemetry Rhythm: Sinus Bradycardia Height (Feet): 5 Height (Inches): 5.00 Weight (Kilograms): 77.300 General General Appearance: Alert, Obese, Orientated x 3, Well Nourished, Well Developed, No Acute Distress Eyes (Brief) Eyes: FOUND: PERRL, NOT FOUND: scleral icterus ENMT (Brief) ENMT: FOUND: mucosa moist, other (tongue swelling continues to improve), NOT FOUND: pharnyx erythema Respiratory (Brief) Respiratory: FOUND: clear all pablo, equal bilaterally Cardiovascular (Brief) Cardiac: FOUND: regular rate, regular rhythm Abdomen (Brief) Abdominal: FOUND: BS normo active x4, soft, NOT FOUND: distended, tender Extremities (Brief) Extremity : Extremity Finding: NOT FOUND: cyanosis Musculoskeletal (Brief) Musculoskeletal: FOUND: loss of motion (secondary to postpolio syndrome), NOT FOUND: tenderness Integumentary (Brief) Integumentary: FOUND: dry, pink, warm Comments Dressings to both knees Psychiatric (Brief) Psychiatric: FOUND: alert, attentive, normal affect, oriented Laboratory Laboratory Laboratory Tests 08/01/16 04:28 Laboratory Tests 08/01/16 04:28 Sepsis Diagnostic Criteria Sepsis Confirmed/Suspected Infection: Yes SIRS Criteria: Acute mental status chg, WBC >=12,000 or <=4,000, Bands >= 10% Severe Sepsis Creatinine >2.0mg/dL, Lactate >=2.0 mg/dL Assessment & Plan Problems: (1) Tongue swelling Status: Acute Assessment & Plan: sulfa rxn (2) Dysphagia Status: Acute Qualifiers: Dysphagia type: unspecified Qualified Codes: R13.10 - Dysphagia, unspecified (3) Acute renal failure Status: Resolved Qualifiers: Acute renal failure type: unspecified Qualified Codes: N17.9 - Acute kidney failure, unspecified (4) Hypoglycemia Status: Acute (5) Elevated troponin Status: Acute Assessment & Plan: POA- asymptomatic (6) Sepsis Status: Resolved Qualifiers: Sepsis type: sepsis due to unspecified organism Qualified Codes: A41.9 - Sepsis, unspecified organism (7) Diet-controlled type 2 diabetes mellitus Status: Chronic (8) Post-polio syndrome Status: Chronic (9) Hypospadias in male Status: Chronic (10) Hypertension Status: Chronic (11) BPH (benign prostatic hyperplasia) Status: Chronic (12) Metabolic encephalopathy Status: Resolved Plan/Intensity of Service Reported run of ventricular tachycardia, slow rate, 18 beats. Patient was asymptomatic. I've contacted Dr. Bassett. Tongue swelling continues to improve, and his dysphagia is stable. No suprapubic tenderness today, and UA done yesterday was negative. He will be going back to [facility] with a Sterling catheter, and will need to follow-up with urology for discussion about placement of a suprapubic catheter. If cleared by Dr. Bassett, can likely be discharged very soon. Code Status Do Not Resuscitate Hospital Course Summary Disclaimer The hospital course summary below is not to be considered part of the above Progress Note. Hospital Course Summary Today I saw and examined the Mr. Lencho Franco who lives in the [facility] in [place]. He came to the ER after a throwing up once and not feeling well. Also the usp was concerned about some disc fascia because he was not day swallowing his food. He has a recent medical history which includes some tongue protrusion over the past several weeks and also chronic UTIs. The UTIs are felt to be due to the fact he has a marked hypospadias. They have discussed giving him a supra pubic catheter to rectify the frequent urinary tract infections. In April he became nervous about the idea of the suprapubic catheter and turned it down. That was in April 2016. When seen in our emergency department patient had a 31,000+ white blood cell count with 95% neutrophils. He has a very poor kidney function with a GFR of 18 his lactate was elevated at 2.4 and his BUNs was elevated at 43. His creatinine was quite elevated at 3.3. With such a high creatinine and high low GFR 80 may well be looking at dialysis quite soon. When Meron Vora finally got a year a urine sample for analysis it showed a definite UTI and he may well have urosepsis also. He has confirmed he is a DO NOT RESUSCITATE status for any code situation. Physical exam shows a protruding tongue which has only been going on I'm told by his sitmao-to-dpf for several weeks. Heart shows a regular rate and rhythm without murmur; lungs are clear to auscultation without wheezing. Abdomen is soft with good bowel sounds is nontender to palpation. Lower leg shows no edema no cyanosis. 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 Neither Meron during her I could get any review of systems done because of his severe hearing problem and his speech problem. I have reviewed in depth the history and physical done by Meron as well as the assessment and plan for treatment with this patient I find the work to be complete and I agree with the assessment and plan which we discussed and which she noted in her work. We shall attempt to hydrate this patient a follow his troponin and as much as possible rectify the current problems. Admit patient to inpatient status under the care of Dr. Arevalo for sepsis, ISATU and elevated Troponin. She was started on IV fluids and IV cefepime for antimicrobial coverage while in the emergency room. On admission coude Sterling cath placed by myself and urinalysis is obtained. Concern for chronic urinary retention. Given presence of hypospadia's anatomy. Patient is planning for placement of suprapubic catheter in the outpatient setting. May need to consider leaving Sterling catheter in-place at time of discharge. Will recheck CBC and Manual diff now. Continue to monitor serial lactate levels as per sepsis protocol. Patient cardiac telemetry and will obtain serial troponins 3. Consult for speech therapy, given recent dysphasia. Change to half-normal saline for ongoing hydration. Monitor Accu-Cheks with meals and at bedtime. SCDs to bilateral lower extremity for DVT prophylaxis Will discuss further plan of care with Dr Arevalo At time of discharge medical care will return to primary care provider. Dr. Galeano 07/29/16- Calvin D/W Dr. Arevalo prior to seeing pt. *AMS- this appears to be a fairly significant change. Could be encephalopathy from renal failure/Bactrim and other meds. We need to get CT of the head now. Hold Celexa and other centrally acting meds. Treat infection. Need to normalize BG. *Hypoglycemia- Unclear cause. No meds that I can identify as a cause. Concern for pancreatic abnormality. Assess lipase, CA 19-9. Add D5NS IVF- he needs ongoing hydration given renal failure. He did get some Lasix for fluid overload, breathing ok. Start hypoglycemia protocol as well. We may have to change to D10 if BG remains low. Change to regular diet since BG is running low. *Glossal swelling- This is apparently new. CT head. Check TSH, B12, Folate. ST eval due to reported dysphagia, possible vomiting. May need soft tissue imaging of the neck if persists. *BPH, Hypospadia, Recurrent UTI- Continue Sterling. May need s/p cath. *Sepsis- unclear cause. Acute reactive leukocytosis? Aspiration? UTI? Change azithro and cefepime due to cardiac arrhythmia risk and risk of AMS/ Seizure with Cefepime. Change to Zosyn renal dose to cover aspiration and broad spectrum UTI. Repeat CXR in AM. *HTN- Stable. continue Hydralazine. Monitor for rebound hypertension. *NSTEMI, Type II- Monitor. No acute procedures per cardiology. He does not report chest pain. Agree with echo due to possible congenital defects. Evaluation pending. Repeat labs in AM. Continue close monitoring. 07/30/16 Somnolence/encephalopathy - much improved. Pt is A&O and appropriately conversational this am. Tongue swelling/dysphagia - reportedly improving. Modified barium swallow study shows aspiration with thin consistency barium and tracheal penetration with nectar and honey consistencies. Speech therapy recommends a pureed diet with nectar-thick liquids and swallow precautions. ISATU - continues to improve. BUN 33 and cr 1.8 today. Bradycardia - metoprolol dose was reduced from 25 mg BID to 12.5 mg BID. Echo done, report pending. Sepsis syndrome - resolved. Uncertain origin and it's possible that there was no insinuating infectious source; UC grew out low-colony mixed bhavna and BC remain negative. Hx frequent UTI; urology planning on suprapubic cath placement in the future. Currently has coude Sterling. Azithromycin and cefepime were discontinued yesterday. He continues on renally dosed Zosyn. Hypoglycemia - tends to be most prominent in am; improving from yesterday. Hope to see improvements now that he is more alert and eating more. He is not on any diabetic medications. Continue D5NS but will decrease the rate to help prevent fluid overload. 07/31/16 Acute kidney injury - much improved. Creatinine is down to 1.5 today. Tongue swelling and dysphagia - continues to improve. Discussed with speech therapy. Recommend a modified diet and continued evaluation upon discharge. Bradycardia. Still persists, typically in the low to mid 50s. Continue lower dose of metoprolol. Diarrhea. Check for C. difficile. May need to stop Zosyn, especially considering that the source of sepsis was never identified. Hypoglycemia. We'll stop IV fluids and monitor sugars today. Patient becomes symptomatic with blood sugars in the 60s. Hypospadias and urinary retention. Will need discharged with Sterling in place, and planned follow-up with urology in outpatient setting. Of note, free T4 and vitamin B12 are still pending. TSH was low at 0.03 - will repeat today. Echocardiogram report is also pending. 08/01/16 Tongue swelling - improving. Eating well without aspiration. Suprapubic tenderness - check UA. Will need to DC with Sterling. Hypoglycemia - improved while off the D5. If remains stable (ie regarding tongue and sugars off IVF), likely will be able to DC soon. 08/02/16 Reported run of ventricular tachycardia, slow rate, 18 beats. Patient was asymptomatic. I've contacted Dr. Bassett. Tongue swelling continues to improve, and his dysphagia is stable. No suprapubic tenderness today, and UA done yesterday was negative. He will be going back to [facility] with a Sterling catheter, and will need to follow-up with urology for discussion about placement of a suprapubic catheter. If cleared by Dr. Bassett, can likely be discharged very soon. BENITO AREVALO DO 08/02/16 1645: Assessment & Plan Plan/Intensity of Service 08/02/2016 Dr. Arevalo note: Lencho Franco was sitting in his chair when I came in the room today. He was relaxed, happy and said he felt pretty good. He denied any shortness of breath, and denied any chest pain. His abdomen was no longer tender and is had no problem with this. Food and thickened liquid diet. He has had no problem with his good left leg for temperature control, although his postpolio right leg does continue to feel cold him most of the time. Physical : Heart regular rate and rhythm, no pain; lungs clear to auscultation without wheezing; abdomen soft, nontender bowel sounds are physiologic; left leg shows no edema, no cyanosis or clubbing. Patient is alert and oriented 3. Patient did have a run of V. tach which lasted 18 beats last night. His diagnoses are 1. Sepsis, resolved 2. Grossly swollen time, we believe secondary to sulfa drug ingestion, now almost back to normal; 3. Acute renal failure, resolved 4. Dysphagia, now being treated with thickened liquids and thickened pink,. Food. This appears to be working well 5. Elevated troponin, resolved 6. Hypospadias, chronic but will be surgically resolved with a suprapubic catheter soon, we believe. 7. Postpolio syndrome, with with area of the right lower extremity; 8. Hypertension, chronic 9. BPH, chronic 10. Diabetes mellitus type 2 , controlled by diet alone. Metabolic encephalopathy, resolved Dr. Bassett will see the patient or check and record and see the patient on this ventricular tachycardia and if he clears him he'll probably be discharged tomorrow. I have reviewed this patient with the care Rabia, have reviewed her assessments and plans, and I fully agree with those statements. ALMAZ MCKENZIE APRN Aug 02, 2016 10:05 BENITO AREVALO DO Aug 02, 2016 16:45
--- NOTE | 2016-08-02 10:11 | STDAILYN ---
Discharge Note Date/Time DATE: 08/02/16 TIME: 10:04 Discharge From: Inpatient ST Reason for Discharge: All Goals Met Discharge Summary: Swallowing plan in place. Patient demonstrates difficulties remembering to following swallowing precautions. Requires prompting from clinician. Discharge Followup Comments: 1. Patient currently on a pureed diet consistency with nectar thick liquids. 2. Swallowing precautions: slow intake during meals, sit upright during meals and 20-30 mintues following meals, clear throat often, alternate between solids and liquids, take small sips/bites. ROCHELLE NIELSEN Aug 02, 2016 10:07
--- NOTE | 2016-08-02 10:32 | STDAILYN ---
ST Daily Note Date/Time DATE: 08/02/16 TIME: 09:46 Subjective Comment Lencho was sitting upright in his chair upon arrival. He reported no c/o pain or fatigue. Swelling of tongue presents to be less swollen today. Lencho agreed to having graduate clinician, Rochelle, provide therapy while being supervised by IT ANALYST Jenelle. Orientations: Person, Place, Alert, Cooperative Chief Complaint: Elevated Tropinin, Dysphagia Pain: No (Pt. reported having no pain ) Was Patient Education Provided: Yes Person(s) Educated: Patient Education Subject: Treatment Plan Instruction Understanding Demo: Pt. verbalizes understand Education Comment Pt. was educated on swallowing precautions such as taking small sips and bites, alternating between solids and liquids, and clearing his throat often throughout his meals. Pt. verbalized understanding. *Speech Therapy Impressions Hamper Maker Goal: Pt will maintain nutrition and hydration of the least restrictive diet while demonstrating no s/s of aspiration for 3 consecutive trials. Short Term Goal: Pt will consume a pureed consistency with nectar-thick l liquids without outward signs of aspiration at bedside in 85% of trials. Pt. was given his breakfast of pureed waffle, pureed sausage with gravy, pureed pear, cream of wheat, nectar thick coffee, and nectar thick juice. With the assistance of adaptive spoon, Pt. fed himself. Pt. demonstrated adequate labial closure and incoordinated lingual movements during all consistencies. Pt. alternated between solids and liquids requiring cueing to clear his throat. Once cued to cough, Pt.'s voice became clear. At times, the Pt. was reminded to swallow everything in his mouth prior to taking another bit/sip. In addition, Pt. was prompted to slow down during meal. Pt. exhibited a wet voice during trials of waffle and sausage; however, no other s/s of aspiration were observed. Pt will consume a mechanical soft diet with nectar-thick liquids without outward signs of aspiration at bedside in 85% of trials. Pt will demonstrate 2 out of 3 components necessary for a safe swallow as listed from the following : upright full for all intake; upright 20-30 minutes after intake; small bites and sips; slow rate of intake. Pt. demonstrated 1 component for a necessary safe swallow. Pt. sat upright during meal. Reminded to implement all precautions during meals. ST Treatment Plan: N/A ST Treatment Plan Frequency: N/A Treatment Plan Duration: discontinue therapy Plan of Care Comment: Met Dysphagia goals, plan to discharge therapy Start Treatment 1: 08:30 Stop Treatment 1: 08:55 Treatment Duration : ST Treatment Charge: Swallow Treatment Minutes of Individual Therapy: 25 ROCHELLE NIELSEN Aug 02, 2016 09:59
--- NOTE | 2016-08-02 12:11 | NUR ---
ROBERT LEFT MESSAGE WITH BRENDA AT [facility], RE: PT/OT RECOMMEND LONG-TERM LOC, SO PT WOULD RETURN IN ICF STATUS. ALSO UPDATED HER ON PT'S DIET CHANGE (PUREED NOW).
[2016-08-02 15:15] VITALS: BP 152/80; PULSE 66; RESP 18; TEMP 96.1; O2SAT 97
[2016-08-02] MEDS: LOVASTATIN 40 MG TABLET PO SCH (17:05)
--- NOTE | 2016-08-02 17:35 | NUR ---
ROBERT CALLED AND SPOKE WITH BRENDA AT ; SHE SAID SHE RECEIVED AUTH FROM [employer] FOR PT TO RETURN SKILLED LEVEL. SHE SAID PT CAN RETURN TOMORROW. IF LATER THAN TOMORROW, SHE WILL NEED TO GET ANOTHER AUTH.
--- NOTE | 2016-08-02 19:23 | NUR ---
SHIFT SUMMARY VSS. RA. DENIES PAIN, SPECIFICALLY CHEST PAIN. HEART RHYTHM IS STABLE. GOOD APPETITE AND INTAKE. GOOD URINE OUTPUT, HEWITT PATENT. MULTIPLE SOFT BMS TODAY. UP TO CHAIR FOR BREAKFAST AND LUNCH. PERIPHERAL IV SALINE LOCKED. TAKES MEDS WHOLE.
--- NOTE | 2016-08-02 19:50 | PNPDOC ---
Subjective Date DATE: 08/02/16 TIME: 19:36 Subjective no c/o .lying in bed. had a good 7-8 sec run of NSVT around 2 am while asleep , asymptomatic. denies cp dyspnea or palpiations. had a good diuresis last night per RN .his lungs sound clearer today. remains on RA Objective Vital Signs Vital signs Vital Signs 08/02/16 08/02/16 08/02/16 08:33 09:23 15:15 Temp 97.4 96.1 Pulse 86 86 66 Resp 18 18 18 B/P 154/83 152/80 Pulse Ox 94 97 O2 Delivery Room Air Room Air Telemetry Rhythm: Sinus Rhythm (mostly 60's), V-Tachycardia Height (Feet): 5 Height (Inches): 5.00 Weight (Kilograms): 77.300 General Alert, Orientated x 3, No Acute Distress Eyes (Brief) EOMI, PERRL, NOT FOUND: trauma ENMT (Brief) mucosa moist Neck (Brief) JVD (mild) Respiratory (Brief) clear all pablo, equal bilaterally Cardiovascular (Brief) murmur, regular rate, regular rhythm Capillary Refill: <2 sec Abdomen (Brief) BS normo active x4, soft, NOT FOUND: distended, tender (Brief) NOT FOUND: deformity Extremities (Brief) Extremity : Extremity Finding: edema (trace ), NOT FOUND: clubbing, cyanosis Lymphatic (Brief) NOT FOUND: lymphedema Musculoskeletal (Brief) NOT FOUND: deformity Integumentary (Brief) pink, warm Neurologic (Brief) FOUND: cranial 2-12 intact, NOT FOUND: facial droop, ptosis Psychiatric (Brief) alert, attentive, normal affect, oriented Sepsis Diagnostic Criteria Sepsis Confirmed/Suspected Infection: Yes SIRS Criteria: Acute mental status chg, WBC >=12,000 or <=4,000, Bands >= 10% Severe Sepsis Creatinine >2.0mg/dL, Lactate >=2.0 mg/dL Assessment & Plan Plan/Intensity of Service elevated trop/ NSTEMI based on inferolateral ischmic changes on ekg and troponin level. medical Rx sinus brdycardia improved DCHF acute on chronic ,diuresed well and lungs are clearer ISATU/CKD ,UTI better recovering HTN DLDO NSVT asymptomatic sreedhar BB dose AMI Rx echo shows good LVFX gentle diuresis due to hypervolemia/mild CHF (clinically +BNP+CXR) may need better BP control ? JANNA i soon if renal fx continue to be stable. trying increase BB slightly ,please call me for symptomatic bradycardia <50 or severe madie <40 also checking BMP Mg Troponin and EKG. discussed with pt ( and discussing w 1ry service) the role of heart cath . pt wants to think about it and talk with family. not sure he s a good candidate considering his comorbidites and reovery fro ISATU and nonambulatory status. will optimize anti ischemic Rx. reccomend good BP control. had to d/c hydralazine to acute CT. I'll follow intermittently ,please call w CV concerns. BRAULIO ROJO MD Aug 02, 2016 19:39
[2016-08-02 20:13] LABS: BASOPHILS % (AUTO) 0.3 % (0-2); EOSINOPHILS # (AUTO) 0.3 T/MM3 (0-0.5); EOSINOPHILS % (AUTO) 2.8 % (0-4); HCT - HEMATOCRIT 37.4 % (41-53); HGB - HEMOGLOBIN 12.4 GM/DL (13.5-17.5); IMMATURE GRANULOCYTE # (AUTO) 0.05 T/MM3 (0.00-0.03); IMMATURE GRANULOCYTE % (AUTO) 0.4 % (0.0-0.5); LYMPHOCYTES # (AUTO) 2.2 T/MM3 (1-4.8); LYMPHOCYTES % (AUTO) 18.8 % (23-45); MEAN CORPUSCULAR HGB CONC(MCHC 33.2 GM/DL (31-37); MEAN CORPUSCULAR VOLUME 93.5 UM3 (80-100); MEAN PLATELET VOLUME 10.4 UM3 (9.4-12.4); MONOCYTES # (AUTO) 1.1 T/MM3 (0-0.8); MONOCYTES % (AUTO) 9.3 % (0-9.0); NEUTROPHILS #(AUTO)-ABSOLUTE 7.9 T/MM3 (1.8-7.7); NEUTROPHILS % (AUTO) 68.4 % (33-66); WBC - WHITE BLOOD COUNT 11.5 T/MM3 (4.5-11.0)
[2016-08-02 20:20] LABS: ANION GAP 13 MEQ/L (5-15); BUN/CREATININE RATIO 16 RATIO (6-26); CALCIUM 8.8 MG/DL (8.4-10.2); CHLORIDE 104 MEQ/L (98-107); CO2 - CARBON DIOXIDE 29 MEQ/L (22-30); GLOMERULAR FILTRATION RATE 71; GLUCOSE 114 MG/DL (75-110); POTASSIUM 3.8 MEQ/L (3.6-5); SODIUM 146 MEQ/L (134-144)
[2016-08-02 20:23] VITALS: PULSE 80
[2016-08-02] MEDS: TAMSULOSIN 0.4 MG CAPSULE PO SCH (21:13)
[2016-08-02] MEDS ORDERED: ATORVASTATIN 40 MG TABLET PO SCH (22:00)
[2016-08-03] VITALS: BP 142/67; PULSE 70; RESP 18; TEMP 97.2; O2SAT 95
[2016-08-03 05:12] LABS: ANION GAP 13 MEQ/L (5-15); BUN/CREATININE RATIO 16 RATIO (6-26); CALCIUM 8.6 MG/DL (8.4-10.2); CHLORIDE 106 MEQ/L (98-107); CO2 - CARBON DIOXIDE 27 MEQ/L (22-30); CREATININE 0.9 MG/DL (0.8-1.5); GLOMERULAR FILTRATION RATE 80; GLUCOSE 102 MG/DL (75-110); POTASSIUM 3.8 MEQ/L (3.6-5); SODIUM 146 MEQ/L (134-144)
--- NOTE | 2016-08-03 05:36 | NUR ---
SHIFT SUMMARY: PT IS A&OX3, COOPERATIVE AND SMILES A LOT. PT IS IV LOCKED, ON RA, DENIES PAIN, AND IS NIGHTMUTE. PT HAD A NUMBER OF LOOSE STOOLS DURING MY SHIFT (SEE INTERVENTIONS/OUTPUT) AND TAKES MEDS WHOLE WITH THICKENED JUICE. PT HAS AN INDWELLING HEWITT CATHETER THAT IS PATENT AND PUTS OUT, IS ON TELEMETRY, AND HAS BGM'S (AC/HS). CALL LIGHT WITHIN REACH, BED ALARM ON.
[2016-08-03] MEDS: BETHANECHOL 25 MG TABLET PO SCH ×2 (06:06→11:49)
[2016-08-03] MEDS ORDERED: ISOSORBIDE MONONITRATE ER 30 MG TABLET PO SCH (06:30)
[2016-08-03] MEDS: POLYETHYL.GLYCOL 3350 PACKET 17gm PO SCH (06:43)
[2016-08-03 07:41] VITALS: BP 150/80; PULSE 74; RESP 14; TEMP 97.1; O2SAT 96
[2016-08-03] MEDS: ASPIRIN *EC* 81mg TABLET PO SCH (08:14)
[2016-08-03] MEDS: CEFTRIAXONE 1 G in NORMAL SALINE 100 ML IV SCH (08:16)
[2016-08-03] MEDS: ENOXAPARIN 40 MG/0.4 ML INJECTION SQ SCH (08:17)
[2016-08-03 08:42] VITALS: PULSE 74; RESP 14
[2016-08-03] MEDS ORDERED: AMLODIPINE 5 MG TABLET PO SCH (09:00)
--- NOTE | 2016-08-03 12:51 | NUR ---
CM SPOKE WITH DOCTOR, ANTICIPATE DC TODAY. LEFT MESSAGE WITH BRENDA RENE ABOUT THIS. LEFT MESSAGE WITH MATT ABOUT THIS.
--- NOTE | 2016-08-03 13:37 | PNPDOC ---
Subjective Date DATE: 08/03/16 TIME: 13:27 Subjective F/U: Sepsis, ISATU Doing okay today. Breathing well. No chest pain. No nausea. Eating well. No f/ c. Tolerating johnson cath. Objective Vital Signs Vital signs Vital Signs Date Time Temp Pulse Resp B/P Pulse Ox O2 Delivery O2 Flow Rate FiO2 08/03/16 08:42 74 14 08/03/16 07:41 97.1 150/80 96 Room Air Telemetry Rhythm: Sinus Rhythm (mostly 60's), V-Tachycardia Height (Feet): 5 Height (Inches): 5.00 Weight (Kilograms): 78.500 General General Appearance: Alert, Overweight, Well Nourished, Well Developed, No Acute Distress, Looks Stated Age Eyes (Brief) Eyes: FOUND: EOMI, PERRL, NOT FOUND: scleral icterus ENMT (Brief) ENMT: FOUND: hearing intact, mucosa moist Neck (Brief) Neck: FOUND: midline, NOT FOUND: nuchal rigidity, spasm Respiratory (Brief) Respiratory: FOUND: clear all pablo, equal bilaterally, NOT FOUND: rales, wheezes Cardiovascular (Brief) Cardiac: FOUND: regular rate, regular rhythm Abdomen (Brief) Abdominal: FOUND: BS normo active x4, soft, NOT FOUND: tender (Brief) Male: FOUND: other (Johnson in place ) Extremities (Brief) Extremity : Side: Bilateral Extremity: leg Extremity Finding: NOT FOUND: edema Musculoskeletal (Brief) Musculoskeletal: NOT FOUND: spasm Integumentary (Brief) Integumentary: FOUND: dry, warm Neurologic (Brief) Neurological: FOUND: cranial 2-12 intact Psychiatric (Brief) Psychiatric: FOUND: alert, normal affect Laboratory Laboratory Laboratory Tests 08/02/16 20:03 08/03/16 04:44 Laboratory Tests 08/02/16 20:03 Sepsis Diagnostic Criteria Sepsis Confirmed/Suspected Infection: Yes SIRS Criteria: Acute mental status chg, WBC >=12,000 or <=4,000, Bands >= 10% Severe Sepsis Creatinine >2.0mg/dL, Lactate >=2.0 mg/dL Assessment & Plan Problems: (1) Acute renal failure Status: Resolved Qualifiers: Acute renal failure type: unspecified Qualified Codes: N17.9 - Acute kidney failure, unspecified (2) Tongue swelling Status: Acute Assessment & Plan: sulfa rxn (3) Dysphagia Status: Acute Qualifiers: Dysphagia type: unspecified Qualified Codes: R13.10 - Dysphagia, unspecified (4) Hypoglycemia Status: Acute (5) Elevated troponin Status: Acute Assessment & Plan: POA- asymptomatic; NSTEMI (6) Sepsis Status: Resolved Qualifiers: Sepsis type: sepsis due to unspecified organism Qualified Codes: A41.9 - Sepsis, unspecified organism (7) Diet-controlled type 2 diabetes mellitus Status: Chronic (8) Post-polio syndrome Status: Chronic (9) Hypospadias in male Status: Chronic (10) Hypertension Status: Chronic (11) BPH (benign prostatic hyperplasia) Status: Chronic (12) Metabolic encephalopathy Status: Resolved Plan/Intensity of Service Will D/C to for skilled care. Will start Vit B12 due to low normal B12 levels. Continue Johnson to DD - F/U with Urology in ~ 1 week. F/U with Dr Galeano in 1 week See orders for details. Case discussed with nursing and CM. Time spent with discharge greater than 35 minutes. DVT Prophylaxis: SCD'S Code Status Do Not Resuscitate Hospital Course Summary Disclaimer The hospital course summary below is not to be considered part of the above Progress Note. Hospital Course Summary 07/27 Admit patient to inpatient status under the care of Dr. Arevalo for sepsis, ISATU and elevated Troponin. She was started on IV fluids and IV cefepime for antimicrobial coverage while in the emergency room. On admission coude Johnson cath placed by myself and urinalysis is obtained. Concern for chronic urinary retention. Given presence of hypospadia's anatomy. Patient is planning for placement of suprapubic catheter in the outpatient setting. May need to consider leaving Johnson catheter in-place at time of discharge. Will recheck CBC and Manual diff now. Continue to monitor serial lactate levels as per sepsis protocol. Patient cardiac telemetry and will obtain serial troponins 3. Consult for speech therapy, given recent dysphasia. Change to half-normal saline for ongoing hydration. Monitor Accu-Cheks with meals and at bedtime. SCDs to bilateral lower extremity for DVT prophylaxis Will discuss further plan of care with Dr Arevalo At time of discharge medical care will return to primary care provider. Dr. Galeano 07/28 We plan to continue the current therapy, to get a repeat basic metabolic profile and CBC in the morning. We also plan to get a repeat troponin in 1 in the morning 07/29/16- Calvin Lua/Oksana Arevalo prior to seeing pt. *AMS- this appears to be a fairly significant change. Could be encephalopathy from renal failure/Bactrim and other meds. We need to get CT of the head now. Hold Celexa and other centrally acting meds. Treat infection. Need to normalize BG. *Hypoglycemia- Unclear cause. No meds that I can identify as a cause. Concern for pancreatic abnormality. Assess lipase, CA 19-9. Add D5NS IVF- he needs ongoing hydration given renal failure. He did get some Lasix for fluid overload, breathing ok. Start hypoglycemia protocol as well. We may have to change to D10 if BG remains low. Change to regular diet since BG is running low. *Glossal swelling- This is apparently new. CT head. Check TSH, B12, Folate. ST eval due to reported dysphagia, possible vomiting. May need soft tissue imaging of the neck if persists. *BPH, Hypospadia, Recurrent UTI- Continue Johnson. May need s/p cath. *Sepsis- unclear cause. Acute reactive leukocytosis? Aspiration? UTI? Change azithro and cefepime due to cardiac arrhythmia risk and risk of AMS/ Seizure with Cefepime. Change to Zosyn renal dose to cover aspiration and broad spectrum UTI. Repeat CXR in AM. *HTN- Stable. continue Hydralazine. Monitor for rebound hypertension. *NSTEMI, Type II- Monitor. No acute procedures per cardiology. He does not report chest pain. Agree with echo due to possible congenital defects. Evaluation pending. Repeat labs in AM. Continue close monitoring. 07/30/16 Somnolence/encephalopathy - much improved. Pt is A&O and appropriately conversational this am. Tongue swelling/dysphagia - reportedly improving. Modified barium swallow study shows aspiration with thin consistency barium and tracheal penetration with nectar and honey consistencies. Speech therapy recommends a pureed diet with nectar-thick liquids and swallow precautions. ISATU - continues to improve. BUN 33 and cr 1.8 today. Bradycardia - metoprolol dose was reduced from 25 mg BID to 12.5 mg BID. Echo done, report pending. Sepsis syndrome - resolved. Uncertain origin and it's possible that there was no insinuating infectious source; UC grew out low-colony mixed bhavna and BC remain negative. Hx frequent UTI; urology planning on suprapubic cath placement in the future. Currently has coude Johnson. Azithromycin and cefepime were discontinued yesterday. He continues on renally dosed Zosyn. Hypoglycemia - tends to be most prominent in am; improving from yesterday. Hope to see improvements now that he is more alert and eating more. He is not on any diabetic medications. Continue D5NS but will decrease the rate to help prevent fluid overload. 07/31/16 Acute kidney injury - much improved. Creatinine is down to 1.5 today. Tongue swelling and dysphagia - continues to improve. Discussed with speech therapy. Recommend a modified diet and continued evaluation upon discharge. Bradycardia. Still persists, typically in the low to mid 50s. Continue lower dose of metoprolol. Diarrhea. Check for C. difficile. May need to stop Zosyn, especially considering that the source of sepsis was never identified. Hypoglycemia. We'll stop IV fluids and monitor sugars today. Patient becomes symptomatic with blood sugars in the 60s. Hypospadias and urinary retention. Will need discharged with Johnson in place, and planned follow-up with urology in outpatient setting. Of note, free T4 and vitamin B12 are still pending. TSH was low at 0.03 - will repeat today. Echocardiogram report is also pending. 08/01/16 Tongue swelling - improving. Eating well without aspiration. Suprapubic tenderness - check UA. Will need to DC with Johnson. Hypoglycemia - improved while off the D5. If remains stable (ie regarding tongue and sugars off IVF), likely will be able to DC soon. 08/02/16 Reported run of ventricular tachycardia, slow rate, 18 beats. Patient was asymptomatic. I've contacted Dr. Bassett. Tongue swelling continues to improve, and his dysphagia is stable. No suprapubic tenderness today, and UA done yesterday was negative. He will be going back to [facility] with a Johnson catheter, and will need to follow-up with urology for discussion about placement of a suprapubic catheter. If cleared by Dr. Bassett, can likely be discharged very soon. 08/03 Doing okay today. Breathing well. No chest pain. No nausea. Eating well. No f/ c. Tolerating johnson cath. Will D/C to for skilled care. Will start Vit B12 due to low normal B12 levels. Continue Johnson to DD - F/U with Urology in ~ 1 week. F/U with Dr Galeano in 1 week See orders for details. TOM BOLAND MD Aug 03, 2016 13:30
[2016-08-03] MEDS ORDERED: CYAN10009 PO (13:41)
[2016-08-03] MEDS ORDERED: ATOR40TA PO (13:41)
[2016-08-03] MEDS ORDERED: ISOS30TA6 PO (13:41)
[2016-08-03] MEDS ORDERED: METO25TA6 PO ×2 (13:41)
[2016-08-03] MEDS ORDERED: AMLO5TAB2 PO (13:41)
--- NOTE | 2016-08-03 13:45 | PDOCECFAO ---
Admission Orders Admission Orders Admit to: Residential Allergies: Coded Allergies: sulfamethoxazole (Verified Allergy, Severe, tongue swells, 07/29/16) trimethoprim (Verified Allergy, Severe, tongue swells, 07/29/16) doxycycline (Verified Allergy, Unknown, "THROAT SWELLING", 04/04/15) Admitting Diagnosis Arf,Elevated Troponin,Sepsis Admitting Physician Suman Arevalo DO Attending Physician Dr Galeano Code Status Do Not Resuscitate Anticipated LOS: 30 days or less Rehab Potential: Fair Rehab Prognosis: Fair Diet: No Salt Added, No Concentrated Sweets, Blended/Pureed (Pureed diet with syrup thick liquids.) May use Facility Protocol /SO: Yes May Have Flu Vaccine: Yes Evaluations/Treat: Speech (Dysphagia), PT, OT Residential Certification I certify that SNF services are required to be given on an Inpatient basis because of the patients need for custodial care on a continuing basis for the condition(s) for which he/she received inpatient hospital services prior to his/her transfer to the SNF. SNF inpatient care is necessary for the following reasons Med Admininistration, Teach Med Managment, Teach DM Management, Other (custodial for Johnson care. PT/OT to maximize functional status. ) Cardiac or Respiratory Arrest In Event of Arrest: Do Not Start CPR Resident is Aware of Diagnosis: Yes Additional Orders: F/U: Dr Galeano in 1 week F/U: Dr Damaris Gary in 1 week for urological evaluation. F/U: Dr Bassett in 1 month Johnson to DD. Routine johnson care. Monitor sugars as prior to admission. BMP in 1 week - Dx: medication use. TOM BOLAND MD Aug 03, 2016 13:45
[2016-08-03 13:58] VITALS: BP 119/65; PULSE 70; RESP 18; TEMP 95.8; O2SAT 96
--- NOTE | 2016-08-03 14:14 | NUR ---
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 UPDATED PT ABOUT THIS. REVIEWED AND SIGNED IM WITH PT, HE HAD NO QUESTIONS/CONCERNS. HE SAID HE WANTS TO RETURN TO [facility]. TIME OUT COMPLETED WITH RN. FAXED ORDERS TO [facility].
--- NOTE | 2016-08-03 14:15 | NUR ---
CM RECEIVED CALL FROM MATT. UPDATED HER ON TRANSFER TODAY. SHE WAS AGREEABLE. REVIEWED IM LETTER WITH HER OVER PHONE, GOT VERBAL SIGNATURE. SHE HAD NO QUESTIONS/NEEDS.
--- NOTE | 2016-08-03 14:37 | NUR ---
STATUS PATIENT AWAITING TO BE PICKED UP TO RETURN TO [facility] AT 1700. VSS. RA. DENIES PAIN. TELE AND IV DC'D PER DR ORDER. SMALL, SOFT BMS TODAY. DECREASED URINE OUTPUT IN DR KASH AWARE. GOOD APPETITE AND PO INTAKE, PT FEEDS HIMSELF. EXTENSIVE CATHETER CARE PERFORMED TODAY DUE TO MULTIPLE BOWEL MOVEMENTS.
[2016-08-03 15:04] VITALS: BP 111/60; PULSE 68; RESP 16; TEMP 96.6; O2SAT 96
--- NOTE | 2016-08-03 15:50 | NUR ---
ROBERT CALLED BRENDA AT [facility], RE: IS THERE ANYTHING ELSE SHE NEEDS FROM THIS WORKER? SHE SAID NO, SHE WILL CALL IF SHE DOES. Addendum: 08/03/16 at 1551 by ALONDRA KLEIN SHE SAID SHE DID RECEIVE THE ORDERS THAT THIS WORKER FAXED.
--- NOTE | 2016-08-03 17:29 | ECHOF ---
DATE OF SERVICE 07/30/2016 INDICATIONS High troponin, non-STEMI, cardiomegaly. TECHNICAL QUALITY Technically good 2D, M-mode, Doppler echocardiographic images were submitted for interpretation. FINDINGS 1. CARDIAC CHAMBERS: Left atrium is enlarged. It measured 4.8 cm. All other cardiac chambers are normal in size. The aortic root diameter is normal. RV size and contractility appear normal. 2. LEFT VENTRICLE: Wall thickness is consistent with mild concentric LVH. Wall motion analysis is abnormal due to septal hypokinesis. LV systolic function appears to be low-normal range. Ejection fraction is estimated at about 50% to 55%. Diastolic function assessment shows normal E/A ratio and normal MVDT. 3. VALVES: Aortic valve sclerosis and calcification is present. Valve opening appears normal. Mitral valve exhibits moderately heavy annular calcification anteriorly and posteriorly. Valve excursion appears normal. Tricuspid valve structure and motion appear normal. Normal valve excursion. 4. DOPPLER: Doppler shows [id number]-jl-[id number] eccentric mitral regurgitation directed posteriorly. Hply-zz-hiqupknx aortic regurgitation. Normal flow velocities throughout. Mean gradient across the mitral valve only 2 mmHg. Trace tricuspid regurgitation with estimated systolic PA pressure of 68 mmHg consistent with pulmonary hypertension. 5. No evidence of pericardial effusion, intracardiac masses, or demonstrable shunts. IMPRESSION 1. Left atrial enlargement. 2. Low normal LV systolic function. EF is about 50% to 55% with septal wall hypokinesis. 3. Esyz-bp-ptmzpyba mitral regurgitation, eccentric. 4. Htzd-vb-azxcaoyw aortic regurgitation. 5. Pulmonary hypertension. 6. IVC is not well seen. MTDD
--- NOTE | 2016-08-03 17:35 | NUR ---
DISCHARGE PT DRESSED IN OWN CLOTHES. TRANSFERRED TO W/C WITH ASSIST X2 AND USE OF FULL LIFT. 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 PAPERWORK SENT WITH DJ INSTRUCTOR. PERSONAL BELONGINGS SENT WITH .
--- NOTE | 2016-08-03 17:47 | PNPDOC ---
Subjective Date DATE: 08/03/16 TIME: 17:41 Subjective getting ready to leave facility. sister in law visiting, i know her from other pt connection. pt denies cp dyspnea dizziness or palpitations. decided against card cath. he wants to follow with me in the office . Objective Vital Signs Vital signs Vital Signs 08/03/16 08/03/16 08/03/16 08/03/16 07:41 08:42 13:58 15:04 Temp 97.1 95.8 96.6 Pulse 74 74 70 68 Resp 14 14 18 16 B/P 150/80 119/65 111/60 Pulse Ox 96 96 96 O2 Delivery Room Air Room Air Room Air Telemetry Rhythm: Sinus Rhythm (mostly 60's no madie or further VT) Height (Feet): 5 Height (Inches): 5.00 Weight (Kilograms): 78.500 General Alert, Orientated x 3, Cooperative, Other (chronically ill very [place]), Looks Stated Age Eyes (Brief) EOMI, PERRL, NOT FOUND: trauma ENMT (Brief) mucosa moist Neck (Brief) NOT FOUND: JVD Respiratory (Brief) clear all pablo, equal bilaterally Cardiovascular (Brief) gallop (s4), regular rate, regular rhythm, NOT FOUND: murmur (s4) Capillary Refill: <2 sec Abdomen (Brief) BS normo active x4, soft, NOT FOUND: distended, hepatosplenomegaly, other, pulsatile mass, tender (Brief) NOT FOUND: deformity Extremities (Brief) Extremity : Extremity Finding: NOT FOUND: clubbing, cyanosis, deformity Lymphatic (Brief) NOT FOUND: adenopathy, lymphedema Musculoskeletal (Brief) NOT FOUND: deformity Integumentary (Brief) dry, pink, warm Neurologic (Brief) FOUND: cranial 2-12 intact, motor, NOT FOUND: facial droop, ptosis Psychiatric (Brief) alert, attentive, normal affect, oriented Laboratory Laboratory Laboratory Tests 08/02/16 20:03 08/03/16 04:44 Laboratory Tests 08/02/16 20:03 Sepsis Diagnostic Criteria Sepsis Confirmed/Suspected Infection: Yes SIRS Criteria: Acute mental status chg, WBC >=12,000 or <=4,000, Bands >= 10% Severe Sepsis Creatinine >2.0mg/dL, Lactate >=2.0 mg/dL Assessment & Plan Plan/Intensity of Service elevated trop/ NSTEMI based on inferolateral ischmic changes on ekg and troponin level. medical Rx sinus brdycardia improved DCHF acute on chronic ,diuresed well and lungs are clearer ISATU/CKD ,UTI better recovering HTN DLDO NSVT asymptomatic DNR sreedhar BB dose AMI Rx echo shows good LVFX medical Rx seems stable. wants conservative measures only no heart cath at this time. RTC 3 month BRAULIO ROJO MD Aug 03, 2016 17:45
--- NOTE | 2016-08-04 15:30 | DSF ---
ADMITTING DIAGNOSIS Sepsis. DISCHARGE DIAGNOSIS Sepsis - resolved; unknown organism unknown source. ASSOCIATED CONDITIONS/COMPLICATIONS 1. Acute renal failure - resolved. 2. NSTEMI. 3. Type 2 diabetes mellitus. 4. Post-polio syndrome. 5. Hypospadias 6. Hypertension. 7. BPH. 8. Nonsustained V-tach. 9. Dysphagia. 10. Metabolic encephalopathy. 11. Swelling secondary to sulfa. 12. Overweight. 13. Stage 11 chronic kidney disease. CONSULTS 1. Dr. Bassett - cardiology. 2. PT, OT, Speech PROCEDURES Modified barium swallow. CLINICAL RESUME The patient is an 86-year-old gentleman who resides at [facility]. He presents to [facility] emergency room secondary to weakness, decreased appetite and concern for sepsis. The patient was recently treated for urinary tract infection. Two weeks ago he was started on Cipro and last week it was changed to Bactrim. He does have longstanding history of UTI and has been under the care of Dr. Damaris Gary for urological care. It sounds as if he is anticipating suprapubic catheter placement in the near future. He had resided independently until one week ago at which time he was urgently moved into [facility] for more aggressive assistance. It is reported by staff that he is having difficulty swallowing, however patient reports that it was because he did not like the taste of the food. He did have one episode of emesis earlier today which prompted visit to the emergency room. There his white count was found to be significantly elevated at 31.9. 95% neutrophils, 1% bands are noted. Creatinine is elevated at 3.3. Lactate is 2.2 with procalcitonin 0.42. Chest x-ray showed no acute findings. UA was unable to initially be performed secondary to his chronic retention. Given his concerns for on potential sepsis, hospitalist service was contacted. Patient was subsequently placed in inpatient admission status for further evaluation and treatment. For complete details of the H&P refer to that document. LABORATORY White blood count is 31.9 with 95% neutrophils and 1% bands. Hemoglobin is 12.3 with hematocrit 36.6, MCV 92.2 and platelets 225,000. Serum sodium is 144, potassium 5.2, chloride 106, CO2 25, BUN 43 with creatinine 3.3, GFR 18 and blood glucose 127. Phosphorus is 3.4 with magnesium 2.1. AST is elevated at 60 with ALT normal at 34. Troponin I is 1.380. Pro BNP is 16,700. Lipase is 41. Lactate is 2.4 with procalcitonin 0.42. CA 19 - 9 antigen is 4. TSH is 0.3 with free T4 1.81. UA reveals trace protein, trace blood, 2+ leukocyte esterase with 50 - 200 WBC/HPF along with 2+ bacteria. Urine culture showed mixed bhavna. C-Diff toxin B gene is negative. HOSPITAL COURSE The patient was placed in inadmission status at [facility] under the care of Dr. Arevalo. He was started on IV fluids as well as IV cefepime for microbial coverage of pathogens. Sterling catheter was placed secondary to chronic urinary retention and acute kidney injury. Cardiac telemetry was initiated. Serial enzymes were obtained. Speech therapy was consulted given his recent dysphagia. SCDs were initiated for DVT prophylaxis. Dr. Bassett was consulted regarding his NSTEMI. His hospital course was one of gradual improvement. Urine and blood cultures were all negative. Definitive source of his sepsis syndrome was not identified. His leukocytosis, however did defervesce during the hospitalization. Hemoglobin remained stable. We did see interval improvement of creatinine, decreasing from 3.3 the time of presentation down to 0.9 by day of discharge. Potassium additionally did normalize to 3.8 by time of discharge. Dr. Bassett was consulted. Cardiac medication adjustments were made. PT, OT were consulted with gradual and slow gains in strength and functional status were made. By time of discharge he was tolerating pureed diet with syrup thick liquids well. Vitals were stable and he was afebrile. Arrangements were made for continued care at [facility]. Narrative disclaimer: Above narrative as a brief summary of hospital course. Refer to medical records for complete details. DISCHARGE CONDITION Stable/good. DIET Pureed diet with syrup thick liquids, no added salt/concentrated sweets. ACTIVITIES As tolerated. MEDICATIONS 1. Norvasc 10 mg daily. 2. Lipitor 40 mg q.h.s. 3. B12 1000 mcg p.o. daily 4. Isosorbide mononitrate 30 mg a.c. breakfast. 5. Metoprolol tartrate 25 mg with breakfast with 12.5 mg at supper. 6. Acetaminophen 500 mg b.i.d. 7. Aspirin 81 mg daily. 8. Bethanechol 25 mg t.i.d. 9. Celexa 20 mg daily. 10. Maalox 30 ml q.4h. p.r.n. indigestion. 11. MiraLAX 17 grams daily. 12. Flomax 0.4 mg q.h.s. 13. Stop Hydralazine neck. 14. Stop Mevacor - Lipitor started. 15. Stop Bactrim DS. FOLLOWUP 1. The patient will follow with Dr. Galeano in one week for medical reevaluation. 2. Patient will follow with Dr. Gary in approximately one week for urological reevaluation. 3. Patient will follow with Dr. Spangler in one month for cardiac reevaluation. INSTRUCTIONS TO PATIENT Patient instructed on his diagnosis and treatments provided. He is encouraged to be adherent with medications. Encouraged him to participate well with therapy. Will notify nursing staff and care provider if he develops temperature greater than 100.4 or new or worsening chest pain/difficulty breathing. Should other problems or need occur he could be in contact with the nursing staff at [facility] as well as his care providers. If symptoms become quite dire he can present to emergency room for acute evaluation. Time spent with discharge greater than 35 minutes. MTDD
== END 2016-08-03 17:35 | DRG 871 ==
LOC: ED 11:29 → EDHOLD 14:41 → MED 15:25
PROC: B24BZZZ Ultrasonography of Heart with Aorta (ICD-10-PCS; principal; 2016-07-30)
DX: A41.9 Sepsis, unspecified organism (principal); G93.41 Metabolic encephalopathy; I21.4 Non-ST elevation (NSTEMI) myocardial infarction; I50.33 Acute on chronic diastolic (congestive) heart failure; N17.9 Acute kidney failure, unspecified; N39.0 Urinary tract infection, site not specified; I13.0 Hypertensive heart and chronic kidney disease with heart failure and stage 1 through stage 4 chronic kidney disease, or unspecified chronic kidney disease; I47.2 Ventricular tachycardia; R33.8 Other retention of urine; G14 Postpolio syndrome; Q54.9 Hypospadias, unspecified; N40.1 Benign prostatic hyperplasia with lower urinary tract symptoms; F79 Unspecified intellectual disabilities; E11.649 Type 2 diabetes mellitus with hypoglycemia without coma; R13.10 Dysphagia, unspecified; R19.7 Diarrhea, unspecified; T49.0X5A Adverse effect of local antifungal, anti-infective and anti-inflammatory drugs, initial encounter; K14.8 Other diseases of tongue; E11.22 Type 2 diabetes mellitus with diabetic chronic kidney disease; N18.9 Chronic kidney disease, unspecified; Z87.440 Personal history of urinary (tract) infections; E66.3 Overweight; Z79.899 Other long term (current) drug therapy; Z66 Do not resuscitate; Z68.28 Body mass index [BMI] 28.0-28.9, adult; Z79.82 Long term (current) use of aspirin
CPT/HCPCS: 36000; 36415; 80048; 80053; 80069; 81001; 81003; 82607; 82746; 82948; 83605; 83690; 83735; 83880; 84145; 84439; 84443; 84484; 85007; 85025; 85027; 86301; 87040; 87086; 87493; 93005; 93306; 96365

== ENCOUNTER 2016-08-26 23:39 | Emergency (ER) | payer MEDICARE, MEDICAID ==
[~2016-08-26] VITALS: Ht 161.3 cm; Wt 79.3 kg
[~2016-08-26 23:39] MED LIST changes: +ACET-62 PO; +AMLO5TAB2 PO; +ATOR40TA PO; +CYAN10009 PO; -FLUT16SP12 NS; -HYDR-2119 PO; -HYDR-3989 PO; +ISOS30TA6 PO; -LOVA20TA PO; +MAGN30OR PO; -METO-277 PO; +METO25TA6 PO; +POLY17PO6 PO
--- OUTSIDE RECORDS SUMMARY | 2016-08-26 23:44 | XMS REPORT | Continuity of Care Document ---
Author Author Luis [facility] Organization [facility] Address Unknown Phone Unavailable Support Name Relationship Address Phone KARI FLOWERS MD Caregiver [address] [place] [address] [place] [address] [phone] MEGAN ALVES MD Caregiver [address] [place] [address] [place] [address] [phone] MINDY FRANCO & MATT Next Of Kin [address] [place] [address] Insurance Providers Payer Name Policy Number Subscriber Name Relationship Medicareadvantra Ppo [id number] Raina Franco 16 Self [employer] [place] Plan [id number] Raina Franco 16 Self Advance Directives Directive [...] PO DAILY 06/26/13 Active Fluticasone Propionate 2 Ler[place] NS DAILY 06/26/13 Active Aspirin 81 Mg [...] F (96.8 - 99.1) Temperature (Calculated Celsius) 36.69275 degrees C (36.0 - 37.3) Pulse Rate [...] Has specimen been collected/obtained? Y Urine Specific [place] December 29, 2013 2:25am 1.010 L - [...] Escherichia Coli Name: RAINA FRANCO Unit #: [id number] : 1930 Sex: M Loc / Svc: [facility]NEY DOS: 07/13/14 Signed Report #: [id number] DIAGNOSTIC IMAGING REPORT TYPE OF EXAM: PICC [...] completed 06/25/14 MICROBE SUSCEPTIBLE RUBIO completed 06/25/14 [id number] ITEM OR SERVICE completed 06/25/14 [id number] ITEM OR SERVICE completed 06/25/14 PROPOFOL INJ 500 MG/50ML completed 06/25/14 [id number]"INFUSION, NORMAL SALINE SOLUTION , 1000 CC" completed 06/25/14 INSERT PICC CATH completed 07/13/14 FLUOROGUIDE FOR VEIN DEVICE completed 07/13/14 [id number] WIRE completed 07/13/14 Encounters Encounter Location Date/Time Discharged Recurring [facility] 07/19/14 2:00pm Registered Clinic [facility] 07/13/14 1:39pm
--- OUTSIDE RECORDS SUMMARY | 2016-08-26 23:44 | XMS REPORT | Continuity of Care Document ---
Author Author [facility] Organization [facility] Address Unknown Phone Unavailable Support Name Relationship Address Phone KARI FLOWERS MD Caregiver [address] [place] [address] [place] [address] Unavailable TONI METZGER DO Caregiver [address] [place] [address] Unavailable BENITO BOONE DO Caregiver [address] [place] [address] Unavailable BENITO BOONE DO Caregiver [address] [place] [address] Unavailable MINDY FRANCO & MATT Next Of Kin [address] [place] [address] Insurance Providers Guarantor Raina Franco Address [address] [address] Email DENIED/07-27-16 Payer [facility] State Plan Policy Number [id number] Subscriber's Name Raina Franco Relationship 18 Self Effective Date 16 Expiration Date 16 Payer Medicareadvantra Ppo Policy Number [id number] Subscriber's Name Raina Franco Relationship 18 Self Group Number [id number] Effective Date 07 Advance Directives Directive Response Recorded Date/Time Advanced Directives Type None 07/27/16 11:35am Dr Lea Resuscitation Status Do Not Resuscitate 07/27/16 4:34pm Resuscitation Documents on File No 07/27/16 3:41pm DPOA for Healthcare Only Yes 07/27/16 9:11pm Living Will Yes 07/27/16 3:41pm Chief Complaint and Reason for Visit Chief Complaint ARF,ELEVATED TROPONIN,SEPSIS Reason for Visit Hypospadias in male IBS (irritable bowel syndrome) Knee pain, right Problems Active Problems Medical Problem Onset Date Status Acute renal failure Unknown Resolved BPH (benign prostatic hyperplasia) Unknown Chronic CKD (chronic kidney disease) Unknown Chronic Constipation Unknown Chronic Depression Unknown Chronic Diarrhea Unknown Acute Diet-controlled type 2 diabetes mellitus Unknown Chronic Dysphagia Unknown Acute Elevated troponin Unknown Acute Hypertension Unknown Chronic Hypoglycemia Unknown Acute Hypospadias in male Unknown Chronic IBS (irritable bowel syndrome) Unknown Chronic Knee pain, right Unknown Acute Metabolic encephalopathy Unknown Resolved Post-polio syndrome Unknown Chronic Scrotal ulcer Unknown Acute Sepsis Unknown Resolved Skin breakdown Unknown Acute Tongue swelling Unknown Acute UTI (urinary tract infection) Unknown Acute Urinary Tract Infection not otherwise specified Unknown Acute urinary retention Unknown Acute Medications Current Home Medications Medication Dose Units Route Directions Days Qty Instructions Start Date Acetaminophen 500 Mg Tablet 500 Mg Oral Twice A Day 07/27/16 Amlodipine Besylate 5 Mg Tablet 10 Mg Oral Daily for Hypertension 30 Tablet 08/03/16 Aspirin (Aspir 81) 81 Mg Tablet.dr 81 Mg Oral Daily 06/26/13 Atorvastatin Calcium (Lipitor) 40 Mg Tablet 40 Mg Oral Bedtime for Dylipidemia 30 Tablet 08/03/16 Bethanechol Chloride 25 Mg Tablet 25 Mg Oral Three Times A Day Citalopram Hydrobromide (Celexa) 20 Mg Tablet 20 Mg Oral Daily Cyanocobalamin (Vitamin B-12) (Vitamin B-12) 1,000 Mcg Tablet 1,000 Mcg Oral Daily for Low Normal B12 Level 60 Tablet 08/03/16 Isosorbide Mononitrate (Isosorbide Mononitrate Er) 30 Mg Tab.er.24h 30 Mg Oral Before Breakfast for Cad 30 Tablet 08/03/16 Magnesium Hydroxide/Al Hydrox (Mag-Al Liquid) 30 Ml Suspension 30 Ml Oral Every 4 Hours as needed for Indigestion 07/27/16 Metoprolol Tartrate 25 Mg Tablet 12.5 Mg Oral Give With Supper 30 Tablet 08/03/16 Metoprolol Tartrate 25 Mg Tablet 25 Mg Oral Give With Breakfast 30 Tablet 08/03/16 Polyethylene Glycol 3350 (Miralax) 17 Gm Powd.pack 17 G Oral Daily 07/27/16 Tamsulosin Hcl 0.4 Mg Cap.er.24h 0.4 Mg Oral Bedtime 12/29/13 Past Home Medications Medication Directions Ordered Status Ascorbic Acid (Vitamin C) 500 Mg Tablet, 500 Mg Oral Daily 02/02/11 Discontinued Aspirin 325 Mg Tablet, 325 Mg Oral Daily 02/22/11 Discontinued Aspirin (Aspir 81) 81 Mg Tablet.dr 81 Mg Oral Daily 02/02/11 Discontinued Cephalexin Monohydrate (Cephalexin) 500 Mg Capsule, 500 Mg Oral Bedtime 06/26 Discontinued Gabapentin (Neurontin) 100 Mg Capsule, 100 Mg Oral Twice A Day 06/26/13 Discontinued Hydralazine Hcl 25 Mg Tablet, 25 Mg Oral Twice A Day 02/02/11 Discontinued Hydrocodone Bit/Acetaminophen (Lortab 5/500 Tablet) 1 Tab Tablet, 1 Tab Oral Three Times A Day 02/22/11 Discontinued Lactulose 10 Gm/15 Ml Solution, 10 Gm Oral Twice A Day 06/26/13 Discontinued Lovastatin (Mevacor) 20 Mg Tablet, 20 Mg Oral Daily 02/22/11 Discontinued Lovastatin 20 Mg Tablet, 20 Mg Oral Daily 02/02/11 Discontinued Metoprolol Succinate 25 Mg Tab.er.24h, 25 Mg Oral Twice A Day 07/27/16 Discontinued Metoprolol Tartrate 50 Mg Tablet, 50 Mg Oral Twice A Day 02/02/11 Discontinued Sulfamethoxazole/Trimethoprim (Bactrim Ds Tablet) 1 Each Tablet, 1 Tab Oral Twice A Day 07/27/16 Discontinued Sulfamethoxazole/Trimethoprim (Bactrim Ds Tablet) 1 Tab Tablet, 1 Tab Oral Twice A Day 02/22/11 Discontinued Social History Social History Problem Response Recorded Date/Time Onset Date Status Reason for Hospitalization Sepsis 08/03/2016 1:50pm Not Applicable Not Applicable Chewing Tobacco Status Y 25 yrs ago 06/29/2013 9:56am Not Applicable Not Applicable Hx Substance Use No 07/27/2016 12:22pm Not Applicable Not Applicable Hx Alcohol Use No 07/27/2016 12:22pm Not Applicable Not Applicable Has the pt used tobacco in the last 12 months No 07/27/2016 3:44pm Not Applicable Not Applicable Tobacco Usage none 12/29/2013 9:07am Not Applicable Not Applicable Query Response Start Date Stop Date Smoking Status Never smoker Hospital Discharge Instructions Instructions: Care Instructions: Reason for Hospitalization: Sepsis I was in the hospital because (patient own words): PATIENT STATES, "TO GET CHECKED OUT" Discharge Diet: Pureed diet with syrup thick liquids. No added salt/concentrated sweets. Discharge Activity: Up with assistance Follow Up Appointments: Dr Flowers in [address] Damaris Gary in 1 [address] Bassett in 1 month Pending Lab / Results: No Pending Lab Wound/Incision Care: n/a Pain Management/Treatment: Tylenol as needed Expected Signs/Symptoms: Improvement of functional status. Notify Physician If: Temp >100.4. New or worsening chest pain or difficulty breathing. During Business Hours:: Nursing staff at [facility] After Business Hours:: Nursing staff at [facility]. Condition at time of discharge: Good Plan of Care Discharge Date 08/03/16 5:35pm Disposition 03 TO SNU NOT [facility] (SNF) Instructions/Education Provided Sepsis (GEN) Prescriptions See Medication Section Care Plan and Goals See Discharge Instructions Section Functional Status Query Response Date Recorded Mobility Status Transfer w/assist August 03, 2016 1:50pm Assistive Devices Wheelchair August 03, 2016 1:50pm Activity Limitations Weakness August 03, 2016 1:50pm Feeding Ability Independent August 03, 2016 1:50pm Toileting Ability Dependent August 03, 2016 1:50pm Grooming Ability Assist August 03, 2016 1:50pm Dressing Ability Assist August 03, 2016 1:50pm Driving Ability Dependent August 03, 2016 1:50pm Housework Ability Dependent August 03, 2016 1:50pm Meal Preparation Ability Dependent August 03, 2016 1:50pm Stair Climbing Ability Dependent August 03, 2016 1:50pm Ability to complete ADL's impeded by Impaired Mobility August 03, 2016 1:50pm Cognitive/Perceptual Impairments Impaired vision Impaired hearing August 03, 2016 1:50pm Visual Assistive Devices Glasses August 02, 2016 3:03pm Allergies, Adverse Reactions, Alerts Allergen Type Severity Reaction Status Last Updated Doxycycline Allergy Unknown "THROAT SWELLING" Active 04/04/15 Sulfamethoxazole Allergy Severe tongue swells Active 07/29/16 Trimethoprim Allergy Severe tongue swells Active 07/29/16 Immunizations Query Response on File Recorded Date/Time Hx Influenza Vaccination Y fall 201507/27/16 3:44pm Hx Pneumococcal Vaccination Y WITHIN PAST 10 YEARS 07/27/16 3:44pm Hx Influenza Vaccination Y fall 201507/27/16 3:44pm Influenza Vaccine Hx fall 201507/28/16 12:30pm Vital Signs Acute Vital Signs Vital Response Date/Time Temperature (Fahrenheit) 96.6 deg F (96.8 - 99.1) 08/03/2016 3:04pm Temperature (Calculated Celsius) 35.66423 degrees C (36.0 - 37.3) 08/03/2016 3:04pm Pulse Rate (adult) 68 bpm (60 - 100) 08/03/2016 3:04pm Respiratory Rate 16 breaths/min (10 - 20) 08/03/2016 3:04pm O2 Sat by Pulse Oximetry 96 % (90 - 100) 08/03/2016 3:04pm Oxygen Delivery Method Nasal Cannula 07/28/2016 7:33pm Oxygen Delivery Method Room Air 08/03/2016 3:04pm Oxygen Flow Rate 1.00 L/min 07/28/2016 7:33pm Blood Pressure 111/60 mm Hg 08/03/2016 3:04pm Blood Pressure Source Automatic Cuff 08/03/2016 3:04pm Height (Feet) 5 feet 08/03/2016 5:47pm Height (Inches) 5.00 inches 08/03/2016 5:47pm Weight (Kilograms) 78.500 kg 08/03/2016 8:09am Body Mass Index (BMI) 29.1 07/27/2016 3:37pm Results Laboratory Results Test Name Result Units Flags Reference Collection Date/Time Result Date/ Time Comments White Blood Count 11.5 T/MM3 D H 4.5-11.0 08/02/2016 8:03pm 08/02/2016 8: 28pm Red Blood Count 4.00 M/MM3 L 4.50-5.90 08/02/2016 8:03pm 08/02/2016 8: 28pm Hemoglobin 12.4 GM/DL D L 13.5-17.5 08/02/2016 8:03pm 08/02/2016 8:28pm Hematocrit 37.4 % D L 41-53 08/02/2016 8:03pm 08/02/2016 8:28pm Mean Corpuscular Volume 93.5 UM3 80-100 08/02/2016 8:03pm 08/02/2016 8: 28pm Mean Corpuscular Hemoglobin 31.0 UUG 26-34 08/02/2016 8:03pm 2016 8:28pm Mean Corpuscular Hemoglobin Concent 33.2 GM/DL 31-37 08/02/2016 8:03pm 08/02/2016 8:28pm RDW Standard Deviation 46.1 FL 36.9-50.2 08/02/2016 8:03pm 08/02/2016 8 :28pm Platelet Count 202 T/MM3 130-400 08/02/2016 8:03pm 08/02/2016 8:28pm Mean Platelet Volume 10.4 UM3 9.4-12.4 08/02/2016 8:03pm 08/02/2016 8: 28pm Neutrophils (%) (Auto) 68.4 % H 33-66 08/02/2016 8:03pm 08/02/2016 8: 28pm Lymphocytes (%) (Auto) 18.8 % L 08/02/2016 8:03pm 08/02/2016 8: 28pm Monocytes (%) (Auto) 9.3 % H 0-9.0 08/02/2016 8:03pm 08/02/2016 8:28pm Eosinophils (%) (Auto) 2.8 % 0-4 08/02/2016 8:03pm 08/02/2016 8:28pm Basophils (%) (Auto) 0.3 % 0-2 08/02/2016 8:03pm 08/02/2016 8:28pm Immature Granulocyte % (Auto) 0.4 % 0.0-0.5 08/02/2016 8:03pm 2016 8:28pm Absolute Neutrophils (auto) 7.9 T/MM3 H 1.8-7.7 08/02/2016 8:03pm 2016 8:28pm Absolute Lymphocytes (auto) 2.2 T/MM3 1-4.8 08/02/2016 8:03pm 2016 8:28pm Absolute Monocytes (auto) 1.1 T/MM3 H 0-0.8 08/02/2016 8:03pm 2016 8:28pm Absolute Eosinophils (auto) 0.3 T/MM3 0-0.5 08/02/2016 8:03pm 2016 8:28pm Absolute Basophils (auto) 0.0 T/MM3 0-0.2 08/02/2016 8:03pm 08/02/2016 8:28pm Absolute Immature Granulocyte (auto 0.05 T/MM3 H 0.00-0.03 08/02/2016 8: 03pm 08/02/2016 8:28pm Neutrophils % (Manual) 90.0 % H 33-07/28/2016 12:43am 07/28/2016 5: 16am Band Neutrophils % 2.0 % 0-6 07/28/2016 12:43am 07/28/2016 5:16am Lymphocytes % (Manual) 7.0 % L -45 07/28/2016 12:43am 07/28/2016 5: 16am Monocytes % (Manual) 1.0 % 0-9.0 07/28/2016 12:43am 07/28/2016 5:16am Band Neutrophils # 0.4 T/MM3 07/28/2016 12:43am 07/28/2016 5:16am Absolute Neutrophils (Manual) 16.0 T/MM3 H 1.8-7.7 07/28/2016 12:43am 5:16am Lymphocytes # (Manual) 1.2 T/MM3 1-4.8 07/28/2016 12:43am 07/28/2016 5: 16am Monocytes # (Manual) 0.2 T/MM3 0-0.8 07/28/2016 12:43am 07/28/2016 5: 16am Red Cell Morphology Comment NORMAL 07/28/2016 12:43am 07/28/2016 5: 16am Icterus Index < 2 0-7 08/03/2016 4:44am 08/03/2016 5:12am Chemistry Specimen Hemolysis < 15 0-25 08/03/2016 4:44am 08/03/2016 5 :12am 0-25: Specimen Exhibited No Hemolysis. Turbidity < 20 0-20 08/03/2016 4:44am 08/03/2016 5:12am Sodium Level 146 MEQ/L H 134-144 08/03/2016 4:44am 08/03/2016 5:12am Potassium Level 3.8 MEQ/L 3.6-5 08/03/2016 4:44am 08/03/2016 5:12am Chloride Level 106 MEQ/L 98-107 08/03/2016 4:44am 08/03/2016 5:12am Carbon Dioxide Level 27 MEQ/L 22-30 08/03/2016 4:44am 08/03/2016 5: 12am Anion Gap 13 MEQ/L 5-15 08/03/2016 4:44am 08/03/2016 5:12am Blood Urea Nitrogen 14.0 MG/DL 9-08/03/2016 4:44am 08/03/2016 5: 12am Creatinine 0.9 MG/DL 0.8-1.5 08/03/2016 4:44am 08/03/2016 5:12am BUN/Creatinine Ratio 16 RATIO 6-26 08/03/2016 4:4408/03/2016 5:12am Glomerular Filtration Rate Calc 80 08/03/2016 4:4408/03/2016 5: 12am Glucose Level 102 MG/DL 75-110 08/03/2016 4:4408/03/2016 5:12am Calculated Osmolality 282 MOSM/KG H 261-280 08/03/2016 4:442016 5:12am Calcium Level 8.6 MG/DL 8.4-10.2 08/03/2016 4:4408/03/2016 5:12am Phosphorus Level 3.4 MG/DL 2.5-4.5 07/30/2016 4:3207/30/2016 5:20am Total Bilirubin 0.40 MG/DL 0.20-1.30 08/01/2016 4:08/01/2016 5: 51am Alkaline Phosphatase 63 U/L 38-126 08/01/2016 4:08/01/2016 5:51am Total Protein 6.5 G/DL 6.3-8.2 08/01/2016 4:08/01/2016 5:51am Albumin 3.0 G/DL L 3.5-5.0 08/01/2016 4:08/01/2016 5:51am Globulin 3.5 G/DL 2.4-3.6 08/01/2016 4:08/01/2016 5:51am Albumin/Globulin Ratio 0.9 RATIO L 1.1-2.2 08/01/2016 4:08/01/2016 5:51am Aspartate Amino Transf (AST/SGOT) 50 U/L 17-59 08/01/2016 4:2016 5:51am Alanine Aminotransferase (ALT/SGPT) 46 U/L 21-72 08/01/2016 4: 5:51am Troponin I 0.109 ng/ml 0-0.12 08/02/2016 8:03pm 08/02/2016 8:32pm Troponin values with a difference of 55% increase from orginal troponin value represent a true biological DELTA value. (%increase Calc=Orginal Troponin value, divided by subsequent Troponin value, multiplied by 100) ES-Nvn-K-Type Natriuretic Peptide 01574 PG/ML H 0-175 08/01/2016 4:28am 08/01/2016 6:00am Rule in cut points: <50 years old=450; 50-75 years old=900; >75 years old=1800; When utilizing ProBNP rule-in cut points, adjustment for impaired renal function is typically not required. Lipase 41 U/L 23-300 07/29/2016 4:31am 07/29/2016 2:54pm Magnesium Level 1.4 MG/DL L 1.6-2.3 08/02/2016 8:03pm 08/02/2016 8:23pm Plasma Lactate 1.1 MMOL/L 0.6-2.2 07/27/2016 6:01pm 07/27/2016 6:24pm Procalcitonin 0.42 NG/ML 07/27/2016 1:49pm 07/27/2016 2:26pm PCT </= 0.5 ng/mL - sepsis not likely; PCT >0.5 and </=2 ng/mL - sepsis possible; PCT >2 ng/mL - sepsis likely; PCT >/=10 ng/mL - systemic inflammatory response - sepsis or septic shock highly indicated. Vitamin B12 Level 250 PG/ML 239-931 07/30/2016 4:32am 08/01/2016 2: 18am Folate 6.7 NG/ML 2.76-20 07/29/2016 4:31am 07/30/2016 5:09am NORMAL ADULT RANGE: 2.76->20 ng/mL Free Thyroxine 1.81 NG/DL 0.78-2.19 07/30/2016 4:32am 07/30/2016 5: 47am Thyroid Stimulating Hormone (TSH) 0.07 MIU/L D L 0.47-4.68 07/31/2016 4: 42am 07/31/2016 3:31pm CA 19-9 Antigen 4 U/ML 0-37 07/29/2016 4:31am 07/29/2016 3:31pm Stool C. difficile Toxin B Gene PCR NEGATIVE NEGATIVE 07/31/2016 11: 25am 07/31/2016 1:04pm If Toxin A is clinically indicated, treat accordingly. Urine Collection Type HEWITT INDWELLING 08/01/2016 2:58pm 2016 3:29pm Urine Color YELLOW YELLOW 08/01/2016 2:58pm 08/01/2016 3:29pm Urine Turbidity CLEAR CLEAR 08/01/2016 2:58pm 08/01/2016 3:29pm Urine Specific [place] 1.010 L 1.015-1.025 08/01/2016 2:58pm 2016 3:29pm Urine pH 6.5 5.0-8.0 08/01/2016 2:58pm 08/01/2016 3:29pm Urine Leukocyte Esterase NEGATIVE NEGATIVE 08/01/2016 2:58pm 2016 3:29pm Urine Nitrite NEGATIVE NEGATIVE 08/01/2016 2:58pm 08/01/2016 3:29pm Urine Protein TRACE A NEGATIVE 08/01/2016 2:58pm 08/01/2016 3:29pm Urine Glucose (UA) NEGATIVE NEGATIVE 08/01/2016 2:58pm 08/01/2016 3: 29pm Urine Ketones NEGATIVE NEGATIVE 08/01/2016 2:58pm 08/01/2016 3:29pm Urine Urobilinogen 0.2 EU/DL NORMAL 08/01/2016 2:58pm 08/01/2016 3: 29pm Urine Bilirubin NEGATIVE NEGATIVE 08/01/2016 2:58pm 08/01/2016 3: 29pm Urine Blood TRACE-INTACT A NEGATIVE 08/01/2016 2:58pm 08/01/2016 3: 29pm Urine WBC 10-20 /HPF H 0-5 07/28/2016 4:30pm 07/28/2016 4:55pm Urine RBC 5-10 /HPF H 0-3 07/28/2016 4:30pm 07/28/2016 4:55pm Urine Squamous Epithelial Cells 0-5 07/27/2016 4:20pm 07/27/2016 4: 36pm Urine Bacteria 2+ H NEGATIVE 07/28/2016 4:30pm 07/28/2016 4:55pm Urine Culture Indicated CULT REFLEXED &SETUP 07/28/2016 4:30pm 4:55pm Urinalysis Comment MICROSCOPIC NOT IND. 08/01/2016 2:58pm 2016 3:29pm Glucometer 103 mg/dL 75-110 08/03/2016 6:04am 08/03/2016 2:43pm Microbiology Results Procedure Source Organism/Result Collection Date/Time Result Date/Time Result Status Blood Culture Peripheral/Iv Start NO GROWTH AFTER 5 DAYS 07/27/2016 1:54pm 08/01/2016 1:56pm Final Urine Culture Urine, Clean Catch-Midstream MIXED LARRY 07/27/2016 4:36pm 07/29/2016 1:15pm Final Urine Culture Urine, [place] Indwelling NO GROWTH AFTER 48 HOURS 07/28/2016 4 :55pm 07/31/2016 7:19am Final Name: RAINA FRANCO Unit #: [id number] : 1930 Sex: M Admit Date: 07/27/16 Loc / Svc: MED Discharge Date: DIAGNOSTIC IMAGING REPORT [facility] [id number]:ITS.REASON: R/O ASPIRATION Procedure:MODIFIED BAR. SWALLOW STUDY MODIFIED BAR. SWALLOW STUDY: Videofluoroscopy was performed in conjunction with a enrollment eligibility representative from speech pathology and a separate report and recommendations will be provided. Varying gradations of barium from thin to solid were administered. Aspiration was visualized with thin consistency barium. There was no aspiration noted with any of the remaining consistencies. Tracheal penetration was noted with nectar and honey consistencies. Due to limited patient mobility, no AP imaging was obtained. Impression: 1. Aspiration with thin consistency barium. 2. Tracheal penetration with nectar and honey consistencies. Please see the speech pathology report for additional details and recommendations. Fluoroscopy dose: 3.86 mGy (Cumulative air kerma) Oswaldo Charles RPA/CARMEN performed this under my direct supervision. . Procedures No known history of procedures. Encounters Encounter Location Arrival/Admit Date Discharge/Depart Date Attending Provider Admitted Inpatient [facility] 07/27/16 2:41pm BENITO BOONE DO Recent Diagnosis Hypospadias in male IBS (irritable bowel syndrome) Knee pain, right
--- OUTSIDE RECORDS SUMMARY | 2016-08-26 23:45 | XMS REPORT | Continuity of Care Document ---
Author Author [facility] Organization [facility] Address Unknown Phone Unavailable Support Name Relationship Address Phone LISETH SIMPSON DO Caregiver [address] [place] [address] [address] [place] [phone] FREDRICK STANFORD MD Caregiver [facility] [address] [place] [address] Unavailable KARI FLOWERS MD Caregiver [address] [place] [address] [address] [place] [phone] MINDY FRANCO & MATT Next Of Kin [address] [place] [address] Insurance Providers Payer Name Policy Number Subscriber Name Relationship Medicareadvantra Ppo [id number] Raina Franco Self [facility] State Plan [id number] Raina Franco 16 Self Advance Directives Directive [...] 60 Qty 06/26/13 Active Fluticasone Propionate 2 [place] DAILY 16 Qty 06/26/13 Active Mupirocin [...] Follow up apt with Dr Flowers 01/01/14- 5778 Patient Instructions: Take levaquin po daily for [...] of your legs. 3.During office hours, call [phone] 4. After hours, please call [facility] at [phone], and have the ditching machine operator page your Surgeon IN THE [...] F (96.8 - 99.1) Temperature (Calculated Celsius) 36.45849 degrees C (36.0 - 37.3) Temperature Source [...] Has specimen been collected/obtained? Y Urine Specific [place] December 29, 2013 2:25am 1.010 L - [...] procedures. 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
--- OUTSIDE RECORDS SUMMARY | 2016-08-26 23:45 | XMS REPORT | Continuity of Care Document ---
Author Author [place] [facility] Organization [facility] Address Unknown Phone Unavailable Support Name Relationship Address Phone KARI FLOWERS MD Caregiver [address] [place] [address] [place] [address] [phone] MEGAN ALVES MD Caregiver [address] [place] [address] [place] [address] [phone] MINDY FRANCO & MATT Next Of Kin [address] [place] [address] Insurance Providers Payer Name Policy Number Subscriber Name Relationship Medicareadvantra Ppo [id number] Raina Franco Self [employer] State Plan [id number] Raina Franco Self Advance Directives Directive Response [...] PO DAILY 06/26/13 Active Fluticasone Propionate 2 [place] DAILY 06/26/13 Active Aspirin 81 Mg [...] F (96.8 - 99.1) Temperature (Calculated Celsius) 36.40452 degrees C (36.0 - 37.3) Temperature Source [...] Has specimen been collected/obtained? Y Urine Specific [place] December 29, 2013 2:25am 1.010 L - [...]
--- OUTSIDE RECORDS SUMMARY | 2016-08-26 23:46 | XMS REPORT | Continuity of Care Document ---
[...] Status Pt. Type Provider Facility Loc./Unit Complaint [id number] 08/03/2013 13:30:00 08/03/2013 23 :59:59 CLS Outpatient [id number] 06/23/2013 13:36:00 06/23/2013 23 :59:59 CLS Outpatient [id number] 06/01/2013 13:33:00 06/01/2013 23 :59:59 CLS Outpatient
[2016-08-26 23:52] VITALS: TEMP 97.6; Ht 161.3 cm; Wt 79.3 kg
[2016-08-27] MEDS ORDERED: ONDANSETRON ODT 4 MG TAB PO ONE
--- OUTSIDE RECORDS SUMMARY | 2016-08-27 00:23 | XMS REPORT | Continuity of Care Document ---
Author Author [facility] Organization [facility] Address Unknown Phone Unavailable Support Name Relationship Address Phone KARI FLOWERS MD Caregiver [address] [place] [address] [place] [address] [phone] MEGAN ALVES MD Caregiver [address] [place] [address] [place] [address] [phone] MINDY FRANCO & MATT Next Of Kin [address] [place] [address] Insurance Providers Payer Name Policy Number Subscriber Name Relationship Medicareadvantra Ppo [id number] Raina Franco 16 Self [employer] [place] State Plan [id number] Raina Franco 16 Self Advance Directives Directive [...] PO DAILY 06/26/13 Active Fluticasone Propionate 2 [place] DAILY 06/26/13 Active Aspirin 81 Mg [...] F (96.8 - 99.1) Temperature (Calculated Celsius) 36.30297 degrees C (36.0 - 37.3) Pulse Rate [...] Has specimen been collected/obtained? Y Urine Specific [place] December 29, 2013 2:25am 1.010 L - [...] Escherichia Coli Name: RAINA FRANCO Unit #: [id number] : 1930 Sex: M Loc / Svc: [place] DOS: 07/13/14 Signed Report #: [id number] DIAGNOSTIC IMAGING REPORT TYPE OF EXAM: PICC [...] completed 06/25/14 MICROBE SUSCEPTIBLE RUBIO completed 06/25/14 [id number] ITEM OR SERVICE completed 06/25/14 [id number] ITEM OR SERVICE completed 06/25/14 PROPOFOL INJ 500 MG/50ML completed 06/25/14 [id number]"INFUSION, NORMAL SALINE SOLUTION , 1000 CC" completed 06/25/14 INSERT PICC CATH completed 07/13/14 FLUOROGUIDE FOR VEIN DEVICE completed 07/13/14 [id number] WIRE completed 07/13/14 Encounters Encounter Location Date/Time Discharged Recurring [facility] 07/19/14 2:00pm Registered Clinic [facility] 07/13/14 1:39pm
--- OUTSIDE RECORDS SUMMARY | 2016-08-27 00:24 | XMS REPORT | Continuity of Care Document ---
Author Author [place] [facility] Organization [facility] Address Unknown Phone Unavailable Support Name Relationship Address Phone KARI FLOWERS MD Caregiver [address] [place] [address] [place] [address] [phone] MEGAN ALVES MD Caregiver [address] [place] [address] [place] [address] [phone] MINDY FRANCO & MATT Next Of Kin [address] [place] [address] Insurance Providers Payer Name Policy Number Subscriber Name Relationship Medicareadvantra Ppo [id number] Raina Franco Self [employer] [place] State Plan [id number] Raina Franco Self Advance Directives Directive Response [...] PO DAILY 06/26/13 Active Fluticasone Propionate 2 [place] DAILY 06/26/13 Active Aspirin 81 Mg [...] F (96.8 - 99.1) Temperature (Calculated Celsius) 36.53690 degrees C (36.0 - 37.3) Temperature Source [...] Has specimen been collected/obtained? Y Urine Specific [place] December 29, 2013 2:25am 1.010 L - [...]
--- OUTSIDE RECORDS SUMMARY | 2016-08-27 00:24 | XMS REPORT | Continuity of Care Document ---
Author Author [facility] Organization [facility] Address Unknown Phone Unavailable Support Name Relationship Address Phone LISETH SIMPSON DO Caregiver [address] [place] [address] [address] [place] [phone] FREDRICK STANFORD MD Caregiver [facility] [address] [place] [address] Unavailable KARI FLOWERS MD Caregiver [address] [place] [address] [address] [place] [phone] MINDY FRANCO & MATT Next Of Kin [address] [place] [address] Insurance Providers Payer Name Policy Number Subscriber Name Relationship Medicareadvantra Ppo [id number] Raina Franco Self [facility] State Plan [id number] Raina Franco 16 Self Advance Directives Directive [...] 60 Qty 06/26/13 Active Fluticasone Propionate 2 [place] DAILY 16 Qty 06/26/13 Active Mupirocin [...] Follow up apt with Dr Flowers 01/01/14- 9247 Patient Instructions: Take levaquin po daily for [...] of your legs. 3.During office hours, call [phone] 4. After hours, please call [facility] at [phone], and have the dog food shredder operator page your Surgeon IN THE EVENT [...] F (96.8 - 99.1) Temperature (Calculated Celsius) 36.24237 degrees C (36.0 - 37.3) Temperature Source [...] Has specimen been collected/obtained? Y Urine Specific [place] December 29, 2013 2:25am 1.010 L - [...] procedures. 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
--- OUTSIDE RECORDS SUMMARY | 2016-08-27 00:25 | XMS REPORT | Continuity of Care Document ---
Author Author [facility] Organization [facility] Address Unknown Phone Unavailable Allergies Active Description [...] Status Pt. Type Provider Facility Loc./Unit Complaint [id number] 08/03/2013 13:30:00 08/03/2013 23 :59:59 CLS Outpatient [id number] 06/23/2013 13:36:00 06/23/2013 23 :59:59 CLS Outpatient [id number] 06/01/2013 13:33:00 06/01/2013 23 :59:59 CLS Outpatient
--- NOTE | 2016-08-27 00:35 | NUR ---
LAB/UA LAB IN ROOM TO OBTAIN BLOOD SAMPLE AT THIS TIME. URINE IS OBTAINED FROM PT'S INDWELLING HEWITT CATHETER AT THIS TIME.
[2016-08-27 00:37] LABS: BLOOD, URINE 3+ (NEGATIVE); COLOR,URINE YELLOW (YELLOW); LEUKOCYTE ESTERASE ,URINE 1+ (NEGATIVE); NITRITE,URINE POSITIVE (NEGATIVE); UROBILINOGEN,URINE 0.2 EU/DL (NORMAL)
--- NOTE | 2016-08-27 00:40 | NUR ---
STATUS PT REPORTS NAUSEA IS MUCH IMPROVED.
[2016-08-27 00:41] LABS: HCT - HEMATOCRIT 34.6 % (41-53); HGB - HEMOGLOBIN 11.6 GM/DL (13.5-17.5); MEAN CORPUSCULAR HGB 30.9 UUG (26-34); MEAN CORPUSCULAR HGB CONC(MCHC 33.5 GM/DL (31-37); MEAN PLATELET VOLUME 11.5 UM3 (9.4-12.4); RED BLOOD COUNT 3.76 M/MM3 (4.50-5.90); WBC - WHITE BLOOD COUNT 9.3 T/MM3 (4.5-11.0)
[2016-08-27 00:45] LABS: BACTERIA,URINE 3+ (NEGATIVE); RBC,URINE 20-30 /HPF (0-3); WBC,URINE 30-50 /HPF (0-5)
[2016-08-27 00:51] LABS: ANION GAP 11 MEQ/L (5-15); BUN/CREATININE RATIO 33 RATIO (6-26); CALCIUM 9.8 MG/DL (8.4-10.2); CHLORIDE 104 MEQ/L (98-107); CO2 - CARBON DIOXIDE 26 MEQ/L (22-30); CREATININE 0.8 MG/DL (0.8-1.5); GLOMERULAR FILTRATION RATE 91; GLUCOSE 93 MG/DL (75-110); POTASSIUM 4.6 MEQ/L (3.6-5); SODIUM 141 MEQ/L (134-144)
--- NOTE | 2016-08-27 00:55 | NUR ---
IMAGING IN ROOM FOR PORTABLE CXR AT THIS TIME.
--- NOTE | 2016-08-27 00:57 | ERPDOC ---
Departure Disposition Decision Date: Aug 27, 2016 Disposition Decision Time: :17 Disposition: DISCHARGED HOME, SELF-CARE Impression Impression Impression: Primary Impression: UTI (urinary tract infection) Urinary tract infection type: acute cystitis Hematuria presence: with hematuria Qualified Codes: N30.01 - Acute cystitis with hematuria Severity: Moderate Condition: Improved Seen By: Physician only Referrals: KARI FLOWERS MD (Family) 3 Days Patient Instructions: Catheter-associated Urinary Tract Infection (ED) Problems/Meds/Labs Reviewed?: Yes Medications reviewed and manag: Yes Additional Instructions: You have a urinary tract infection. We have given you an antibiotic. Drink plenty of fluids. Follow up with your doctor in the next few days. Follow up care ordered?: Yes Mental Status: Alert, Oriented HPI - Abdominal Pain General Chief Complaint: Nausea,Vomiting,Diarrhea Stated Complaint: ABD PAIN,VOMITING Time Seen by Provider: 23:59 Source: RN/MD History/Exam Limitations: dementia HPI - Abdominal Pain Initial Comments 86yo man transported to the ED from the senior living for N/V/D. Per [facility] at [facility] home, pt has been nauseated and 'projectile' vomited. They transported him to [facility] [place]. Occurred At: home Onset: Gradual, Getting worse Duration: 12-24 hrs Hx of Similar Symptoms: No Allergies: Coded Allergies: sulfamethoxazole (Verified Allergy, Severe, tongue swells, 08/27/16) trimethoprim (Verified Allergy, Severe, tongue swells, 08/27/16) doxycycline (Verified Allergy, Unknown, "THROAT SWELLING", 08/27/16) Past History Patient Medical History (1) Post-polio syndrome Patient Surgical History Cystoscopy-2013, 2011, 2010 Colonoscopy-2004 Tonsillectomy Right foot surgery related to foot drop Past Medical History Metabolic: diabetes, hypertension, other GI: other Male: BPH Surgical History General: tonsils Reproductive/: TURP, other Joint: foot Vaccines Hx Influenza Vaccination: Yes (FALL 2015) Hx Pneumococcal Vaccination: Yes (WITHIN PAST 10 YEARS) Social History Substance Use Type: does not use Marital Status: Single Housing: senior living Advance Directives: Yes DNR Review of Systems GI Upper Abdomen: nausea, vomiting All other Systems All Other Systems: Reviewed and Negative Physical Exam General General Nourishment: well nourished, well developed, appears stated age, no acute distress, adult General Body Habitus: well groomed Vitals and Pain First Documented Vital Signs Date Time Temp Pulse Resp B/P Pulse Ox O2 Delivery O2 Flow Rate FiO2 08/26/16 23:52 97.6 56 16 134/65 94 Room Air Weight: Kilograms: 79.300 Height (feet): 5 Height (inches): 3.50 Triage Pain Scale: RN VS reviewed by Provider: Yes Normal Exams: Head: Normocephalic w/o trauma Eyes: Pupils are PERRLA w/ EOMI, No scleral icterus, irritation ENMT: No facial trauma, nasal exudates, pharyngeal erythema Neck: Full range of motion, without adenopathy, JVD Lymphatic: No lymphadenopathy Musculoskeletal: No tenderness, or deformity noted Integumentary: No rashes, hives, or bruising noted Neurologic: Patient is alert, and oriented Psychiatric: Patient exhibits, appropriate attention Respiratory (brief) Respiratory: FOUND: clear all pablo, equal bilaterally, symmetrical, NOT FOUND : rales, wheezes Cardiovascular (brief) Cardiac: FOUND: regular rate, regular rhythm, NOT FOUND: click, gallop, murmur , pedal edema, peripheral edema, rub Capillary Refill: <2 sec Pulses: all distal extremities, equal, strong Abdomen (brief) Abdominal Brief: FOUND: bowel normo active x4, soft, NOT FOUND: distended, hepatosplenomegaly, pulsatile mass, tender Differential Diagnoses Considering: Biliary Colic, Bowel Obstruction, Dehydration, Food Poisoning, Gastroenteritis, Gastroparesis, Giardiasis, Hyponatremia, Hypokalemia, Hypoglycemia, Pyelonephritis, Renal Colic, UTI, Viral Syndrome, Sigmoid Volvulus , Cecal Volvulus Progress Results/Orders Orders Procedure Category Date Status Time Ondansetron Odt PHA 08/27/16 Complete (Zofran Odt) 00:00 Hemagram - Cbc No Diff LAB 08/27/16 Complete Bmp - Basic Metabolic LAB 08/27/16 Complete Panel Chest 1 View RAD 08/27/16 Resulted 00:25 UA, LAB 08/27/16 Complete Dip&Micro(Complete) & 00:32 Urine Culture RUBIO 08/27/16 In Process 00:46 Fosfomycin PHA 08/27/16 Complete Tromethamine (Monurol) 01:00 Ondansetron Odt PHA 08/27/16 Complete (Prepack) (Zofran Odt 01:30 Lab Results Laboratory Tests Test 08/27/16 00:32 08/27/16 00:36 Urine Collection Type Cleancatch-midstream Urine Color Yellow Urine Turbidity Sl cloudy Urine pH 5.0 Urine Specific [place] 1.025 Urine Protein Trace Urine Glucose (UA) Negative Urine Ketones Negative Urine Blood 3+ Urine Nitrite Positive Urine Bilirubin Negative Urine Urobilinogen 0.2EU/DL Urine Leukocyte Esterase 1+ Urine RBC 20-30/HPF Urine WBC 30-50/HPF Urine Bacteria 3+ Urine Culture Indicated Cult reflexed &setup White Blood Count 9.3T/MM3 Red Blood Count 3.76M/MM3 Hemoglobin 11.6GM/DL Hematocrit 34.6% Mean Corpuscular Volume 92.0UM3 Mean Corpuscular Hemoglobin 30.9UUG Mean Corpuscular Hemoglobin Concent 33.5GM/DL RDW Standard Deviation 45.4FL Platelet Count 139T/MM3 Mean Platelet Volume 11.5UM3 Turbidity < 20 Sodium Level 141MEQ/L Potassium Level 4.6MEQ/L Chloride Level 104MEQ/L Carbon Dioxide Level 26MEQ/L Anion Gap 11MEQ/L Blood Urea Nitrogen 26.0MG/DL Creatinine 0.8MG/DL Glomerular Filtration Rate Calc 91 BUN/Creatinine Ratio 33RATIO Glucose Level 93MG/DL Calculated Osmolality 276MOSM/KG Calcium Level 9.8MG/DL Icterus Index < 2 Chemistry Specimen Hemolysis < 15 Medications Current ED Medications Ondansetron HCl (Zofran Odt) 4 mg O ONCE PO Last administered on 08/27/16 00: 00; Start 08/27/16 at 00:00; Stop 08/27/16 at 00:01; Status DC Fosfomycin Tromethamine (Monurol) 3 g O ONCE PO Last administered on 01:13; Start 08/27/16 at 01:00; Stop 08/27/16 at 01:01; Status DC Ondansetron HCl (ZOFRAN ODT (PrePack)) 1 pack O ONCE SENT HOME Last administered on 08/27/16 01:35; Start 08/27/16 at 01:30; Stop 08/27/16 at 01:31 ; Status DC Progress Progress Pt with evidence of UTI. Given fosfomycin here. F/u with PCM at [facility]. Will communicate findings and f/u needs with [facility] staff. Xray Xray : Xray: CXR Portable Interpretation: Normal, Interpreted by LISA Lu DO Aug 27, 2016 00:57
[2016-08-27] MEDS ORDERED: FOSFOMYCIN 3 GRAM PACKET PO ONE (01:00)
--- NOTE | 2016-08-27 01:15 | NUR ---
STATUS PT IS SLEEPING IN ROOM, NO S/S OF ACUTE DISTRESS NOTED. PT HAS HAD NO VOMITTING OR DIARRHEA SINCE HE HAS BEEN HERE.
--- NOTE | 2016-08-27 01:24 | NUR ---
REPORT GIVEN TO W[facility] AT [facility] AT THIS TIME.
[2016-08-27] MEDS ORDERED: ONDANSETRON ODT 4mg #3 (PrePack) SENT HOME ONE (01:30)
[2016-08-27 01:35] VITALS: BP 148/68; PULSE 56; RESP 16; O2SAT 93
--- NOTE | 2016-08-27 01:35 | NUR ---
DEPART PT IS DISCHARGED AT THIS TIME, INSOLVENCY PRACTITIONER HAS BEEN AWAITING PT'S RELEASE. PT LEAVES VIA WHEELCHAIR WITH AR INSOLVENCY PRACTITIONER.
--- NOTE | 2016-08-27 07:59 | DI ---
Indication: ITS.REASON: Med clearance PROCEDURE: CHEST 1 VIEW: Encounter: Initial Comparison: 07/30/2016 Findings: There is mild cardiomegaly. The lungs are clear. There is no focal opacity to suggest atelectasis or pneumonia. No mediastinal or hilar adenopathy. No pleural effusion. There is no significant tortuosity of the descending thoracic aorta. 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 There is no significant degenerative changes of the thoracic spine. IMPRESSION: No acute process. .
== END 2016-08-27 01:35 | disposition home or self-care (01) ==
LOC: ED 23:39
DX: N30.01 Acute cystitis with hematuria (principal)
CPT/HCPCS: 36415; 71010; 80048; 81001; 85027; 87086; 99283; A9270

== ENCOUNTER 2016-09-09 06:39 | Inpatient (IN) | payer MEDICARE, MEDICAID ==
[~2016-09-09] VITALS: Ht 160 cm; Wt 81.7 kg
--- OUTSIDE RECORDS SUMMARY | 2016-09-09 06:44 | XMS REPORT | Continuity of Care Document ---
Author Author [facility] Organization [facility] Address Unknown Phone Unavailable Support Name Relationship Address Phone KARI FLOWERS MD Caregiver [address] [place] [address] [place] [address] [phone] MEGAN ALVES MD Caregiver [address] [place] [address] [place] [address] [phone] MINDY FRANCO & MATT Next Of Kin [address] [place] [address] Insurance Providers Payer Name Policy Number Subscriber Name Relationship Medicareadvantra Ppo [id number] Raina Franco 16 Self [facility] State Plan [id number] Raina Franco 16 Self Advance Directives Directive [...] PO DAILY 06/26/13 Active Fluticasone Propionate 2 [place] DAILY 06/26/13 Active Aspirin 81 Mg [...] F (96.8 - 99.1) Temperature (Calculated Celsius) 36.61083 degrees C (36.0 - 37.3) Pulse Rate [...] Has specimen been collected/obtained? Y Urine Specific [place] December 29, 2013 2:25am 1.010 L - [...] Escherichia Coli Name: RAINA FRANCO Unit #: [id number] : 1930 Sex: M Loc / Svc: BRITNEY DOS: 07/13/14 Signed Report #: [id number] DIAGNOSTIC IMAGING REPORT TYPE OF EXAM: PICC [...] completed 06/25/14 MICROBE SUSCEPTIBLE RUBIO completed 06/25/14 [id number] ITEM OR SERVICE completed 06/25/14 [id number] ITEM OR SERVICE completed 06/25/14 PROPOFOL INJ 500 MG/50ML completed 06/25/14 [id number]"INFUSION, NORMAL SALINE SOLUTION , 1000 CC" completed 06/25/14 INSERT PICC CATH completed 07/13/14 FLUOROGUIDE FOR VEIN DEVICE completed 07/13/14 [id number] WIRE completed 07/13/14 Encounters Encounter Location Date/Time Discharged Recurring [facility] 07/19/14 2:00pm Registered Clinic [facility] 07/13/14 1:39pm
--- OUTSIDE RECORDS SUMMARY | 2016-09-09 06:45 | XMS REPORT | Continuity of Care Document ---
Author Author [facility] LIVE Organization [facility] LIVE Address Unknown Phone Unavailable Support Name Relationship Address Phone KARI FLOWERS MD Caregiver [address] [place] [address] [place] [address] [phone] MEGAN ALVES MD Caregiver [address] [place] [address] [place] [address] [phone] MINDY FRANCO & MATT Next Of Kin [address] [place] [address] Insurance Providers Payer Name Policy Number Subscriber Name Relationship Medicareadvantra Ppo [id number] Raina Franco Self [employer] State Plan [id number] Raina Franco Self Advance Directives Directive Response [...] PO DAILY 06/26/13 Active Fluticasone Propionate 2 [place] DAILY 06/26/13 Active Aspirin 81 Mg [...] F (96.8 - 99.1) Temperature (Calculated Celsius) 36.33525 degrees C (36.0 - 37.3) Temperature Source [...] Has specimen been collected/obtained? Y Urine Specific [place] December 29, 2013 2:25am 1.010 L - [...]
--- OUTSIDE RECORDS SUMMARY | 2016-09-09 06:45 | XMS REPORT | Continuity of Care Document ---
Author Author [facility] Organization [facility] Address Unknown Phone Unavailable Support Name Relationship Address Phone KARI FLOWERS MD Caregiver [address] [place] [address] Unavailable SEPTEMBERLISA DO Caregiver [address] [facility] [address] [place] [address] Unavailable MINDY FRANCO & MATT Next Of Kin [address] [place] [address] Insurance Providers Guarantor Raina Franco Address [address] [address] Email DENIED 08-27-16 Payer [facility] State Plan Policy Number [id number] Subscriber's Name Raina Franco Relationship 18 Self Effective Date 16 Expiration Date 16 Payer Medicareadvantra Ppo Policy Number [id number] Subscriber's Name Raina Franco Relationship 18 Self Group Number [id number] Effective Date 07 Advance Directives Directive Response Recorded Date/Time Advanced Directives Type DNR Documentation Living Will DPOA for Healthcare 08/26/16 11:52pm Chief Complaint and Reason for Visit Chief Complaint Nausea,Vomiting,Diarrhea Reason for Visit [id number] Problems Active Problems Medical Problem Onset Date Status BPH (benign prostatic hyperplasia) Unknown Chronic CKD (chronic kidney disease) Unknown Chronic Constipation Unknown Chronic Depression Unknown Chronic Diarrhea Unknown Acute Diet-controlled type 2 diabetes mellitus Unknown Chronic Dysphagia Unknown Acute Hypertension Unknown Chronic Hypoglycemia Unknown Acute Hypospadias in male Unknown Chronic IBS (irritable bowel syndrome) Unknown Chronic Knee pain, right Unknown Acute Metabolic encephalopathy Unknown Resolved Post-polio syndrome Unknown Chronic Scrotal ulcer Unknown Acute Skin breakdown Unknown Acute Tongue swelling Unknown Acute Urinary Tract Infection not otherwise specified Unknown Acute urinary retention Unknown Acute Past Problems Medical Problem Onset Date Acute renal failure Unknown Elevated troponin Unknown Sepsis Unknown UTI (urinary tract infection) Unknown Medications Current Home Medications Medication Dose Units Route Directions Days Qty Instructions Start Date Acetaminophen 500 Mg Tablet 500 Mg Oral Twice A Day 07/27/16 Amlodipine Besylate 5 Mg Tablet 10 Mg Oral Daily for Hypertension 30 Tablet 08/03/16 Aspirin (Aspir 81) 81 Mg Tablet. 81 Mg Oral Daily 06/26/13 Atorvastatin Calcium [...] Problem Response Recorded Date/Time Onset Date Status Chewing Tobacco Status Y 25 yrs ago 06/29/2013 9:56am Not Applicable Not Applicable Hx Substance Use No 08/27/2016 12:53am Not Applicable Not Applicable Hx Alcohol Use No 08/27/2016 12:53am Not Applicable Not Applicable Has the pt used tobacco in the last 12 months No 07/27/2016 3:44pm Not Applicable Not Applicable Tobacco Usage none 12/29/2013 9:07am Not Applicable Not Applicable Query Response Start Date Stop Date Smoking Status Unknown if ever smoked Hospital Discharge Instructions No hospital discharge instructions. Plan of Care Discharge Date 08/27/16 1:35am Disposition 01 DISCHARGED HOME, SELF-CARE Condition at Discharge Improved Instructions/Education Provided Catheter-associated Urinary Tract Infection ( ED) Prescriptions See Medication Section Referrals KARI FLOWERS MD Order Date: 3 Address: [address] [place] [address] [place] [phone] Note: Additional Instructions/Education You have a urinary tract infection. We have given you an antibiotic. Drink plenty of fluids. Follow up with your doctor in the next few days. Care Plan and Goals Physician Care Plan Problem: Catheter-associated UTI Goal: Follow up with primary care provider Instructions: Take medications and follow care plan as discussed/written Functional Status No functional status results. Allergies, Adverse Reactions, Alerts Allergen Type Severity Reaction Status Last Updated Doxycycline Allergy Unknown "THROAT SWELLING" Active 08/27/16 Sulfamethoxazole Allergy Severe tongue swells Active 08/27/16 Trimethoprim Allergy Severe tongue swells Active 08/27/16 Immunizations Query Response on File Recorded Date/Time Hx Influenza Vaccination Y fall 201507/27/16 3:44pm Hx Pneumococcal Vaccination Y WITHIN PAST 10 YEARS 07/27/16 3:44pm Hx Influenza Vaccination Y fall 201507/27/16 3:44pm Influenza Vaccine Hx fall 201508/27/16 12:53am Vital Signs Acute Vital Signs Vital Response Date/Time Temperature (Fahrenheit) 97.6 deg F (96.8 - 99.1) 08/26/2016 11:52pm Temperature (Calculated Celsius) 36.71554 degrees C (36.0 - 37.3) 08/26/2016 11:52pm Pulse Rate (adult) 56 bpm (60 - 100) 08/27/2016 1:35am Respiratory Rate 16 breaths/min (10 - 20) 08/27/2016 1:35am O2 Sat by Pulse Oximetry 93 % (90 - 100) 08/27/2016 1:35am Oxygen Delivery Method Nasal Cannula 07/28/2016 7:33pm Oxygen Delivery Method Room Air 08/03/2016 3:04pm Oxygen Flow Rate 1.00 L/min 07/28/2016 7:33pm Blood Pressure 148/68 mm Hg 08/27/2016 1:35am Blood Pressure Source Automatic Cuff 08/03/2016 3:04pm Height (Feet) 5 feet 08/26/2016 11:52pm Height (Inches) 3.50 inches 08/26/2016 11:52pm Weight (Kilograms) 79.300 kg 08/26/2016 11:52pm Body Mass Index (BMI) 30.0 08/26/2016 11:52pm Results Laboratory Results Test Name Result Units Flags Reference Collection Date/Time Result Date/ Time Comments Neutrophils (%) (Auto) 68.4 % H 33-66 08/02/2016 8:03pm 08/02/2016 8: 28pm Lymphocytes (%) (Auto) 18.8 % L 23-45 08/02/2016 8:03pm 08/02/2016 8: 28pm Monocytes (%) [...] 8:28pm Neutrophils % (Manual) 90.0 % H 33-66 07/28/2016 12:43am 07/28/2016 5: 16am Band Neutrophils % 2.0 % 0-6 07/28/2016 12:43am 07/28/2016 5:16am Lymphocytes % (Manual) 7.0 % L 23-45 07/28/2016 12:43am 07/28/2016 5: 16am Monocytes % [...] Comment NORMAL 07/28/2016 12:43am 07/28/2016 5: 16am Phosphorus Level 3.4 MG/DL 2.5-4.5 07/30/2016 4:32am 07/30/2016 5:20am Total Bilirubin 0.40 MG/DL 0.20-1.30 08/01/2016 [...] by subsequent Troponin value, multiplied by 100) MD-Kbb-L-Type Natriuretic Peptide 80396 PG/ML H 0-175 08/01/2016 4:08/01/2016 6:00am Rule in cut points: <50 years [...] A is clinically indicated, treat accordingly. Urine Squamous Epithelial Cells 0-5 07/27/2016 4:20pm 07/27/2016 4: 36pm Urinalysis Comment MICROSCOPIC NOT IND. 08/01/2016 2:58pm 2016 3:29pm Glucometer 103 mg/dL 75-110 08/03/2016 6:04am 08/03/2016 2:43pm White Blood Count 9.3 T/MM3 4.5-11.0 08/27/2016 12:36am 08/27/2016 12: 41am Red Blood Count 3.76 M/MM3 L 4.50-5.90 08/27/2016 12:36am 08/27/2016 12: 41am Hemoglobin 11.6 GM/DL L 13.5-17.5 08/27/2016 12:36am 08/27/2016 12:41am Hematocrit 34.6 % L 41-53 08/27/2016 12:36am 08/27/2016 12:41am Mean Corpuscular Volume 92.0 UM3 80-100 08/27/2016 12:36am 08/27/2016 12:41am Mean Corpuscular Hemoglobin 30.9 UUG 26-34 08/27/2016 12:36am 2016 12:41am Mean Corpuscular Hemoglobin Concent 33.5 GM/DL 31-37 08/27/2016 12:36am 08/27/2016 12:41am RDW Standard Deviation 45.4 FL 36.9-50.2 08/27/2016 12:36am 08/27/2016 12:41am Platelet Count 139 T/MM3 130-400 08/27/2016 12:36am 08/27/2016 12:41am Mean Platelet Volume 11.5 UM3 9.4-12.4 08/27/2016 12:36am 08/27/2016 12 :41am Icterus Index < 2 0-7 08/27/2016 12:36am 08/27/2016 12:51am Chemistry Specimen Hemolysis < 15 0-25 08/27/2016 12:36am 08/27/2016 12:51am 0-25: Specimen Exhibited No Hemolysis. Turbidity < 20 0-20 08/27/2016 12:36am 08/27/2016 12:51am Sodium Level 141 MEQ/L 134-144 08/27/2016 12:36am 08/27/2016 12:51am Potassium Level 4.6 MEQ/L 3.6-5 08/27/2016 12:36am 08/27/2016 12:51am Chloride Level 104 MEQ/L 98-107 08/27/2016 12:36am 08/27/2016 12:51am Carbon Dioxide Level 26 MEQ/L 22-30 08/27/2016 12:36am 08/27/2016 12: 51am Anion Gap 11 MEQ/L 5-15 08/27/2016 12:36am 08/27/2016 12:51am Blood Urea Nitrogen 26.0 MG/DL H 9-20 08/27/2016 12:36am 08/27/2016 12: 51am Creatinine 0.8 MG/DL 0.8-1.5 08/27/2016 12:36am 08/27/2016 12:51am BUN/Creatinine Ratio 33 RATIO H 6-26 08/27/2016 12:36am 08/27/2016 12: 51am Glomerular Filtration Rate Calc 91 08/27/2016 12:36am 08/27/2016 12 :51am Glucose Level 93 MG/DL 75-110 08/27/2016 12:36am 08/27/2016 12:51am Calculated Osmolality 276 MOSM/KG 261-280 08/27/2016 12:36am 2016 12:51am Calcium Level 9.8 MG/DL 8.4-10.2 08/27/2016 12:36am 08/27/2016 12:51am Urine Collection Type CLEANCATCH-MIDSTREAM 08/27/2016 12:32am 08/27 12:37am Urine Color YELLOW YELLOW 08/27/2016 12:32am 08/27/2016 12:37am Urine Turbidity SL CLOUDY CLEAR 08/27/2016 12:32am 08/27/2016 12: 37am Urine Specific [place] 1.025 1.015-1.025 08/27/2016 12:32am 2016 12:37am Urine pH 5.0 5.0-8.0 08/27/2016 12:32am 08/27/2016 12:37am Urine Leukocyte Esterase 1+ A NEGATIVE 08/27/2016 12:32am 08/27/2016 12:37am Urine Nitrite POSITIVE A NEGATIVE 08/27/2016 12:32am 08/27/2016 12: 37am Urine Protein TRACE A NEGATIVE 08/27/2016 12:32am 08/27/2016 12:37am Urine Glucose (UA) NEGATIVE NEGATIVE 08/27/2016 12:32am 08/27/2016 12 :37am Urine Ketones NEGATIVE NEGATIVE 08/27/2016 12:32am 08/27/2016 12: 37am Urine Urobilinogen 0.2 EU/DL NORMAL 08/27/2016 12:32am 08/27/2016 12: 37am Urine Bilirubin NEGATIVE NEGATIVE 08/27/2016 12:32am 08/27/2016 12: 37am Urine Blood 3+ A NEGATIVE 08/27/2016 12:32am 08/27/2016 12:37am Urine WBC 30-50 /HPF H 0-5 08/27/2016 12:32am 08/27/2016 12:46am Urine RBC 20-30 /HPF H 0-3 08/27/2016 12:32am 08/27/2016 12:46am Urine Bacteria 3+ H NEGATIVE 08/27/2016 12:32am 08/27/2016 12:46am Urine Culture Indicated CULT REFLEXED &SETUP 08/27/2016 12:32am 12:46am Microbiology Results Procedure Source Organism/Result Collection Date/Time Result Date/Time Result Status Blood Culture Peripheral/Iv Start NO GROWTH AFTER 5 DAYS 07/27/2016 1:54pm 08/01/2016 1:56pm Final Urine Culture Urine, [place] Indwelling NO GROWTH AFTER 48 HOURS 07/28/2016 4 :55pm 07/31/2016 7:19am Final Urine Culture Urine, Clean Catch-Midstream CULTURE INITIATED - RESULTS PENDING 08/27/2016 12:46am 08/27/2016 12:46am Preliminary Procedures Procedure Status Date Provider(s) Tte w/o doppler complete Completed 07/27/16 BRAULIO ROJO MD ULTRASONOGRAPHY OF HEART WITH AORTA Completed 07/30/16 BRAULIO ROJO MD Encounters Encounter Location Arrival/Admit Date Discharge/Depart Date Attending Provider Departed Emergency Room [facility] 08/26/16 11:39pm 08/27/16 1: 35am LISA HOUSTON DO Discharged Inpatient [facility] 07/27/16 2:41pm 08/03/16 5:35pm BENITO BOONE DO Recent Diagnosis
--- OUTSIDE RECORDS SUMMARY | 2016-09-09 06:45 | XMS REPORT | Continuity of Care Document ---
Author Author [facility] Organization [facility] Address Unknown Phone Unavailable Support Name Relationship Address Phone LISETH SMIPSON DO Caregiver [address] [place] [address] [address] [place] [phone] FREDRICK STANFORD MD Caregiver [facility] [address] [place] [address] Unavailable KARI FLOWERS MD Caregiver [address] [place] [address] [address] [place] [phone] MINDY FRANCO & MATT Next Of Kin [address] [place] [address] Insurance Providers Payer Name Policy Number Subscriber Name Relationship Medicareadvantra Ppo [id number] Rania Franco Self [facility] State Plan [id number] Raina Franco 16 Self Advance Directives Directive [...] 60 Qty 06/26/13 Active Fluticasone Propionate 2 [place] DAILY 16 Qty 06/26/13 Active Mupirocin [...] Follow up apt with Dr Flowers 01/01/14- 7801 Patient Instructions: Take levaquin po daily for [...] of your legs. 3.During office hours, call [phone] 4. After hours, please call [facility] at [phone], and have the batch or continuous still operator page your Surgeon IN THE EVENT [...] F (96.8 - 99.1) Temperature (Calculated Celsius) 36.56678 degrees C (36.0 - 37.3) Temperature Source [...] Has specimen been collected/obtained? Y Urine Specific [place] December 29, 2013 2:25am 1.010 L - [...] procedures. 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
--- OUTSIDE RECORDS SUMMARY | 2016-09-09 06:46 | XMS REPORT | Continuity of Care Document ---
Author Author [facility] Organization [facility] Address Unknown Phone Unavailable Allergies [...] Status Pt. Type Provider Facility Loc./Unit Complaint [id number] 08/03/2013 13:30:00 08/03/2013 23 :59:59 CLS Outpatient [id number] 06/23/2013 13:36:00 06/23/2013 23 :59:59 CLS Outpatient [id number] 06/01/2013 13:33:00 06/01/2013 23 :59:59 CLS Outpatient
--- NOTE | 2016-09-09 06:57 | ERPDOC ---
Departure Disposition Decision Date: September 09, 2016 Disposition Decision Time: 08:18 Disposition: 02 TO [facility] Impression Impression Impression: Primary Impression: Complicated urinary tract infection Severity: Moderate Condition: Improved Seen By: Physician only Referrals: KARI FLOWERS MD (Family) Problems/Meds/Labs Reviewed?: Yes Medications reviewed and manag: Yes Follow up care ordered?: Yes Mental Status: Alert, Oriented Scripts Lorazepam (Lorazepam) 1 Mg Tablet 1 TAB PO TID Y for ANXIETY/AGITATION, #20 TAB Diagnosis: dementia with psychosis Prov: JUAN DAVID JUAN MD 09/12/16 Metoprolol Tartrate (Metoprolol Tartrate) 25 Mg Tablet 12.5 MG PO BIDWM for 30 Days, #30 TAB Prov: LAZARA CONNELL APRN 09/12/16 Hydrocodone/Acetaminophen (Llano 5-325 Tablet) 5-325 Tablet 1 TAB PO BID Y for PAIN for 30 Days, #60 TAB Prov: LAZARA CONNELL APRN 09/12/16 HPI - Psychosocial General Stated Complaint: NOT SLEEPING, HALUCINATION,AGITATED Time Seen by MD: 06:55 Source: patient, family Exam Limitations: no limitations HPI - Psychosocial Initial Comments 86yo man presents to the ER today by private ing home transport for altered behavior. Pt has numerous medical comorbidities and has been on a slowly downward spiral for several years. Last night, pt was awake most of the night, complaining that his bed was moving/rocking and that he was surrounded by insects. Family (brother and [id number]) and ing staff all verified that the bed was not moving, but pt insisted and swatted at the invisible insects with his "grabber". Pt has no formal dx of dementia or sundowning, but his PCM remarked that he had 'changed' at the last visit prior to pt changing PCM's after status change from assisted living to full [facility] care. Pt has a dx of ' small stroke', though how that dx was obtained is not clear (hx provided by [id number]). Family has noted that pts tongue protrudes more now (was a new sign after last 'stroke'), he becomes frustrated more easily, has more hearing trouble, and has been cursing more frequently. Family feels that his personality has changed. EMS was called last night to transport pt, but pt refused. Family was able to reorient pt throughout the night, but they are now exhausted. Pt is much calmer and more rational now that the sun is up. Family convinced pt to present for evaluation. Occurred At: home Onset: Rapid Duration: 6-12 hrs Severity: severe Associated Symptoms: impaired concentration, other (visual hallucinations) Hx of Similar Symptoms: No Allergies: Coded Allergies: sulfamethoxazole (Verified Allergy, Severe, tongue swells, 09/09/16) trimethoprim (Verified Allergy, Severe, tongue swells, 09/09/16) doxycycline (Verified Allergy, Unknown, "THROAT SWELLING", 09/09/16) Past History Patient Medical History (1) Post-polio syndrome (2) Hypospadias in male (3) Tongue swelling (4) Metabolic encephalopathy Patient Surgical History Cystoscopy-2013, 2011, 2010 Colonoscopy-2004 Tonsillectomy Right foot surgery related to foot drop Past Medical History Metabolic: diabetes, hypertension, other GI: other Male: BPH Surgical History General: tonsils Reproductive/: TURP, other Joint: foot Vaccines Hx Influenza Vaccination: Yes (FALL 2015) Hx Pneumococcal Vaccination: Yes (WITHIN PAST 10 YEARS) Social History Substance Use Type: does not use Marital Status: Single Housing: fdc Advance Directives: Yes DNR Review of Systems Psychiatric Psychiatric: hallucinations All other Systems All Other Systems: Reviewed and Negative Physical Exam General General Nourishment: well nourished, well developed, appears stated age, no acute distress, adult, obese General Body Habitus: well groomed Vitals and Pain Weight: Kilograms: Height (feet): 5 Height (inches): 3.50 Triage Pain Scale: RN VS reviewed by Provider: Yes Eyes (brief) Eyes Brief: found: EOMI, PERRL, not found: scleral icterus ENMT (brief) ENMT Brief: FOUND: TM clear, TM good light reflex, ear canals clear, mucosa moist, normal tonsils Comments enlarged tongue; profoundly hard of hearing Neck (brief) Neck: FOUND: trachea midline, NOT FOUND: JVD, adenopathy, thyromegaly Respiratory (brief) Respiratory: FOUND: clear all pablo, equal bilaterally, symmetrical, NOT FOUND : rales, wheezes Cardiovascular (brief) Cardiac: FOUND: regular rate, regular rhythm, NOT FOUND: click, gallop, murmur , pedal edema, peripheral edema, rub Capillary Refill: <2 sec Pulses: all distal extremities, equal, strong Abdomen (brief) Abdominal Brief: FOUND: bowel normo active x4, soft, NOT FOUND: distended, hepatosplenomegaly, pulsatile mass, tender Lymphatic (brief) Lymphatic Brief: NOT FOUND: adenopathy, lymphedema Musculoskeletal (brief) Musculoskeletal Brief: NOT FOUND: deformity, loss of motion, spasm, tenderness Comments Deconditioned LE's, c/w h/o postpolio syndrome. Integumentary (brief) Integumentary Brief: FOUND: pink, warm Comments Numerous AK's present diffusely Neurologic (brief) Neurological Brief: FOUND: CN w/o gross def to obs, DTR 2/4 all extremities, gait w/o gross def to obs, motor-no gross deficits, sensory-no gross deficits, NOT FOUND: Babinski Psychiatric (brief) Psychiatric Brief: FOUND: alert, normal affect, oriented Differential Diagnoses Considering: Anxiety, Brain Tumor, Cerebral Hemorrhage, Delirium, Dementia, Depression, Hallucinations, Hypoglycemia, Alcohol Intoxication, Other Intoxication, Acute Psychosis Progress Results/Orders Orders Procedure Category Date Status Time Nothing By Mouth (Ed EDM 09/09/16 Transmitted Only) 06:57 Cbc W/Auto LAB 09/09/16 Complete Diff-Reflex Manual 06:57 Cmp - Comprehensive LAB 09/09/16 Complete Metabolic 06:57 Ethanol LAB 09/09/16 Complete 06:57 Acetaminophen LAB 09/09/16 Complete 06:57 Salicylate LAB 09/09/16 Complete 06:57 Tsh - Thyroid Stim LAB 09/09/16 Complete Hormone 06:57 Magnesium LAB 09/09/16 Complete 06:57 Phosphorus LAB 09/09/16 Complete 06:57 Chest 1 View RAD 09/09/16 Resulted 06:57 Ct Head W/O Contrast CT 09/09/16 Resulted 07:16 Ammonia LAB 09/09/16 Complete 07:22 UA, LAB 09/09/16 Complete Dip&Micro(Complete) & 07:01 Urine Culture RUBIO 09/09/16 Complete 07:33 Nitrofurantoin PHA 09/09/16 Complete (Macrobid) (Macrobid) 07:45 Iv Lock (Ed Only) EDM 09/09/16 Transmitted 08:14 Ceftriaxone I.V. (Er PHA 09/09/16 Complete Use Only) (Rocephin 08:15 Place In Facility: ED ADM 09/09/16 Transmitted Lab Results Laboratory Tests Test 09/09/16 07:01 09/09/16 07:11 09/09/16 07:17 Urine Collection Type Johnson indwelling Urine Color Yellow Urine Turbidity Clear Urine pH 6.5 Urine Specific [place] <=1.005 Urine Protein Negative Urine Glucose (UA) Negative Urine Ketones Negative Urine Blood 1+ Urine Nitrite Positive Urine Bilirubin Negative Urine Urobilinogen 0.2EU/DL Urine Leukocyte Esterase 2+ Urine RBC 5-10/HPF Urine WBC 1-3/HPF Urine Squamous Epithelial Cells None seen Urine Bacteria 1+ Urine Culture Indicated Cult reflexed &setup Ammonia 13UMOL/L White Blood Count 10.5T/MM3 Red Blood Count 3.74M/MM3 Hemoglobin 11.4GM/DL Hematocrit 34.3% Mean Corpuscular Volume 91.7UM3 Mean Corpuscular Hemoglobin 30.5UUG Mean Corpuscular Hemoglobin Concent 33.2GM/DL RDW Standard Deviation 45.5FL Platelet Count 127T/MM3 Mean Platelet Volume 10.5UM3 Immature Granulocyte % (Auto) 0.2% Neutrophils (%) (Auto) 72.5% Lymphocytes (%) (Auto) 17.5% Monocytes (%) (Auto) 9.0% Eosinophils (%) (Auto) 0.7% Basophils (%) (Auto) 0.1% Absolute Immature Granulocyte (auto 0.02T/MM3 Absolute Neutrophils (auto) 7.6T/MM3 Absolute Lymphocytes (auto) 1.8T/MM3 Absolute Monocytes (auto) 1.0T/MM3 Absolute Eosinophils (auto) 0.1T/MM3 Absolute Basophils (auto) 0.0T/MM3 Turbidity < 20 Sodium Level 141MEQ/L Potassium Level 4.5MEQ/L Chloride Level 102MEQ/L Carbon Dioxide Level 25MEQ/L Anion Gap 14MEQ/L Blood Urea Nitrogen 22.0MG/DL Creatinine 0.6MG/DL Glomerular Filtration Rate Calc 127 BUN/Creatinine Ratio 37RATIO Glucose Level 97MG/DL Calculated Osmolality 274MOSM/KG Calcium Level 9.6MG/DL Phosphorus Level 4.0MG/DL Magnesium Level 1.7MG/DL Total Bilirubin 0.80MG/DL Icterus Index < 2 Aspartate Amino Transf (AST/SGOT) 39U/L Alanine Aminotransferase (ALT/SGPT) 53U/L Alkaline Phosphatase 95U/L C-Reactive Protein 9.9MG/L Total Protein 8.0G/DL Albumin 4.3G/DL Globulin 3.7G/DL Albumin/Globulin Ratio 1.2RATIO Thyroid Stimulating Hormone (TSH) 0.84MIU/L Chemistry Specimen Hemolysis 37 Salicylates Level < 1.0MG/DL Acetaminophen Level < 10UG/ML Alcohol, Quantitative <10MG/DL Medications Current ED Medications Nitrofurantoin Macrocrystals (Macrobid) 100 mg O ONCE PO Last administered on 09/09/16 07:52; Start 09/09/16 at 07:45; Stop 09/09/16 at 07:46; Status DC Ceftriaxone Sodium 1 g 1 g O ONCE IM ; Start 09/09/16 at 08:15; Stop 09/09/16 at 08:16; Status Cancel Ceftriaxone Sodium/Sodium Chloride (Rocephin/NS) 100 ml @ 100 mls/hr O ONCE IV Last administered on 09/09/16 08:31; Start 09/09/16 at 08:15; Stop 09/09/16 at 09:14; Status DC Progress Progress 86yo man with numerous medical comorbidities presents tonight with hx of acute psychosis/hallucinations overnight. Sx have precipitously resolved as the morning has progressed - pt at baseline on presentation to the ER. Consideration given to h/o possible medications, unverified h/o CVA, prior dx of metabolic encephalopathy, and hx concerning for frontotemporal dementia. Overnight hx, with abrupt resolution this AM would point to dementia with associated sundowning as the most likely cause of pts sx. Pt has an indwelling johnson cath with h/o frequent cath associated UTIs. Will need to r/o infx/ metabolic causes of pts sx, then contact either PCM for med change rec's/ approval or [facility] for stabilization/med changes. Pt has catheter associated UTI; since this counts as complicated UTI, and unlikely to receive adequate treatment at [facility] home, will discuss admission with hospitalist. Consult/PCP Consult/PCP #1: Physician Contacted: Hospitalist Time Called: 08:16 Time of first response: 08:16 Type of discussion: Admit Discussion/PCP Discussion Details Will admit for complicated UTI; if no improvement, will discuss tx with [facility]. Consult/PCP #2: Physician Contacted: Preeti Time Called: 08:05 Time of first response: 08:05 Type of discussion: Phone Consult/PCP Discussion Details Does not meet admission criteria. Xray Xray : Xray: CXR Portable Interpretation: Normal, Interpreted by LISA uL DO September 09, 2016 06:57
--- NOTE | 2016-09-09 07:07 | NUR ---
XRAY XRAY HERE TO DO PORTABLE CHEST XRAY.
--- OUTSIDE RECORDS SUMMARY | 2016-09-09 07:11 | XMS REPORT | Continuity of Care Document ---
Author Author [facility] Organization [facility] Address Unknown Phone Unavailable Support Name Relationship Address Phone KARI FLOWERS MD Caregiver [address] [place] [address] [place] [address] [phone] MEGAN ALVES MD Caregiver [address] [place] [address] [place] [address] [phone] MINDY FRANCO & MATT Next Of Kin [address] [place] [address] Insurance Providers Payer Name Policy Number Subscriber Name Relationship Medicareadvantra Ppo [id number] Raina Franco 16 Self [employer] State Plan [id number] Raina Franco 16 Self Advance Directives Directive [...] PO DAILY 06/26/13 Active Fluticasone Propionate 2 [place] DAILY 06/26/13 Active Aspirin 81 Mg [...] F (96.8 - 99.1) Temperature (Calculated Celsius) 36.77375 degrees C (36.0 - 37.3) Pulse Rate [...] Has specimen been collected/obtained? Y Urine Specific [place] December 29, 2013 2:25am 1.010 L - [...] Escherichia Coli Name: RAINA FRANCO Unit #: [id number] : 1930 Sex: M Loc / Svc: BRITNEY DOS: 07/13/14 Signed Report #: [id number] DIAGNOSTIC IMAGING REPORT TYPE OF EXAM: PICC LINE INSERTION w FLUORO Dictated By: DEBBI KRMAER MD PICC LINE INSERTION: After discussing the [...] completed 06/25/14 MICROBE SUSCEPTIBLE RUBIO completed 06/25/14 [id number] ITEM OR SERVICE completed 06/25/14 [id number] ITEM OR SERVICE completed 06/25/14 PROPOFOL INJ 500 MG/50ML completed 06/25/14 [id number]"INFUSION, NORMAL SALINE SOLUTION , 1000 CC" completed 06/25/14 INSERT PICC CATH completed 07/13/14 FLUOROGUIDE FOR VEIN DEVICE completed 07/13/14 [id number] WIRE completed 07/13/14 Encounters Encounter Location Date/Time Discharged Recurring [facility] 07/19/14 2:00pm Registered Clinic [facility] 07/13/14 1:39pm
--- OUTSIDE RECORDS SUMMARY | 2016-09-09 07:12 | XMS REPORT | Continuity of Care Document ---
Author Author [facility] Organization [facility] Address Unknown Phone Unavailable Support Name Relationship Address Phone LISETH SIMPSON DO Caregiver [address] [place] [address] [address] [place] [phone] FREDRICK STANFORD MD Caregiver [facility] [address] [place] [address] Unavailable KARI FLOWERS MD Caregiver [address] [place] [address] [address] [place] [phone] MINDY FRANCO & MATT Next Of Kin [address] [place] [address] Insurance Providers Payer Name Policy Number Subscriber Name Relationship Medicareadvantra Ppo [id number] Raina Franco Self [facility] State Plan [id number] Raina Franco 16 Self Advance Directives Directive [...] 60 Qty 06/26/13 Active Fluticasone Propionate 2 [place] DAILY 16 Qty 06/26/13 Active Mupirocin [...] Follow up apt with Dr Flowers 01/01/14- 3170 Patient Instructions: Take levaquin po daily for [...] of your legs. 3.During office hours, call [phone] 4. After hours, please call [facility] at [phone], and have the cover making machine operator page your Surgeon IN THE [...] F (96.8 - 99.1) Temperature (Calculated Celsius) 36.53579 degrees C (36.0 - 37.3) Temperature Source [...] Has specimen been collected/obtained? Y Urine Specific [place] December 29, 2013 2:25am 1.010 L - [...] procedures. 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
--- OUTSIDE RECORDS SUMMARY | 2016-09-09 07:13 | XMS REPORT | Continuity of Care Document ---
Author Author [facility] Organization [facility] Address Unknown Phone Unavailable Support Name Relationship Address Phone KARI FLOWERS MD Caregiver [address] [place] [address] [place] [address] [phone] MEGAN ALVES MD Caregiver [address] [place] [address] [place] [address] [phone] MINDY FRANCO & MATT Next Of Kin [address] [place] [address] Insurance Providers Payer Name Policy Number Subscriber Name Relationship Medicareadvantra Ppo [id number] Raina Franco Self [employer] State Plan [id number] Raina Franco Self Advance Directives Directive Response [...] PO DAILY 06/26/13 Active Fluticasone Propionate 2 [place] DAILY 06/26/13 Active Aspirin 81 Mg [...] F (96.8 - 99.1) Temperature (Calculated Celsius) 36.17411 degrees C (36.0 - 37.3) Temperature Source [...] Has specimen been collected/obtained? Y Urine Specific [place] December 29, 2013 2:25am 1.010 L - [...]
--- OUTSIDE RECORDS SUMMARY | 2016-09-09 07:14 | XMS REPORT | Continuity of Care Document ---
Author Author [facility] Organization [facility] Address Unknown Phone Unavailable Allergies Active Description [...] Status Pt. Type Provider Facility Loc./Unit Complaint [id number] 08/03/2013 13:30:00 08/03/2013 23 :59:59 CLS Outpatient [id number] 06/23/2013 13:36:00 06/23/2013 23 :59:59 CLS Outpatient [id number] 06/01/2013 13:33:00 06/01/2013 23 :59:59 CLS Outpatient
--- NOTE | 2016-09-09 07:17 | NUR ---
LAB LAB HERE TO DRAW BLOOD WORK. PT. IS CALM AND NO AGITATION NOTED.
[2016-09-09 07:22] LABS: BASOPHILS % (AUTO) 0.1 % (0-2); EOSINOPHILS # (AUTO) 0.1 T/MM3 (0-0.5); EOSINOPHILS % (AUTO) 0.7 % (0-4); HCT - HEMATOCRIT 34.3 % (41-53); HGB - HEMOGLOBIN 11.4 GM/DL (13.5-17.5); IMMATURE GRANULOCYTE # (AUTO) 0.02 T/MM3 (0.00-0.03); IMMATURE GRANULOCYTE % (AUTO) 0.2 % (0.0-0.5); LYMPHOCYTES # (AUTO) 1.8 T/MM3 (1-4.8); LYMPHOCYTES % (AUTO) 17.5 % (23-45); MEAN CORPUSCULAR HGB 30.5 UUG (26-34); MEAN CORPUSCULAR HGB CONC(MCHC 33.2 GM/DL (31-37); MEAN CORPUSCULAR VOLUME 91.7 UM3 (80-100); MEAN PLATELET VOLUME 10.5 UM3 (9.4-12.4); NEUTROPHILS #(AUTO)-ABSOLUTE 7.6 T/MM3 (1.8-7.7); NEUTROPHILS % (AUTO) 72.5 % (33-66); RED BLOOD COUNT 3.74 M/MM3 (4.50-5.90); WBC - WHITE BLOOD COUNT 10.5 T/MM3 (4.5-11.0)
[2016-09-09 07:23] LABS: BLOOD, URINE 1+ (NEGATIVE); COLOR,URINE YELLOW (YELLOW); LEUKOCYTE ESTERASE ,URINE 2+ (NEGATIVE); NITRITE,URINE POSITIVE (NEGATIVE); UROBILINOGEN,URINE 0.2 EU/DL (NORMAL)
[2016-09-09] MEDS ORDERED: HYDR-4246 PO (07:25)
[2016-09-09] MEDS ORDERED: TRIA1CAP2 (07:25)
--- NOTE | 2016-09-09 07:25 | NUR ---
CT PT. TO CT PER CART.
[2016-09-09 07:31] LABS: ALBUMIN 4.3 G/DL (3.5-5.0); ALBUMIN/GLOBULIN RATIO 1.2 RATIO (1.1-2.2); ALKALINE PHOSPHATASE 95 U/L (38-126); ALT (SGPT) 53 U/L (21-72); ANION GAP 14 MEQ/L (5-15); AST (SGOT) 39 U/L (17-59); BUN/CREATININE RATIO 37 RATIO (6-26); CALCIUM 9.6 MG/DL (8.4-10.2); CHLORIDE 102 MEQ/L (98-107); CO2 - CARBON DIOXIDE 25 MEQ/L (22-30); CREATININE 0.6 MG/DL (0.8-1.5); GLOMERULAR FILTRATION RATE 127; GLUCOSE 97 MG/DL (75-110); MAGNESIUM 1.7 MG/DL (1.6-2.3); POTASSIUM 4.5 MEQ/L (3.6-5); SODIUM 141 MEQ/L (134-144)
[2016-09-09 07:33] LABS: BACTERIA,URINE 1+ (NEGATIVE); SQUAMOUS EPITHELIAL CELL,UR NONE SEEN
--- NOTE | 2016-09-09 07:38 | NUR ---
CT PT. RETURNS FROM CT.
[2016-09-09 07:42] LABS: ACETAMINOPHEN < 10 UG/ML (10-30); ETHANOL <10 MG/DL (<10); SALICYLATE < 1.0 MG/DL (2-20)
[2016-09-09] MEDS ORDERED: NITROFURANTOIN (Macrobid) 100mg CAP PO ONE (07:45)
[2016-09-09 08:01] LABS: THYROID STIM HORMONE-TSH 0.84 MIU/L (0.47-4.68)
[2016-09-09] MEDS ORDERED: CEFTRIAXONE 1 GRAM INJECTION IM ONE (08:15)
[2016-09-09] MEDS ORDERED: CEFTRIAXONE I.V. (ER USE ONLY) 1 G in NORMAL SALINE 100 ML IV ONE (08:15)
--- NOTE | 2016-09-09 08:22 | NUR ---
REPORT REPORT TO [facility]
--- NOTE | 2016-09-09 08:25 | NUR ---
IVL IV LOCK STARTED.
--- NOTE | 2016-09-09 08:31 | NUR ---
ROCEPHIN ROCEPHIN INFUSION STARTED.
--- OUTSIDE RECORDS SUMMARY | 2016-09-09 08:31 | XMS REPORT | Continuity of Care Document ---
Author Author Luis [facility] Organization [facility] Address Unknown Phone Unavailable Support Name Relationship Address Phone KARI FLOWERS MD Caregiver [address] [place] [address] [place] [address] [phone] MEGAN ALEVS MD Caregiver [address] [place] [address] [place] [address] [phone] MINDY FRANCO & MATT Next Of Kin [address] [place] [address] Insurance Providers Payer Name Policy Number Subscriber Name Relationship Medicareadvantra Ppo [id number] Raina Franco 16 Self [employer] [place] State Plan [id number] Raina Franco 16 Self Advance Directives Directive [...] PO DAILY 06/26/13 Active Fluticasone Propionate 2 [place] NS DAILY 06/26/13 Active Aspirin 81 Mg [...] F (96.8 - 99.1) Temperature (Calculated Celsius) 36.22373 degrees C (36.0 - 37.3) Pulse Rate [...] Has specimen been collected/obtained? Y Urine Specific [place] December 29, 2013 2:25am 1.010 L [...] Escherichia Coli Name: RAINA FRANCO Unit #: [id number] : 1930 Sex: M Loc / Svc: BRITNEY DOS: 07/13/14 Signed Report #: [id number] DIAGNOSTIC IMAGING REPORT TYPE OF EXAM: PICC [...] completed 06/25/14 MICROBE SUSCEPTIBLE RUBIO completed 06/25/14 [id number] ITEM OR SERVICE completed 06/25/14 [id number] ITEM OR SERVICE completed 06/25/14 PROPOFOL INJ 500 MG/50ML completed 06/25/14 [id number]"INFUSION, NORMAL SALINE SOLUTION , 1000 CC" completed 06/25/14 INSERT PICC CATH completed 07/13/14 FLUOROGUIDE FOR VEIN DEVICE completed 07/13/14 [id number] WIRE completed 07/13/14 Encounters Encounter Location Date/Time Discharged Recurring [facility] 07/19/14 2:00pm Registered Clinic [facility] 07/13/14 1:39pm
--- OUTSIDE RECORDS SUMMARY | 2016-09-09 08:31 | XMS REPORT | Continuity of Care Document ---
Author Author [facility] Organization [facility] Address Unknown Phone Unavailable Support Name Relationship Address Phone LISETH SIMPSON DO Caregiver [address] [place] [address] [address] [place] [phone] FREDRICK STANFORD MD Caregiver [facility] [address] [place] [address] Unavailable KARI FLOWERS MD Caregiver [address] [place] [address] [address] [place] [phone] MINDY FRANCO & MATT Next Of Kin [address] [place] [address] Insurance Providers Payer Name Policy Number Subscriber Name Relationship Medicareadvantra Ppo [id number] Raina Franco Self [facility] State Plan [id number] Raina Franco 16 Self Advance Directives Directive [...] 60 Qty 06/26/13 Active Fluticasone Propionate 2 [place] DAILY 16 Qty 06/26/13 Active Mupirocin [...] Follow up apt with Dr Flowers 01/01/14- 3117 Patient Instructions: Take levaquin po daily for [...] of your legs. 3.During office hours, call [phone] 4. After hours, please call [facility] at [phone], and have the rapid transit operator page your Surgeon IN THE EVENT [...] F (96.8 - 99.1) Temperature (Calculated Celsius) 36.81856 degrees C (36.0 - 37.3) Temperature Source [...] Has specimen been collected/obtained? Y Urine Specific [place] December 29, 2013 2:25am 1.010 L - [...] procedures. 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
--- OUTSIDE RECORDS SUMMARY | 2016-09-09 08:32 | XMS REPORT | Continuity of Care Document ---
Author Author [facility] Organization [facility]IVE Address Unknown Phone Unavailable Support Name Relationship Address Phone KARI FLOWERS MD Caregiver [address] [place] [address] [place] [address] [phone] MEGAN ALVES MD Caregiver [address] [place] [address] [place] [address] [phone] MINDY FRANCO & MATT Next Of Kin [address] [place] [address] Insurance Providers Payer Name Policy Number Subscriber Name Relationship Medicareadvantra Ppo [id number] Raina Franco Self [employer] [place] State Plan [id number] Raina Franco Self Advance Directives Directive Response [...] PO DAILY 06/26/13 Active Fluticasone Propionate 2 [place] DAILY 06/26/13 Active Aspirin 81 Mg [...] F (96.8 - 99.1) Temperature (Calculated Celsius) 36.56456 degrees C (36.0 - 37.3) Temperature Source [...] Has specimen been collected/obtained? Y Urine Specific [place] December 29, 2013 2:25am 1.010 L - [...]
--- OUTSIDE RECORDS SUMMARY | 2016-09-09 08:33 | XMS REPORT | Continuity of Care Document ---
Author Author [facility] Organization [facility] Address Unknown Phone Unavailable Allergies Active [...] Status Pt. Type Provider Facility Loc./Unit Complaint [id number] 08/03/2013 13:30:00 08/03/2013 23 :59:59 CLS Outpatient [id number] 06/23/2013 13:36:00 06/23/2013 23 :59:59 CLS Outpatient [id number] 06/01/2013 13:33:00 06/01/2013 23 :59:59 CLS Outpatient
--- NOTE | 2016-09-09 08:35 | DI ---
Indication: ITS.REASON: AMS/sundowning PROCEDURE: CT HEAD W/O CONTRAST: Encounter: Initial Comparison: July 29, 2016 Technique: Axial CT images through the head were performed without contrast. Iterative Reconstruction dose reducing technique was utilized. FINDINGS: Limited exam due to motion artifact. Mild generalized atrophy. The ventricles are of normal size, shape, and contour for the patient's age. There are scattered areas of low attenuation in the white matter which most likely represent changes from chronic microvascular ischemia. The brainstem, cerebellum, and cerebral hemispheres otherwise have a normal morphology and CT attenuation. There is no evidence of midline displacement. No hemorrhage, signs of acute territorial stroke, mass effect, mass lesions, or edema is evident. The visualized portions of the skull base, midface, and calvarium demonstrate no abnormality. Mild sinus disease. The tympanic and mastoid cavities appear normal. IMPRESSION: No acute intracranial abnormality or hemorrhage. There is a preliminary report by virtual radiologic. .
--- NOTE | 2016-09-09 08:46 | NUR ---
DEPART/ADMIT PATIENT TRANSFERRED TO ROOM 144 VIA BED.
--- NOTE | 2016-09-09 08:46 | NUR ---
ADMIT PT TO RM 144 PER CART AFTER REPORT RECEIVED FROM MAICO PEREZ. PT ALERT AND ORIENTED TO NAME AND "VARGAS." PT DENIES PAIN. VITALS OBTAINED AND STABLE CHARTED. PT RESTING QUIETLY. WILL CONTINUE TO MONITOR.
[2016-09-09 08:50] VITALS: BP 146/74; PULSE 70; RESP 16; TEMP 98; O2SAT 95
[2016-09-09 09:14] VITALS: Ht 160 cm; Wt 81.7 kg
[2016-09-09] MEDS ORDERED: HYDROCODONE/APAP 5 mg/325 mg TABLET PO PRN (09:15)
[2016-09-09] MEDS ORDERED: CLINDAMYCIN 600mg IVPB 50 ML IV SCH (09:15)
[2016-09-09] MEDS ORDERED: ALBUTEROL INH.SOLN. 2.5mg/3ml (0.083%) Neb. AEROSOL PRN (09:15)
--- NOTE | 2016-09-09 09:30 | NUR ---
STATUS PT RESTS QUIETLY BETWEEN CARES, HOWEVER PT DOES CONTINUE TO HAVE HALLUCINATIONS-FAMILY REPORTS HE WAS HAVING THESE AT THE PRISON THROUGH THE NIGHT. PT MAKES COMMENTS ABOUT SAWDUST COMING OUT OF THE CEILING AND ABOUT THE BED TURNING. WHEN PT ASKED IF IT FEELS LIKE THE BED IS TURNING, HE STATES, "YOU KNOW IT IS." WILL CONTINUE TO MONITOR.
--- NOTE | 2016-09-09 09:55 | HPPDOC ---
SHANTA HERNANDEZ TESTER COMPRESSED GASES 09/09/16 0924: HPI - Adult Date DATE: 09/09/16 TIME: 09:21 General Chief Complaint: AMS, Confusion History of Present Illness HPI - ED Notes Initial Comments 86yo man presents to the ER today by private [facility]ing home transport for altered behavior. Pt has numerous medical comorbidities and has been on a slowly downward spiral for several years. Last night, pt was awake most of the night, complaining that his bed was moving/rocking and that he was surrounded by insects. Family (brother and [id number]) and NSing staff all verified that the bed was not moving, but pt insisted and swatted at the invisible insects with his "grabber". Pt has no formal dx of dementia or sundowning, but his PCM remarked that he had 'changed' at the last visit prior to pt changing PCM's after status change from assisted living to full NSing care. Pt has a dx of ' small stroke', though how that dx was obtained is not clear (hx provided by [id number]). Family has noted that pts tongue protrudes more now (was a new sign after last 'stroke'), he becomes frustrated more easily, has more hearing trouble, and has been cursing more frequently. Family feels that his personality has changed. EMS was called last night to transport pt, but pt refused. Family was able to reorient pt throughout the night, but they are now exhausted. Pt is much calmer and more rational now that the sun is up. Family convinced pt to present for evaluation. [facility] Hospitalist Lencho is a 86 yo male known to this service from recent previous hospitalization. He underwent a fairly complicated hospitalization for NSTEMI, ISATU, UTI, and concern for aspiration. He was started on pureed diet with thickened liquids. Swallow study did note that he was aspirating on thinned liquids, with concern for tracheal penetration even on thicker liquids. He did undergo a CT in the ED, which did not reveal an acute stroke. He has a chronic indwelling Sterling followed by urology in [place] ([facility]). There was concern that he has a UTI in the ED, however, his urine was fairly unremarkable for infection. Upon review of his CXR, there is concern that he may have an aspiration pneumonia. Patient may need to be screened for Generations due to behavioral changes, but it was requested that he be placed onto the medical floor for stabilization and further observation. He is very HAMILTON, and a bit confused, so he is unable to contribute towards this history. Chart is reviewed for collateral information. Past Medical History Past Medical History CKD IBS DM- Type 2 Post polio syndrome Constipation Depression HAMILTON Dysphagia HTN pEF, pHTN Echo 2017 NSTEMI Hypospadias with urinary retention V.Tach, nonsustained. Surgical History Patient's Surgical History: Cystoscopy-2013, 2011, 2010 Colonoscopy-2004 Tonsillectomy Right foot surgery related to foot drop Current Medications Home Meds Active Scripts Cyanocobalamin (Vitamin B-12) (Vitamin B-12) 1,000 Mcg Tablet, 1000 MCG PO DAILY for Low normal B12 level, #60 TAB Prov:TOM BOLAND MD 08/03/16 Amlodipine Besylate (Amlodipine Besylate) 5 Mg Tablet, 10 MG PO DAILY for HYPERTENSION, #30 TAB Prov:TOM BOLAND MD 08/03/16 Atorvastatin Calcium (Lipitor) 40 Mg Tablet, 40 MG PO HS for dylipidemia, #30 TAB Prov:TOM BOLAND MD 08/03/16 Isosorbide Mononitrate (Isosorbide Mononitrate ER) 30 Mg Tab.er.24h, 30 MG PO ACB for CAD, #30 TAB Prov:TOM BOLAND MD 08/03/16 Metoprolol Tartrate (Metoprolol Tartrate) 25 Mg Tablet, 25 MG PO WB, #30 TAB Prov:TOM BOLAND MD 08/03/16 Metoprolol Tartrate (Metoprolol Tartrate) 25 Mg Tablet, 12.5 MG PO WS, #30 TAB Prov:TOM BOLAND MD 08/03/16 Reported Medications Hydrocodone/Acetaminophen ([place] 5-325 Tablet) 5-325 Tablet, 1 TAB PO BID Y for PAIN, TAB 09/09/16 Triamterene/Hydrochlorothiazid (Dyazide 37.5-25 Capsule) 1 Each Capsule, DAILY 09/09/16 Magnesium Hydroxide/Al Hydrox (Mag-Al Liquid) 30 Ml Suspension, 30 ML PO Q4H Y for INDIGESTION 07/27/16 Polyethylene Glycol 3350 (Miralax) 17 Gm Powd.pack, 17 G PO DAILY 07/27/16 Acetaminophen (Acetaminophen) 500 Mg Tablet, 500 MG PO BID 07/27/16 Tamsulosin HCl (Tamsulosin HCl) 0.4 Mg Cap.er.24h, 0.4 MG PO HS 12/29/13 Bethanechol Chloride (Bethanechol Chloride) 25 Mg Tablet, 25 MG PO TID 12/29/13 Aspirin (Aspir 81) 81 Mg Tablet.dr, 81 MG PO DAILY 06/26/13 Citalopram (Celexa) 20 Mg Tablet, 20 MG PO DAILY 06/26/13 Allergies: Coded Allergies: sulfamethoxazole (Verified Allergy, Severe, tongue swells, 09/09/16) trimethoprim (Verified Allergy, Severe, tongue swells, 09/09/16) doxycycline (Verified Allergy, Unknown, "THROAT SWELLING", 09/09/16) Family History Family History: Father-Parkinsons Mother- DM Sister- DM Social History Smoking Status: Unknown if ever smoked Substance Use Type: does not use Marital Status: Single Housing: penitentiary Advance Directives: Yes DNR Social History Comments Wheelchair bound Review of Systems Unable to Obtain ROS Due to: clinical condition Comments Acute mental status changes. Chart reviewed for collateral information. No family at bedside. Physical Exam General General Nourishment: apparent age, adult General Body Habitus: well groomed Vital Signs Vital Signs Date Time Temp Pulse Resp B/P Pulse Ox O2 Delivery O2 Flow Rate FiO2 09/09/16 08:50 98.0 70 16 146/74 95 Room Air Height (Feet): 0 Height (Inches): 63.00 Comments Very HAMILTON. Not very conversive. Eyes Brief: FOUND: PERRL (2mm Bilaterally, reactive. ) ENMT Brief: NOT FOUND: mucosa moist Comments Tongue protrusion. Neck Brief: FOUND: midline, NOT FOUND: JVD, nuchal rigidity, spasm Respiratory Brief: FOUND: equal bilaterally, symmetrical, NOT FOUND: rales, wheezes Comments No crackles or wheezes anteriorly. No SOA. BS diminished throughout. Cardiovascular (brief) Cardiac Brief: FOUND: pedal edema, peripheral edema (2+ edema bilateral LE knees to toes. ), regular rate, regular rhythm, NOT FOUND: gallop, murmur Abdomen (brief) Abdominal Brief: FOUND: BS normo active x4, soft, NOT FOUND: distended, tender (brief) Male Brief: FOUND: deformity Comments Sterling- urine is clear and yellow, pale. Musculoskeletal (brief) Musculoskeletal Brief: FOUND: deformity, loss of motion Comments Chronic LE immobility due to post polio. Neurologic (brief) Neurological Brief: FOUND: motor, sensory, NOT FOUND: DTR 2/4 all extremities, facial droop Comments Chronic changes. Very HAMILTON. Neurologic RN Documented GCS Eye Opening: Verbal: Motor: Total: Psychiatric (brief) FOUND: alert, NOT FOUND: normal affect, oriented Laboratory Laboratory Tests Test 09/09/16 07:01 09/09/16 07:11 09/09/16 07:17 Urine Collection Type Sterling indwelling Urine Color Yellow Urine Turbidity Clear Urine pH 6.5 Urine Specific [place] <=1.005 Urine Protein Negative Urine Glucose (UA) Negative Urine Ketones Negative Urine Blood 1+ Urine Nitrite Positive Urine Bilirubin Negative Urine Urobilinogen 0.2EU/DL Urine Leukocyte Esterase 2+ Urine RBC 5-10/HPF Urine WBC 1-3/HPF Urine Squamous Epithelial Cells None seen Urine Bacteria 1+ Urine Culture Indicated Cult reflexed &setup Ammonia 13UMOL/L White Blood Count 10.5T/MM3 Red Blood Count 3.74M/MM3 Hemoglobin 11.4GM/DL Hematocrit 34.3% Mean Corpuscular Volume 91.7UM3 Mean Corpuscular Hemoglobin 30.5UUG Mean Corpuscular Hemoglobin Concent 33.2GM/DL RDW Standard Deviation 45.5FL Platelet Count 127T/MM3 Mean Platelet Volume 10.5UM3 Immature Granulocyte % (Auto) 0.2% Neutrophils (%) (Auto) 72.5% Lymphocytes (%) (Auto) 17.5% Monocytes (%) (Auto) 9.0% Eosinophils (%) (Auto) 0.7% Basophils (%) (Auto) 0.1% Absolute Immature Granulocyte (auto 0.02T/MM3 Absolute Neutrophils (auto) 7.6T/MM3 Absolute Lymphocytes (auto) 1.8T/MM3 Absolute Monocytes (auto) 1.0T/MM3 Absolute Eosinophils (auto) 0.1T/MM3 Absolute Basophils (auto) 0.0T/MM3 Turbidity < 20 Sodium Level 141MEQ/L Potassium Level 4.5MEQ/L Chloride Level 102MEQ/L Carbon Dioxide Level 25MEQ/L Anion Gap 14MEQ/L Blood Urea Nitrogen 22.0MG/DL Creatinine 0.6MG/DL Glomerular Filtration Rate Calc 127 BUN/Creatinine Ratio 37RATIO Glucose Level 97MG/DL Calculated Osmolality 274MOSM/KG Calcium Level 9.6MG/DL Phosphorus Level 4.0MG/DL Magnesium Level 1.7MG/DL Total Bilirubin 0.80MG/DL Icterus Index < 2 Aspartate Amino Transf (AST/SGOT) 39U/L Alanine Aminotransferase (ALT/SGPT) 53U/L Alkaline Phosphatase 95U/L Total Protein 8.0G/DL Albumin 4.3G/DL Globulin 3.7G/DL Albumin/Globulin Ratio 1.2RATIO Thyroid Stimulating Hormone (TSH) 0.84MIU/L Chemistry Specimen Hemolysis 37 Salicylates Level < 1.0MG/DL Acetaminophen Level < 10UG/ML Alcohol, Quantitative <10MG/DL Radiology CXR- Bilateral infiltrates, left > right. (I interpreted these films) CT head- no acute findings. Concerns For Adverse Events Moderate Sepsis Diagnostic Criteria Sepsis Confirmed/Suspected Infection: Yes SIRS Criteria: Acute mental status chg Assessment & Plan Problems: (1) Altered mental status Status: Acute Qualifiers: Altered mental status type: disorientation Qualified Codes: R41.0 - Disorientation, unspecified (2) Acute encephalopathy Status: Acute (3) Aspiration pneumonia Status: Acute Qualifiers: Aspiration pneumonia type: unspecified Laterality: bilateral Lung location: unspecified part of lung Qualified Codes: J69.0 - Pneumonitis due to inhalation of food and vomit (4) Peripheral edema Status: Chronic (5) Macroglossia Status: Chronic (6) Dysphagia Status: Chronic Qualifiers: Dysphagia type: unspecified Qualified Codes: R13.10 - Dysphagia, unspecified (7) urinary retention Status: Chronic (8) BPH (benign prostatic hyperplasia) Status: Chronic (9) Hypertension Status: Chronic Qualifiers: Hypertension type: essential hypertension Qualified Codes: I10 - Essential (primary) hypertension (10) Diet-controlled type 2 diabetes mellitus Status: Chronic (11) Post-polio syndrome Status: Chronic (12) Depression Status: Chronic Assessment 09/09/16- 86 yo WM with known post-polio syndrome Plan/Intensity of Service 1. Infection- I suspect this is due to aspiration event. Assess UA given concern for UTI. Continue Ceftriaxone, add Clinda to cover possible aspiration. Continue pureed diet, thickened liquids. ST eval and tx. 2. Dysphagia, Macroglossia (new)- ST eval and tx. Assess MRI brain given recent findings of Macroglossia, concern for stroke. May need to consider soft tissue CT of neck. Assess niacin levels. B12 is borderline low, but would be prudent to replace given sx. Continue PO replacement, and add IM replacement dosing as well. 3. Hypospadias, Urinary retention- Continue Sterling 4. Clinical dehydration- Add gentle IVF. Hold Maxzide. 5. HTN, pEF, possible pHTN- Continue metoprolol, norvasc. Hold Maxzide. No acute evidence of HF. 6. LE edema, chronic immobility- Add LMWH for px. Check venous doppler. 7. DM2- Accu checks. Reg diet due to pureed needs for now. If BG elevates, then consider changing to DM diet. 8. AMS, Sundowners?, Acute encephalopathy- Assess MRI brain. Tx infection, dehydration. Consider Generations screen if persists. 9. DNR status- ordered. (confirmed by [facility] documents). Has Advanced Directive in place as well. DVT Prophylaxis: Lovenox Code Status Do Not Resuscitate Hospital Course Summary Disclaimer The hospital course summary below is not to be considered part of the above Progress Note. Hospital Course Summary 1. Infection- I suspect this is due to aspiration event. Assess UA given concern for UTI. Continue Ceftriaxone, add Clinda to cover possible aspiration. Continue pureed diet, thickened liquids. ST eval and tx. 2. Dysphagia, Macroglossia (new)- ST eval and tx. Assess MRI brain given recent findings of Macroglossia, concern for stroke. May need to consider soft tissue CT of neck. Assess niacin levels. B12 is borderline low, but would be prudent to replace given sx. Continue PO replacement, and add IM replacement dosing as well. 3. Hypospadias, Urinary retention- Continue Sterling 4. Clinical dehydration- Add gentle IVF. Hold Maxzide. 5. HTN, pEF, possible pHTN- Continue metoprolol, norvasc. Hold Maxzide. No acute evidence of HF. 6. LE edema, chronic immobility- Add LMWH for px. Check venous doppler. 7. DM2- Accu checks. Reg diet due to pureed needs for now. If BG elevates, then consider changing to DM diet. 8. AMS, Sundowners?, Acute encephalopathy- Assess MRI brain. Tx infection, dehydration. Consider Generations screen if persists. 9. DNR status- ordered. (confirmed by [facility] documents). Has Advanced Directive in place as well. BRIGITTE UMANZOR MD 09/09/161911: Past Medical History Current Medications Home Meds Active Scripts Cyanocobalamin (Vitamin B-12) (Vitamin B-12) 1,000 Mcg Tablet, 1000 MCG PO DAILY for Low normal B12 level, #60 TAB Prov:TOM BOLAND MD 08/03/16 Amlodipine Besylate (Amlodipine Besylate) 5 Mg Tablet, 10 MG PO DAILY for HYPERTENSION, #30 TAB Prov:TOM BOLAND MD 08/03/16 Atorvastatin Calcium (Lipitor) 40 Mg Tablet, 40 MG PO HS for dylipidemia, #30 TAB Prov:TOM BOLAND MD 08/03/16 Isosorbide Mononitrate (Isosorbide Mononitrate ER) 30 Mg Tab.er.24h, 30 MG PO ACB for CAD, #30 TAB Prov:TOM BOLAND MD 08/03/16 Metoprolol Tartrate (Metoprolol Tartrate) 25 Mg Tablet, 25 MG PO WB, #30 TAB Prov:TOM BOLAND MD 08/03/16 Metoprolol Tartrate (Metoprolol Tartrate) 25 Mg Tablet, 12.5 MG PO WS, #30 TAB Prov:TOM BOLAND MD 08/03/16 Reported Medications Hydrocodone/Acetaminophen ([place] 5-325 Tablet) 5-325 Tablet, 1 TAB PO BID Y for PAIN, TAB 09/09/16 Triamterene/Hydrochlorothiazid (Dyazide 37.5-25 Capsule) 1 Each Capsule, DAILY 09/09/16 Magnesium Hydroxide/Al Hydrox (Mag-Al Liquid) 30 Ml Suspension, 30 ML PO Q4H Y for INDIGESTION 07/27/16 Polyethylene Glycol 3350 (Miralax) 17 Gm Powd.pack, 17 G PO DAILY 07/27/16 Acetaminophen (Acetaminophen) 500 Mg Tablet, 500 MG PO BID 07/27/16 Tamsulosin HCl (Tamsulosin HCl) 0.4 Mg Cap.er.24h, 0.4 MG PO HS 12/29/13 Bethanechol Chloride (Bethanechol Chloride) 25 Mg Tablet, 25 MG PO TID 12/29/13 Aspirin (Aspir 81) 81 Mg Tablet.dr, 81 MG PO DAILY 06/26/13 Citalopram (Celexa) 20 Mg Tablet, 20 MG PO DAILY 06/26/13 Allergies: Coded Allergies: sulfamethoxazole (Verified Allergy, Severe, tongue swells, 09/09/16) trimethoprim (Verified Allergy, Severe, tongue swells, 09/09/16) doxycycline (Verified Allergy, Unknown, "THROAT SWELLING", 09/09/16) Assessment & Plan Plan/Intensity of Service 09/09/16 I have personally evaluated and seen this patient and agree with assessment and plan listed above. History -[facility] with confusion and agitation.. Began having halucinations and aggressively going after staff. He was not qualified for Generations, but apiration pnuemonia and possible uti were noted. He has previously had cva and tongue seemed to protrude more after that. Today by history, tongue is protruding more again. Workup up in ED included CT head with no new changes. PMH-CKD,IBS,DM2, Post Polio sydrome, Depression, Dysphagia, [place], HTN, NSTEMI, Hypospadius with retention and chronic Sterling, VTach nonsustained. PSurgH- Cystoscopy, colonoscopy, T&A, Foot drop repair. Meds- see list above. ROS-MR, Tongue swollen with chronic dysphagia, hypospadius, left facial droop,2+ edema bilat low ext. Other system abnormalities listed above or system neg. 10 syst reviewed. EXAM HEENT with thickened tongue, left droop, otherwise normal. LUNGS- crackles L lower lobe CV- RRR ABD- pt combative and would not allow abd exam EXT- 2+ edema bilat lower ext NEURO- pt very angry and scared. Swearing and swinging at anyone near. Grabbing at nurses. A/P 1 pneumonia LLL Likely SIRS with pneumonia. Rocephin and clindamycin, Reeval labs and cxr in am. [address], blood cx ordered. I had to order Haldol and benadryl to control agression as nurses physically at risk in room. Also ordered haldol if needed for anxiety. Other workup as above. 3 Dysphagia Pt without diff drinking thickened liquid and able to breath without difficulty. 4 Dehydration IVF, arm wrap placed to protect IV as pt is swinging arms. 5 [facility] current meds continued. SHANTA Roach MD, APRN September 09, 2016 09:24 BRIGITTE UMANZOR MD September 09, 2016 19:12
--- NOTE | 2016-09-09 09:58 | DI ---
Indication: ITS.REASON: Sundowning PROCEDURE: CHEST 1 VIEW: Encounter: Initial Comparison: August 27, 2016 Findings: Lungs are stable without new consolidative pneumonia, pleural effusion or pneumothorax. Cardiac silhouette remains moderately enlarged. Mediastinal contours are stable. Pulmonary vascularity is grossly normal. Severe chronic degenerative changes and deformities in the shoulders. Impression: No focal pneumonia or overt congestive failure. .
[2016-09-09] MEDS: NORMAL SALINE 1,000 ML IV SCH ×2 (10:12→23:33)
[2016-09-09] MEDS: CLINDAMYCIN 600mg IVPB 50 ML IV SCH ×2 (10:31→17:28)
[2016-09-09] MEDS: ENOXAPARIN 40 MG/0.4 ML INJECTION SQ SCH (10:34)
--- NOTE | 2016-09-09 10:35 | NUR ---
IVL PT C/O'S IV SITE BEING TENDER WHEN FLUSHED. IV SITE ALSO NOTED TO BECOME SLIGHTLY PUFFY WITH FLUSHING. THIS SITE D/C'D AND NEW IV PLACED TO RIGHT FOREARM-HIGHER FROM THE PREVIOUS SITE. PT DENIES TENDERNESS WHEN THIS SITE FLUSHED. WILL CONTINUE TO MONITOR.
[2016-09-09] MEDS: BETHANECHOL 25 MG TABLET PO SCH ×2 (12:32→17:57)
--- NOTE | 2016-09-09 13:44 | NUR ---
AGITATION PT BECOMES INCREASINGLY AGITATED-HOLLERS OUT AND SHOWS SIGNS OF PARANOIA AND SUSPICION MAKING STATEMENTS LIKE, "GET OUT OF HERE." WHEN THIS NURSING STAFF ASKS PT WHAT IS THE MATTER, HE STATES, "YOU KNOW." DR. UMANZOR IN TO SEE PT. HALDOL 5 MG IV GIVEN. WILL CONTINUE TO MONITOR.
[2016-09-09] MEDS ORDERED: HALOPERIDOL 5 MG/ML INJECTION IV ONE (13:45)
[2016-09-09] MEDS ORDERED: DiphenhydrAMINE 50 MG/ML INJECTION IV PRN (14:00)
[2016-09-09] MEDS ORDERED: HALOPERIDOL 5 MG/ML INJECTION IV PRN (14:00)
--- NOTE | 2016-09-09 14:05 | NUR ---
AGITATION PT CONTINUES TO HOLLER OUT. ATTEMPTS MADE TO UNDERSTAND IF THERE IS SOMETHING PT NEEDS. PT SUSPICIOUS OF STAFF AND HOLLERS LOUDLY. BENADRYL 25 MG IV GIVEN FOR AGITATION. WILL CONTINUE TO MONITOR.
[2016-09-09 15:37] VITALS: BP 142/69; PULSE 88; RESP 20; TEMP 98.7; O2SAT 96
[2016-09-09] MEDS: LORAZEPAM 2 MG/ML INJECTION IV PRN (16:10)
--- NOTE | 2016-09-09 18:45 | NUR ---
STATUS PT POSITIONED UPRIGHT IN BED AND ASSISTED WITH EATING SUPPER. EATS APPROX 110 CC'S MIGHTY SHAKE AND ICE CREAM MIXED. PT CONTINUES AGITATED AT TIMES, HOLLERING OUT LOUDLY. ATIVAN GIVEN FOR THIS AGITATION-SEE EMAR. PT RESTS QUIETLY AFTER EATING SUPPER. WILL CONTINUE TO MONITOR.
[2016-09-09] MEDS: TAMSULOSIN 0.4 MG CAPSULE PO SCH (22:17)
[2016-09-09] MEDS: ATORVASTATIN 40 MG TABLET PO SCH (22:18)
[2016-09-09] MEDS: ACETAMINOPHEN 500 MG TABLET PO SCH (22:18)
[2016-09-10] VITALS: BP 143/80; PULSE 65; RESP 16; TEMP 97.2; O2SAT 95
[2016-09-10] MEDS: CLINDAMYCIN 600mg IVPB 50 ML IV SCH ×2 (03:23→10:16)
[2016-09-10] MEDS: LORAZEPAM 2 MG/ML INJECTION IV PRN (04:38)
--- NOTE | 2016-09-10 05:07 | NUR ---
Status Pt slept well tonight, repositioned, johnson to DD, alert with confusion. Ativan x1 for anxiety, yelling out. IVF infusing per order. Alarms in place.
[2016-09-10 05:41] LABS: BASOPHILS % (AUTO) 0.2 % (0-2); EOSINOPHILS # (AUTO) 0.1 T/MM3 (0-0.5); EOSINOPHILS % (AUTO) 1.5 % (0-4); HCT - HEMATOCRIT 32.5 % (41-53); HGB - HEMOGLOBIN 10.7 GM/DL (13.5-17.5); IMMATURE GRANULOCYTE # (AUTO) 0.02 T/MM3 (0.00-0.03); IMMATURE GRANULOCYTE % (AUTO) 0.2 % (0.0-0.5); LYMPHOCYTES # (AUTO) 1.6 T/MM3 (1-4.8); LYMPHOCYTES % (AUTO) 16.7 % (23-45); MEAN CORPUSCULAR HGB 30.7 UUG (26-34); MEAN CORPUSCULAR HGB CONC(MCHC 32.9 GM/DL (31-37); MEAN CORPUSCULAR VOLUME 93.4 UM3 (80-100); MEAN PLATELET VOLUME 11.5 UM3 (9.4-12.4); MONOCYTES # (AUTO) 0.9 T/MM3 (0-0.8); MONOCYTES % (AUTO) 9.8 % (0-9.0); NEUTROPHILS #(AUTO)-ABSOLUTE 6.7 T/MM3 (1.8-7.7); NEUTROPHILS % (AUTO) 71.6 % (33-66); RED BLOOD COUNT 3.48 M/MM3 (4.50-5.90); WBC - WHITE BLOOD COUNT 9.4 T/MM3 (4.5-11.0)
[2016-09-10 05:53] LABS: ALBUMIN 3.9 G/DL (3.5-5.0); ANION GAP 11 MEQ/L (5-15); BUN/CREATININE RATIO 23 RATIO (6-26); CALCIUM 9.2 MG/DL (8.4-10.2); CHLORIDE 104 MEQ/L (98-107); CO2 - CARBON DIOXIDE 25 MEQ/L (22-30); CREATININE 0.7 MG/DL (0.8-1.5); GLOMERULAR FILTRATION RATE 106; GLUCOSE 112 MG/DL (75-110); MAGNESIUM 1.7 MG/DL (1.6-2.3); PHOSPHORUS 4.1 MG/DL (2.5-4.5); SODIUM 140 MEQ/L (134-144)
[2016-09-10] MEDS: ISOSORBIDE MONONITRATE ER 30 MG TABLET PO SCH (06:46)
[2016-09-10] MEDS: BETHANECHOL 25 MG TABLET PO SCH ×3 (06:46→17:53)
[2016-09-10 08:00] VITALS: BP 139/66; PULSE 55; PULSE 61; RESP 16; TEMP 96; O2SAT 96
[2016-09-10] MEDS ORDERED: CYANOCOBALAMIN (B-12) 500mcg TABLET PO SCH (09:00)
[2016-09-10] MEDS ORDERED: CYANOCOBALAMIN (B-12) 1000mcg/ml INJECTION IM SCH (09:00)
[2016-09-10] MEDS: ACETAMINOPHEN 500 MG TABLET PO SCH ×2 (09:14→22:02)
[2016-09-10] MEDS: ASPIRIN *EC* 81mg TABLET PO SCH (09:15)
[2016-09-10] MEDS: AMLODIPINE 10 MG TABLET PO SCH (09:15)
[2016-09-10] MEDS: ENOXAPARIN 40 MG/0.4 ML INJECTION SQ SCH (09:16)
[2016-09-10] MEDS: POLYETHYL.GLYCOL 3350 PACKET 17gm PO SCH (09:16)
[2016-09-10] MEDS: CEFTRIAXONE 1 G in NORMAL SALINE 100 ML IV SCH (09:16)
--- NOTE | 2016-09-10 09:25 | PNPDOC ---
LAZARA CONNELL Zheng MOON 09/10/16 0913: Subjective Date DATE: 09/10/16 TIME: 09:10 Subjective Lencho is seen this morning while sleeping in bed. He will not open his eyes to stimulation. Tongue is noted to be protruding and dry. He is comfortably breathing on room air without evidence of distress. Reviewed all nursing notes. Continued to have increase yelling and behaviors overnight. Required multiple PRN meds yesterday. Objective Vital Signs Vital signs Vital Signs Date Time Temp Pulse Resp B/P Pulse Ox O2 Delivery O2 Flow Rate FiO2 09/10/16 00:00 97.2 65 16 143/80 95 Room Air Height (Feet): 0 Height (Inches): 63.00 Weight (Kilograms): 81.000 General General Appearance: Confused, Cooperative, No Acute Distress Eyes (Brief) Eyes: FOUND: EOMI ENMT (Brief) ENMT: FOUND: mucosa moist, normal dentition, NOT FOUND: pharnyx erythema Neck (Brief) Neck: FOUND: midline, NOT FOUND: adenopathy, carotid bruits, tracheal deviation Respiratory (Brief) Respiratory: NOT FOUND: wheezes Comments Diminished bilaterally Cardiovascular (Brief) Cardiac: FOUND: regular rate, regular rhythm, NOT FOUND: murmur, pedal edema Capillary Refill: <2 sec Abdomen (Brief) Abdominal: FOUND: BS normo active x4, soft, NOT FOUND: distended, tender Lymphatic (Brief) Lymphatic: NOT FOUND: adenopathy Musculoskeletal (Brief) Musculoskeletal: NOT FOUND: tenderness Integumentary (Brief) Integumentary: FOUND: dry, pink, warm Psychiatric (Brief) Comments Sleeping on exam Laboratory Laboratory Laboratory Tests 09/09/16 07:17 09/10/16 05:13 Laboratory Tests 09/09/16 07:17 09/10/16 05:13 Microbiology Microbiology Microbiology Date/Time Source Procedure Growth Status 09/09/16 07:33 Urine, Sterling Indwelling Urine Culture - Preliminary Gram Negative Gordo Gram Positive Cocci Resulted Sepsis Diagnostic Criteria Sepsis Confirmed/Suspected Infection: Yes SIRS Criteria: Acute mental status chg Assessment & Plan Problems: (1) Altered mental status Status: Acute Qualifiers: Altered mental status type: disorientation Qualified Codes: R41.0 - Disorientation, unspecified (2) Acute encephalopathy Status: Acute (3) Aspiration pneumonia Status: Acute Qualifiers: Aspiration pneumonia type: unspecified Laterality: bilateral Lung location: unspecified part of lung Qualified Codes: J69.0 - Pneumonitis due to inhalation of food and vomit (4) Peripheral edema Status: Chronic (5) Macroglossia Status: Chronic (6) Dysphagia Status: Chronic Qualifiers: Dysphagia type: unspecified Qualified Codes: R13.10 - Dysphagia, unspecified (7) urinary retention Status: Chronic (8) BPH (benign prostatic hyperplasia) Status: Chronic (9) Hypertension Status: Chronic Qualifiers: Hypertension type: essential hypertension Qualified Codes: I10 - Essential (primary) hypertension (10) Diet-controlled type 2 diabetes mellitus Status: Chronic (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 Repeat chest x-ray for this morning. No hypoxia as patient is maintaining adequate oxygenation on room air. Speech therapy consultation given dysphasia and tongue enlargement with protrusion. He currently on pured diet with thickened liquids Continue with chronic indwelling Sterling catheter with known hypospadias. Did review urinalysis does not appear to be acute infection. Continues to have mental status change with behaviors. Requiring as needed Ativan and Haldol Continue to monitor blood pressure and heart rate currently on Lopressor, Imdur and Norvasc. (Maxide on hold). Lovenox subcutaneous daily for DVT prophylaxis Venous Doppler of BLE ordered to rule out VTE give chronic immobility Recheck CBC and BMP tomorrow morning to follow blood counts, renal function and electrolytes Will discuss further plan of care with attending, Dr Kumar Code Status Do Not Resuscitate Hospital Course Summary Disclaimer The hospital course summary below is not to be considered part of the above Progress Note. Hospital Course Summary 1. Infection- I suspect this is due to aspiration event. Assess UA given concern for UTI. Continue Ceftriaxone, add Clinda to cover possible aspiration. Continue pureed diet, thickened liquids. ST eval and tx. 2. Dysphagia, Macroglossia (new)- ST eval and tx. Assess MRI brain given recent findings of Macroglossia, concern for stroke. May need to consider soft tissue CT of neck. Assess niacin levels. B12 is borderline low, but would be prudent to replace given sx. Continue PO replacement, and add IM replacement dosing as well. 3. Hypospadias, Urinary retention- Continue Sterling 4. Clinical dehydration- Add gentle IVF. Hold Maxzide. 5. HTN, pEF, possible pHTN- Continue metoprolol, norvasc. Hold Maxzide. No acute evidence of HF. 6. LE edema, chronic immobility- Add LMWH for px. Check venous doppler. 7. DM2- Accu checks. Reg diet due to pureed needs for now. If BG elevates, then consider changing to DM diet. 8. AMS, Sundowners?, Acute encephalopathy- Assess MRI brain. Tx infection, dehydration. Consider Generations screen if persists. 9. DNR status- ordered. (confirmed by NH documents). Has Advanced Directive in place as well. 09/10/16 Continue with Rocephin and clindamycin for treatment of pneumonia. Repeat chest x-ray for this morning. No hypoxia as patient is maintaining adequate oxygenation on room air. Speech therapy consultation given dysphasia and tongue enlargement with protrusion. He currently on pured diet with thickened liquids Continue with chronic indwelling Sterling catheter with known hypospadias. Did review urinalysis does not appear to be acute infection. Continues to have mental status change with behaviors. Requiring as needed Ativan and Haldol Continue to monitor blood pressure and heart rate currently on Lopressor, Imdur and Norvasc. (Maxide on hold). Lovenox subcutaneous daily for DVT prophylaxis Venous Doppler of BLE ordered to rule out VTE give chronic immobility Recheck CBC and BMP tomorrow morning to follow blood counts, renal function and electrolytes Will discuss further plan of care with attending, JUAN DAVID Frank MD 09/10/16 1723: Assessment & Plan Assessment I have independently evaluated and examined this patient. I reviewed the chart, the patient's history, and the DISASSEM[employer]ER [employer]ODUCT's documented findings as above. We discussed and formulated the assessment and plan as above with additions as below: Mr. Franco was seen urgently this morning after he fell transferring back to bed. Nursing reported no change in his chronic depressed mental status. Patient did not respond to verbal questions which nursing reported was true prior to the fall. Patient withdrew all 4 extremities to stimulation but did not withdraw to command, gaze was conjugate and pupils equal/reactive. Tongue is moderately prominent. The patient localizes with his left upper extremity but did not clearly do so with the right upper extremity and seemed to move his left arm more briskly than the right. Heart tones are diminished and anterior lung pablo clear. Nursing is described bradycardia with heart rate into the 40s on one occasion. Blood pressure consistently normal. MRI reviewed by myself (obtained after fall)-extensive atrophy and chronic small vessel ischemic change but no acute pathology or stroke. Venous Doppler negative for clot. Yesterday and today's chest x-rays reviewed by myself-no clear indication of pneumonia although borderline cardiomegaly is present. Patient oxygenating well, chest x-ray without focal abnormality. Unclear to me that there is indication for treatment of pneumonia. Clindamycin discontinued. Continue ceftriaxone pending results of urine culture although few white cells present in UA and chronic Sterling. Consult generations; suspect underlying dementia in conjunction with mental retardation. Metoprolol decreased to 12.5 mg twice a day. The bradycardia persists may require further modification. B 12 level within normal range-discontinue IM injections, may benefit from oral replacement if levels demonstrated to drop over the next 6-12 months. In addition to above diagnoses please add: #1 sinus bradycardia. Plan/Intensity of Service Multiple x-rays reviewed by myself, laboratory data reviewed, discussed with nursing to provide supplemental history, old records reviewed. LAZARA CONNELL APRN September 10, 2016 09:13 JUAN DAVID KUMAR MD September 10, 2016 17:23
[2016-09-10 11:20] VITALS: BP 126/80; PULSE 55; RESP 17; O2SAT 96
--- NOTE | 2016-09-10 11:20 | NUR ---
FALL WHEN BEING TRANSFERRED FROM BED TO CART PT FELL IN BETWEEN DUE TO MECHANICAL FAILURE ON THE BREAKS OF THE CART. PT LANDED ON HIS BUTTOCKS AND HEAD WAS CUSHIONED BY A PILLOW. NO OBVIOUS HEAD INJURY NOTED. PT DENIED ANY PAIN, DR JUAN ASSESSED PT WHILE ON THE FLOOR, NO CHANGES IN NEURO STATUS. PTS VS STABLE CHARTED UNDER VITAL SIGNS. PT WAS THEN TRANSFERRED WITH THE USE OF AN INFLATABLE MATTRESS TO THE CART AND THEN LEFT FOR MRI.
--- NOTE | 2016-09-10 12:20 | NUR ---
STATUS PT BACK FROM MRI AT THIS TIME. PT NEURO STATUS REMAINS THE SAME. PT REPLIES WHEN STIMULATED BUT DRIFTS EASILY BACK TO SLEEP. WILL CONTINUE TO MONITOR. PT STILL SHOWING [place] ON MONITOR DR JUAN NOTIFIED AND AWARE.
--- NOTE | 2016-09-10 12:42 | DI ---
Indication: ITS.REASON: AMS, concern for recent stroke. PROCEDURE: MRI BRAIN W/O CONTRAST: Encounter: Initial Comparisons: None. Technique: Multiplanar, multisequence, MR imaging of the head without contrast was acquired. FINDINGS: The images are blurred by some excessive patient motion. There is fairly extensive cortical atrophy with periventricular and subcortical white matter changes. There are small nonspecific punctate areas of T2-weighted and T2 FLAIR weighted signal abnormality in the deep frontoparietal white matter that most likely represent small vessel ischemic disease. . The brain stem, cerebellum, and cerebral hemispheres otherwise have a normal morphologic appearance as well as MR signal intensity on all pulse sequences. There are no areas of restricted diffusion on diffusion weighted imaging to suggest an acute infarct. There is no evidence of an intracranial mass lesion, intracranial hemorrhage, or hydrocephalus. The visualized portions of the orbits, calvarium, paranasal sinuses, and skull base demonstrate no significant abnormality. IMPRESSION: Moderate cortical atrophy with periventricular and subcortical white matter changes. No evidence for acute cortical infarct. No evidence for acute intracranial hemorrhage. No evidence for mass lesion, mass effect, or midline shift. .
--- NOTE | 2016-09-10 13:38 | DI ---
Indication: ITS.REASON: Pneumonia PROCEDURE: CHEST 1 VIEW: Encounter: Initial Comparison: 09/09/2016 Findings: There is a megaly and pulmonary vascular congestion with some interstitial prominence which may be accentuated by the expiratory technique. No definite pleural effusion. No lobar consolidation. The trachea is midline. No significant tortuosity of the descending thoracic aorta. No subdiaphragmatic free air. Impression: Cardiomegaly and pulmonary vascular congestion without definite overt CHF. .
[2016-09-10] MEDS: NORMAL SALINE 1,000 ML IV SCH ×2 (13:51→20:12)
--- NOTE | 2016-09-10 14:05 | DI ---
Indication: ITS.REASON: Immobility, AMS PROCEDURE: US VENOUS DUPLEX, LOWER EXT BI: Encounter: Initial Comparison: None Technique: Color Doppler duplex and grayscale sonographic imaging of both lower extremities was performed. Findings: There is no evidence for acute deep venous thrombosis in either thigh. Specifically, serial graded compression was performed from the inguinal ligament to the popliteal bifurcation, bilaterally, demonstrating appropriate compressibility of the deep venous system. In addition, color and pulsed Doppler demonstrate appropriate spontaneous flow, variation with respiration, and augmentation with calf compression. At the ankle, normal flow is identified in the posterior tibial veins; these vessels are also normal in caliber. Impression: No evidence of acute DVT in either lower limb. .
--- NOTE | 2016-09-10 14:42 | NUR ---
SPEECH THERAPY: POSITIVE ADMIT SCREENING Speech therapist observed pt eating lunch. Pt has hx of aspiration on thin and thickened liquids as noted in MBSS. Pt appears to be on the safest oral diet of pureed with honey thick liquids however, pt fatigues quickly with frequent coughing. Suspect coughing on residue as pt fatigues. Recommend 6 small meals throughout the day using the following precautions: 1. Pt must be fed, 2. HOB at 90 degrees. 3. Present bite/sips at a slow rate 4. Cue pt to use a dry swallow and occasional throat clearing in between bites. 5. crush med and present in pudding consistency.
--- NOTE | 2016-09-10 15:20 | NUR ---
UPDATE PTS AT BEDSIDE, PT IS MORE AWAKE, ALERT AND ORIENTED X2. PTS UPDATED ON PTS STATUS AND INFORMED OF PTS FALL.
--- NOTE | 2016-09-10 15:52 | NUR ---
CM THIS WORKER STOPPED BY PT'S ROOM. HIS SISTER IN LAW/DPOA (MATT) WAS PRESENT AND PROVIDED THE INFORMATION, SINCE PT WAS ALERT BUT NOT ANSWERING QUESTIONS. THIS WORKER INTRODUCED SELF, EXPLAINED ROLE, AND PROVIDED CONTACT INFO. MATT STATED PT IS FROM THE [facility], AND THEY WANT HIM TO RETURN. SHE SAID HE HAD A BEHAVIOR/MENTAL CHANGE, BUT HE SEEMS TO BE CLOSER TO "[facility]" NOW. SHE HAD NO QUESTIONS/NEEDS FOR THIS WORKER. Addendum: 09/10/16 at 1556 by ALONDRA KLEIN Amended: Links added.
--- NOTE | 2016-09-10 15:56 | NUR ---
ROBERT CRUZ IS 6. Addendum: 09/10/16 at 1557 by ALONDRA ARTHUR SW Amended: Links added.
[2016-09-10 16:00] VITALS: BP 146/61; PULSE 45; RESP 16; TEMP 96.4; O2SAT 94
--- NOTE | 2016-09-10 18:19 | NUR ---
SHIFT SUMMARY PT SPEND MOST OF THE MORNING SLEEPING, DID NOT HAVE ANY EPISODES OF AGITATION, PT WAS FED BREAKFAST AND ATE 100% OF ALL HIS MEALS TODAY. PT DID WELL WHEN TAKING MEDICATIONS CRUSHED WITH PUDIN OR APPLE SAUCE. AFTER PTS FALL TODAY, NO CHANGES IN NEURO STATUS WERE NOTED. PT HAS BEEN MORE AWAKE EVER SINCE PTS RELATIVE HAS BEEN AT BEDSIDE. PT WAS ABLE TO FEED HIMSELF FOR DINNER W/O ANY ISSUES. PTS CONTINUES TO BE IN [place], DR JUAN AWARE, PT IS ASYMPTOMATIC.
[2016-09-10] MEDS: TAMSULOSIN 0.4 MG CAPSULE PO SCH (22:02)
[2016-09-10] MEDS: ATORVASTATIN 40 MG TABLET PO SCH (22:02)
[2016-09-10 23:13] VITALS: PULSE 56; RESP 16
[2016-09-11 00:06] VITALS: BP 94/61; PULSE 57; RESP 20; TEMP 97.5; O2SAT 94
[2016-09-11] MEDS: ISOSORBIDE MONONITRATE ER 30 MG TABLET PO SCH (05:33)
[2016-09-11] MEDS: BETHANECHOL 25 MG TABLET PO SCH ×3 (05:33→17:29)
--- NOTE | 2016-09-11 05:44 | NUR ---
Pt had a good night. Was only agitated for a short time during the night when he thought the bed needed a roche so it would stop moving in circles. Pt took meds without difficulty with applesauce
[2016-09-11] MEDS: LORAZEPAM 2 MG/ML INJECTION IV PRN (07:04)
[2016-09-11 08:00] VITALS: BP 110/50; PULSE 78; RESP 20; TEMP 97.6; O2SAT 97
[2016-09-11] MEDS: AMLODIPINE 10 MG TABLET PO SCH (08:52)
[2016-09-11] MEDS: ENOXAPARIN 40 MG/0.4 ML INJECTION SQ SCH (08:53)
[2016-09-11] MEDS: ASPIRIN *EC* 81mg TABLET PO SCH (08:53)
[2016-09-11] MEDS: ACETAMINOPHEN 500 MG TABLET PO SCH ×2 (08:53→20:58)
[2016-09-11] MEDS: POLYETHYL.GLYCOL 3350 PACKET 17gm PO SCH (08:54)
[2016-09-11] MEDS: CEFTRIAXONE 1 G in NORMAL SALINE 100 ML IV SCH (08:56)
--- NOTE | 2016-09-11 09:14 | PNPDOC ---
LAZARA CONNELL V LOOM INSPECTOR 09/11/16 0858: Subjective Date DATE: 09/11/16 TIME: 08:45 Subjective Lenhco is seen this morning while sleeping. He had some yelling and behaviors earlier this morning and required Ativan so he is now sleeping during examination. He will not arouse during examination however does withdrawal upper ext to pain. He is comfortably breathing on room air without distress. He is breathing on room air without distress. improvement in bradycardia. BP this morning 110/50. Objective Vital Signs Vital signs Vital Signs Date Time Temp Pulse Resp B/P Pulse Ox O2 Delivery O2 Flow Rate FiO2 09/11/16 08:00 97.6 78 20 110/50 97 Nasal Cannula 2.00 Height (Feet): 0 Height (Inches): 63.00 Weight (Kilograms): 79.700 General General Appearance: Confused, Cooperative, No Acute Distress Eyes (Brief) Eyes: FOUND: EOMI ENMT (Brief) ENMT: FOUND: mucosa moist, normal dentition, NOT FOUND: pharnyx erythema Neck (Brief) Neck: FOUND: midline, NOT FOUND: adenopathy, carotid bruits, tracheal deviation Respiratory (Brief) Respiratory: NOT FOUND: wheezes Comments Diminished Cardiovascular (Brief) Cardiac: FOUND: regular rate, regular rhythm, NOT FOUND: murmur, pedal edema Capillary Refill: <2 sec Abdomen (Brief) Abdominal: FOUND: BS normo active x4, soft, NOT FOUND: distended, tender (Brief) Male: FOUND: other (hypospadias) Comments Sterling cath Extremities (Brief) Extremity : Side: Bilateral Extremity Finding: FOUND: edema (1+ bilateral lower ext) Lymphatic (Brief) Lymphatic: NOT FOUND: adenopathy Musculoskeletal (Brief) Musculoskeletal: NOT FOUND: tenderness Integumentary (Brief) Integumentary: FOUND: dry, pink, warm Neurologic (Brief) Neurological: FOUND: cranial 2-12 intact Psychiatric (Brief) Comments Not alert, sleeping during examination Laboratory Laboratory Laboratory Tests 09/10/16 05:13 Laboratory Tests 09/10/16 05:13 Microbiology Microbiology Microbiology Date/Time Source Procedure Growth Status 09/09/16 07:33 Urine, Sterling Indwelling Urine Culture - Final Escherichia Coli Enterococ Faecalis - (Group D) Complete Sepsis Diagnostic Criteria Sepsis Confirmed/Suspected Infection: Yes SIRS Criteria: Acute mental status chg Assessment & Plan Problems: (1) Altered mental status Status: Acute Qualifiers: Altered mental status type: disorientation Qualified Codes: R41.0 - Disorientation, unspecified (2) Acute encephalopathy Status: Acute (3) Aspiration pneumonia Status: Acute Qualifiers: Aspiration pneumonia type: unspecified Laterality: bilateral Lung location: unspecified part of lung Qualified Codes: J69.0 - Pneumonitis due to inhalation of food and vomit (4) Peripheral edema Status: Chronic (5) Macroglossia Status: Chronic (6) Dysphagia Status: Chronic Qualifiers: Dysphagia type: unspecified Qualified Codes: R13.10 - Dysphagia, unspecified (7) urinary retention Status: Chronic (8) BPH (benign prostatic hyperplasia) Status: Chronic (9) Hypertension Status: Chronic Qualifiers: Hypertension type: essential hypertension Qualified Codes: I10 - Essential (primary) hypertension (10) Diet-controlled type 2 diabetes mellitus Status: Chronic (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 Urine culture is ESBL positive. Currently he is on Rocephin however this is resistant. Will need to discuss further with Dr Kumar Blood sugars continue to be well controlled, fasting this morning was 78. Intended with Sterling catheter for chronic urinary retention. Venous Doppler of bilateral lower extremities did not reveal evidence of acute DVT. Will discuss further plan of care with attending Code Status Do Not Resuscitate Hospital Course Summary Disclaimer The hospital course summary below is not to be considered part of the above Progress Note. Hospital Course Summary 1. Infection- I suspect this is due to aspiration event. Assess UA given concern for UTI. Continue Ceftriaxone, add Clinda to cover possible aspiration. Continue pureed diet, thickened liquids. ST eval and tx. 2. Dysphagia, Macroglossia (new)- ST eval and tx. Assess MRI brain given recent findings of Macroglossia, concern for stroke. May need to consider soft tissue CT of neck. Assess niacin levels. B12 is borderline low, but would be prudent to replace given sx. Continue PO replacement, and add IM replacement dosing as well. 3. Hypospadias, Urinary retention- Continue Sterling 4. Clinical dehydration- Add gentle IVF. Hold Maxzide. 5. HTN, pEF, possible pHTN- Continue metoprolol, norvasc. Hold Maxzide. No acute evidence of HF. 6. LE edema, chronic immobility- Add LMWH for px. Check venous doppler. 7. DM2- Accu checks. Reg diet due to pureed needs for now. If BG elevates, then consider changing to DM diet. 8. AMS, Sundowners?, Acute encephalopathy- Assess MRI brain. Tx infection, dehydration. Consider Generations screen if persists. 9. DNR status- ordered. (confirmed by NH documents). Has Advanced Directive in place as well. 09/10/16 Continue with Rocephin and clindamycin for treatment of pneumonia. Repeat chest x-ray for this morning. No hypoxia as patient is maintaining adequate oxygenation on room air. Speech therapy consultation given dysphasia and tongue enlargement with protrusion. He currently on pured diet with thickened liquids Continue with chronic indwelling Sterling catheter with known hypospadias. Did review urinalysis does not appear to be acute infection. Continues to have mental status change with behaviors. Requiring as needed Ativan and Haldol Continue to monitor blood pressure and heart rate currently on Lopressor, Imdur and Norvasc. (Maxide on hold). Lovenox subcutaneous daily for DVT prophylaxis Venous Doppler of BLE ordered to rule out VTE give chronic immobility Recheck CBC and BMP tomorrow morning to follow blood counts, renal function and electrolytes Will discuss further plan of care with attending, Dr Kumar 09/11/16 Lencho continues to have intermittent episodes of confusion requiring PRN Ativan and Haldol Screen placed for Generations evaluation. Urine culture is ESBL positive. Currently he is on Rocephin however this is resistant. Will need to discuss further with Dr Kumar Blood sugars continue to be well controlled, fasting this morning was 78. Intended with Sterling catheter for chronic urinary retention. Venous Doppler of bilateral lower extremities did not reveal evidence of acute DVT. Will discuss further plan of care with attending JUAN DAVID KUMAR MD 09/11/16 2222: Assessment & Plan Assessment I have independently evaluated and examined this patient. I reviewed the chart, the patient's history, and the LOOM INSPECTOR's documented findings as above. We discussed and formulated the assessment and plan as above with additions as below: Mr. Franco was seen late morning with his niece at the bedside. She indicated that at baseline he talks and laughs. He generally recognizes family members and she did not think he recognized her today. As we spoke the patient mumbled several times and then spoke with his niece asking for something to eat. He denied dyspnea or pain. He joked with her a few times prompting her to comment "now you had a glimpse of Uncle Lencho". Last dose of Haldol 09/09, lorazepam given earlier this morning. NAD, mumbled speech and hard of hearing; prominent tongue Respirations nonlabored with decreased airflow, breath sounds clear +1 bilateral lower extremity edema Urine culture noted-ESBL Escherichia coli; UA with 1-3 WBCs-indwelling Sterling. Rocephin discontinued, given absence of fever or leukocytosis and minimal pyuria I'm reluctant to treat the ESBL present as organism is sensitive only to ertapenem, Zosyn, and nitrofurantoin. Will defer treatment until there is clear evidence of systemic infection. Patient more alert today, calm and reported to have had a fairly good night. This is occurred without treatment for the organism in the urine. 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 She questioned whether dehydration was a component of presentation and was updated on results of laboratory data. Patient maintaining oral intake well currently, blood sugars typically 100 or below. Cannot exclude hypoglycemia prior to admission. Dose/frequency lorazepam/Haldol reduced. Plan/Intensity of Service Laboratory data reviewed, discussed with niece, nursing, and case management. LAZARA CONNELL APRN September 11, 2016 08:58 JUAN DAVID KUMAR MD September 11, 2016 16:55
--- NOTE | 2016-09-11 09:28 | NUR ---
UPDATE THIS MORNING AT 0700 PT BECAME AGITATING, HE WAS SHOUTING AND ASKING FOR HELP, WHEN ASKED WHAT HE NEEDED PT WOULD ASK US TO LEAVE. PT CONTINUED TO SHOUT, THUS I ADMINISTERED 2MG OF ATIVAN IV. PT CALMED DOWN AND WAS ABLE TO GET A BAG BATH AND WAS FED BREAKFAST. PT IS RESTING COMFORTABLY. WILL CONTINUE TO MONITOR.
--- NOTE | 2016-09-11 10:31 | NUR ---
ROBERT CM VISITED PT. CM LEFT CONTACT INFORMATION AT BEDSIDE/BOARD. CM [facility] M[facility] ROBERT SPOKE WITH MATT PT DPOA REGARDING D/C PLAN FOR PT. MATT WANTS PT TO RETURN TO [facility] POST STAY AT [facility] [place]. MATT AWARE TO CONTACT CM IF NEEDS ARISE.
[2016-09-11] MEDS: NORMAL SALINE 1,000 ML IV SCH (11:47)
--- NOTE | 2016-09-11 13:40 | NUR ---
ROBERT CM RECEIVED MESSAGE FROM ADILENE AND SHE IS AWARE THAT PT IS IN HOSPITAL AND WILL CM WILL CONTACT WHEN PT IS READY TO D/C BACK TO [facility]. ADILENE AWARE TO CONTACT CM IF NEEDS ARISE.
--- NOTE | 2016-09-11 14:15 | NUR ---
[facility] Screen Chart reviewed case discussed with psychiatrist and treatment team. Patient does not meet inpatient psychiatric criteria at this time.
[2016-09-11 15:41] VITALS: BP 137/68; PULSE 50; RESP 18; TEMP 97.3; O2SAT 93
[2016-09-11] MEDS ORDERED: HALOPERIDOL 5 MG/ML INJECTION IV PRN (17:00)
[2016-09-11] MEDS ORDERED: LORAZEPAM 2 MG/ML INJECTION IV PRN (17:00)
--- NOTE | 2016-09-11 18:07 | NUR ---
SHIFT SUMMARY RAINA HAS ONLY 1 EPISODE OF AGITATION TODAY. IT WAS AROUND 0700 AND 2MG OF ATIVAN IV WERE GIVEN WHICH WAS SUCCESSFUL IN CALMING DOWN PT. PT WAS FED BREAKFAST AND LUNCH BUT WAS ABLE TO FEED HIMSELF FOR DINNER TIME. PT ATE 100% OF HIS DINNER. PT WRITES ON DRY ERASE BOARD TO COMMUNICATE, HE HAS BEEN MORE AWAKE AND ALERT TODAY IN COMPARISON TO YESTERDAY. PT WAS TRANSFERRED TO HIS WHEELCHAIR WITH A FULL LIFT AND IS LOOKING OUT HIS ROOM WINDOW AT THIS TIME. PT DID HAVE A RUN OF VTACH THIS AM AT 0755, DR JUAN WAS NOTIFIED, HOWEVER PT HAS BEEN IN [place] MOST OF THE DAY. WILL CONTINUE TO MONITOR.
[2016-09-11] MEDS: TAMSULOSIN 0.4 MG CAPSULE PO SCH (20:58)
[2016-09-11] MEDS: ATORVASTATIN 40 MG TABLET PO SCH (20:58)
[2016-09-12 00:01] VITALS: BP 138/67; PULSE 55; RESP 20; TEMP 97.4; O2SAT 95
[2016-09-12] MEDS: NORMAL SALINE 1,000 ML IV SCH (04:31)
--- NOTE | 2016-09-12 05:51 | NUR ---
SHIFT SUMMARY: PT IS A&OX2, SMILES AND COOPERATIVE, ON ROOM AIR, CANNOT HEAR OUT OF HIS LEFT EAR/RIGHT EAR STILL HARD OF HEARING, HAS NORMAL SALINE RUNNING, BGM'S, Q8 VITALS, HAS CHRONIC INDWELLING [place], IS ON TELEMETRY, AND TURNED Q2HRS. CALL LIGHT WITHIN REACH, BED ALARM ON.
[2016-09-12 05:54] LABS: HCT - HEMATOCRIT 29.8 % (41-53); HGB - HEMOGLOBIN 10.1 GM/DL (13.5-17.5); MEAN CORPUSCULAR HGB 30.8 UUG (26-34); MEAN CORPUSCULAR HGB CONC(MCHC 33.9 GM/DL (31-37); MEAN CORPUSCULAR VOLUME 90.9 UM3 (80-100); RED BLOOD COUNT 3.28 M/MM3 (4.50-5.90); WBC - WHITE BLOOD COUNT 8.1 T/MM3 (4.5-11.0)
[2016-09-12 06:04] LABS: ANION GAP 12 MEQ/L (5-15); BUN/CREATININE RATIO 30 RATIO (6-26); CHLORIDE 107 MEQ/L (98-107); CO2 - CARBON DIOXIDE 22 MEQ/L (22-30); CREATININE 0.5 MG/DL (0.8-1.5); GLOMERULAR FILTRATION RATE 157; GLUCOSE 82 MG/DL (75-110); MAGNESIUM 1.7 MG/DL (1.6-2.3); POTASSIUM 4.8 MEQ/L (3.6-5); SODIUM 141 MEQ/L (134-144)
[2016-09-12] MEDS: BETHANECHOL 25 MG TABLET PO SCH ×2 (06:11→13:24)
[2016-09-12] MEDS: ISOSORBIDE MONONITRATE ER 30 MG TABLET PO SCH (06:11)
[2016-09-12 06:30] LABS: BASOPHILS # (MANUAL) 0.1 T/MM3 (0-0.2); LYMPHOCYTES # (MANUAL) 1.5 T/MM3 (1-4.8); MONOCYTES # (MANUAL) 0.6 T/MM3 (0-0.8); NEUTROPHILS #(MANUAL)-ABSOLUTE 5.9 T/MM3 (1.8-7.7); TOTAL CELLS COUNTED 100 %
[2016-09-12 07:49] VITALS: BP 140/67; PULSE 59; RESP 20; TEMP 97.5; O2SAT 95
[2016-09-12] MEDS: ACETAMINOPHEN 500 MG TABLET PO SCH (08:44)
[2016-09-12] MEDS: AMLODIPINE 10 MG TABLET PO SCH (08:44)
[2016-09-12] MEDS: ASPIRIN *EC* 81mg TABLET PO SCH (08:44)
[2016-09-12] MEDS: ENOXAPARIN 40 MG/0.4 ML INJECTION SQ SCH (08:44)
[2016-09-12] MEDS: POLYETHYL.GLYCOL 3350 PACKET 17gm PO SCH (08:44)
--- NOTE | 2016-09-12 09:56 | NUR ---
ROBERT JONES SPOKE WITH DR JUAN AND SHE IS ANTICIPATING D/C BACK TO [facility] TODAY. CM LEFT VM FOR ADILENE AT [facility] AND VM FOR ROBSON GUTIERREZ.
[2016-09-12] MEDS ORDERED: METO25TA6 PO (10:27)
[2016-09-12] MEDS ORDERED: HYDR-4246 PO (10:27)
--- NOTE | 2016-09-12 10:31 | PDOCECFAO ---
Admission Orders Admission Orders Admit to: [facility] Allergies: Coded Allergies: sulfamethoxazole (Verified Allergy, Severe, tongue swells, 09/09/16) trimethoprim (Verified Allergy, Severe, tongue swells, 09/09/16) doxycycline (Verified Allergy, Unknown, "THROAT SWELLING", 09/09/16) Admitting Diagnosis Pneumonia With Altered Mental Status Admitting Physician Gertrudis Kumar MD Attending Physician José Code Status Do Not Resuscitate Anticipated LOS: Greater than 30 days Rehab Potential: Good Rehab Prognosis: Good Diet: Blended/Pureed May use Facility Protocol /SO: Yes May Have Flu Vaccine: Yes Not Applicable LAZARA CONNELL APRN September 12, 2016 10:31
--- NOTE | 2016-09-12 10:35 | NUR ---
ROBERT JONES SPOKE WITH MATT CHANCE AND SHE IS AWARE THAT PT WILL RETURN TO [facility] TODAY AND THEY WILL TRANSPORT PT AT 3:00PM TODAY. MATT AWARE TO CONTACT ROBERT IF NEEDS ARISE.
--- NOTE | 2016-09-12 11:29 | DSPDOC ---
LAZARA CONNELL V MANGLE CATCHER 09/12/16 1121: General Date Date DATE: 09/12/16 TIME: 11:18 Attending Physician Gertrudis Kumar MD Admitting Physician Gertrudis Kumar MD Consulting Physician None Admitting Diagnosis pneumonia with altered mental status Discharge Diagnosis Altered mentation-improved Questionable aspiration pneumonia Peripheral edema Macroglossia Chronic urinary retention Type II diabetes Procedures None Laboratory Laboratory Tests Test 09/11/16 09:06 09/11/16 20:52 09/12/16 05:03 09/12/16 10:06 Glucometer 78mg/dL (75-110) 124mg/dL (75-110) 98mg/dL (75-110) White Blood Count 8.1T/MM3 (4.5-11.0) Red Blood Count 3.28M/MM3 (4.50-5.90) Hemoglobin 10.1GM/DL (13.5-17.5) Hematocrit 29.8% (41-53) Mean Corpuscular Volume 90.9UM3 (80-100) Mean Corpuscular Hemoglobin 30.8UUG (26-34) Mean Corpuscular Hemoglobin Concent 33.9GM/DL (31-37) RDW Standard Deviation 44.2FL (36.9-50.2) Platelet Count 137T/MM3 (130-400) Mean Platelet Volume 12.0UM3 (9.4-12.4) Immature Granulocyte % (Auto) % (0.0-0.5) Neutrophils (%) (Auto) % (33-66) Lymphocytes (%) (Auto) % (23-45) Monocytes (%) (Auto) % (0-9.0) Eosinophils (%) (Auto) % (0-4) Basophils (%) (Auto) % (0-2) Absolute Immature Granulocyte (auto T/MM3 (0.00-0.03) Absolute Neutrophils (auto) T/MM3 (1.8-7.7) Absolute Lymphocytes (auto) T/MM3 (1-4.8) Absolute Monocytes (auto) T/MM3 (0-0.8) Absolute Eosinophils (auto) T/MM3 (0-0.5) Absolute Basophils (auto) T/MM3 (0-0.2) Neutrophils % (Manual) 73.0% (33-66) Lymphocytes % (Manual) 18.0% (23-45) Monocytes % (Manual) 8.0% (0-9.0) Basophils % (Manual) 1.0% (0-2) Absolute Neutrophils (Manual) 5.9T/MM3 (1.8-7.7) Lymphocytes # (Manual) 1.5T/MM3 (1-4.8) Monocytes # (Manual) 0.6T/MM3 (0-0.8) Basophils # (Manual) 0.1T/MM3 (0-0.2) Red Cell Morphology Comment Normal Turbidity < 20 (0-20) Sodium Level 141MEQ/L (134-144) Potassium Level 4.8MEQ/L (3.6-5) Chloride Level 107MEQ/L (98-107) Carbon Dioxide Level 22MEQ/L (22-30) Anion Gap 12MEQ/L (5-15) Blood Urea Nitrogen 15.0MG/DL (9-20) Creatinine 0.5MG/DL (0.8-1.5) Glomerular Filtration Rate Calc 157 BUN/Creatinine Ratio 30RATIO (6-26) Glucose Level 82MG/DL (75-110) Calculated Osmolality 271MOSM/KG (261-280) Calcium Level 9.0MG/DL (8.4-10.2) Magnesium Level 1.7MG/DL (1.6-2.3) Icterus Index < 2 (0-7) Chemistry Specimen Hemolysis 44 (0-25) Microbiology PATIENT: RAINA FRANCO Act#:[id number] Loc: MED 144-P Specimen: [id number] Collected: 09/09/16 Received: 09/09/[address]: LISA HOUSTON DO Source: MAGY Procedure Result Verified MICROBIOLOGY URINE CULTURE. Final 09/11/16 Organism 1 ESCHERICHIA COLI COLONY COUNT >100,000 CFU/ml Organism 2 ENTEROCOC FAECALIS - (GROUP D) COLONY COUNT 10,000 - 50,000 CFU/ml * This is a corrected result. * A prior result that was reported as final has been changed. E COLI E YUNIER(D) INTERP RUBIO INTERP RUBIO ------ --------- ------ --------- AMOX/CLAV ACID I 16 AMPICILLIN R >=32 CEFAZOLIN R >=64 CEFEPIME R >=64 ESBL POS CEFTAZIDIME R >=64 CEFTRIAXONE R >=64 CIPROFLOXACIN R >=4 R >=8 ERTAPENEM S <=0.5 GENTAMICIN R >=16 LEVOFLOXACIN R >=8 R >=8 LINEZOLID S 1 NITROFURANTOIN S 32 S <=16 TETRACYCLINE R >=16 TOBRAMYCIN I 8 TRIMETH/SULFA R >=320 PIPERACILL/TAZO S 8 VANCOMYCIN S 1 URINE CULTURE. Final (changed) 09/11/16 Organism 1 ESCHERICHIA COLI COLONY COUNT >100,000 CFU/ml Organism 2 ENTEROCOC FAECALIS - (GROUP D) COLONY COUNT 10,000 - 50,000 CFU/ml Radiology 09/09/16-chest x-ray-no focal pneumonia or congestive heart failure 09/09/16-CT scan of the head showing no acute intracranial abnormality or hemorrhage 09/10/16-. Venous duplex of bilateral lower extremities revealed no evidence of acute DVT 09/10/16-MRI of the brain showing moderate chronic atrophy. No acute infarcts or hemorrhage 09/10/16-chest x-ray showing cardiomegaly with pulmonary vascular congestion without evidence of acute infiltrate or congestive heart failure History of Present Illness Initial Comments 86yo man presents to the ER today by private [facility] home transport for altered behavior. Pt has numerous medical comorbidities and has been on a slowly downward spiral for several years. Last night, pt was awake most of the night, complaining that his bed was moving/rocking and that he was surrounded by insects. Family (brother and [id number]) and [facility] staff all verified that the bed was not moving, but pt insisted and swatted at the invisible insects with his "grabber". Pt has no formal dx of dementia or sundowning, but his PCM remarked that he had 'changed' at the last visit prior to pt changing PCM's after status change from assisted living to full ing care. Pt has a dx of ' small stroke', though how that dx was obtained is not clear (hx provided by [id number]). Family has noted that pts tongue protrudes more now (was a new sign after last 'stroke'), he becomes frustrated more easily, has more hearing trouble, and has been cursing more frequently. Family feels that his personality has changed. EMS was called last night to transport pt, but pt refused. Family was able to reorient pt throughout the night, but they are now exhausted. Pt is much calmer and more rational now that the sun is up. Family convinced pt to present for evaluation. HPI Hospitalist Raina is a 86 yo male known to this service from recent previous hospitalization. He underwent a fairly complicated hospitalization for NSTEMI, ISATU, UTI, and concern for aspiration. He was started on pureed diet with thickened liquids. Swallow study did note that he was aspirating on thinned liquids, with concern for tracheal penetration even on thicker liquids. He did undergo a CT in the ED, which did not reveal an acute stroke. He has a chronic indwelling Sterling followed by urology in [place] ([facility]). There was concern that he has a UTI in the ED, however, his urine was fairly unremarkable for infection. Upon review of his CXR, there is concern that he may have an aspiration pneumonia. Patient may need to be screened for [facility] due to behavioral changes, but it was requested that he be placed onto the medical floor for stabilization and further observation. He is very [place], and a bit confused, so he is unable to contribute towards this history. Chart is reviewed for collateral information. Hospital Course 1. Infection- I suspect this is due to aspiration event. Assess UA given concern for UTI. Continue Ceftriaxone, add Clinda to cover possible aspiration. Continue pureed diet, thickened liquids. ST eval and tx. 2. Dysphagia, Macroglossia (new)- ST eval and tx. Assess MRI brain given recent findings of Macroglossia, concern for stroke. May need to consider soft tissue CT of neck. Assess niacin levels. B12 is borderline low, but would be prudent to replace given sx. Continue PO replacement, and add IM replacement dosing as well. 3. Hypospadias, Urinary retention- Continue Sterling 4. Clinical dehydration- Add gentle IVF. Hold Maxzide. 5. HTN, pEF, possible pHTN- Continue metoprolol, norvasc. Hold Maxzide. No acute evidence of HF. 6. LE edema, chronic immobility- Add LMWH for px. Check venous doppler. 7. DM2- Accu checks. Reg diet due to pureed needs for now. If BG elevates, then consider changing to DM diet. 8. AMS, Sundowners?, Acute encephalopathy- Assess MRI brain. Tx infection, dehydration. Consider [facility] screen if persists. 9. DNR status- ordered. (confirmed by [place] documents). Has Advanced Directive in place as well. 09/10/16 Continue with Rocephin and clindamycin for treatment of pneumonia. Repeat chest x-ray for this morning. No hypoxia as patient is maintaining adequate oxygenation on room air. Speech therapy consultation given dysphasia and tongue enlargement with protrusion. He currently on pured diet with thickened liquids Continue with chronic indwelling Sterling catheter with known hypospadias. Did review urinalysis does not appear to be acute infection. Continues to have mental status change with behaviors. Requiring as needed Ativan and Haldol Continue to monitor blood pressure and heart rate currently on Lopressor, Imdur and Norvasc. (Maxide on hold). Lovenox subcutaneous daily for DVT prophylaxis Venous Doppler of BLE ordered to rule out VTE give chronic immobility Recheck CBC and BMP tomorrow morning to follow blood counts, renal function and electrolytes Will discuss further plan of care with attending, Dr Kumar 09/11/16 Raina continues to have intermittent episodes of confusion requiring PRN Ativan and Haldol Screen placed for [facility] evaluation. Urine culture is ESBL positive. Currently he is on Rocephin however this is resistant. Will need to discuss further with Dr Kumar Blood sugars continue to be well controlled, fasting this morning was 78. Intended with Sterling catheter for chronic urinary retention. Venous Doppler of bilateral lower extremities did not reveal evidence of acute DVT. Will discuss further plan of care with attending 09/12/16 Raina is seen and examined today while he is much more alert and sitting up at the window watching the rain fall. He is without evidence of distress and he denies having pain. He asks what his morning blood level sugar was. Overall he is doing well and will plan for discharge back to [facility] today where he previously resides. He will continue to have the chronic indwelling Sterling cath for urinary retention. Rocephin was discontinued given urine culture findings of ESBL E-coli. He remains without evidence of leukocytosis, fever or sepsis process. Overall encephalopathy and behaviors has improved as he has required some PRN medications during his hospitalization. Metoprolol was decreased to 12.5mg BID during his hospitalization and Dyazide was discontinued. Blood pressures remains overall well controlled. Dr Kumar spoke with [facility] regarding acute findings and discharge plans. He is instructed to follow with his primary care provider, Dr. Oneill within 1 week. This is a general summation of the patients hospital course. Please refer to the medical record if additional detail is needed. 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 (12) Depression Status: Chronic Code Status Do Not Resuscitate Home Meds Active Scripts Metoprolol Tartrate (Metoprolol Tartrate) 25 Mg Tablet, 12.5 MG PO BIDWM for 30 Days, #30 TAB Prov:LAZARA CONNELL APRN 09/12/16 Hydrocodone/Acetaminophen ([place] 5-325 Tablet) 5-325 Tablet, 1 TAB PO BID Y for PAIN for 30 Days, #60 TAB Prov:LAZARA CONNELL APRN 09/12/16 Cyanocobalamin (Vitamin B-12) (Vitamin B-12) 1,000 Mcg Tablet, 1000 MCG PO DAILY for Low normal B12 level, #60 TAB Prov:TOM BOLAND MD 08/03/16 Amlodipine Besylate (Amlodipine Besylate) 5 Mg Tablet, 10 MG PO DAILY for HYPERTENSION, #30 TAB Prov:TOM BOLAND MD 08/03/16 Atorvastatin Calcium (Lipitor) 40 Mg Tablet, 40 MG PO HS for dylipidemia, #30 TAB Prov:TOM BOLAND MD 08/03/16 Isosorbide Mononitrate (Isosorbide Mononitrate ER) 30 Mg Tab.er.24h, 30 MG PO ACB for CAD, #30 TAB Prov:TOM BOLAND MD 08/03/16 Reported Medications Magnesium Hydroxide/Al Hydrox (Mag-Al Liquid) 30 Ml Suspension, 30 ML PO Q4H Y for INDIGESTION 07/27/16 Polyethylene Glycol 3350 (Miralax) 17 Gm Powd.pack, 17 G PO DAILY 07/27/16 Acetaminophen (Acetaminophen) 500 Mg Tablet, 500 MG PO BID 07/27/16 Tamsulosin HCl (Tamsulosin HCl) 0.4 Mg Cap.er.24h, 0.4 MG PO HS 12/29/13 Bethanechol Chloride (Bethanechol Chloride) 25 Mg Tablet, 25 MG PO TID 12/29/13 Aspirin (Aspir 81) 81 Mg Tablet.dr, 81 MG PO DAILY 06/26/13 Citalopram (Celexa) 20 Mg Tablet, 20 MG PO DAILY 06/26/13 Discontinued Reported Medications Triamterene/Hydrochlorothiazid (Dyazide 37.5-25 Capsule) 1 Each Capsule, DAILY 09/09/16 Discontinued Scripts Metoprolol Tartrate (Metoprolol Tartrate) 25 Mg Tablet, 25 MG PO WB, #30 TAB Prov:TOM BOLAND MD 08/03/16 Metoprolol Tartrate (Metoprolol Tartrate) 25 Mg Tablet, 12.5 MG PO WS, #30 TAB Prov:TOM BOLAND MD 08/03/16 Face to Face Encounter I met with patient on the day of dismissal and discussed follow up appointments , medications, and safety plan. Discharge Disposition stable Copies To 1: HENRY ONEILL MD, ROBERTA L MD 09/12/16 1433: Hospital Course I have independently evaluated and examined this patient. I reviewed the chart, the patient's history, and the MANGLE CATCHER's documented findings as above. We discussed and formulated the assessment and plan as above with additions as below: Mr. Franco was up in a chair when seen this morning. He denied pain, dyspnea, or nausea and reported that he ate well which was confirmed by nursing. Nursing reported no behavioral problems overnight. Patient was evaluated by [facility] yesterday and not felt to require inpatient psychiatric services. Respirations are nonlabored with clear lung pablo although breath sounds are diminished throughout. The patient was calm and responded to questions appropriately provided he could hear question asked. Abdomen is soft and obese. Labs are unremarkable today. Heart rate tends to be bradycardic with rates between 50 and 78 in the past 24 hours. Reviewing data globally I think it's unlikely the patient had aspiration pneumonia although mild aspiration pneumonitis cannot be excluded. Urine is colonized with ESBL and enterococcus but there is no indication of active UTI and subsequently organisms were not treated. Family members expressed concern about tendency to dehydration and that it played a role in his presentation. There's been a mild drop in hemoglobin and BUN with hydration (Hbg 11.4-10.1, BUN 22-15) which may suggest some minor dehydration on admission. Dyazide will be discontinued to minimize risk of recurrent volume depletion moving forward. Finally metoprolol dose was decreased slightly in response to heart rates as low as 45 earlier in the hospital course. Frequent snacks are recommended to minimize risk of hypoglycemia although hypoglycemia has not been formally demonstrated. Patient is stable for discharge as noted. Primary diagnosis: Dementia with psychosis. Additional diagnoses as previously noted. Problems: Home Meds Active Scripts Metoprolol Tartrate (Metoprolol Tartrate) 25 Mg Tablet, 12.5 MG PO BIDWM for 30 Days, #30 TAB Prov:LAZARA CONNELL APRN 09/12/16 Hydrocodone/Acetaminophen ([place] 5-325 Tablet) 5-325 Tablet, 1 TAB PO BID Y for PAIN for 30 Days, #60 TAB Prov:LAZARA CONNELL APRN 09/12/16 Cyanocobalamin (Vitamin B-12) (Vitamin B-12) 1,000 Mcg Tablet, 1000 MCG PO DAILY for Low normal B12 level, #60 TAB Prov:TOM BOLAND MD 08/03/16 Amlodipine Besylate (Amlodipine Besylate) 5 Mg Tablet, 10 MG PO DAILY for HYPERTENSION, #30 TAB Prov:TOM BOLAND MD 08/03/16 Atorvastatin Calcium (Lipitor) 40 Mg Tablet, 40 MG PO HS for dylipidemia, #30 TAB Prov:TOM BOLAND MD 08/03/16 Isosorbide Mononitrate (Isosorbide Mononitrate ER) 30 Mg Tab.er.24h, 30 MG PO ACB for CAD, #30 TAB Prov:TOM BOLAND MD 08/03/16 Reported Medications Magnesium Hydroxide/Al Hydrox (Mag-Al Liquid) 30 Ml Suspension, 30 ML PO Q4H Y for INDIGESTION 07/27/16 Polyethylene Glycol 3350 (Miralax) 17 Gm Powd.pack, 17 G PO DAILY 07/27/16 Acetaminophen (Acetaminophen) 500 Mg Tablet, 500 MG PO BID 07/27/16 Tamsulosin HCl (Tamsulosin HCl) 0.4 Mg Cap.er.24h, 0.4 MG PO HS 12/29/13 Bethanechol Chloride (Bethanechol Chloride) 25 Mg Tablet, 25 MG PO TID 12/29/13 Aspirin (Aspir 81) 81 Mg Tablet.dr, 81 MG PO DAILY 06/26/13 Citalopram (Celexa) 20 Mg Tablet, 20 MG PO DAILY 06/26/13 Discontinued Reported Medications Triamterene/Hydrochlorothiazid (Dyazide 37.5-25 Capsule) 1 Each Capsule, DAILY 09/09/16 Discontinued Scripts Metoprolol Tartrate (Metoprolol Tartrate) 25 Mg Tablet, 25 MG PO WB, #30 TAB Prov:TOM BOLAND MD 08/03/16 Metoprolol Tartrate (Metoprolol Tartrate) 25 Mg Tablet, 12.5 MG PO WS, #30 TAB Prov:TOM BOLAND MD 08/03/16 Copies To 1: HENRY ONEILL MD, JULIE V APRN September 12, 2016 11:21 GERTRUDIS KUMAR MD September 12, 2016 14:33
--- NOTE | 2016-09-12 13:56 | NUR ---
CM D/C TIME OUT COMPLETE. ALL ORDER SENT TO POST ACUTE CARE SETTING. ADILENE AWARE TO CONTACT CM IF NEEDS ARISE.
[2016-09-12] MEDS ORDERED: LORA1TAB3 PO (15:08)
--- NOTE | 2016-09-12 15:11 | NUR ---
DISMISSAL PT GOING TO [facility]AY WITH [facility] TRANSPORT AND PTS DPOA, INFORMATION PACKET HANDED OVER TO TRANSPORT WELL PRESCRIPTIONS. PT LEAVES BY WHEELCHAIR. PT IS A&O TO TIME AND PLACE, PT HAS A HAPPY DEMEANOR BEFORE LEAVING.
[2016-09-23] MEDS ORDERED: CYANOCOBALAMIN (B-12) 1000mcg/ml INJECTION IM SCH (09:00)
[2016-11-13] MEDS ORDERED: CYANOCOBALAMIN (B-12) 1000mcg/ml INJECTION IM SCH (09:00)
== END 2016-09-12 15:11 | DRG 70 ==
LOC: ED 06:39 → MED 08:19 → EDHOLD 08:19 → OBSVTOIN 09-10 15:27
PROVIDERS: ADMIT Family Medicine; ATTEND Internal Medicine
DX: G93.40 Encephalopathy, unspecified (principal); J69.0 Pneumonitis due to inhalation of food and vomit; E86.0 Dehydration; I12.9 Hypertensive chronic kidney disease with stage 1 through stage 4 chronic kidney disease, or unspecified chronic kidney disease; E11.22 Type 2 diabetes mellitus with diabetic chronic kidney disease; N18.9 Chronic kidney disease, unspecified; R13.10 Dysphagia, unspecified; Z66 Do not resuscitate; R60.0 Localized edema; Q38.2 Macroglossia; R33.9 Retention of urine, unspecified; N40.0 Benign prostatic hyperplasia without lower urinary tract symptoms; G14 Postpolio syndrome; F32.9 Major depressive disorder, single episode, unspecified; Q54.9 Hypospadias, unspecified; K58.9 Irritable bowel syndrome, unspecified; I25.2 Old myocardial infarction; Z99.3 Dependence on wheelchair
CPT/HCPCS: 36415; 36416; 80048; 80053; 80069; 80307; 81001; 82140; 82607; 82948; 83735; 84100; 84425; 84443; 85025; 86140; 87077; 87086; 87186; 96372; 99218

== ENCOUNTER 2017-05-03 23:55 | Inpatient (IN) ==
--- NOTE | 2017-05-04 00:03 | Emergency Department Report ---
Asthma HPI - General Stated Complaint: Resp distress Time Seen by Provider: 05/04/17 00:02 - Related Data Home Medications Medication Instructions Recorded Confirmed Aspirin [Aspir 81] 81 mg PO DAILY #0 06/26/13 05/04/17 Citalopram Hydrobromide 20 mg PO DAILY #0 06/26/13 [Citalopram HBr] Bethanechol Chloride 25 mg PO TID #0 12/29/13 05/04/17 Tamsulosin HCl 0.4 mg PO HS #0 12/29/13 05/04/17 Acetaminophen 500 mg PO BID #0 07/27/16 05/04/17 Mag-Al + Sim Oral Liq [Maalox Plus] 30 ml PO Q4H PRN #0 07/27/16 05/04/17 Polyethylene Glycol 3350 [Miralax] 17 g PO DAILY #0 07/27/16 05/04/17 Clotrimazole 1% Cream 1 applicatio TOP BID 05/04/17 05/04/17 Gabapentin [Neurontin] 100 mg PO HS 05/04/17 05/04/17 Hydrocodone/APAP 7.5/325 [[place] 1 tab PO BID 05/04/17 05/04/17 7.5/325] Milk of Magnesia [Mom] 30 ml PO PRN PRN MDD 2 DOSES Q24HRS 05/04/17 05/04/17 Mineral Oil Oral Liq [Mineral Oil] 2 drops EACH EAR HS 05/04/17 05/04/17 Mirabegron [Myrbetriq] 50 mg PO HS 05/04/17 05/04/17 Propylene Glycol/Peg 400 [Systane 1 drop EACH EYE BID 05/04/17 05/04/17 Gel Eye Drops] Trolamine Salicylate/Aloe Vera 1 applicatio TOP BID 05/04/17 05/04/17 [Aspercreme 10% Cream] Previous Rx's Medication Instructions Recorded Amlodipine Besylate 10 mg PO DAILY #30 tab 08/03/16 Atorvastatin [Lipitor] 40 mg PO HS #30 tab 08/03/16 Cyanocobalamin (Vitamin B-12) 1,000 mcg PO DAILY #60 tab 08/03/16 [Vitamin B-12] Isosorbide Mononitrate [Isosorbide 30 mg PO ACB #30 tab 08/03/16 Mononitrate ER] Hydrocodone/Acetaminophen ([place] 1 tab PO BID PRN 30 Days #60 tab 09/12/16 5-325 Tablet) LORazepam [Lorazepam] 1 tab PO TID PRN #20 tab 09/12/16 Allergies Allergy/AdvReac Type Severity Reaction Status Date / Time sulfamethoxazole Allergy Severe tongue Verified 05/04/17 01:42 swells trimethoprim Allergy Severe tongue Verified 05/04/17 01:42 swells doxycycline Allergy Unknown "THROAT Verified 05/04/17 01:42 SWELLING" PFSH Patient Stated Medical History Peripheral Neuropathy Yes: POST-POLIO SYNDROME Other HEENT Yes: GLASSES Cardiac Arrhythmia Yes: VTACH, BRADYCARDIA Hypertension Yes Myocardial Infarction Yes: NSTEMI Pneumonia Yes Diabetes Mellitus Type 2 Yes Other GI Yes: IBS, CONSTIPATION Hx Renal Disease Yes: CHRONIC KIDNEY DISEASE Other Yes: CHRONIC SUPRAPUBIC CATH, HYPOSPADIAS W/ URINARY RETENTION Osteoarthritis Yes Other Musculoskeletal FATIGUE MRSA Yes Other Yes: [place] Depression Yes Course Vital Signs Pulse Rate 56 L 05/03/17 23:55 Respiratory Rate 20 05/03/17 23:55 Blood Pressure 118/56 05/03/17 23:55 Pulse Oximetry 97 05/03/17 23:55 Temperature 95.3 F L 05/04/17 04:00 Pulse Rate 59 L 05/04/17 04:15 Respiratory Rate 21 05/04/17 04:15 Blood Pressure 118/70 05/04/17 04:15 Pulse Oximetry 97 05/04/17 04:15 Dyspnea - Lab Data Result diagrams: 05/04/17 00:45 05/04/17 00:45 Lab Results 05/04/17 05/04/17 05/04/17 Range/Units 00:35 00:45 00:45 WBC 13.0 H (4.5-11.0) T/MM3 RBC 3.84 L (4.50-5.90) M/MM3 Hgb 11.6 L (13.5-17.5) GM/DL Hct 35.5 L (41-53) % MCV 92.4 (80-100) UM3 MCH 30.2 (26-34) UUG MCHC 32.7 (31-37) GM/DL RDW Std Deviation 47.9 (36.9-50.2) FL Plt Count 139 (130-400) T/MM3 MPV 11.0 (9.4-12.4) UM3 Immature Gran % (Auto) 0.3 (0.0-0.5) % Neut % (Auto) 78.7 H (33-66) % Lymph % (Auto) 14.2 L (23-45) % [place] % (Auto) 5.9 (0-9.0) % Eos % (Auto) 0.8 (0-4) % Baso % (Auto) 0.1 (0-2) % Neut # (Auto) 10.3 H (1.8-7.7) T/MM3 Lymph # (Auto) 1.9 (1-4.8) T/MM3 [place] # (Auto) 0.8 (0-0.8) T/MM3 Eos # (Auto) 0.1 (0-0.5) T/MM3 Baso # (Auto) 0.0 (0-0.2) T/MM3 Abs Immat Gran (auto) 0.04 H (0.00-0.03) T/MM3 ABG pH 7.350 (7.350-7.450) ABG pCO2 46 H (34-45) MMHG ABG pO2 134 H (80-100) MMHG ABG HCO3 25 (22-26) MEQ/L ABG Total CO2 26.8 (23-27) MEQ/L ABG O2 Saturation 99.0 H (95.0-98.0) % ABG Base Excess -0.6 (-2.0-2.0) MMOL/L O2 Delivery Method Bpap, % FiO2 % 60.0 Turbidity < 20 (0-20) Sodium 140 (134-144) MEQ/L Potassium 4.0 (3.6-5) MEQ/L Chloride 102 (98-107) MEQ/L Carbon Dioxide 25 (22-30) MEQ/L Anion Gap 13 (5-15) MEQ/L BUN 12.0 (9-20) MG/DL Creatinine 0.8 (0.8-1.5) MG/DL GFR Calculation 91 BUN/Creatinine Ratio 15 (6-26) RATIO Glucose 112 H (75-110) MG/DL Calculated Osmolality 270 (261-280) MOSM/KG Calcium 9.8 (8.4-10.2) MG/DL Total Bilirubin 0.90 (0.20-1.30) MG/DL Icterus Index < 2 (0-7) AST 33 (17-59) U/L ALT 25 (21-72) U/L Alkaline Phosphatase 144 H (38-126) U/L Troponin I 0.147 H (0-0.12) ng/ml B-Natriuretic Peptide 872 H (0-175) pg/mL Total Protein 8.6 H (6.3-8.2) G/DL Albumin 4.5 (3.5-5.0) G/DL Globulin 4.1 H (2.4-3.6) G/DL Albumin/Globulin Ratio 1.1 (1.1-2.2) RATIO Plasma Lactate 2.8 H (0.6-2.2) MMOL/L Procalcitonin NG/ML Specimen Hemolysis < 15 (0-25) Ur Collection Type Urine Color (YELLOW) Urine Clarity Urine pH (5.0-8.0) Ur Specific [place] (1.015-1.025) Urine Protein (NEGATIVE) Urine Glucose (UA) (NEGATIVE) Urine Ketones (NEGATIVE) Urine Occult Blood (NEGATIVE) Urine Nitrate (NEGATIVE) Urine Bilirubin (NEGATIVE) Urine Urobilinogen (NORMAL) EU/DL Ur Leukocyte Esterase (NEGATIVE) Urine RBC (0-3) /HPF Urine WBC (0-5) /HPF Ur Squamous Epith Cells Urine Bacteria (NEGATIVE) Ur Culture Indicated? 05/04/17 05/04/17 Range/Units 00:50 00:53 WBC (4.5-11.0) T/MM3 RBC (4.50-5.90) M/MM3 Hgb (13.5-17.5) GM/DL Hct (41-53) % MCV (80-100) UM3 MCH (26-34) UUG MCHC (31-37) GM/DL RDW Std Deviation (36.9-50.2) FL Plt Count (130-400) T/MM3 MPV (9.4-12.4) UM3 Immature Gran % (Auto) (0.0-0.5) % Neut % (Auto) (33-66) % Lymph % (Auto) (23-45) % [place] % (Auto) (0-9.0) % Eos % (Auto) (0-4) % Baso % (Auto) (0-2) % Neut # (Auto) (1.8-7.7) T/MM3 Lymph # (Auto) (1-4.8) T/MM3 [place] # (Auto) (0-0.8) T/MM3 Eos # (Auto) (0-0.5) T/MM3 Baso # (Auto) (0-0.2) T/MM3 Abs Immat Gran (auto) (0.00-0.03) T/MM3 ABG pH (7.350-7.450) ABG pCO2 (34-45) MMHG ABG pO2 (80-100) MMHG ABG HCO3 (22-26) MEQ/L ABG Total CO2 (23-27) MEQ/L ABG O2 Saturation (95.0-98.0) % ABG Base Excess (-2.0-2.0) MMOL/L O2 Delivery Method FiO2 % Turbidity (0-20) Sodium (134-144) MEQ/L Potassium (3.6-5) MEQ/L Chloride (98-107) MEQ/L Carbon Dioxide (22-30) MEQ/L Anion Gap (5-15) MEQ/L BUN (9-20) MG/DL Creatinine (0.8-1.5) MG/DL GFR Calculation BUN/Creatinine Ratio (6-26) RATIO Glucose (75-110) MG/DL Calculated Osmolality (261-280) MOSM/KG Calcium (8.4-10.2) MG/DL Total Bilirubin (0.20-1.30) MG/DL Icterus Index (0-7) AST (17-59) U/L ALT (21-72) U/L Alkaline Phosphatase (38-126) U/L Troponin I (0-0.12) ng/ml B-Natriuretic Peptide (0-175) pg/mL Total Protein (6.3-8.2) G/DL Albumin (3.5-5.0) G/DL Globulin (2.4-3.6) G/DL Albumin/Globulin Ratio (1.1-2.2) RATIO Plasma Lactate (0.6-2.2) MMOL/L Procalcitonin < 0.05 NG/ML Specimen Hemolysis (0-25) Ur Collection Type Urine, clean catch Urine Color [place] (YELLOW) Urine Clarity Sl cloudy Urine pH 5.0 (5.0-8.0) Ur Specific [place] >=1.030 H (1.015-1.025) Urine Protein 2+ A (NEGATIVE) Urine Glucose (UA) Trace A (NEGATIVE) Urine Ketones Trace A (NEGATIVE) Urine Occult Blood 3+ A (NEGATIVE) Urine Nitrate Positive A (NEGATIVE) Urine Bilirubin 2+ A (NEGATIVE) Urine Urobilinogen 1.0 (NORMAL) EU/DL Ur Leukocyte Esterase 2+ A (NEGATIVE) Urine RBC 20-30 H (0-3) /HPF Urine WBC 50-200 H (0-5) /HPF Ur Squamous Epith Cells 0-5 Urine Bacteria 1+ H (NEGATIVE) Ur Culture Indicated? Cult reflexed &setup Disposition Clinical Impression: Aspiration pneumonitis, Hypoxia Disposition: 02 To [facility] Acute Care Condition: Stable - Seen By: physician
[2017-05-04] MEDS ORDERED: CEFEPIME 1 GM in NS 100 ML IV ONE (00:05)
[2017-05-04] MEDS ORDERED: ONDANSETRON 4 MG/2 ML INJECTION IVP ONE (00:19)
[2017-05-04] MEDS: SALINE FLUSH 10ml SYRINGE IVF PRN ×2 (00:50→01:26)
[2017-05-04] MEDS: NS 1,000 ML IV SCH ×6 (02:03→19:20)
[2017-05-04] MEDS ORDERED: PANTOPRAZOLE 40 MG INJECTION IVP ONE (03:56)
[2017-05-04] MEDS ORDERED: ACETAMINOPHEN 325 MG TABLET PO PRN (03:56)
[2017-05-04] MEDS ORDERED: ENOXAPARIN 80 MG/0.8 ML INJECTION SQ SCH (03:56)
[2017-05-04] MEDS ORDERED: ONDANSETRON 4 MG/2 ML INJECTION IVP PRN (03:56)
[2017-05-04] MEDS ORDERED: SALINE FLUSH 10ml SYRINGE IV PRN (03:56)
[2017-05-04] MEDS ORDERED: MORPHINE SULFATE 2mg INJECTION IVP PRN (03:56)
[2017-05-04] MEDS ORDERED: LORazepam 1 MG TABLET PO PRN (03:56)
--- NOTE | 2017-05-04 04:13 | History & Physical Report ---
History of Present Illness Date: 05/04/17 Chief complaint: Dyspnea HPI: This gentleman is an 86 year old skilled nursing patient brought to the ER tonight after a suspected aspiration event. At approximately 9:30 p.m. this evening he was found with vomit on his person. He became progressively short of breath over the next several hours. He required up to 6 liters of oxygen at the skilled nursing. When EMS arrived, he remained hypoxemic and was placed on a non- rebreather mask. O2 sats remained in the mid-80s by report. He was placed on CPAP, and then eventually BiPAP in the emergency department. He required up to 60% fio2 on BiPAP, but he has been able to be weaned to 40% fio2 in the emergency department. ABG showed a pH of 7.35, pco2 of 46, pao2 of 134 on 60% fio2. A chest x-ray shows a possible right lower lobe infiltrate. He was given one gram of IV cefepime. A lactic acid level is 2.8. A troponin is 0.[address] or T wave changes. Urinalysis is questionably dirty, but he has a suprapubic catheter and suspected chronic bacterial colonization. He has advanced directives for a DNR status. He is now in the process of being transitioned to the ICU for further medical care. Please note this patient encounter was performed via the use of telemedicine technology Review of Systems ROS unobtainable: due to mental status Past Medical History Limited documentation. Will need to be clarified further in AM. 1. HTN 2. Dyslipidemia 3. BPH with chronic suprapubic cath Family History: Unknown Family History Updates: See above - Social History Smoking status: Unknown if ever smoked Current residence: [place] Medications Home Medications Medication Instructions Recorded Confirmed Type Aspirin [Aspir 81] 81 mg PO DAILY #0 06/26/13 05/04/17 History Citalopram Hydrobromide 20 mg PO DAILY #0 06/26/13 History [Citalopram HBr] Bethanechol Chloride 25 mg PO TID #0 12/29/13 05/04/17 History Tamsulosin HCl 0.4 mg PO HS #0 12/29/13 05/04/17 History Acetaminophen 500 mg PO BID #0 07/27/16 05/04/17 History Mag-Al + Sim Oral Liq [Maalox Plus] 30 ml PO Q4H PRN #0 07/27/16 05/04/17 History Polyethylene Glycol 3350 [Miralax] 17 g PO DAILY #0 07/27/16 05/04/17 History Clotrimazole 1% Cream 1 applicatio TOP BID 05/04/17 05/04/17 History Gabapentin [Neurontin] 100 mg PO HS 05/04/17 05/04/17 History Hydrocodone/APAP 7.5/325 [[place] 1 tab PO BID 05/04/17 05/04/17 History 7.5/325] Milk of Magnesia [Mom] 30 ml PO PRN PRN MDD 2 DOSES Q24HRS 05/04/17 05/04/17 History Mineral Oil Oral Liq [Mineral Oil] 2 drops EACH EAR HS 05/04/17 05/04/17 History Mirabegron [Myrbetriq] 50 mg PO HS 05/04/17 05/04/17 History Propylene Glycol/Peg 400 [Systane 1 drop EACH EYE BID 05/04/17 05/04/17 History Gel Eye Drops] Trolamine Salicylate/Aloe Vera 1 applicatio TOP BID 05/04/17 05/04/17 History [Aspercreme 10% Cream] Allergies Allergy/AdvReac Type Severity Reaction Status Date / Time sulfamethoxazole Allergy Severe tongue Verified 05/04/17 01:42 swells trimethoprim Allergy Severe tongue Verified 05/04/17 01:42 swells doxycycline Allergy Unknown "THROAT Verified 05/04/17 01:42 SWELLING" Exam Vital Signs: Pulse Rate 64 05/04/17 03:30 Respiratory Rate 20 05/04/17 03:30 Blood Pressure 132/69 05/04/17 03:30 Pulse Oximetry 98 05/04/17 03:30 - Constitutional Present: morbidly obese, somnolent - Routine HEENT Exam Head: Present: normocephalic, atraumatic - Routine Respiratory Exam Present: accessory muscle use, dyspnea, decreased breath sounds, rhonchi - Routine Cardiovascular Exam Present: RRR - Routine Abdominal Exam Present: soft - Routine Extremities Exam Present: edema (1+) - Routine Skin Exam Present: dry Results - Labs CBC & Chem 7: 05/04/17 00:45 05/04/17 00:45 Assessment and Plan Assessment and Plan: Assessment Severe sepsis in the setting of acute RLL aspiration pneumonia-present on arrival Acute hypoxemic respiratory failure-present on arrival Suspected Acute Type II NSTEMI-present on arrival Chronic suprapubic catheter with suspicious UTI-culture pending HTN by history Dyslipidemia on statin therapy Plan Patient will be placed under ICU status, full admit. Admission is expected to cross greater than 2 midnights. I have requested IVF bolus, 30 ml/kg, to be initiated in the ER. Will continue Zosyn for IV antibiotic coverage. Follow up lactic acid level later on this AM. Monitor hemodynamic status, UOP closely. Wean off BiPAP as he tolerates. Will keep NPO for now except for ice chips and sips of water. Will trend troponins, initiate therapeutic dose of LMWH for now. Continue ASA and statin. Will need to monitor urine culture data. The remainder of his home meds have been reviewed and reconciled. Patient has advanced directives for DNR status. DVT ppx: Full dose LMWH as above GI ppx: IV PPI has been ordered in admission orders - Physician Narrative Physician: Gertrudis Kumar MD Narrative: Date: 05/04/17 Time: 1300 Dr. Ramos's note reviewed. Mr. Franco interviewed and examined. Old records reviewed. CC: Vomiting/hypoxia HPI: Mr. Franco is an 86-year-old male who lives at [facility]. The patient is unable to provide any historical information. Late yesterday evening he was found by nursing staff at with vomit on his person. He became progressively short of breath over the next several hours requiring up to 6 liters of oxygen at the skilled nursing. When EMS arrived he remained hypoxemic and was placed on a non-rebreather mask. O2 sats remained in the mid-80s by report. He was placed on CPAP, and then eventually BiPAP in the emergency department. He initially required 60% FiO2 on BiPAP, but was weaned to 40% before transfer to the ICU. ABG showed a pH of 7.35, PCO2 of 46, PO2 of 134 on 60% FiO2. A chest x-ray shows a possible right lower lobe infiltrate. He was given one gram of IV cefepime in the ED. A lactic acid level is 2.8. A troponin is 0.[address] or T wave changes. Urinalysis is questionably dirty, but he has a suprapubic catheter and suspected chronic bacterial colonization. He has advanced directives for a DNR status. He is now in the process of being transitioned to the ICU for further medical care. When evaluated in the ICU at present the patient was on BiPAP with FiO2 30%; he was converted to nasal cannula oxygen without difficulty at 5 L with good O2 sat. Patient reports that he doesn't feel very good and that his ears hurt; initially later saying that everything hurts-he does not respond to questions about vomiting or difficulty breathing indicating that he can't hear. [facility] reports that the patient this regard speech therapy recommendations for thickened liquids and consistently drinks normal liquids but has complied with pured diet. PMH: In additions to problems described above (all history below taken from past records)- CKD IBS DM- Type 2 Post polio syndrome Depression Hearing loss Dysphagia HTN pEF, pHTN Echo 2016--EF50-55%, PAP 68 NSTEMI 08/20 Hypospadias with urinary retention V.Tach, nonsustained 08/20. PSH: Cystoscopy-2013, 2011, 2010 Colonoscopy-2004 Tonsillectomy Right foot surgery related to foot drop Suprapubic catheter placement SH: No history of tobacco, alcohol, illicit drug use; resident at [facility] , patient's [id number] Nina Franco is his DPOA and he has a DO NOT RESUSCITATE order. FH: Father-Parkinson's disease, ; mother, sister-diabetes mellitus ROS: 10 point review unobtainable EXAM: General-NAD, very EGEGIK, mumbled speech; 97.4, 62, 18, 140/73 O2 sat in the upper 90s on 2 L supplemental oxygen by nasal cannula HEENT-PERRL, conjunctiva clear, sclera anicteric, conjugate gaze, facial structures symmetric, oropharynx clear anteriorly-tongue enlarged and limits view of post pharynx, neck supple and without adenopathy Lungs-respirations nonlabored, fair airflow, breath sounds diminished posterior/ lateral left base; no wheezing or rhonchi appreciated Cardiac-regular rhythm, diminished heart tones Abd-obese, soft, nontender, breath sounds present although diminished Ext-bilateral lower extremity edema, +2 and pitting bilateral calf/shins, +4 right foot, +3 left foot Skin-multiple small bruises forearms, small scabbed area at the tip of the nose , keratotic growth along the left pinna Neuro-EOMI, facial structure symmetric, tongue midline; sensation intact to touch 4 extremities, generalized weakness-raises arms several inches off of bed , minimal movement of the feet in response to stimulation Psych-calm, unable to fully assess due to hearing loss/lack of responses DATA: Chest x-ray reviewed by myself-no obvious infiltrate or heart failure. EKG also reviewed by myself demonstrating sinus rhythm with occasional PVCs, first-degree AV block, erratic baseline, and diffuse scooping of the ST segments but no ST elevation. Minor leukocytosis, unremarkable electrolytes, troponin 0.147-0.634, lactic acid 2.8-1.3. Procalcitonin nondetectable. UA with 50-200 WBCs, positive nitrite , +1 bacteria-suprapubic catheter sample. ABG as previously described. A/P: Severe sepsis Acute hypoxic respiratory failure Acute aspiration with pneumonitis/possible pneumonia Dysphagia Pyuria Elevated troponin, probable type II [place] Macroglossia Hypertension Dyslipidemia Chronic urinary retention-suprapubic catheter Diabetes mellitus Mr. Franco presented with acute hypoxic respiratory failure following presumed aspiration of emesis. Chest x-ray was initially interpreted as right lower lobe infiltrate although I don't see significant abnormality. Repeat labs are pending. Continue Zosyn pending blood cultures but given rapid improvement in respiratory status suspect pneumonitis is bigger factor than old overt pneumonia. Repeat CXR in am, titrate O2 as permitted, ABG off bipap to evaluated pCO2. Serial troponins being followed until troponin peaks; has previously seen Dr. Bassett should cardiac intervention become necessary. Will discuss further with his DPOA when available and determine how aggressive family wishes to be inpatient care. Continue aspirin/atorvastatin/Imdur; bradycardia precludes initiation of beta dequan. Significant lower extremity edema is present, suspect sleep apnea due to macroglossia (recently described) and nursing description of respiratory pattern sleeping. Continue BiPAP at night. Further evaluation pending family wishes. Check BNP in am. Bedside swallow assessment, anticipate resumption of pured diet with thickened liquids pending formal speech therapy evaluation. Suspect urinary findings are chronic in light of suprapubic catheter. Sepsis Assessment - Evaluation SIRS Criteria: temperature < 96.8, WBC > 12,000, RR > 20 Severe Sepsis: lactate > 2.0 mg/dL - Focused Exam-within 6 hours of IVF Bolus Respiratory exam: Present: accessory muscle use, dyspnea, rhonchi Cardiovascular exam: Present: RRR Hospital Course Summary Disclaimer: The visit summary below is not to be considered part of the above Progress Note. Hospital Course: 05/04/17 14:17 Mr. Franco presented with acute hypoxic respiratory failure following presumed aspiration of emesis. Chest x-ray was initially interpreted as right lower lobe infiltrate although I don't see significant abnormality. Repeat labs are pending. Continue Zosyn pending blood cultures but given rapid improvement in respiratory status suspect pneumonitis is bigger factor than old overt pneumonia. Repeat CXR in am, titrate O2 as permitted, ABG off bipap to evaluated pCO2. Serial troponins being followed until troponin peaks; has previously seen Dr. Bassett should cardiac intervention become necessary. Will discuss further with his DPOA when available and determine how aggressive family wishes to be inpatient care. Continue aspirin/atorvastatin/Imdur; bradycardia precludes initiation of beta dequan. Check BNP in am. Significant lower extremity edema is present, suspect sleep apnea due to macroglossia (recently described) and nursing description of respiratory pattern sleeping. Continue BiPAP at night. Further evaluation pending family wishes. Bedside swallow assessment, anticipate resumption of pured diet with thickened liquids pending formal speech therapy evaluation. Suspect urinary findings are chronic in light of suprapubic catheter.
[2017-05-04] MEDS: PIPERACILLIN/TAZOBACTAM 3.375 GM in NS 100 ML IV SCH ×4 (04:46→22:36)
[2017-05-04 05:23] VITALS: BMI 33.9
[2017-05-04] MEDS: ISOSORBIDE MONONITRATE ER 30 MG TABLET PO SCH (06:35)
[2017-05-04] MEDS: ASPIRIN *EC* 81 MG TABLET PO SCH (09:41)
[2017-05-04] MEDS ORDERED: INSULIN ASPART 100unit/ml INJECTION SQ PRN (14:17)
[2017-05-04] MEDS: ENOXAPARIN 100 MG/ML INJECTION SQ SCH (20:04)
[2017-05-04] MEDS ORDERED: TAMSULOSIN 0.4 MG CAPSULE PO SCH (21:00)
[2017-05-04] MEDS: ATORVASTATIN 40 MG TABLET PO SCH (21:01)
[2017-05-04] MEDS: MORPHINE SULFATE 4mg INJECTION IVP PRN (21:32)
[2017-05-04] MEDS: SYSTANE EYE DROPS 0.7ml EACH EYE SCH ×2 (22:28→23:43)
[2017-05-05] MEDS: MORPHINE SULFATE 4mg INJECTION IVP PRN ×3 (00:23→23:32)
[2017-05-05] MEDS: NS 1,000 ML IV SCH (03:23)
[2017-05-05] MEDS: PIPERACILLIN/TAZOBACTAM 3.375 GM in NS 100 ML IV SCH ×4 (04:09→20:04)
[2017-05-05] MEDS: D5NS 1,000 ML IV SCH ×2 (05:51→15:45)
[2017-05-05] MEDS: ISOSORBIDE MONONITRATE ER 30 MG TABLET PO SCH (06:10)
[2017-05-05] MEDS ORDERED: DEXTROSE 50% SYRINGE 50ml (1 AMP) IVP ONE ×2 (07:00→10:00)
[2017-05-05] MEDS: SYSTANE EYE DROPS 0.7ml EACH EYE SCH ×2 (08:23→22:15)
[2017-05-05] MEDS: ASPIRIN *EC* 81 MG TABLET PO SCH (08:23)
[2017-05-05] MEDS: ENOXAPARIN 100 MG/ML INJECTION SQ SCH ×2 (08:24→22:14)
--- NOTE | 2017-05-05 10:09 | XRay Report ---
Indication: shortness of air aspiration PROCEDURE: XR chest 1V: Encounter: Initial Comparison: September 10, 2016 Findings: The lungs are stable in appearance without new focal airspace consolidation. There is no pleural effusion or pneumothorax. The heart size, pulmonary vascularity and mediastinal contours are unchanged. IMPRESSION: Stable appearance of the chest without acute cardiopulmonary disease. .
--- NOTE | 2017-05-05 10:40 | XRay Report ---
Indication: hypoxia, aspiration pneumonitis PROCEDURE: XR chest 1V: Encounter: Initial Comparison: May 04, 2017 Findings: Increasing prominence of the interstitial markings bilaterally with new fluid along the minor fissure. No pneumothorax. Small pleural effusions. Heart size and mediastinal contours are stable. Pulmonary vascularity is more prominent. Impression: New moderate pulmonary edema. .
[2017-05-05] MEDS ORDERED: PIPERACILLIN/TAZOBACTAM 3.375 GM in NS 100 ML IV SCH (11:15)
[2017-05-05] MEDS: POLYETHYL GLYCOL 3350 17gm PACKET PO SCH (14:27)
[2017-05-05] MEDS ORDERED: FUROSEMIDE 20 MG/2 ML INJECTION IVP ONE (14:53)
[2017-05-05] MEDS: HYDROCODONE/APAP 5mg/325mg TABLET PO PRN (15:10)
--- NOTE | 2017-05-05 16:02 | Progress Note ---
- Date 05/05/17 Subjective: Mr. Franco has a sound amplification system present and responds to occasional questions ignoring others. His speech is very mumbled and responses can generally does not be made out when he does respond. Nursing reports that he has been taking bites of applesauce without difficulty. His [id number]/ DPOA requested no further speech therapy evaluation and that he be allowed to eat his usual diet and drink regular liquids as per the retirement schedule as it's one of the very few things he can enjoy even if it poses a risk. Blood sugars have been low today requiring D50 administration due to limited oral intake and the patient has been agitated at times pulling out 2 IVs. Urine output has been good. Patient did not tolerate BiPAP last night wearing it for 10 minutes on one occasion and 60 minutes later. He has occasional cough with no apparent sputum production. Objective Vital signs: Temperature 97.4 F 05/05/17 12:00 Pulse Rate 62 05/05/17 12:00 Respiratory Rate 17 05/05/17 12:00 Blood Pressure 133/63 05/05/17 12:01 Pulse Oximetry 95 -2 L 05/05/17 12:00 I/O 2996/1330 EXAM General-patient was irritable when seen, NAD, very hard of hearing, mumbled speech HEENT-thickened/enlarged tongue, conjunctiva clear Lungs-respirations nonlabored, upper anterior lung pablo slightly coarse, posterior pablo not evaluated; no wheezing Cardiac-regular rhythm, distant heart tones Abd-obese, soft, nontender, suprapubic catheter present Ext-+2-3 edema bilateral lower extremities, trace edema upper extremities Psych-irritable/agitated - Rhythm: Normal Sinus Rhythm Height/Weight/BMI: Height 1.57 m Weight 73.3 kg Body Mass Index 33.9 Results - Labs CBC & Chem 7: 05/05/17 05:16 05/05/17 05:16 Labs: Phosphorus 3.4, magnesium 1.8 ProBNP 1690, troponin 1.08-1.17-1.12 Microbiology Results: BC x 2 neg after 1 day UC with GNR and SA - ABG Interpretation ABG results: - ECG Data Tracing #2 I reviewed this ECG and interpreted as documented below: (sinus rhythm with first-degree AV block, nonspecific interventricular conduction delay, diffusely flattened T waves, no acute changes--no significant change from initial EKG although baseline is improved.) - Imaging and Cardiology Chest x-ray Status: image reviewed by me (increased markings throughout both lung pablo- pneumonitis versus edema) Assessment and Plan Assessment and Plan: Assessment: Severe sepsis Acute hypoxic respiratory failure Acute aspiration with pneumonitis/possible pneumonia Dysphagia, chronic Hypoglycemia-acute Acute on chronic diastolic CHF Pyuria, possible UTI Elevated troponin, probable type II [place] Macroglossia Hypertension Dyslipidemia Chronic urinary retention-suprapubic catheter Diabetes mellitus-diet controlled Hearing loss Delirium-acute Plan: -Initial chest x-ray read as unremarkable, today's x-ray with increased infiltrates/vascular markings. Continue Zosyn pending blood cultures at 48 hours. Fluid balance positive and BNP elevated--> Lasix 1 dose. -Oxygenation stable on 2 L. -DPMAMTA has requested limited interventions to treat acute problems but does not wish to restrict diet or anticipate procedural/surgical interventions. She is aware troponin is elevated and is open to medication changes to stabilize a cardiac event but would not wish to pursue cardiac catheterization or other interventions. -Continue Lovenox, aspirin, statin. Heart rate precludes beta dequan. Will discuss further with Dr. Bassett when available. EKG without acute change. -Fluid balance positive, BNP elevated, chest x-ray suggests heart failure ( although could be pneumonitis) and diuresis initiated. Fluids discontinued. -Recurrent hypoglycemia this morning, nothing by mouth yesterday pending bedside swallow evaluation but will resume pured diet in light of DP's wishes. -More agitated today, unclear if this represents recent baseline at retirement or an acute change. Will discuss further with family members when available in the ICU. Symptomatic management. -UC with both gram-negative hetal and staph aureus on preliminary report however patient has indwelling Sterling catheter and significance of finding unclear. Patient clearly septic on arrival and believed to be due to aspiration but cannot exclude possibility that urine infection was triggering event. Await sensitivities. Nursing provides majority of current history. DVT Prophylaxis: Lovenox Resuscitation Status: Do Not Resuscitate - Physician Narrative Narrative: Date: 05/05/17 Time: 1557 Hospital Course Summary Disclaimer: The visit summary below is not to be considered part of the above Progress Note. Hospital Course: 05/04/17 14:17 Mr. Franco presented with acute hypoxic respiratory failure following presumed aspiration of emesis. Chest x-ray was initially interpreted as right lower lobe infiltrate although I don't see significant abnormality. Repeat labs are pending. Continue Zosyn pending blood cultures but given rapid improvement in respiratory status suspect pneumonitis is bigger factor than old overt pneumonia. Repeat CXR in am, titrate O2 as permitted, ABG off bipap to evaluated pCO2. Serial troponins being followed until troponin peaks; has previously seen Dr. Bassett should cardiac intervention become necessary. Will discuss further with his DPOA when available and determine how aggressive family wishes to be inpatient care. Continue aspirin/atorvastatin/Imdur; bradycardia precludes initiation of beta dequan. Check BNP in am. Significant lower extremity edema is present, suspect sleep apnea due to macroglossia (recently described) and nursing description of respiratory pattern sleeping. Continue BiPAP at night. Further evaluation pending family wishes. Bedside swallow assessment, anticipate resumption of pured diet with thickened liquids pending formal speech therapy evaluation. Suspect urinary findings are chronic in light of suprapubic catheter. 05/05/17 -Initial chest x-ray read as unremarkable, today's x-ray with increased infiltrates/vascular markings. Continue Zosyn pending blood cultures at 48 hours. Fluid balance positive and BNP elevated--> Lasix 1 dose. -Oxygenation stable on 2 L. -DPOA has requested limited interventions to treat acute problems but does not wish to restrict diet or anticipate procedural/surgical interventions. She is aware troponin is elevated and is open to medication changes to stabilize a cardiac event but would not wish to pursue cardiac catheterization or other interventions. -Continue Lovenox, aspirin, statin. Heart rate precludes beta dequan. Will discuss further with Dr. Bassett when available. EKG without acute change. -Fluid balance positive, BNP elevated, chest x-ray suggests heart failure ( although could be pneumonitis) and diuresis initiated. Fluids discontinued. -Recurrent hypoglycemia this morning, nothing by mouth yesterday pending bedside swallow evaluation but will resume pured diet in light of DPOA's wishes. -More agitated today, unclear if this represents recent baseline at retirement or an acute change. Will discuss further with family members when available in the ICU. Symptomatic management. -UC with both gram-negative hetal and staph aureus on preliminary report however patient has indwelling Sterling catheter and significance of finding unclear. Patient clearly septic on arrival and believed to be due to aspiration but cannot exclude possibility that urine infection was triggering event. Await sensitivities.
[2017-05-05] MEDS ORDERED: D5W 1,000 ML IV SCH (16:45)
[2017-05-05] MEDS ORDERED: METOCLOPRAMIDE 10mg/2ml INJECTION IVP PRN (18:30)
[2017-05-05] MEDS: HALOPERIDOL 5 MG/ML INJECTION IVP PRN ×2 (18:38→23:01)
[2017-05-05] MEDS: MIRABEGRON 25mg TABLET PO SCH ×2 (19:54→20:08)
[2017-05-05] MEDS: GABAPENTIN 100 MG CAPSULE PO SCH ×2 (19:55→20:08)
[2017-05-05] MEDS: HYDROCODONE/APAP 7.5 MG/325 MG TABLET PO SCH ×2 (19:55→20:07)
[2017-05-05] MEDS: ACETAMINOPHEN 500 MG TABLET PO SCH (22:15)
[2017-05-05] MEDS: ATORVASTATIN 40 MG TABLET PO SCH (22:15)
[2017-05-06] MEDS: D10W 1,000 ML IV SCH (03:05)
[2017-05-06] MEDS: PIPERACILLIN/TAZOBACTAM 3.375 GM in NS 100 ML IV SCH ×2 (03:20→09:24)
[2017-05-06] MEDS ORDERED: FALL RISK - PHARMACY CONSULT MC ONE (04:12)
[2017-05-06] MEDS: MORPHINE SULFATE 4mg INJECTION IVP PRN (05:38)
[2017-05-06] MEDS: HALOPERIDOL 5 MG/ML INJECTION IVP PRN (05:38)
[2017-05-06] MEDS: ISOSORBIDE MONONITRATE ER 30 MG TABLET PO SCH (06:14)
[2017-05-06] MEDS: HYDROCODONE/APAP 7.5 MG/325 MG TABLET PO SCH ×2 (10:09→22:18)
[2017-05-06] MEDS: CITALOPRAM 20 MG TABLET PO SCH (10:09)
[2017-05-06] MEDS: ASPIRIN *EC* 81 MG TABLET PO SCH (10:09)
[2017-05-06] MEDS: ACETAMINOPHEN 500 MG TABLET PO SCH ×2 (10:12→21:07)
[2017-05-06] MEDS: SYSTANE EYE DROPS 0.7ml EACH EYE SCH ×2 (10:14→22:21)
[2017-05-06] MEDS: ENOXAPARIN 100 MG/ML INJECTION SQ SCH ×2 (12:54→21:08)
[2017-05-06] MEDS: POLYETHYL GLYCOL 3350 17gm PACKET PO SCH (12:59)
[2017-05-06] MEDS: LIDOCAINE 1% 2ml INJ 10 MG, POTASSIUM CHLORIDE INJ 10 MEQ in NS 100 ML IV SCH ×5 (14:03→23:07)
[2017-05-06] MEDS: NS 1,000 ML IV SCH (15:47)
--- NOTE | 2017-05-06 15:54 | Progress Note ---
- Date 05/06/17 Subjective: Lencho was seen this morning and responded to questions although his speech is too mumble to understand; I saw him again early this afternoon when his sister- in-law and a niece were present. Nursing reports persistent hypoglycemia overnight requiring change from D5W to D10W, variable agitation with refusal to permit phlebotomy this morning, and patient belief that staff was trying to kill him. His [id number] reports that the patient has had similar episodes of delirium associated with acute infections in the past. His niece reports improved oral intake at breakfast and lunch today and that he seems to be interacting with family members more today than he did yesterday with the prior day. Patient complain ear pain when I put his headphones on and told nursing that he had pain all over early this morning. Objective Vital signs: Temperature 96.8 F 05/06/17 08:00 Pulse Rate 49 L 05/06/17 08:00 Respiratory Rate 29 H 05/06/17 07:00 Blood Pressure 171/79 H 05/06/17 07:00 Pulse Oximetry 97 05/06/17 07:00 I/O 2116/3004 EXAM General-NAD, drowsy, normal speech HEENT-conjugate gaze, conjunctiva clear, prominent tongue-protrudes slightly Lungs-respirations nonlabored, anterior breath sounds moderately coarse, no wheezing, poor inspiratory effort Cardiac-irregular rhythm,distant heart tones Abd-obese/distended, non-tender, diminished BS Ext-+1-2 pitting edema bilat LE Neuro-uses arms slightly, minimal movement LEs Psych-calm at time of my evals - Rhythm: Normal Sinus Rhythm Height/Weight/BMI: Height 1.57 m Weight 78 kg Body Mass Index 33.9 Results - Labs CBC & Chem 7: 05/06/17 12:15 05/06/17 12:15 Labs: Mg 1.7 Assessment and Plan Assessment and Plan: Assessment: Severe sepsis Acute hypoxic respiratory failure Acute aspiration with pneumonitis/possible pneumonia Dysphagia, chronic Hypoglycemia-acute 05/05/17 Hypokalemia-acute 05/06/17 Acute on chronic diastolic CHF Pyuria, possible UTI Elevated troponin, probable type II [place] Macroglossia Hypertension Dyslipidemia Chronic urinary retention-suprapubic catheter Diabetes mellitus-diet controlled Hearing loss Delirium-acute Plan: -Initial chest x-ray read as unremarkable, x-ray 05/05 with increased infiltrates/vascular markings. BC neg at 48 hours; hypoxia improved, leukocytosis improving--> convert from Zosyn to Augmentin po. CXR in am tomorrow. -Oxygenating well on 2 L; titrate off; typically is not on O2. -DPOA has requested limited interventions to treat acute problems but does not wish to restrict diet or anticipate procedural/surgical interventions. She is aware troponin is elevated and is open to medication changes to stabilize a cardiac event but would not wish to pursue cardiac catheterization or other interventions. Did not received Lovenox due to agitation and family request. -Continue Lovenox, aspirin, statin if able to do so. Heart rate precludes beta dequan. Will discuss further with Dr. Bassett when available. EKG without acute change. -Net fluid balance remains positive and chest x-ray yesterday suggested heart failure (although could be pneumonitis) and diuresis initiated. Will diurese additionally after potassium corrected. -Ongoing hypoglycemia requiring D10W administration. Improved oral intake today , monitor blood sugars frequently & titrate fluids as tolerates -Agitated intermittently, not baseline per family members. Symptomatic management. Transfer out of ICU today to minimize "ICU psychosis" as contributing factor. -UC with both MDR-E. Coli and MRSA however patient has indwelling Sterling catheter and significance of finding unclear. Patient clearly septic on arrival and believed to be due to aspiration but cannot exclude possibility that urine infection was triggering event. Augmentin will treat the E. Coli; given clinical improvement overall without addressing MRSA in the urine do not believe additional abx indicated. -potassium low after initial diuresis, oral replacement initiated. Nursing/family provide majority of current history. DVT Prophylaxis: Lovenox Resuscitation Status: Do Not Resuscitate - Physician Narrative Narrative: Date: 05/06/17 Time: 1551 Hospital Course Summary Disclaimer: The visit summary below is not to be considered part of the above Progress Note. Hospital Course: 05/04/17 14:17 Mr. Franco presented with acute hypoxic respiratory failure following presumed aspiration of emesis. Chest x-ray was initially interpreted as right lower lobe infiltrate although I don't see significant abnormality. Repeat labs are pending. Continue Zosyn pending blood cultures but given rapid improvement in respiratory status suspect pneumonitis is bigger factor than old overt pneumonia. Repeat CXR in am, titrate O2 as permitted, ABG off bipap to evaluated pCO2. Serial troponins being followed until troponin peaks; has previously seen Dr. Bassett should cardiac intervention become necessary. Will discuss further with his DPOA when available and determine how aggressive family wishes to be inpatient care. Continue aspirin/atorvastatin/Imdur; bradycardia precludes initiation of beta dequan. Check BNP in am. Significant lower extremity edema is present, suspect sleep apnea due to macroglossia (recently described) and nursing description of respiratory pattern sleeping. Continue BiPAP at night. Further evaluation pending family wishes. Bedside swallow assessment, anticipate resumption of pured diet with thickened liquids pending formal speech therapy evaluation. Suspect urinary findings are chronic in light of suprapubic catheter. 05/05/17 -Initial chest x-ray read as unremarkable, today's x-ray with increased infiltrates/vascular markings. Continue Zosyn pending blood cultures at 48 hours. Fluid balance positive and BNP elevated--> Lasix 1 dose. -Oxygenation stable on 2 L. -DPOA has requested limited interventions to treat acute problems but does not wish to restrict diet or anticipate procedural/surgical interventions. She is aware troponin is elevated and is open to medication changes to stabilize a cardiac event but would not wish to pursue cardiac catheterization or other interventions. -Continue Lovenox, aspirin, statin. Heart rate precludes beta dequan. Will discuss further with Dr. Bassett when available. EKG without acute change. -Fluid balance positive, BNP elevated, chest x-ray suggests heart failure ( although could be pneumonitis) and diuresis initiated. Fluids discontinued. -Recurrent hypoglycemia this morning, nothing by mouth yesterday pending bedside swallow evaluation but will resume pured diet in light of DPOA's wishes. -More agitated today, unclear if this represents recent baseline at [facility] or an acute change. Will discuss further with family members when available in the ICU. Symptomatic management. -UC with both gram-negative hetal and staph aureus on preliminary report however patient has indwelling Sterling catheter and significance of finding unclear. Patient clearly septic on arrival and believed to be due to aspiration but cannot exclude possibility that urine infection was triggering event. Await sensitivities. 05/06/17 16:15 Continues to improve slowly with decreased white count and improved oxygenation. Diuresed yesterday, potassium down today requiring supplementation. Additional diuresis planned. Converted from Zosyn to Augmentin for treatment of aspiration pneumonia and Escherichia coli in the urine. Persistent hypoglycemia requiring D10W infusion.
[2017-05-06] MEDS: AMLODIPINE 5 MG TABLET PO SCH (17:24)
[2017-05-06] MEDS ORDERED: FUROSEMIDE 20 MG/2 ML INJECTION IVP ONE (18:00)
[2017-05-06] MEDS: AMOX/CLAV 875 MG/125 MG TABLET PO SCH (21:06)
[2017-05-06] MEDS: ATORVASTATIN 40 MG TABLET PO SCH (21:06)
[2017-05-06] MEDS: GABAPENTIN 100 MG CAPSULE PO SCH (21:07)
[2017-05-06] MEDS: MIRABEGRON 25mg TABLET PO SCH (21:12)
[2017-05-06] MEDS: HYDROCODONE/APAP 5mg/325mg TABLET PO PRN (21:12)
[2017-05-07] MEDS: LIDOCAINE 1% 2ml INJ 10 MG, POTASSIUM CHLORIDE INJ 10 MEQ in NS 100 ML IV SCH ×2 (00:29→01:41)
[2017-05-07] MEDS: D10W 1,000 ML IV SCH ×2 (03:05→20:46)
[2017-05-07] MEDS: ISOSORBIDE MONONITRATE ER 30 MG TABLET PO SCH (06:40)
[2017-05-07] MEDS: HYDROCODONE/APAP 7.5 MG/325 MG TABLET PO SCH ×2 (08:51→20:45)
[2017-05-07] MEDS: ENOXAPARIN 100 MG/ML INJECTION SQ SCH ×2 (08:51→20:45)
[2017-05-07] MEDS: ASPIRIN *EC* 81 MG TABLET PO SCH (08:51)
[2017-05-07] MEDS: AMOX/CLAV 875 MG/125 MG TABLET PO SCH ×2 (08:51→20:44)
--- NOTE | 2017-05-07 08:51 | XRay Report ---
Indication: pneumonia/CHF PROCEDURE: XR chest 1V: Encounter: Initial Comparison: May 05, 2017 and August 27, 2016 Findings: Prior pulmonary edema has improved with continued mild diffuse interstitial prominence. Small pleural effusions. No pneumothorax. No new areas of airspace consolidation. Patient is rotated. Allowing for this the heart size and mediastinal contours are stable. Rightward tracheal deviation is chronic. Impression: Improved pulmonary edema with mild residual interstitial airspace disease. .
[2017-05-07] MEDS: POLYETHYL GLYCOL 3350 17gm PACKET PO SCH (08:52)
[2017-05-07] MEDS: ACETAMINOPHEN 500 MG TABLET PO SCH ×2 (08:52→20:45)
[2017-05-07] MEDS: AMLODIPINE 5 MG TABLET PO SCH (08:52)
[2017-05-07] MEDS: SYSTANE EYE DROPS 0.7ml EACH EYE SCH ×2 (08:52→20:46)
[2017-05-07] MEDS: CITALOPRAM 20 MG TABLET PO SCH (08:55)
--- NOTE | 2017-05-07 12:08 | Progress Note ---
- Date 05/07/17 Subjective: Patient is seen today lying in his bed. He seems to appropriately answer questions, although his speech is difficult to understand. He does answer that he is having no pain and he tells me he wants to get out of bed in a little while. He pulled out his IV this morning. He ate 75% of meals last night and this am. Objective Vital signs: Temperature 98.0 F 05/07/17 07:39 Pulse Rate 110 H 05/07/17 07:39 Respiratory Rate 18 05/07/17 07:39 Blood Pressure 134/69 05/07/17 07:39 Pulse Oximetry 95 05/07/17 07:39 Rhythm: Normal Sinus Rhythm Height/Weight/BMI: Height 1.57 m Weight 84 kg Body Mass Index 33.9 - Constitutional Present: no acute distress, well nourished, well developed, obese - Routine HEENT Exam Head: Present: normocephalic Comments: macroglossia - Routine Respiratory Exam Present: CTA bilaterally. Absent: wheezes - Routine Cardiovascular Exam Present: RRR. Absent: murmur - Routine Abdominal Exam Present: soft, normoactive bowel sounds, non distended. Absent: tenderness - Routine Extremities Exam Present: edema (1-2+ pitting R>L), normal capillary refill - Routine Skin Exam Present: dry, warm - Routine Neurological Exam Present: alert. Absent: moving all extremities (doesn't move LE's much) - Routine Lymphatic Exam Lymphatic: Absent: adenopathy - Routine Psychiatric Exam Present: normal affect, cooperative Results - Labs CBC & Chem 7: 05/07/17 04:55 05/07/17 04:55 Assessment and Plan Assessment and Plan: Assessment: Severe sepsis Acute hypoxic respiratory failure Acute aspiration with pneumonitis/possible pneumonia Dysphagia, chronic Hypoglycemia-acute 05/05/17 resolved Hypokalemia-acute 05/06/17 resolved Acute on chronic diastolic CHF Pyuria, possible UTI Elevated troponin, probable type II [place] Macroglossia Hypertension Dyslipidemia Chronic urinary retention-suprapubic catheter Diabetes mellitus-diet controlled Hearing loss Delirium-acute Plan: -Converted from Zosyn to Augmentin po yesterday. CXR this am shows improved pulmonary edema following IV Lasix yesterday. -Still requiring 1L O2; typically is not on O2. -DPOA has requested limited interventions to treat acute problems but does not wish to restrict diet or anticipate procedural/surgical interventions. -Potassium up to normal range, however, specimen was hemolyzed. Continue to follow. -Continues on D10W 50ml/hr. BS's stable. Improved oral intake, monitor blood sugars frequently & titrate fluids as tolerates -UC with both MDR-E. Coli and MRSA however patient has indwelling Sterling catheter and significance of finding unclear. Given clinical improvement overall without addressing MRSA in the urine do not believe additional abx indicated. - Physician Narrative Physician: Gertrudis Kumar MD Narrative: Date: 05/07/17 Time: 1644 I have independently evaluated and examined this patient. I reviewed the chart, the patient's history, and the [employer]/PA's documented findings as above. We discussed and formulated the assessment and plan as above with additions as below: As noted Lencho pulled out his IV earlier today-was receiving D10W. Oral intake has improved and blood sugar stable thus far. Have clarified Accu-Chek order to every 2 hours at present. Patient is up in chair and much more alert than prior days although mumbled speech precludes history from him; he is asking for some equipment from his home facility not currently available and frustrated that it can't be provided. He denied dyspnea or pain and has been afebrile. Nursing reports some hallucinations overnight and cursing at staff occasionally. Alert, cooperative at present Respirations nonlabored and breath sounds clear Abdomen benign Chest x-ray reviewed by myself-significantly improved from admission, minor increase vascular markings Continue oral therapies, monitor blood sugar closely following discontinuation of IV glucose-may require glucagon if sugar drops. Patient's manager lean is out of town-may require outpatient follow-up at a later date. DPOA updated. May be able to return to [place] tomorrow. Hospital Course Summary Disclaimer: The visit summary below is not to be considered part of the above Progress Note. Hospital Course: 05/04/17 14:17 Mr. Franco presented with acute hypoxic respiratory failure following presumed aspiration of emesis. Chest x-ray was initially interpreted as right lower lobe infiltrate although I don't see significant abnormality. Repeat labs are pending. Continue Zosyn pending blood cultures but given rapid improvement in respiratory status suspect pneumonitis is bigger factor than old overt pneumonia. Repeat CXR in am, titrate O2 as permitted, ABG off bipap to evaluated pCO2. Serial troponins being followed until troponin peaks; has previously seen Dr. Bassett should cardiac intervention become necessary. Will discuss further with his DPOA when available and determine how aggressive family wishes to be inpatient care. Continue aspirin/atorvastatin/Imdur; bradycardia precludes initiation of beta dequan. Check BNP in am. Significant lower extremity edema is present, suspect sleep apnea due to macroglossia (recently described) and nursing description of respiratory pattern sleeping. Continue BiPAP at night. Further evaluation pending family wishes. Bedside swallow assessment, anticipate resumption of pured diet with thickened liquids pending formal speech therapy evaluation. Suspect urinary findings are chronic in light of suprapubic catheter. 05/05/17 -Initial chest x-ray read as unremarkable, today's x-ray with increased infiltrates/vascular markings. Continue Zosyn pending blood cultures at 48 hours. Fluid balance positive and BNP elevated--> Lasix 1 dose. -Oxygenation stable on 2 L. -DPOA has requested limited interventions to treat acute problems but does not wish to restrict diet or anticipate procedural/surgical interventions. She is aware troponin is elevated and is open to medication changes to stabilize a cardiac event but would not wish to pursue cardiac catheterization or other interventions. -Continue Lovenox, aspirin, statin. Heart rate precludes beta dequan. Will discuss further with Dr. Bassett when available. EKG without acute change. -Fluid balance positive, BNP elevated, chest x-ray suggests heart failure ( although could be pneumonitis) and diuresis initiated. Fluids discontinued. -Recurrent hypoglycemia this morning, nothing by mouth yesterday pending bedside swallow evaluation but will resume pured diet in light of DPOA's wishes. -More agitated today, unclear if this represents recent baseline at residential or an acute change. Will discuss further with family members when available in the ICU. Symptomatic management. -UC with both gram-negative hetal and staph aureus on preliminary report however patient has indwelling Sterling catheter and significance of finding unclear. Patient clearly septic on arrival and believed to be due to aspiration but cannot exclude possibility that urine infection was triggering event. Await sensitivities. 05/06/17 16:15 Continues to improve slowly with decreased white count and improved oxygenation. Diuresed yesterday, potassium down today requiring supplementation. Additional diuresis planned. Converted from Zosyn to Augmentin for treatment of aspiration pneumonia and Escherichia coli in the urine. Persistent hypoglycemia requiring D10W infusion. 05/07/17 Continues on Augmentin and 1 L O2. BS's more stable as pt is eating better. Continues on 50ml/hr of D10W. CXR shows improvement of pulmonary edema. Potassium is corrected.
[2017-05-07] MEDS: MAGNESIUM OXIDE 400 MG TABLET PO SCH ×2 (14:40→20:45)
[2017-05-07] MEDS ORDERED: GLUCAGON 1 MG INJECTION SQ PRN (16:55)
[2017-05-07] MEDS: MIRABEGRON 25mg TABLET PO SCH (20:44)
[2017-05-07] MEDS: GABAPENTIN 100 MG CAPSULE PO SCH (20:44)
[2017-05-07] MEDS: ATORVASTATIN 40 MG TABLET PO SCH (20:45)
[2017-05-08] MEDS: ISOSORBIDE MONONITRATE ER 30 MG TABLET PO SCH (06:48)
[2017-05-08 08:19] VITALS: BP 154/68; PULSE 75; RESP 18; TEMP 98.5; O2SAT 92
[2017-05-08] MEDS: AMLODIPINE 5 MG TABLET PO SCH (09:27)
[2017-05-08] MEDS: AMOX/CLAV 875 MG/125 MG TABLET PO SCH (09:27)
[2017-05-08] MEDS: MAGNESIUM OXIDE 400 MG TABLET PO SCH (09:28)
[2017-05-08] MEDS: CITALOPRAM 20 MG TABLET PO SCH (09:28)
[2017-05-08] MEDS: ASPIRIN *EC* 81 MG TABLET PO SCH (09:28)
[2017-05-08] MEDS: ACETAMINOPHEN 500 MG TABLET PO SCH (09:29)
[2017-05-08] MEDS: POLYETHYL GLYCOL 3350 17gm PACKET PO SCH ×2 (09:29→09:46)
[2017-05-08] MEDS: ENOXAPARIN 100 MG/ML INJECTION SQ SCH (09:29)
[2017-05-08] MEDS: SYSTANE EYE DROPS 0.7ml EACH EYE SCH (09:30)
[2017-05-08] MEDS: HYDROCODONE/APAP 7.5 MG/325 MG TABLET PO SCH (09:34)
--- NOTE | 2017-05-08 10:26 | Extended Care Facility Orders ---
Admission Orders Admit to:: [facility] Allergies/Adverse Reactions: Allergies sulfamethoxazole Allergy (Severe, Verified 05/04/17 01:42) tongue swells trimethoprim Allergy (Severe, Verified 05/04/17 01:42) tongue swells doxycycline Allergy (Unknown, Verified 05/04/17 01:42) "THROAT SWELLING" Admitting Diagnosis: Sepsis Admitting Physician: Gertrudis Kumar MD Attending Physician: Gertrudis Kumar MD Code Status: Do Not Resuscitate Anticiapted Length of Stay: greater than 30 days Rehab Potential: fair Rehab Prognosis: fair Diet: 05/05/17 Dinner Regular Diet [DIET] Diet Modifications: Food Consistency: PUREE May use Facility Protocol or Standing Orders: Yes May have flu vaccine: Yes - Additional Information In Event of Arrest: Do Not Start CPR Referrals: Pepe Oneill MD [Family Provider] - (Follow up in 1 week, CBC and BMP at that time)
--- NOTE | 2017-05-08 10:31 | Discharge Summary ---
Discharge Information Date of admission: 05/04/17 02:10 Anticipated date of discharge: 05/08/17 Attending Physician: Gertrudis Kumar MD Primary care physician: Pepe Oneill MD Consults: None - Discharge Diagnosis (1) Acute respiratory failure with hypoxia Status: Acute Severe sepsis Acute hypoxic respiratory failure Acute aspiration with pneumonitis/possible pneumonia Dysphagia, chronic Hypoglycemia-acute 05/05/17 resolved Hypokalemia-acute 05/06/17 resolved Acute on chronic diastolic CHF Pyuria, possible UTI Elevated troponin, probable type II WI Macroglossia Hypertension Dyslipidemia Chronic urinary retention-suprapubic catheter Diabetes mellitus-diet controlled Hearing loss Delirium-acute - Procedures Procedures: None - Laboratory Labs: 05/07/17 04:55 05/07/17 04:55 - Microbiology Microbiology 05/04/17 00:53 Peripheral/Iv Start Blood Culture - Preliminary No Growth After 4 Days 05/04/17 00:51 Peripheral/Iv Start Blood Culture - Preliminary No Growth After 4 Days 05/04/17 00:50 Urine, Suprapubic Urine Culture - Final Staphylococcus aureus, MRSA Escherichia coli - Radiology Radiology: 05/04/17- Chest X-ray- IMPRESSION: Stable appearance of the chest without acute cardiopulmonary disease. 05/05/17- Chest Xray- Impression: New moderate pulmonary edema. 05/07/17- Chest Xray- Impression: Improved pulmonary edema with mild residual interstitial airspace disease. - Pathology None History of Present Illness HPI: This gentleman is an 86 year old longterm patient brought to the ER tonight after a suspected aspiration event. At approximately 9:30 p.m. this evening he was found with vomit on his person. He became progressively short of breath over the next several hours. He required up to 6 liters of oxygen at the longterm. When EMS arrived, he remained hypoxemic and was placed on a non- rebreather mask. O2 sats remained in the mid-80s by report. He was placed on CPAP, and then eventually BiPAP in the emergency department. He required up to 60% fio2 on BiPAP, but he has been able to be weaned to 40% fio2 in the emergency department. ABG showed a pH of 7.35, pco2 of 46, pao2 of 134 on 60% fio2. A chest x-ray shows a possible right lower lobe infiltrate. He was given one gram of IV cefepime. A lactic acid level is 2.8. A troponin is 0.[address] or T wave changes. Urinalysis is questionably dirty, but he has a suprapubic catheter and suspected chronic bacterial colonization. He has advanced directives for a DNR status. He is now in the process of being transitioned to the ICU for further medical care. Please note this patient encounter was performed via the use of telemedicine technology Objective Vital signs: Temperature 98.5 F 05/08/17 08:00 Pulse Rate 75 05/08/17 08:00 Respiratory Rate 18 05/08/17 08:00 Blood Pressure 154/68 H 05/08/17 08:00 Pulse Oximetry 92 05/08/17 08:00 Rhythm: Normal Sinus Rhythm Height/Weight/BMI: Height 1.57 m Weight 83.4 kg Body Mass Index 33.9 - Constitutional Present: no acute distress, well nourished, well developed - Routine HEENT Exam Eye: Present: EOMI ENT: Present: mucous membranes moist, dentition normal - Routine Respiratory Exam Present: diminished air movement. Absent: wheezes - Routine Cardiovascular Exam Present: RRR, S1, S2. Absent: murmur - Routine Abdominal Exam Present: soft, normoactive bowel sounds, non distended. Absent: tenderness - Routine Exam Comments: Johnson cath intact - Routine Extremities Exam Present: edema (1+ bilateral lower ext), normal capillary refill - Routine Skin Exam Present: intact, dry, warm - Routine Neurological Exam Present: alert, CN II-XII intact, moving all extremities - Routine Lymphatic Exam Lymphatic: Absent: adenopathy - Routine Psychiatric Exam Present: cooperative Hospital Course This is a general summary of the patient's hospital course. For more details refer to the complete medical record. Hospital course: 05/04/17 14:17 Mr. Franco presented with acute hypoxic respiratory failure following presumed aspiration of emesis. Chest x-ray was initially interpreted as right lower lobe infiltrate although I don't see significant abnormality. Repeat labs are pending. Continue Zosyn pending blood cultures but given rapid improvement in respiratory status suspect pneumonitis is bigger factor than old overt pneumonia. Repeat CXR in am, titrate O2 as permitted, ABG off bipap to evaluated pCO2. Serial troponins being followed until troponin peaks; has previously seen Dr. Bassett should cardiac intervention become necessary. Will discuss further with his DPOA when available and determine how aggressive family wishes to be inpatient care. Continue aspirin/atorvastatin/Imdur; bradycardia precludes initiation of beta dequan. Check BNP in am. Significant lower extremity edema is present, suspect sleep apnea due to macroglossia (recently described) and nursing description of respiratory pattern sleeping. Continue BiPAP at night. Further evaluation pending family wishes. Bedside swallow assessment, anticipate resumption of pured diet with thickened liquids pending formal speech therapy evaluation. Suspect urinary findings are chronic in light of suprapubic catheter. 05/05/17 -Initial chest x-ray read as unremarkable, today's x-ray with increased infiltrates/vascular markings. Continue Zosyn pending blood cultures at 48 hours. Fluid balance positive and BNP elevated--> Lasix 1 dose. -Oxygenation stable on 2 L. -DPOA has requested limited interventions to treat acute problems but does not wish to restrict diet or anticipate procedural/surgical interventions. She is aware troponin is elevated and is open to medication changes to stabilize a cardiac event but would not wish to pursue cardiac catheterization or other interventions. -Continue Lovenox, aspirin, statin. Heart rate precludes beta dequan. Will discuss further with Dr. Bassett when available. EKG without acute change. -Fluid balance positive, BNP elevated, chest x-ray suggests heart failure ( although could be pneumonitis) and diuresis initiated. Fluids discontinued. -Recurrent hypoglycemia this morning, nothing by mouth yesterday pending bedside swallow evaluation but will resume pured diet in light of DPOA's wishes. -More agitated today, unclear if this represents recent baseline at longterm or an acute change. Will discuss further with family members when available in the ICU. Symptomatic management. -UC with both gram-negative hetal and staph aureus on preliminary report however patient has indwelling Johnson catheter and significance of finding unclear. Patient clearly septic on arrival and believed to be due to aspiration but cannot exclude possibility that urine infection was triggering event. Await sensitivities. 05/06/17 16:15 Continues to improve slowly with decreased white count and improved oxygenation. Diuresed yesterday, potassium down today requiring supplementation. Additional diuresis planned. Converted from Zosyn to Augmentin for treatment of aspiration pneumonia and Escherichia coli in the urine. Persistent hypoglycemia requiring D10W infusion. 05/07/17 Continues on Augmentin and 1 L O2. BS's more stable as pt is eating better. Continues on 50ml/hr of D10W. CXR shows improvement of pulmonary edema. Potassium is corrected. 05/08/17- Discharge Mr Franco is seen and examined today. He is up in the chair, alert and cooperative with examination. He denies having any pain or feeling short of breath on examination. Abdomen is soft and non tender, Chronic indwelling johnson cath remains in place. Lower ext edema 1+ is present. Appetite has improved and blood sugars have stabilized. Antibiotics were changed to PO Augmentin and he has been weaned down to room air. Overall appears to be medically stable. Will discharge home to [facility] under the primary care of Dr Oneill. Would like him to follow up in 1 week. Time spent with patient: discharge greater than 30 minutes Discharge Plan - Discharge Disposition Discharge Date: 05/08/17 Disposition: 04 To [facility] Home/Facility *Condition: Stable Reason For Visit (Visit label in EMR): Sepsis - Discharge Medications *Discharge Medications: New Amoxicillin/Potassium Clav [Amox-Clav 875-125 mg Tablet] 875 mg PO Q12HR 5 Days #10 tab Magnesium Oxide [Magox] 400 mg PO BID tab Continue Citalopram Hydrobromide [Citalopram HBr] 20 mg PO DAILY #0 Bethanechol Chloride 25 mg PO TID #0 Tamsulosin HCl 0.4 mg PO HS #0 Acetaminophen 500 mg PO BID #0 Polyethylene Glycol 3350 [Miralax] 17 g PO DAILY #0 Mag-Al + Sim Oral Liq [Maalox Plus] 30 ml PO Q4H PRN #0 PRN Reason: INDIGESTION Isosorbide Mononitrate [Isosorbide Mononitrate ER] 30 mg PO ACB #30 tab Atorvastatin [Lipitor] 40 mg PO HS #30 tab Gabapentin [Neurontin] 100 mg PO HS Mirabegron [Myrbetriq] 50 mg PO HS Propylene Glycol/Peg 400 [Systane Gel Eye Drops] 1 drop EACH EYE BID Trolamine Salicylate/Aloe Vera [Aspercreme 10% Cream] 1 applicatio TOP BID Milk of Magnesia [Mom] 30 ml PO PRN PRN MDD 2 DOSES Q24HRS PRN Reason: Constipation Hydrocodone/Acetaminophen ([place] 5-325 Tablet) 1 tab PO BID PRN 30 Days #20 tab PRN Reason: PAIN Hydrocodone/APAP 7.5/325 [[place] 7.5/325] 1 tab PO BID #20 tab LORazepam [Lorazepam] 1 tab PO TID PRN #20 tab PRN Reason: ANXIETY/AGITATION Aspirin [Aspir 81] 81 mg PO DAILY #0 Amlodipine Besylate 10 mg PO DAILY #30 tab Cyanocobalamin (Vitamin B-12) [Vitamin B-12] 1,000 mcg PO DAILY #60 tab Mineral Oil Oral Liq [Mineral Oil] 2 drops EACH EAR HS Clotrimazole 1% Cream 1 applicatio TOP BID - Discharge Packet/Instructions *Diet: Regular diet with pureed food *Activity: As tolerated *Pain Management/Treatment: [place] as directed *Wound Care: None Additional Instructions: Take Augmentin antiobiotic for 5 additional days. Monitor BGM fasting and 2 hours PP as well as needed given recent hypoglycemia *Expected Signs/Symptoms: Improvement in symptoms *Notify Physician if: Fever, chills, shortness of breath, chest pain or other concerning symptoms *During Business Hours Contact: Dr Oneill's Office *After Business Hours Contact: Oncall Physician or present to the ER *Pending Lab/Results: No Pending Lab - Referrals/Follow Up *Referrals/Follow Up: Pepe Oneill MD [Family Provider] - (Follow up in 1 week, CBC and BMP at that time) - Patient Handouts Patient Handouts: Sepsis (GEN) - Dismissal Complete Discharge Instructions are:: Complete Physician Narrative - Narrative Physician: Gertrudis Kumar MD Attestation Narrative: Date: 05/08/17 Time: 1200 I have independently evaluated and examined this patient. I reviewed the chart, the patient's history, and the [employer]/PA's documented findings as above. We discussed and formulated the assessment and plan as above with additions as below: Mr. Franco was up in the chair and reported that everything is fine today. He denied dyspnea and was on room air. His speech was slightly clearer than it has been prior days but hearing loss precluded good communication. He was pleased to hear that he was returning home and asked when it would be here to pick him up. He ate well this morning but refused morning medications or initial attempt at phlebotomy. 92% saturation-room air; overnight saturation reported at 100% on room air. Respirations are nonlabored with good airflow, anterior breath sounds are clear ; abdomen is obese, soft, and nontender. Leukocytosis has resolved and electrolytes normalized. Blood sugars have remained stable off glucose infusion. Stable for discharge at this time.
== END 2017-05-08 14:00 | DRG 871 ==
LOC: ED 23:55 → CCU 05-04 02:10 → MED 05-06 15:47
PROVIDERS: ADMIT Hospitalist; ATTEND Internal Medicine